=== PATIENT | female | born 1945 | race Hispanic/Latino ===

== ENCOUNTER 2017-03-14 15:19 | Inpatient (IN) | payer MEDICARE, BC ==
[2017-03-14 15:20] VITALS: BMI 22.3
[2017-03-14 16:04] LABS: BASO # 0.03 K/mm3 (0.0-2.0); BASO % 0.2 % (0.0-3.0); GRAN # 15.15 (1.4-6.5); GRAN % 95.4 % (50.0-68.0); HEMATOCRIT 33.8 % (36.0-48.0); LYMPH # 0.6 (1.2-3.4); LYMPH % 3.7 % (22.0-35.0); MEAN CORPUSCULAR HEMOGLOBIN 28.2 pg (25.0-35.0); MEAN CORPUSCULAR HGB CONC 34.3 g/dl (31.0-37.0); MEAN PLATELET VOLUME 9.2 fl (7.0-11.0); MONO # 0.1 (0.1-0.6); MONO % 0.7 % (1.0-6.0); PLATELET COUNT 125 10^3/uL (120.0-450.0); RED CELL DISTRIBUTION WIDTH 15.4 % (11.5-14.5); WHITE BLOOD COUNT 15.9 10^3/ul (4.5-11.0)
[2017-03-14 16:06] LABS: VENOUS BLOOD GAS BASE EXCESS 1.7 mmol/L (0.0-2.0); VENOUS BLOOD PH 7.39 (7.32-7.43)
[2017-03-14] MEDS ORDERED: Piperacillin/Tazobact 3.375 gm 100 ML IVPB STA (16:21)
[2017-03-14 16:23] LABS: INR 1.45 (0.93-1.08); PARTIAL THROMBOPLASTIN TIME 43.5 Seconds (25.1-36.5)
[2017-03-14 16:26] LABS: ALB/GLOB RATIO 0.8 (1.1-1.8); BILIRUBIN,TOTAL 0.9 mg/dL (0.2-1.3); CALCIUM 7.1 mg/dL (8.4-10.5); MAGNESIUM 1.7 mg/dL (1.7-2.2); PHOSPHOROUS 4.3 mg/dL (2.5-4.5); POTASSIUM 3.3 mmol/L (3.6-5.0); TOTAL PROTEIN 5.8 g/dL (5.8-8.3)
--- NOTE | 2017-03-14 16:35 | ED PDOC ---
Arrival/HPI <AmarilisSergeiNeal - Last Filed: 03/14/17 17:10> - General Historian: Patient <Chen Lara PA-C - Last Filed: 03/15/17 01:22> - General Chief Complaint: Weakness/Neurological Deficit Time Seen by Provider: 03/14/17 15:31 - History of Present Illness Narrative History of Present Illness (Text): 03/14/17 16:47 71 yo F w/ PMH of HTN, hypothyroid, lung cancer, recently finished chemo and radiation, was just d/c from rehab on 03/08/17, brought in by family for evaluation of weakness, decrease in appetite, cough that started today with 2 week h/o diarrhea. Otherwise: (-) chest pain, (-) fever, (-) dyspnea, (-) SOB, ( -) dizziness, (-) syncope, (-) nausea, (-) vomiting, (-) abdominal pain, (-) calf swelling/pain, (-) neuro deficits. PMD Marissa Fang (Chen Lara PA-C) Past Medical History - Provider Review Nursing Documentation Reviewed: Yes - Infectious Disease Hx of Infectious Diseases: None - Reproductive Currently : No - Cardiac Hx Congestive Heart Failure: Yes - Pulmonary Hx Chronic Obstructive Pulmonary Disease (COPD): Yes - Neurological Hx Neurological Disorder: Yes - HEENT Hx HEENT Disorder: No - Renal Hx Renal Disorder: No - Endocrine/Metabolic Hx Endocrine Disorders: No - Hematological/Oncological Hx Blood Disorders: No - Integumentary Hx Dermatological Disorder: No - Musculoskeletal/Rheumatological Hx Musculoskeletal Disorders: No Hx Falls: No - Gastrointestinal Hx Gastrointestinal Disorders: No - Genitourinary/Gynecological Hx Genitourinary Disorders: No - Psychiatric Hx Psychophysiologic Disorder: No Hx Substance Use: No - Surgical History Hx Coronary Stent: Yes - Anesthesia Hx Anesthesia: Yes Hx Anesthesia Reactions: No Hx Malignant Hyperthermia: No <Chen Lara PA-C - Last Filed: 03/15/17 01:22> Family/Social History - Physician Review Nursing Documentation Reviewed: Yes Family/Social History: Unknown Family HX Smoking Status: Former Smoker Hx Alcohol Use: No Hx Substance Use: No <Chen Lara PA-C - Last Filed: 03/15/17 01:22> Allergies/Home Meds <Neal Olmos - Last Filed: 03/14/17 17:10> <Chen Lara PA-C - Last Filed: 03/15/17 01:22> Allergies/Adverse Reactions: Allergies No Known Allergies Allergy (Verified 03/14/17 15:29) Home Medications: Home Meds Medication Instructions Recorded Confirmed Alectinib HCl [Alecensa] 450 mg PO BID 02/02/17 03/14/17 Amlodipine Besylate/Benazepril 1 cap PO DAILY 02/08/17 03/14/17 [Lotrel 10-20 mg Capsule] ALPRAZolam [Xanax] 0.25 mg PO DAILY 03/14/17 03/14/17 Fluconazole [Diflucan] 200 mg PO DAILY 03/14/17 03/14/17 Furosemide [Lasix] 40 mg PO DAILY 03/14/17 03/14/17 Nystatin [Mycostatin Cream] 100,000 unit TOP DAILY 03/14/17 03/14/17 Potassium Chloride in 0.9%NaCl 20 meq PO DAILY 03/14/17 03/14/17 [Potassium Cl 20 Meq/250 ml-Ns] Prednisone 10 mg PO DAILY 03/14/17 03/14/17 Review of Systems - Review of Systems Constitutional: Fatigue. absent: Weight Change, Fevers ENT: absent: Sore Throat, Rhinorrhea, Sinus Congestion Respiratory: Cough. absent: SOB, Sputum Cardiovascular: absent: Chest Pain, Palpitations, Edema Gastrointestinal: Diarrhea, Appetite Changes. absent: Abdominal Pain, Vomiting Genitourinary Female: absent: Dysuria, Frequency, Hematuria Skin: absent: Rash, Pruritis, Skin Lesions <Chen Lara PA-C - Last Filed: 03/15/17 01:22> Physical Exam <Neal Olmos - Last Filed: 03/14/17 17:10> <Chen Lara PA-C - Last Filed: 03/15/17 01:22> - Physical Exam Narrative Physical Exam (Text): 03/14/17 16:53 GENERAL APPEARANCE: Patient is awake, alert, oriented x 3, cachectic, pale in appearance, in mild distress. SKIN: Warm, dry; (-) cyanosis. EYES: (-) conjunctival pallor. ENMT: Mucous membranes dry. NECK: (-) tenderness, (-) stiffness, (-) lymphadenopathy, (-) JVD. CHEST AND RESPIRATORY: (-) rash, (-) chest wall tenderness. Lungs: (+) rales , (+) scattered rhonchi, (-) wheezes, (-) rub; breath sounds equal bilaterally. HEART AND CARDIOVASCULAR: (-) irregularity; (-) murmur, (-) gallop, (-) rub. ABDOMEN AND GI: Soft; (-) distention, (-) tenderness, (-) palpable pulsatile mass. EXTREMITIES: (-) deformity; (-) edema, (-) calf tenderness. (+) distal pulses. NEURO AND PSYCH: Mental status as above. Cranial nerves grossly intact; strength symmetric. (Chen Lara PA-C) Vital Signs Temp Pulse Resp BP Pulse Ox 03/14/17 18:00 97.7 F 97 H 16 123/55 L 94 L 03/14/17 17:34 97.7 F 102 H 22 126/57 L 92 L 03/14/17 16:56 148/83 03/14/17 16:53 97.7 F 103 H 22 148/83 95 03/14/17 15:42 100 F H 116 H 22 105/63 100 03/14/17 15:26 120 H 28 H 78/55 L Medical Decision Making <Neal Olmos - Last Filed: 03/14/17 17:10> <Chen Lara PA-C - Last Filed: 03/15/17 01:22> ED Course and Treatment: 03/14/17 16:35 71 yo F w/ PMH of HTN, hypothyroid, lung cancer, recently finished chemo and radiation, was just d/c from rehab on 03/08/17, brought in by family for evaluation of weakness, decrease in appetite, cough that started today with 2 week h/o diarrhea. Plan: -- Labs -- IV fluids bolus -- Urinalysis -- EKG -- CXR -- Reassess and disposition EKG : Sinus tach at 119 bpm, LAD, w/ PACs (-) acute ST changes. CXR : +pneumonia noted in the R side. Labs reviewed : wbc 15, bun 45 / creat 1.3, NA 119, BNP 2700, lactic acid 4.9 - code sepsis called. CXR reviewed, zosyn IV ordered. Case d/w Dr. Ann, agrees with plan for admission and with consult to the application development specialist. Request consults with Dr. Worrell and Dr. Barnes. VS : T 100 P 116 BP 105/63 R 22 O2sat 100%on NC Case d/w the application development specialist Dr. Montelongo, agrees for admission to ICU. (Marco ROJAS,Chen Enriquez) - Lab Interpretations Lab Results: 03/14/17 15:45 03/14/17 15:45 Lab Results 03/14/17 15:45: Sodium 119 L*, Chloride 79 L, Potassium 3.3 L, Carbon Dioxide 26 , Anion Gap 17, BUN 45 H, Creatinine 1.3 H, Est GFR ( Amer) 49, Est GFR ( Non-Af Amer) 41, Random Glucose 138 H, Calcium 7.1 L, Phosphorus 4.3, Magnesium 1.7, Total Bilirubin 0.9, AST 33, ALT 30, Alkaline Phosphatase 214 H D, NT-Pro- B Natriuret Pep 2710 H, Total Protein 5.8, Albumin 2.6 L, Globulin 3.2, Albumin/ Globulin Ratio 0.8 L 03/14/17 15:45: pO2 31, VBG pH 7.39, VBG pCO2 45.0, VBG HCO3 27.2, VBG Total CO2 28.6 H, VBG O2 Sat (Calc) 66.2 H, VBG Base Excess 1.7, VBG Potassium 3.4 L, Sodium 121.0 L, Chloride 81.0 L, Glucose 142 H, Lactate 4.9 H*, FiO2 21.0, Venous Blood Potassium 3.4 L 03/14/17 15:45: PT 15.9 H, INR 1.45 H, APTT 43.5 H 03/14/17 15:45: WBC 15.9 H, RBC 4.12, Hgb 11.6 L, Hct 33.8 L, MCV 82.0, MCH 28.2 , MCHC 34.3, RDW 15.4 H, Plt Count 125, MPV 9.2, Gran % 95.4 H, Lymph % (Auto) 3.7 L, Butler % (Auto) 0.7 L, Eos % (Auto) 0.0 L, Baso % (Auto) 0.2, Gran # 15.15 H, Lymph # 0.6 L, Butler # 0.1, Eos # 0.0, Baso # 0.03, Neutrophils % (Manual) 93 H, Band Neutrophils % 3 H, Lymphocytes % (Manual) 4 L, Monocytes % (Manual) TEST NOT PERFORMED, Toxic Granulation 2+, Platelet Evaluation Normal, Hypochromasia 2+, Anisocytosis (manual) 2+, Target Cells 1+, Rouleaux 2+ - RAD Interpretation Radiology Orders: 03/14/17 15:44 CHEST PORTABLE [RAD] Stat - Medication Orders Current Medication Orders: Al Hydrox/Mg Hydrox/Simethicone 30 ml/Diphenhydramine HCl 75 mg/Lidocaine 30 ml 0 ml PO Q2H PRN PRN Reason: Mouth/Throat Pain Heparin Sodium (Porcine) (Heparin) 5,000 units SC Q8H [facility] PRN Reason: Protocol Last Admin: 03/14/17 20:38 Dose: 5,000 units Subcutaneous Administrations Document 03/14/17 20:38 KGD (Rec: 03/14/17 20:38 KGD [id number]) Injection Site MAR Injection Site Right Abdomen Charges for Administration # of Subcutaneous Administrations 1 Hydrocortisone Sodium Succinate (Solu-Cortef) 50 mg IVP Q8H [facility] Last Admin: 03/14/17 20:39 Dose: 50 mg IVP Administration Document 03/14/17 20:39 KGD (Rec: 03/14/17 20:39 KGD [id number]) Charges for Administration # of IVP Administrations 1 Sodium Chloride (Sodium Chloride 0.9%) 1,000 mls @ 100 mls/hr IV .Q10H [facility] Last Admin: 03/14/17 20:39 Dose: 100 mls/hr eMAR Start Stop Document 03/14/17 20:39 KGD (Rec: 03/14/17 20:39 KGD [id number]) Intravenous Solution Start Date 03/14/17 Start Time 20:39 Meropenem (Merrem Iv 1 Gm Premix) 50 mls @ 100 mls/hr IVPB Q12 [facility] PRN Reason: Protocol Stop: 03/21/17 22:31 Last Admin: 03/14/17 23:35 Dose: 100 mls/hr eMAR Start Stop Document 03/14/17 23:35 KGD (Rec: 03/14/17 23:35 KGD [id number]) Intravenous Solution Start Date 03/14/17 Start Time 23:35 Linezolid (Zyvox 600mg/300ml D5w) 600 mg in 300 mls @ 200 mls/hr IVPB Q12 [facility] PRN Reason: Protocol Stop: 03/21/17 22:31 Last Admin: 03/14/17 23:33 Dose: 200 mls/hr eMAR Start Stop Document 03/14/17 23:33 KGD (Rec: 03/14/17 23:33 KGD [id number]) Intravenous Solution Start Date 03/14/17 Start Time 23:33 Nystatin (Nystatin Oral Susp) 5 ml PO QID [facility] Last Admin: 03/14/17 23:33 Dose: 5 ml Ondansetron HCl (Zofran Inj) 4 mg IVP Q6H PRN PRN Reason: Nausea/Vomiting Pantoprazole Sodium (Protonix Inj) 40 mg IVP DAILY [facility] Last Admin: 03/14/17 20:38 Dose: 40 mg IVP Administration Document 03/14/17 20:38 KGD (Rec: 03/14/17 20:38 KGD [id number]) Charges for Administration # of IVP Administrations 1 Discontinued Medications Furosemide (Lasix) 20 mg IVP STAT STA Stop: 03/14/17 16:31 Last Admin: 03/14/17 16:56 Dose: 20 mg MAR Blood Pressure Document 03/14/17 16:56 OCS (Rec: 03/14/17 16:56 OCS [id number]) Blood Pressure Blood Pressure (100/60-150/90) 148/83 IVP Administration Document 03/14/17 16:56 OCS (Rec: 03/14/17 16:56 OCS [id number]) Charges for Administration # of IVP Administrations 1 Furosemide (Lasix) 20 mg IVP ONCE ONE Stop: 03/14/17 21:48 Last Admin: 03/14/17 21:55 Dose: 20 mg MAR Blood Pressure Document 03/14/17 21:55 JBO (Rec: 03/14/17 21:56 JBO [id number]) Blood Pressure Blood Pressure (100/60-150/90) 120/62 IVP Administration Document 03/14/17 21:55 JBO (Rec: 03/14/17 21:56 JBO [email or web address]) Charges for Administration # of IVP Administrations 1 Lactated Ringer's 1,300 ml/ IV (SUPPLIES) 1,300 mls @ 2,721.54 mls/hr IV ONCE ONE PRN Reason: 60 ML/KG/HR Stop: 03/14/17 15:49 Last Admin: 03/14/17 15:58 Dose: 2,721.54 mls/hr eMAR Start Stop Document 03/14/17 15:58 OCS (Rec: 03/14/17 15:59 OCS [id number]) Intravenous Solution Start Date 03/14/17 Start Time 15:58 End Date 03/14/17 End time 16:28 Total Infusion Time 30 Sodium Chloride 1,000 ml/ IV (SUPPLIES) 1,000 mls @ 2,721.54 mls/hr IV ONCE ONE PRN Reason: 60 ML/KG/HR Stop: 03/14/17 16:12 Last Admin: 03/14/17 16:27 Dose: 2,721.54 mls/hr eMAR Start Stop Document 03/14/17 16:27 OCS (Rec: 03/14/17 16:28 OCS [id number]) Intravenous Solution Start Date 03/14/17 Start Time 16:27 End Date 03/14/17 End time 16:57 Total Infusion Time 30 Piperacillin Sod/Tazobactam Sod (Zosyn 3.375 In Ns 100ml) 100 mls @ 200 mls/hr IVPB STAT STA PRN Reason: Protocol Stop: 03/14/17 16:50 Last Admin: 03/14/17 16:35 Dose: 200 mls/hr eMAR Start Stop Document 03/14/17 16:35 OCS (Rec: 03/14/17 16:35 OCS [id number]) Intravenous Solution Start Date 03/14/17 Start Time 16:35 End Date 03/14/17 End time 17:05 Total Infusion Time 30 Potassium Chloride (Potassium Chloride 20 Meq/100 Ml) 20 meq in 100 mls @ 50 mls/hr IVPB Q2H [facility] Stop: 03/14/17 21:29 Last Admin: 03/14/17 17:43 Dose: 50 mls/hr eMAR Start Stop Document 03/14/17 17:43 OCS (Rec: 03/14/17 17:43 OCS [id number]) Intravenous Solution Start Date 03/14/17 Start Time 17:43 End Date 03/14/17 End time 19:43 Total Infusion Time 120 Lactated Ringer's (Lactated Ringer's) 1,000 mls @ 2,000 mls/hr IV .Q30M [facility] Last Admin: 03/14/17 17:30 Dose: 2,000 mls/hr eMAR Start Stop Document 03/14/17 17:30 OCS (Rec: 03/14/17 17:30 OCS [id number]) Intravenous Solution Start Date 03/14/17 Start Time 17:30 End Date 03/14/17 End time 18:00 Total Infusion Time 30 Piperacillin Sod/Tazobactam Sod (Zosyn 2.25 Gm In 0.9% 100 Ml) 2.25 gm in 100 mls @ 100 mls/hr IVPB Q6 [facility] PRN Reason: Protocol Stop: 03/15/17 00:59 Last Admin: 03/14/17 20:43 Dose: 100 mls/hr eMAR Start Stop Document 03/14/17 20:43 KGD (Rec: 03/14/17 20:43 KGD [id number]) Intravenous Solution Start Date 03/14/17 Start Time 20:43 Vancomycin HCl (Vancomycin 1gm) 1 gm in 250 mls @ 167 mls/hr IVPB STAT STA PRN Reason: Protocol Stop: 03/14/17 18:51 Last Admin: 03/14/17 18:00 Dose: 167 mls/hr eMAR Start Stop Document 03/14/17 18:00 OCS (Rec: 03/14/17 18:00 OCS [id number]) Intravenous Solution Start Date 03/14/17 Start Time 18:00 End Date 03/14/17 End time 19:30 Total Infusion Time 90 Sodium Chloride (Sodium Chloride 0.9%) 1,000 mls @ 200 mls/hr IV .Q5H [facility] Last Admin: 03/14/17 17:29 Dose: 200 mls/hr eMAR Start Stop Document 03/14/17 17:29 OCS (Rec: 03/14/17 17:29 OCS [id number]) Intravenous Solution Start Date 03/14/17 Start Time 17:29 End Date 03/14/17 End time 21:29 Total Infusion Time 240 Potassium Chloride (Potassium Chloride 10 Meq/100 Ml) 10 meq in 100 mls @ 50 mls/hr IVPB ONCE ONE Stop: 03/14/17 22:07 Last Admin: 03/14/17 20:37 Dose: 50 mls/hr eMAR Start Stop Document 03/14/17 20:37 KGD (Rec: 03/14/17 20:38 KGD [id number]) Intravenous Solution Start Date 03/14/17 Start Time 20:38 Potassium Chloride (Potassium Chloride 10 Meq/100 Ml) 10 meq in 100 mls @ 50 mls/hr IVPB ONCE ONE Stop: 03/14/17 23:58 Last Admin: 03/14/17 23:33 Dose: 50 mls/hr eMAR Start Stop Document 03/14/17 23:33 KGD (Rec: 03/14/17 23:33 KGD [id number]) Intravenous Solution Start Date 03/14/17 Start Time 23:33 Potassium Chloride (K-Dur 20 Meq Er Tab) 20 meq PO ONCE ONE Stop: 03/14/17 20:09 Last Admin: 03/14/17 20:38 Dose: Not Given Non-Admin Reason: Patient Refused - PA / COOKING APPLIANCE REPAIR TECHNICIAN / Resident Statement BRE has examined the patient and agrees with the treatment plan. <Neal Olmos - Last Filed: 03/14/17 17:10> - PA / COOKING APPLIANCE REPAIR TECHNICIAN / Resident Statement BRE has reviewed & agrees with the documentation as recorded. <Chen Lara PA-C - Last Filed: 03/15/17 01:22> Disposition/Present on Arrival <Neal Olmos - Last Filed: 03/14/17 17:10> - Present on Arrival Any Indicators Present on Arrival: No History of DVT/PE: No History of Uncontrolled Diabetes: No Urinary Catheter: No History of Decub. Ulcer: No History Surgical Site Infection Following: None - Disposition Have Diagnosis and Disposition been Completed?: Yes Disposition Time: 16:34 Patient Plan: ICU <Chen Lara PA-C - Last Filed: 03/15/17 01:22> - Disposition Diagnosis: Dehydration, Sepsis, Pneumonia, Hyponatremia Disposition: HOSPITALIZED Patient Problems: Current Active Problems Problem Status Onset Dehydration Acute Hyponatremia Acute Pneumonia Acute Sepsis Acute Condition: SERIOUS
[2017-03-14 17:15] LABS: ANISOCYTOSIS 2+; BAND 3 % (0-2); HYPOCHROMIA 2+; NEUTROPHIL 93 % (50.0-70.0); PLATELET ESTIMATE NORMAL (NORMAL); TARGET CELLS 1+; TOXIC GRANULATION 2+
[2017-03-14] MEDS ORDERED: Lactated Ringer's 1,000 ML IV SCH (17:30)
[2017-03-14] MEDS ORDERED: Sodium Chloride 0.9% 1,000 ML IV SCH ×2 (17:30→19:26)
[2017-03-14] MEDS: Vancomycin 1gm in NS 250ml 1 GM/250 ML BAG IVPB STA ×2 (17:49→18:00)
--- NOTE | 2017-03-14 19:13 | CT ---
PROCEDURE: CT Chest, Abdomen and Pelvis without intravenous contrast HISTORY: colitis COMPARISON: None. TECHNIQUE: Radiation dose: Total exam DLP = 371.28 mGy-cm. This CT exam was performed using one or more of the following dose reduction techniques: Automated exposure control, adjustment of the mA and/or kV according to patient size, and/or use of iterative reconstruction technique. FINDINGS: CT CHEST WITHOUT CONTRAST: LUNGS: Current study reveals near complete opacification of the entire right nayeli thorax with areas of what are felt to represent cylindrical, varicose and cystic bronchiectasis. There appears to be an endobronchial stent in the distal right main and lower lobe bronchus. Scattered calcifications are also present of. . There is some sparing of the anterior aspect of the upper lobe. The possibility of superimposed infection not excluded. There is volume loss of the right nayeli thorax with shift of the mediastinum from left to right and compensatory hyperinflation of the left lung. . Centrilobular emphysematous changes left upper lobe predominance. Multiple of varying sized nodular opacities are seen scattered throughout the left upper and lower lobes. Rule out septic emboli with developing infiltrates. Clinical correlation recommended. MEDIASTINUM: As mentioned above, the mediastinal is shifted to the right side. The heart is mildly enlarged. No significant pericardial effusion. Evaluation for mediastinal and hilar adenopathy is limited particularly on the right side due to the significant atelectasis of as well as additionally due to lack of intravenous contrast material. LYMPH NODES: As above. PLEURA: No evidence of pneumothorax. No definitive pleural effusion. BONES: Multilevel degenerative spondylosis of the thoracic and lumbar spine. There is also a mild dextroscoliosis levoscoliosis centered at T11-T12 level. OTHER FINDINGS: None. CT ABDOMEN AND PELVIS: LIVER: Liver is enlarged measuring nearly 20 cm in CC dimension. Significant diffuse fatty hepatic infiltration. No obvious hepatic mass or collection seen on this noncontrast study. GALLBLADDER AND BILE DUCTS: Gallbladder is physiologically distended. No evidence of intraluminal gallbladder calculi. PANCREAS: Visualized portions of the pancreas appears somewhat atrophic and fatty replaced. No definitive pancreatic mass or collection though evaluation somewhat limited due to the lack of oral and intravenous contrast material as well as a paucity of intraperitoneal/retroperitoneal fat an streak and beam hardening artifact. SPLEEN: Spleen exhibits normal size and attenuation pattern without mass collection or calcification. Splenic artery calcifications. 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 ADRENALS: Enlarged bilateral adrenal glands. KIDNEYS AND URETERS: The kidneys demonstrate relatively symmetric size. No evidence of nephrolithiasis or hydronephrosis. VASCULATURE: Partially calcified atherosclerotic plaque seen along abdominal aorta and iliac arteries. No evidence of aneurysm. BOWEL: Evaluation of the bowel is limited due to the lack of oral contrast material. Stomach is partially distended fluid and air. The visualized loops of small bowel exhibit normal contour and caliber. No evidence of acute mechanical small bowel obstruction. . . There appears to be some mild wall thickening of the inferior aspect of the cecum with questionable anastomotic suture material. In addition, there also appears to be some wall thickening of the sigmoid and possibly the distal descending colon. Findings could represent a colitis. Clinical correlation recommended. Must be at considered. Most of the remaining colon is relatively collapsed and therefore difficult to evaluate. APPENDIX: Appendix is not seen with certainty. PERITONEUM: No gross free and probably air. No obvious free or loculated fluid collections. . Small umbilical/ventral wall hernia which contains a knuckle of unobstructed bowel. LYMPH NODES: Unremarkable. No enlarged lymph nodes. BLADDER: Urinary bladder the is likely distended. No evidence of intraluminal urinary bladder calculi. REPRODUCTIVE: Uterus and adnexal structures unremarkable. BONES: No acute fracture. OTHER FINDINGS: None. IMPRESSION: There is subtotal opacification of the right nayeli thorax consistent with chronic atelectasis and volume loss with underlying apparent cylindrical varicose and cystic type bronchiectasis. In situ extent of within the distal right mainstem bronchus and proximal right lower lobe bronchus. There is volume loss with shift of the mediastinum from left to right and compensatory hyperinflation of the left lung. Multiple nodular opacities scattered throughout the left upper and lower lobe which could represent septic emboli. . Findings also consistent with colitis. Hepatomegaly with significant fatty hepatic infiltration. Note these findings were discussed with ICU Nurse Reyna Kaplan at approximately 7 p.m. with written down and read back verification.
[2017-03-14 19:48] LABS: HEMATOCRIT 33.1 % (36.0-48.0); MEAN CELL VOLUME 83.2 fl (80.0-105.0); MEAN CORPUSCULAR HEMOGLOBIN 28.6 pg (25.0-35.0); MEAN CORPUSCULAR HGB CONC 34.4 g/dl (31.0-37.0); RED CELL DISTRIBUTION WIDTH 15.5 % (11.5-14.5); WHITE BLOOD COUNT 14.7 10^3/ul (4.5-11.0)
[2017-03-14 19:56] LABS: VENOUS BLOOD PH 7.35 (7.32-7.43)
[2017-03-14] MEDS ORDERED: Piperacillin/Tazobact 2.25gm 2.25 GM/100 ML BAG IVPB SCH (20:00)
[2017-03-14] MEDS ORDERED: Potassium Chloride 20 mEq ER Tab PO ONE (20:08)
[2017-03-14 20:09] LABS: ALB/GLOB RATIO 0.8 (1.1-1.8); ALKALINE PHOSPHATASE 189 U/L (38-126); ALT/SGPT 27 U/L (7-56); AST/SGOT 30 U/L (14-36); BILIRUBIN,TOTAL 0.8 mg/dL (0.2-1.3); BLOOD UREA NITROGEN 36 mg/dL (7-21); CALCIUM 6.6 mg/dL (8.4-10.5); CARBON DIOXIDE 19 mmol/L (21-33); CHLORIDE 87 mmol/L (98-107); GFR AFRICAN-AMERICAN > 60; GLUCOSE,RANDOM 107 mg/dL (70-110); POTASSIUM 3.2 mmol/L (3.6-5.0); SODIUM 120 mmol/L (132-148)
[2017-03-14 20:44] LABS: URINE BILIRUBIN NEGATIVE (NEGATIVE); URINE BLOOD TRACE-LYSED (NEGATIVE); URINE GLUCOSE (UA) NEGATIVE (NEGATIVE); URINE KETONE NEGATIVE (NEGATIVE); URINE LEUKOCYTE ESTERASE NEGATIVE Leu/uL (NEGATIVE); URINE PROTEIN NEGATIVE mg/dL (<30 mg/dL); URINE UROBILINOGEN 0.2 E.U./dL (<1 E.U./dL)
[2017-03-14 20:45] LABS: URINE APPEARANCE CLEAR (CLEAR); URINE COLOR YELLOW (YELLOW)
[2017-03-14 20:47] LABS: URINE RBC 0 - 2 /hpf (0-2)
--- NOTE | 2017-03-14 22:11 | PCM.SEPTIC ---
Sepsis Progress Note - Reassessment Type Date of Evaluation: 03/14/17 Time of Evaluation: 22:10 Reassessment Type: Non-invasive reassessment - Non Invasive Reassessment Were the most recent vital sign reviewed: Yes Vital Sign (Latest): Temp Pulse Resp BP Pulse Ox 97.7 F 97 H 16 120/62 94 L 03/14/17 18:00 03/14/17 18:00 03/14/17 18:00 03/14/17 21:55 03/14/17 18:00 Cardiovascular: Yes: Regular Rate, Rhythm. No: Edema, Tachycardia Respiratory: Yes: Decreased Breath Sounds (at R lung base), Crackles ( bilaterally ). No: Rhonchi, Wheezing, Respiratory Distress Capillary Refill: Normal (Less than 2 sec) Skin: Normal Color, Warm, Dry
[2017-03-14] MEDS: Nystatin 100,000 Units/ml Oral Susp 5 ml UD PO SCH (23:33)
[2017-03-14] MEDS: Linezolid 600 mg in D5W 300 ml 600 MG/300 ML BAG IVPB SCH (23:33)
[2017-03-14] MEDS: Meropenem IV 1 gm in NS 50 ML IVPB SCH (23:35)
--- NOTE | 2017-03-15 04:54 | CON ---
DATE: 03/14/2017 ADDENDUM SOCIAL HISTORY: The patient is an ex-smoker. FAMILY HISTORY: Noncontributory. ALLERGIES: NKDA. MEDICATIONS: Alectinib, Xanax, Nystatin, Lasix, amlodipine, benazepril, prednisone 10 mg daily, Diflucan, and potassium supplementation. REVIEW OF SYSTEM: Review of 12-organ systems other than mentioned in the history of present illness is negative. PHYSICAL EXAMINATION VITAL SIGNS: Blood pressure initially is 78/55, heart rate 120, temperature T max 100, , oxygen saturation 100% on room air. HEENT: Head and neck atraumatic. Mucosal membranes are dry. LUNGS: Decreased breath sounds on the right side. Few crackles on the right side as well. ABDOMEN: Soft, mildly tender diffusely but no peritoneal signs. SKIN: Dry. PSYCH: The patient is alert and awake, look anxious. LABORATORY DATA: WBC 15.9, hemoglobin 11.6, platelet count 125. Sodium 119, potassium 3.3, chloride 79, BUN 45, creatinine 1.3, AST 33, ALT 30, alkaline phosphatase 214. ProBNP 2710, albumin 2.6. INR 1.45. PTT 43.5. Blood gas showed lactic acid 4.9, pH 7.39, 2 liters of Lactated Ringer was given in Emergency Room. ASSESSMENT AND PLAN: This 71-year-old lady with history of lung cancer, radiation therapy about 2 weeks ago and ensuing mucositis and diarrhea shortly after that. The patient continued to deteriorate since then and currently in hypovolemic shock. The patient has hypovolemic hyponatremia and very dehydrated. At present time, we will continue with fluid resuscitation. We will continue with serial CBC and BMP. We will continue with aggressive supplementation of electrolytes. The patient has acute kidney injury most likely secondary to kidney hypoperfusion. We will start the patient on broad-spectrum antibiotic, septic workup was initiated. Procalcitonin, blood culture, and urine culture were ordered. ID consult is pending. We will continue with deep venous thrombosis, gastrointestinal prophylaxis. We will continue to maintain euvolemia, euglycemia, normothermia, and oxygen saturation more than 90%. We will start Zofran p.r.n. to combat nausea and vomiting. The patient will be admitted to ICU for further management and monitoring. ccm time 40 min Evin Montelongo MD [facility] # [id number] ROULA
[2017-03-15 06:16] LABS: HEMATOCRIT 31.1 % (36.0-48.0); MEAN CELL VOLUME 82.5 fl (80.0-105.0); MEAN CORPUSCULAR HEMOGLOBIN 28.1 pg (25.0-35.0); MEAN CORPUSCULAR HGB CONC 34.1 g/dl (31.0-37.0); MEAN PLATELET VOLUME 9.3 fl (7.0-11.0); RED CELL DISTRIBUTION WIDTH 15.8 % (11.5-14.5); WHITE BLOOD COUNT 14.5 10^3/ul (4.5-11.0)
[2017-03-15 07:26] LABS: ALB/GLOB RATIO 0.8 (1.1-1.8); ALKALINE PHOSPHATASE 179 U/L (38-126); ALT/SGPT 25 U/L (7-56); AST/SGOT 26 U/L (14-36); BILIRUBIN,TOTAL 0.9 mg/dL (0.2-1.3); BLOOD UREA NITROGEN 34 mg/dL (7-21); CALCIUM 6.6 mg/dL (8.4-10.5); CARBON DIOXIDE 24 mmol/L (21-33); CHLORIDE 89 mmol/L (98-107); GFR AFRICAN-AMERICAN > 60; GLUCOSE,RANDOM 133 mg/dL (70-110); POTASSIUM 3.6 mmol/L (3.6-5.0); SODIUM 123 mmol/L (132-148)
--- NOTE | 2017-03-15 08:01 | HP ---
HISTORY OF PRESENT ILLNESS: I know Laverne very well. She just at [facility] where I have been seen her there. She was there for shortness of breath. She had lung cancer. She had a history of having a stent placed 3 years ago, about a couple with cancer, she went through radiation and then improved greatly. She was sent home. I understand she did not pick-up any of her medications. Stopped eating and drinking and now she is back in the hospital. I sent her to [facility] at this time. PAST MEDICAL HISTORY: This is a 71-year-old female with lung cancer recently got worse after stent placement in the lung. She had just finished chemo and radiation and discharged from rehab, hypertension, hypothyroidism. She has no appetite. Stopped eating and drinking, very weak, history of CHF, COPD, history of coronary stents also. FAMILY HISTORY: There is hypertension in the family. SOCIAL HISTORY: Former smoker. No alcohol. No drugs. ALLERGIES: NO KNOWN DRUG ALLERGIES. MEDICATIONS: She was taking alectinib, Lotrel, Xanax, Diflucan, Lasix, Mycostatin cream, potassium, prednisone. She also has thrush and diarrhea. We have to check her stool for C. diff. REVIEW OF SYSTEMS: She is very weak, lethargic, fatigued, sore throat. She tells me that thrush is back she has had it before, she knows. She is coughing. She is short of breath. No chest pain or palpitations. Having diarrhea. No appetite at all. No nausea or vomiting. Extremities are weak. No swelling. A little anxious, not depressed. No sweating. No problems with urinating. No apparent skin lesions or ulcers. PHYSICAL EXAMINATION GENERAL: She is alert, very weak, thin, frail, and from the last time I saw her 2 weeks ago, she must lost 10 pounds. She is very cachectic, very dehydrated. VITAL SIGNS: She has a 100 temperature, 120 pulse, 28 respiratory rate, 78/55 blood pressure, 95% O2 sat. SKIN: Warm, poor turgor. HEENT: Extraocular muscles are intact. Throat is completely dry. NECK: Supple. LUNGS: Decreased breath sounds, rales, scattered rhonchi, poor inspiration right worse than left. HEART: Regular rate. ABDOMEN: Soft, scaphoid. No palpable masses. No guarding. No rebound. No CVA tenderness. EXTREMITIES: No edema. NEUROLOGIC: She is alert. She is nervous. Cranial nerves II to XII grossly intact. GCS is 15. LABORATORY DATA: She had multiple other issues going on. She had a test done showed a 1.45 INR, lactate is 4.9 very high. Chemistries; she has a 119 sodium very low, potassium low 3.3, replaced, BUN 45, creatinine 1.3 very dehydrated, GFR is 41, sugars 138, calcium is 7.1, magnesium 1.7, total bili is 0.9, AST is 33, ALT is 30, alk phos 214. BNP is 2710, it is quite high, she looks dehydrated, total protein 5.8. She has a 15.9 white count, I think she is also septic, 11.6 hemoglobin, 30.8 hematocrit with 125 platelets. She has a CAT scan of the chest, abdomen and pelvis which is pending. Chest x-ray which is pending. She is here for dehydration, low potassium, low sodium, lung cancer history, just finished radiation, congestive heart failure, thrush, diarrhea, and sepsis. We will consult Infectious Disease, Renal, Cardiology, she is to be going to be intensive care unit, on Zosyn, Zofran, vancomycin, Solu-Cortef, nystatin swish and swallow. Check her stools for C. diff and labs tomorrow. Bennie Ann DO MTDD
--- NOTE | 2017-03-15 08:05 | CON ---
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 The patient did not have any appetite. The patient also has some mild abdominal pain. She had a diarrhea for about 2 weeks. XRT was done shortly before diarrhea started. No fever, no chills. No chest pain, no shortness of breath. PAST MEDICAL HISTORY: Lung cancer, hypertension, hypothyroidism to be cont Evin Montelongo MD MTDSage
[2017-03-15] MEDS ORDERED: Albuterol-Ipratrop 3 mg / 0.5 (3 ml) UD IH PRN (08:28)
--- NOTE | 2017-03-15 08:48 | RAD ---
HISTORY: Sepsis Patient COMPARISON: CT chest from 03/14/2017. FINDINGS: LUNGS: There is low lung volume on the right with near complete patchy opacification and crowding of right-sided ribs. The left lung is well inflated and clear. An endobronchial stent remains in place. PLEURA: No significant pleural effusion identified, no pneumothorax apparent. CARDIOVASCULAR: Normal. OSSEOUS STRUCTURES: No significant abnormalities. VISUALIZED UPPER ABDOMEN: Normal. OTHER FINDINGS: None. IMPRESSION: Low lung volume on the right with chronic fibrotic changes. Clear left lung.
[2017-03-15] MEDS: Meropenem IV 1 gm in NS 50 ML IVPB SCH ×2 (09:05→22:36)
[2017-03-15] MEDS: Linezolid 600 mg in D5W 300 ml 600 MG/300 ML BAG IVPB SCH ×2 (09:07→22:37)
[2017-03-15] MEDS: Nystatin 100,000 Units/ml Oral Susp 5 ml UD PO SCH ×4 (09:07→22:37)
[2017-03-15] MEDS ORDERED: Potassium Chloride 20 mEq ER Tab PO ONE (09:23)
--- NOTE | 2017-03-15 10:03 | CP.CCUPN ---
<MickieKulwinder - Last Filed: 03/15/17 12:58> CCU Subjective - Physician Review Subjective (Free Text): Critical Care Progress Note for Dr. Tarango Patient seen and examined at bedside. Patient was experiencing shortness of breath so iv fluids were stopped and lasix was given. Patient breathing improved slightly. This morning, she is comfortable but still complaining of mild shortness of breath. She also states that he ulcers in her mouth are preventing her from eating/drinking much. She admits to still having diarrhea. Patient also feeling weak. CCU Objective - Vital Signs / Intake & Output Intake and Output (Last 8hrs): Intake & Output 03/14/17 03/15/17 03/15/17 22:59 06:59 14:59 Intake Total 550 Output Total 355 Balance 195 Weight 109 lb Intake: IV 550 Right Antecubital 550 Output: Urine 355 Urethral ([place]or[place]) 355 Other: Voiding Method Incontinent - Physical Exam Head: Positive for: Atraumatic, Normocephalic Pupils: Positive for: PERRL Extroacular Muscles: Positive for: EOMI Mouth: Positive for: Moist Mucous Membranes Respiratory/Chest: Positive for: Decreased Breath Sounds (right), Rales (right side) Cardiovascular: Positive for: Regular Rate and Rhythm, Normal S1, S2 Abdomen: Positive for: Normal Bowel Sounds. Negative for: Tenderness, Distention, Peritoneal Signs, Rebound, Guarding Upper Extremity: Positive for: Normal ROM, Neurovascularly Intact, Capillary Refill < 2s Lower Extremity: Positive for: Neurovascularly Intact, Capillary Refill < 2 s Neurological: Positive for: GCS=15, CN II-XII Intact, Speech Normal, Motor Func Grossly Intact, Normal Sensory Function Skin: Positive for: Warm, Dry Psychiatric: Positive for: Alert, Oriented x 3, Normal Insight, Normal Concentration - Medications Active Medications: Active Medications Generic Name Dose Route Start Last Admin Trade Name Freq PRN Reason Stop Dose Admin Acetylcysteine 4 ml 03/15/17 14:00 Acetylcysteine 20% IH [id number] HANNAH Albuterol/Ipratropium 3 ml 03/15/17 14:00 Duoneb 3 Mg/0.5 Mg (3 Ml) Ud IH [id number] HANNAH Albuterol/Ipratropium 3 ml 03/15/17 08:28 Duoneb 3 Mg/0.5 Mg (3 Ml) Ud IH Q2H PRN Shortness of Breath Budesonide 0.5 mg 03/15/17 20:00 Pulmicort Respules IH [id number] HANNAH Al Hydrox/Mg Hydrox/ 0 ml 03/14/17 17:47 Simethicone 30 ml/ PO Diphenhydramine HCl 75 mg/ Q2H PRN Lidocaine 30 ml Mouth/Throat Pain Heparin Sodium (Porcine) 5,000 units 03/15/17 02:55 03/15/17 05:57 Heparin SC 5,000 units Q8 HANNAH Administration Protocol Hydrocortisone Sodium Succinate 50 mg 03/14/17 17:45 03/15/17 09:07 Solu-Cortef IVP 50 mg Q8H HANNAH Administration Sodium Chloride 1,000 mls @ 100 mls/hr 03/14/17 19:26 03/14/17 20:39 Sodium Chloride 0.9% IV 100 mls/hr .Q10H HANNAH Administration Meropenem 50 mls @ 100 mls/hr 03/14/17 22:30 03/15/17 09:05 Merrem Iv 1 Gm Premix IVPB 03/21/17 22:31 100 mls/hr Q12 HANNAH Administration Protocol Linezolid 600 mg in 300 mls @ 200 mls/hr 03/14/17 22:30 03/15/17 09:07 Zyvox 600mg/300ml D5w IVPB 03/21/17 22:31 200 mls/hr Q12 HANNAH Administration Protocol Calcium Gluconate 1,000 mg/ 110 mls @ 110 mls/hr 03/15/17 09:57 Dextrose IVPB 03/15/17 10:56 ONCE ONE Nystatin 5 ml 03/14/17 22:00 03/15/17 09:07 Nystatin Oral Susp PO 5 ml QID HANNAH Administration Ondansetron HCl 4 mg 03/14/17 17:34 Zofran Inj IVP Q6H PRN Nausea/Vomiting Pantoprazole Sodium 40 mg 03/14/17 17:45 03/15/17 09:07 Protonix Inj IVP 40 mg DAILY HANNAH Administration - Patient Studies Lab Studies: Lab Studies 03/15/17 03/15/17 03/14/17 Range/Units 05:45 05:45 20:30 WBC 14.5 H (4.5-11.0) 10^3/ul RBC 3.77 (3.5-6.1) 10^6/uL Hgb 10.6 L (12.0-16.0) g/dL Hct 31.1 L (36.0-48.0) % MCV 82.5 (80.0-105.0) fl MCH 28.1 (25.0-35.0) pg MCHC 34.1 (31.0-37.0) g/dl RDW 15.8 H (11.5-14.5) % Plt Count 104 L (120.0-450.0) 10^3/uL MPV 9.3 (7.0-11.0) fl pO2 (30-55) mm/Hg VBG pH (7.32-7.43) VBG pCO2 (40-60) VBG HCO3 (21-28) mmol/l VBG Total CO2 (22-28) mmol.L VBG O2 Sat (Calc) (40-65) % VBG Base Excess (0.0-2.0) mmol/L VBG Potassium (3.6-5.2) mmol/L Sodium 123 L (132-148) mmol/L Chloride 89 L (98-107) mmol/L Glucose (65-105) mg/dl Lactate (0.7-2.1) mmol/L FiO2 % Potassium 3.6 (3.6-5.0) mmol/L Carbon Dioxide 24 (21-33) mmol/L Anion Gap 14 (10-20) BUN 34 H (7-21) mg/dL Creatinine 0.9 (0.7-1.2) mg/dl Est GFR ( Amer) > 60 Est GFR (Non-Af Amer) > 60 Random Glucose 133 H (70-110) mg/dL Calcium 6.6 L* (8.4-10.5) mg/dL Total Bilirubin 0.9 (0.2-1.3) mg/dL AST 26 (14-36) U/L ALT 25 (7-56) U/L Alkaline Phosphatase 179 H (38-126) U/L Total Protein 5.0 L (5.8-8.3) g/dL Albumin 2.2 L (3.0-4.8) g/dL Globulin 2.8 gm/dL Albumin/Globulin Ratio 0.8 L (1.1-1.8) Venous Blood Potassium (3.6-5.2) mmol/L Urine Color Yellow (YELLOW) Urine Appearance Clear (CLEAR) Urine pH 5.0 (4.7-8.0) Ur Specific [place] 1.015 (1.005-1.035) Urine Protein Negative (<30 mg/dL) mg/dL Urine Glucose (UA) Negative (NEGATIVE) mg/dL Urine Ketones Negative (NEGATIVE) mg/dL Urine Blood Trace-lysed H (NEGATIVE) Urine Nitrate Negative (NEGATIVE) Urine Bilirubin Negative (NEGATIVE) Urine Urobilinogen 0.2 (<1 E.U./dL) E.U./dL Ur Leukocyte Esterase Negative (NEGATIVE) Trini/uL Urine RBC 0 - 2 (0-2) /hpf Urine WBC 1 - 3 (0-6) /hpf Ur Epithelial Cells 3 - 4 (0-5) /hpf 03/14/17 03/14/17 03/14/17 Range/Units 19:30 19:30 19:30 WBC 14.7 H (4.5-11.0) 10^3/ul RBC 3.98 (3.5-6.1) 10^6/uL Hgb 11.4 L (12.0-16.0) g/dL Hct 33.1 L (36.0-48.0) % MCV 83.2 (80.0-105.0) fl MCH 28.6 (25.0-35.0) pg MCHC 34.4 (31.0-37.0) g/dl RDW 15.5 H (11.5-14.5) % Plt Count 101 L (120.0-450.0) 10^3/uL MPV 9.0 (7.0-11.0) fl pO2 49 (30-55) mm/Hg VBG pH 7.35 (7.32-7.43) VBG pCO2 43.0 (40-60) VBG HCO3 23.7 (21-28) mmol/l VBG Total CO2 25.0 (22-28) mmol.L VBG O2 Sat (Calc) 84.2 H (40-65) % VBG Base Excess -2.0 L (0.0-2.0) mmol/L VBG Potassium 3.2 L (3.6-5.2) mmol/L Sodium 124.0 L 120 L (132-148) mmol/L Chloride 87.0 L 87 L (98-107) mmol/L Glucose 108 H (65-105) mg/dl Lactate 5.2 H* (0.7-2.1) mmol/L FiO2 21.0 % Potassium 3.2 L (3.6-5.0) mmol/L Carbon Dioxide 19 L (21-33) mmol/L Anion Gap 18 (10-20) BUN 36 H (7-21) mg/dL Creatinine 1.0 (0.7-1.2) mg/dl Est GFR ( Amer) > 60 Est GFR (Non-Af Amer) 55 Random Glucose 107 (70-110) mg/dL Calcium 6.6 L* (8.4-10.5) mg/dL Total Bilirubin 0.8 (0.2-1.3) mg/dL AST 30 (14-36) U/L ALT 27 (7-56) U/L Alkaline Phosphatase 189 H (38-126) U/L Total Protein 5.0 L (5.8-8.3) g/dL Albumin 2.2 L (3.0-4.8) g/dL Globulin 2.8 gm/dL Albumin/Globulin Ratio 0.8 L (1.1-1.8) Venous Blood Potassium 3.2 L (3.6-5.2) mmol/L Urine Color (YELLOW) Urine Appearance (CLEAR) Urine pH (4.7-8.0) Ur Specific [place] (1.005-1.035) Urine Protein (<30 mg/dL) mg/dL Urine Glucose (UA) (NEGATIVE) mg/dL Urine Ketones (NEGATIVE) mg/dL Urine Blood (NEGATIVE) Urine Nitrate (NEGATIVE) Urine Bilirubin (NEGATIVE) Urine Urobilinogen (<1 E.U./dL) E.U./dL Ur Leukocyte Esterase (NEGATIVE) Trini/uL Urine RBC (0-2) /hpf Urine WBC (0-6) /hpf Ur Epithelial Cells (0-5) /hpf Laboratory Results - last 24 hr 03/14/17 03/14/17 03/14/17 19:30 19:30 19:30 WBC 14.7 H RBC 3.98 Hgb 11.4 L Hct 33.1 L MCV 83.2 MCH 28.6 MCHC 34.4 RDW 15.5 H Plt Count 101 L MPV 9.0 pO2 49 VBG pH 7.35 VBG pCO2 43.0 VBG HCO3 23.7 VBG Total CO2 25.0 VBG O2 Sat (Calc) 84.2 H VBG Base Excess -2.0 L VBG Potassium 3.2 L Sodium 120 L 124.0 L Chloride 87 L 87.0 L Glucose 108 H Lactate 5.2 H* FiO2 21.0 Potassium 3.2 L Carbon Dioxide 19 L Anion Gap 18 BUN 36 H Creatinine 1.0 Est GFR ( Amer) > 60 Est GFR (Non-Af Amer) 55 Random Glucose 107 Calcium 6.6 L* Total Bilirubin 0.8 AST 30 ALT 27 Alkaline Phosphatase 189 H Total Protein 5.0 L Albumin 2.2 L Globulin 2.8 Albumin/Globulin Ratio 0.8 L Venous Blood Potassium 3.2 L Urine Color Urine Appearance Urine pH Ur Specific [place] Urine Protein Urine Glucose (UA) Urine Ketones Urine Blood Urine Nitrate Urine Bilirubin Urine Urobilinogen Ur Leukocyte Esterase Urine RBC Urine WBC Ur Epithelial Cells 03/14/17 03/15/17 03/15/17 20:30 05:45 05:45 WBC 14.5 H RBC 3.77 Hgb 10.6 L Hct 31.1 L MCV 82.5 MCH 28.1 MCHC 34.1 RDW 15.8 H Plt Count 104 L MPV 9.3 pO2 VBG pH VBG pCO2 VBG HCO3 VBG Total CO2 VBG O2 Sat (Calc) VBG Base Excess VBG Potassium Sodium 123 L Chloride 89 L Glucose Lactate FiO2 Potassium 3.6 Carbon Dioxide 24 Anion Gap 14 BUN 34 H Creatinine 0.9 Est GFR ( Amer) > 60 Est GFR (Non-Af Amer) > 60 Random Glucose 133 H Calcium 6.6 L* Total Bilirubin 0.9 AST 26 ALT 25 Alkaline Phosphatase 179 H Total Protein 5.0 L Albumin 2.2 L Globulin 2.8 Albumin/Globulin Ratio 0.8 L Venous Blood Potassium Urine Color Yellow Urine Appearance Clear Urine pH 5.0 Ur Specific [place] 1.015 Urine Protein Negative Urine Glucose (UA) Negative Urine Ketones Negative Urine Blood Trace-lysed H Urine Nitrate Negative Urine Bilirubin Negative Urine Urobilinogen 0.2 Ur Leukocyte Esterase Negative Urine RBC 0 - 2 Urine WBC 1 - 3 Ur Epithelial Cells 3 - 4 Review of Systems - Constitutional Constitutional: Fever, Chills - EENT Eyes: absent: Change in Vision Ears: absent: Ear Pain Nose/Mouth/Throat: Mouth Lesions, Mouth Pain - Breasts Breasts: absent: Change in Shape, Mass, Pain - Cardiovascular Cardiovascular: Dyspnea, Dyspnea on Exertion. absent: Chest Pain, Chest Pain at Rest, Chest Pain with Activity, Diaphoresis - Respiratory Respiratory: Cough, Dyspnea, Dyspnea on Exertion. absent: Hemoptysis, Wheezing , Stridor, Pain on Inspiration - Gastrointestinal Gastrointestinal: Diarrhea, Nausea - Genitourinary Genitourinary: absent: Change in Urinary Stream, Difficulty Urinating, Dysuria - Neurological Neurological: Weakness. absent: Vertigo - Psychiatric Psychiatric: absent: Homicidal Ideation, Suicidal Ideation - Endocrine Endocrine: absent: Palpitations, Polydipsia, Polyphagia, Polyuria - Hematologic/Lymphatic Hematologic: absent: Easy Bleeding, Easy Bruising, Lymphadenopathy Critical Care Progress Note - Nutrition Nutrition: Nutrition Category Date Time Status Liquid Diet [DIET] Diets 03/14/17 Dinner Ordered Assessment/Plan - Assessment and Plan (Free Text) Plan: 71 F with a PMH of HTN, hypothyroid, stage IV lung cancer s/p chemo and radiation presents with resolving hypovolemic shock/distributive shock likely secondary to dehydration and decreased oral intake Neuro: AAOx3, maintain normothermia, answering questions appropriately Pulm: Maintain SaO2 > 90%, keep head of bed elevated at 30 degrees, Pulmicort, Mucomyst, Duoneb Cardio: regular rhythm, normotensive, Maintain MAP > 65 GI: Protonix for ppx, Renal: Monitor electrolytes, replete as needed, NS @ 75cc/hr, KCL, Calcium gluconate, Calcium carbonate Endo: Maintain euglycemia 140-180, solu-cortef 50 mg IVP Q8H Heme: DVT ppx, ID: Continue IV antibiotics as per ID, blood culture shows gram + cocci in chains x 2, f/u urine culture, f/u cdiff, Nystatin mouthwash, f/u legionella, <Gino Tarango - Last Filed: 03/15/17 13:11> CCU Objective - Vital Signs / Intake & Output Vital Signs (Last 4 hours): Vital Signs Pulse Resp BP Pulse Ox 03/15/17 11:00 96 H 22 117/66 99 03/15/17 10:01 87 25 H 104/63 98 03/15/17 10:00 93 H 23 98 Intake and Output (Last 8hrs): Intake & Output 03/14/17 03/15/17 03/15/17 22:59 06:59 14:59 Intake Total 550 Output Total 355 Balance 195 Weight 109 lb Intake: IV 550 Right Antecubital 550 Output: Urine 355 Urethral ([place]) 355 Other: Voiding Method Incontinent - Medications Active Medications: Active Medications Generic Name Dose Route Start Last Admin Trade Name Freq PRN Reason Stop Dose Admin Acetylcysteine 4 ml 03/15/17 14:00 Acetylcysteine 20% IH [id number] HANNAH Albuterol/Ipratropium 3 ml 03/15/17 14:00 Duoneb 3 Mg/0.5 Mg (3 Ml) Ud IH [id number] HANNAH Albuterol/Ipratropium 3 ml 03/15/17 08:28 Duoneb 3 Mg/0.5 Mg (3 Ml) Ud IH Q2H PRN Shortness of Breath Budesonide 0.5 mg 03/15/17 20:00 Pulmicort Respules IH [id number] HANNAH Calcium Carbonate 600 mg 03/15/17 18:00 Caltrate PO BID HANNAH Al Hydrox/Mg Hydrox/ 0 ml 03/14/17 17:47 03/15/17 11:33 Simethicone 30 ml/ PO 15 ml Diphenhydramine HCl 75 mg/ Q2H PRN Administration Lidocaine 30 ml Mouth/Throat Pain Heparin Sodium (Porcine) 5,000 units 03/15/17 02:55 03/15/17 05:57 Heparin SC 5,000 units Q8 HANNAH Administration Protocol Hydrocortisone Sodium Succinate 50 mg 03/14/17 17:45 03/15/17 09:07 Solu-Cortef IVP 50 mg Q8H HANNAH Administration Meropenem 50 mls @ 100 mls/hr 03/14/17 22:30 03/15/17 09:05 Merrem Iv 1 Gm Premix IVPB 03/21/17 22:31 100 mls/hr Q12 HANNAH Administration Protocol Linezolid 600 mg in 300 mls @ 200 mls/hr 03/14/17 22:30 03/15/17 09:07 Zyvox 600mg/300ml D5w IVPB 03/21/17 22:31 200 mls/hr Q12 HANNAH Administration Protocol Sodium Chloride 1,000 mls @ 75 mls/hr 03/15/17 10:04 03/15/17 10:49 Sodium Chloride 0.9% IV 75 mls/hr .[id number] HANNAH Administration Potassium Chloride 10 meq in 100 mls @ 50 mls/hr 03/15/17 10:30 03/15/17 12: 01 Potassium Chloride 10 Meq/100 Ml IVPB 03/15/17 13:29 50 mls/hr Q1H HANNAH Administration Nystatin 5 ml 03/14/17 22:00 03/15/17 09:07 Nystatin Oral Susp PO 5 ml QID HANNAH Administration Ondansetron HCl 4 mg 03/14/17 17:34 Zofran Inj IVP Q6H PRN Nausea/Vomiting Pantoprazole Sodium 40 mg 03/14/17 17:45 03/15/17 09:07 Protonix Inj IVP 40 mg DAILY HANNAH Administration - Patient Studies Lab Studies: Lab Studies 03/15/17 03/15/17 03/15/17 Range/Units 10:42 06:29 06:00 WBC (4.5-11.0) 10^3/ul RBC (3.5-6.1) 10^6/uL Hgb (12.0-16.0) g/dL Hct (36.0-48.0) % MCV (80.0-105.0) fl MCH (25.0-35.0) pg MCHC (31.0-37.0) g/dl RDW (11.5-14.5) % Plt Count (120.0-450.0) 10^3/uL MPV (7.0-11.0) fl pO2 (30-55) mm/Hg VBG pH (7.32-7.43) VBG pCO2 (40-60) VBG HCO3 (21-28) mmol/l VBG Total CO2 (22-28) mmol.L VBG O2 Sat (Calc) (40-65) % VBG Base Excess (0.0-2.0) mmol/L VBG Potassium (3.6-5.2) mmol/L Sodium (132-148) mmol/L Chloride (98-107) mmol/L Glucose (65-105) mg/dl Lactate (0.7-2.1) mmol/L FiO2 % Potassium (3.6-5.0) mmol/L Carbon Dioxide (21-33) mmol/L Anion Gap (10-20) BUN (7-21) mg/dL Creatinine (0.7-1.2) mg/dl Est GFR ( Amer) Est GFR (Non-Af Amer) Random Glucose (70-110) mg/dL Uric Acid 9.7 H (2.5-6.2) mg/dL Calcium (8.4-10.5) mg/dL Total Bilirubin (0.2-1.3) mg/dL AST (14-36) U/L ALT (7-56) U/L Alkaline Phosphatase (38-126) U/L Total Protein (5.8-8.3) g/dL Albumin (3.0-4.8) g/dL Globulin gm/dL Albumin/Globulin Ratio (1.1-1.8) Procalcitonin 7.94 H (0.19-0.49) NG/ML Venous Blood Potassium (3.6-5.2) mmol/L Urine Color (YELLOW) Urine Appearance (CLEAR) Urine pH (4.7-8.0) Ur Specific [place] (1.005-1.035) Urine Protein (<30 mg/dL) mg/dL Urine Glucose (UA) (NEGATIVE) mg/dL Urine Ketones (NEGATIVE) mg/dL Urine Blood (NEGATIVE) Urine Nitrate (NEGATIVE) Urine Bilirubin (NEGATIVE) Urine Urobilinogen (<1 E.U./dL) E.U./dL Ur Leukocyte Esterase (NEGATIVE) Trini/uL Urine RBC (0-2) /hpf Urine WBC (0-6) /hpf Ur Epithelial Cells (0-5) /hpf Ur L.pneumophila Ag Negative (NEGATIVE) 03/15/17 03/15/17 03/14/17 Range/Units 05:45 05:45 20:30 WBC 14.5 H (4.5-11.0) 10^3/ul RBC 3.77 (3.5-6.1) 10^6/uL Hgb 10.6 L (12.0-16.0) g/dL Hct 31.1 L (36.0-48.0) % MCV 82.5 (80.0-105.0) fl MCH 28.1 (25.0-35.0) pg MCHC 34.1 (31.0-37.0) g/dl RDW 15.8 H (11.5-14.5) % Plt Count 104 L (120.0-450.0) 10^3/uL MPV 9.3 (7.0-11.0) fl pO2 (30-55) mm/Hg VBG pH (7.32-7.43) VBG pCO2 (40-60) VBG HCO3 (21-28) mmol/l VBG Total CO2 (22-28) mmol.L VBG O2 Sat (Calc) (40-65) % VBG Base Excess (0.0-2.0) mmol/L VBG Potassium (3.6-5.2) mmol/L Sodium 123 L (132-148) mmol/L Chloride 89 L (98-107) mmol/L Glucose (65-105) mg/dl Lactate (0.7-2.1) mmol/L FiO2 % Potassium 3.6 (3.6-5.0) mmol/L Carbon Dioxide 24 (21-33) mmol/L Anion Gap 14 (10-20) BUN 34 H (7-21) mg/dL Creatinine 0.9 (0.7-1.2) mg/dl Est GFR ( Amer) > 60 Est GFR (Non-Af Amer) > 60 Random Glucose 133 H (70-110) mg/dL Uric Acid (2.5-6.2) mg/dL Calcium 6.6 L* (8.4-10.5) mg/dL Total Bilirubin 0.9 (0.2-1.3) mg/dL AST 26 (14-36) U/L ALT 25 (7-56) U/L Alkaline Phosphatase 179 H (38-126) U/L Total Protein 5.0 L (5.8-8.3) g/dL Albumin 2.2 L (3.0-4.8) g/dL Globulin 2.8 gm/dL Albumin/Globulin Ratio 0.8 L (1.1-1.8) Procalcitonin (0.19-0.49) NG/ML Venous Blood Potassium (3.6-5.2) mmol/L Urine Color Yellow (YELLOW) Urine Appearance Clear (CLEAR) Urine pH 5.0 (4.7-8.0) Ur Specific [place] 1.015 (1.005-1.035) Urine Protein Negative (<30 mg/dL) mg/dL Urine Glucose (UA) Negative (NEGATIVE) mg/dL Urine Ketones Negative (NEGATIVE) mg/dL Urine Blood Trace-lysed H (NEGATIVE) Urine Nitrate Negative (NEGATIVE) Urine Bilirubin Negative (NEGATIVE) Urine Urobilinogen 0.2 (<1 E.U./dL) E.U./dL Ur Leukocyte Esterase Negative (NEGATIVE) Trini/uL Urine RBC 0 - 2 (0-2) /hpf Urine WBC 1 - 3 (0-6) /hpf Ur Epithelial Cells 3 - 4 (0-5) /hpf Ur L.pneumophila Ag (NEGATIVE) 03/14/17 03/14/17 03/14/17 Range/Units 19:30 19:30 19:30 WBC 14.7 H (4.5-11.0) 10^3/ul RBC 3.98 (3.5-6.1) 10^6/uL Hgb 11.4 L (12.0-16.0) g/dL Hct 33.1 L (36.0-48.0) % MCV 83.2 (80.0-105.0) fl MCH 28.6 (25.0-35.0) pg MCHC 34.4 (31.0-37.0) g/dl RDW 15.5 H (11.5-14.5) % Plt Count 101 L (120.0-450.0) 10^3/uL MPV 9.0 (7.0-11.0) fl pO2 49 (30-55) mm/Hg VBG pH 7.35 (7.32-7.43) VBG pCO2 43.0 (40-60) VBG HCO3 23.7 (21-28) mmol/l VBG Total CO2 25.0 (22-28) mmol.L VBG O2 Sat (Calc) 84.2 H (40-65) % VBG Base Excess -2.0 L (0.0-2.0) mmol/L VBG Potassium 3.2 L (3.6-5.2) mmol/L Sodium 124.0 L 120 L (132-148) mmol/L Chloride 87.0 L 87 L (98-107) mmol/L Glucose 108 H (65-105) mg/dl Lactate 5.2 H* (0.7-2.1) mmol/L FiO2 21.0 % Potassium 3.2 L (3.6-5.0) mmol/L Carbon Dioxide 19 L (21-33) mmol/L Anion Gap 18 (10-20) BUN 36 H (7-21) mg/dL Creatinine 1.0 (0.7-1.2) mg/dl Est GFR ( Amer) > 60 Est GFR (Non-Af Amer) 55 Random Glucose 107 (70-110) mg/dL Uric Acid (2.5-6.2) mg/dL Calcium 6.6 L* (8.4-10.5) mg/dL Total Bilirubin 0.8 (0.2-1.3) mg/dL AST 30 (14-36) U/L ALT 27 (7-56) U/L Alkaline Phosphatase 189 H (38-126) U/L Total Protein 5.0 L (5.8-8.3) g/dL Albumin 2.2 L (3.0-4.8) g/dL Globulin 2.8 gm/dL Albumin/Globulin Ratio 0.8 L (1.1-1.8) Procalcitonin (0.19-0.49) NG/ML Venous Blood Potassium 3.2 L (3.6-5.2) mmol/L Urine Color (YELLOW) Urine Appearance (CLEAR) Urine pH (4.7-8.0) Ur Specific [place] (1.005-1.035) Urine Protein (<30 mg/dL) mg/dL Urine Glucose (UA) (NEGATIVE) mg/dL Urine Ketones (NEGATIVE) mg/dL Urine Blood (NEGATIVE) Urine Nitrate (NEGATIVE) Urine Bilirubin (NEGATIVE) Urine Urobilinogen (<1 E.U./dL) E.U./dL Ur Leukocyte Esterase (NEGATIVE) Trini/uL Urine RBC (0-2) /hpf Urine WBC (0-6) /hpf Ur Epithelial Cells (0-5) /hpf Ur L.pneumophila Ag (NEGATIVE) Laboratory Results - last 24 hr 03/14/17 03/14/17 03/14/17 19:30 19:30 19:30 WBC 14.7 H RBC 3.98 Hgb 11.4 L Hct 33.1 L MCV 83.2 MCH 28.6 MCHC 34.4 RDW 15.5 H Plt Count 101 L MPV 9.0 pO2 49 VBG pH 7.35 VBG pCO2 43.0 VBG HCO3 23.7 VBG Total CO2 25.0 VBG O2 Sat (Calc) 84.2 H VBG Base Excess -2.0 L VBG Potassium 3.2 L Sodium 120 L 124.0 L Chloride 87 L 87.0 L Glucose 108 H Lactate 5.2 H* FiO2 21.0 Potassium 3.2 L Carbon Dioxide 19 L Anion Gap 18 BUN 36 H Creatinine 1.0 Est GFR ( Amer) > 60 Est GFR (Non-Af Amer) 55 Random Glucose 107 Uric Acid Calcium 6.6 L* Total Bilirubin 0.8 AST 30 ALT 27 Alkaline Phosphatase 189 H Total Protein 5.0 L Albumin 2.2 L Globulin 2.8 Albumin/Globulin Ratio 0.8 L Procalcitonin Venous Blood Potassium 3.2 L Urine Color Urine Appearance Urine pH Ur Specific [place] Urine Protein Urine Glucose (UA) Urine Ketones Urine Blood Urine Nitrate Urine Bilirubin Urine Urobilinogen Ur Leukocyte Esterase Urine RBC Urine WBC Ur Epithelial Cells Ur L.pneumophila Ag 03/14/17 03/15/17 03/15/17 20:30 05:45 05:45 WBC 14.5 H RBC 3.77 Hgb 10.6 L Hct 31.1 L MCV 82.5 MCH 28.1 MCHC 34.1 RDW 15.8 H Plt Count 104 L MPV 9.3 pO2 VBG pH VBG pCO2 VBG HCO3 VBG Total CO2 VBG O2 Sat (Calc) VBG Base Excess VBG Potassium Sodium 123 L Chloride 89 L Glucose Lactate FiO2 Potassium 3.6 Carbon Dioxide 24 Anion Gap 14 BUN 34 H Creatinine 0.9 Est GFR ( Amer) > 60 Est GFR (Non-Af Amer) > 60 Random Glucose 133 H Uric Acid Calcium 6.6 L* Total Bilirubin 0.9 AST 26 ALT 25 Alkaline Phosphatase 179 H Total Protein 5.0 L Albumin 2.2 L Globulin 2.8 Albumin/Globulin Ratio 0.8 L Procalcitonin Venous Blood Potassium Urine Color Yellow Urine Appearance Clear Urine pH 5.0 Ur Specific [place] 1.015 Urine Protein Negative Urine Glucose (UA) Negative Urine Ketones Negative Urine Blood Trace-lysed H Urine Nitrate Negative Urine Bilirubin Negative Urine Urobilinogen 0.2 Ur Leukocyte Esterase Negative Urine RBC 0 - 2 Urine WBC 1 - 3 Ur Epithelial Cells 3 - 4 Ur L.pneumophila Ag 03/15/17 03/15/17 03/15/17 06:00 06:29 10:42 WBC RBC Hgb Hct MCV MCH MCHC RDW Plt Count MPV pO2 VBG pH VBG pCO2 VBG HCO3 VBG Total CO2 VBG O2 Sat (Calc) VBG Base Excess VBG Potassium Sodium Chloride Glucose Lactate FiO2 Potassium Carbon Dioxide Anion Gap BUN Creatinine Est GFR ( Amer) Est GFR (Non-Af Amer) Random Glucose Uric Acid 9.7 H Calcium Total Bilirubin AST ALT Alkaline Phosphatase Total Protein Albumin Globulin Albumin/Globulin Ratio Procalcitonin 7.94 H Venous Blood Potassium Urine Color Urine Appearance Urine pH Ur Specific [place] Urine Protein Urine Glucose (UA) Urine Ketones Urine Blood Urine Nitrate Urine Bilirubin Urine Urobilinogen Ur Leukocyte Esterase Urine RBC Urine WBC Ur Epithelial Cells Ur L.pneumophila Ag Negative Critical Care Progress Note - Nutrition Nutrition: Nutrition Category Date Time Status Liquid Diet [DIET] Diets 03/14/17 Dinner Ordered Assessment/Plan - Assessment and Plan (Free Text) Plan: Patient seen and examined, on round with resident, agree with note with following additions/exceptions: Patient is 71yo female with PMHx hypothyroid, Lung cancer stage IV, s/p chemo radiation, presents with hypovolumic shock, 2/2 dehydration, and diarrhea. Currently afebrile, HD stable, comfortable on 2LNC, sat 99%. CT C/A/P noted. Diarrhea Dehydraiton ARF Hypovolumic Shock, resolved Hx of Lung Ca with mets, stage IV Recommend: - supp o2 as needed - follow up ID, antibiotics as per ID - check C diff - resume IVF hydration - monitor electrolytes, Na - Stress dose steroids, IV SoluCortef - FS control - Check TSH - GI ppx - DVT ppx - Monitor in MICU critical care time 35 minutes
[2017-03-15] MEDS: Sodium Chloride 0.9% 1,000 ML IV SCH (10:49)
[2017-03-15] MEDS: Aluminum Hydroxide/Magnesium 30 ML, DiphenhydrAMINE 75 MG, Lidocaine 2% Viscous 30 ML PO PRN ×2 (11:33→23:34)
--- NOTE | 2017-03-15 13:08 | CP.PCM.CON ---
History of Present Illness - History of Present Illness History of Present Illness: Initial Nephrology Consultation: Assessment: critical Acute Kidney Injury (N17.9) likely hemodynamic due to low BP< GI fluid loss: improved Acute on chronic Hyponatremia, likely due to intravasc depletion superimposed on ? underlying SIADH due to chronic respi illess/lung ca Lactic acidosis, Hypoalbuminemia, Hypocalcemia Combined respiratory and high anion gap metabolic acidosis with superimposed metabolic alkalosis Hypokalemia, Anemia, Lung CA (SCC), Rt lung collapse, hx of HTN hepatomegaly and b/l adrenal gland enlargement Plan No acute need for renal replacement therapy at this time. Hypertension control with meds as ordered. Patient not on ACEI/ARB due to SHAR. hold BP meds. maintain hemodynamics stable. Monitor Input/Output, daily weights and renal function with basic metabolic panel Check urine sodium, osmol and serum osmol, uric acid continue with IVF as normal saline. avoid correction in serum Na >6-8 meq/24 hrs. hypertonic saline not indicated at this time replace electrolytes as needed. check Vit D as well. started on Ca carbonate bid. Dose meds/antibiotics for improved GFR. Avoid fleets enema/magnesium based laxatives. Avoid nephrotoxins/NSAIDs/ iodinated contrast (unless needed emergently) Glycemic control Further work up/management as per primary team Thanks for allowing me to participate in care of your patient. Will follow patient with you. Please call if any Qs. d/w ICU team. Dr Humza Barnes Office: [phone] Chief Complaint; I am dehydrated HPI: Pt is a 71 F with hx of hypertension, lung cancer (SCC) s/p endobronchial stents, Rt lung collapse s/p radiation, ex smoker, b/l adrenal thickening, chronic hyponatremia (Na 130) presented with complaints of loose BM 3-4 episodes per day for last 1 week with decreased oral intake. also had intermittent SOB with cough. feels better now. renal consult for SHAR and hyponatremia, lactic acidosis. being managed for sepsis Denies chest pain, palpitation, improved shortness of breath, c/o leg swelling Denies blood or bubbles in urine Denies OTC/herbal meds or NSAIDs No recent iodinated contrast exposure. obvious episodes of low BP when in ER. appetite decreased. ROS: Constitutional Symptoms: Denies fever. No chills. c/o Weight Changes as loss Eyes: denies change in vision, denies watery eyes, denies double vision Ears/Nose/Mouth/Throat: Denies Abnormal Taste. No Bad breath no Bad Taste. c/o pain in mouth/thrush Cardiovascular: No chest pain. No palpitations. Pulmonary: c/o shortness of breath c/o cough. Gastrointestinal: denies abdominal pain No nausea. No vomiting. c/o change in bowel habits. Denies Bleeding Genitourinary: No Change in force of strain when urinating. No increase in urinary frequency. No pain while urinating. Denies blood in urine. Neurological: Denies headaches. No dizziness. Denies loss of balance. c/o weakness, denies tingling/numbness Dermatological: No Rash or Bruising or ulcers. Psychiatric: Denies Anxiety. No depression. Denies hallucinations. Rheumatological: No joint pain. Denies Joint swelling Endocrine: c/o tiredness/Fatigue denies Heat/Cold Intolerance. All other negative Physical Examination: General Appearance: Comfortable, in no acute respiratory distress, co-operative . ill appearing Vitals reviewed and noted as below Head; Atraumatic, normocephalic ENT: no ulcers no thrush. Tongue is midline. Oropharynx: no rash or ulcers. dry oral mucosa EYES: Pupils are equal, round and reactive to light accommodation. Eye muscles and extraocular movement intact. Sclera is anicteric. Neck; supple no lymphadenopathy, no thyromegaly or bruit Lungs: Increased respiratory rate/effort. Breath sounds reduced at Rt with bibasal wheeze Heart: Increased rate. s1s2 normal. No rub or gallop. Extremities: 1+ edema. No varicose veins. Neurological: Patient is alert, awake and oriented to person, place and time. No focal deficit. Strength bilateral appropriate and equal Skin: Warm and dry. Normal turgor. No rash. Palpitation: Normal elasticity for age. has skin excoriations in legs Abdomen: Abdomen is soft. Bowel sounds +. There is no abdominal tenderness, no guarding/rigidity no organomegaly Psych: limited insight and normal affect/mood MSK: no joint tenderness or swelling. Digits and nails normal, no deformity : kidney or bladder not palpable Labs/imaging reviewed. Past medical history, past surgical history, family history, social history, allergy reviewed and noted as below Family hx: no hx of CKD. Rest non-contributory work up TSH 1.1 Past Patient History - Infectious Disease Hx of Infectious Diseases: None - Past Medical History & Family History Past Medical History?: Yes - Past Social History Smoking Status: Former Smoker - CARDIAC Hx Congestive Heart Failure: Yes - PULMONARY Hx Chronic Obstructive Pulmonary Disease (COPD): Yes - NEUROLOGICAL Hx Neurological Disorder: Yes - HEENT Hx HEENT Problems: No - RENAL Hx Chronic Kidney Disease: No - ENDOCRINE/METABOLIC Hx Endocrine Disorders: No - HEMATOLOGICAL/ONCOLOGICAL Hx Blood Disorders: No - INTEGUMENTARY Hx Dermatological Problems: No - MUSCULOSKELETAL/RHEUMATOLOGICAL Hx Musculoskeletal Disorders: No Hx Falls: No - GASTROINTESTINAL Hx Gastrointestinal Disorders: No - GENITOURINARY/GYNECOLOGICAL Hx Genitourinary Disorders: No - PSYCHIATRIC Hx Psychophysiologic Disorder: No - SURGICAL HISTORY Hx Surgeries: Yes Hx Coronary Stent: Yes - ANESTHESIA Hx Anesthesia: Yes Hx Anesthesia Reactions: No Hx Malignant Hyperthermia: No Meds Allergies/Adverse Reactions: Allergies Allergy/AdvReac Type Severity Reaction Status Date / Time No Known Allergies Allergy Verified 03/14/17 15:29 - Medications Medications: Current Medications Acetylcysteine (Acetylcysteine 20%) 4 ml IH [id number] HANNAH Albuterol/Ipratropium (Duoneb 3 Mg/0.5 Mg (3 Ml) Ud) 3 ml IH [id number] HANNAH Albuterol/Ipratropium (Duoneb 3 Mg/0.5 Mg (3 Ml) Ud) 3 ml IH Q2H PRN PRN Reason: Shortness of Breath Budesonide (Pulmicort Respules) 0.5 mg IH [id number] [facility] Calcium Carbonate (Caltrate) 600 mg PO BID HANNAH Al Hydrox/Mg Hydrox/Simethicone 30 ml/Diphenhydramine HCl 75 mg/Lidocaine 30 ml 0 ml PO Q2H PRN PRN Reason: Mouth/Throat Pain Last Admin: 03/15/17 11:33 Dose: 15 ml Heparin Sodium (Porcine) (Heparin) 5,000 units SC Q8 HANNAH PRN Reason: Protocol Last Admin: 03/15/17 05:57 Dose: 5,000 units Hydrocortisone Sodium Succinate (Solu-Cortef) 50 mg IVP Q8H HANNAH Last Admin: 03/15/17 09:07 Dose: 50 mg Meropenem (Merrem Iv 1 Gm Premix) 50 mls @ 100 mls/hr IVPB Q12 HANNAH PRN Reason: Protocol Stop: 03/21/17 22:31 Last Admin: 03/15/17 09:05 Dose: 100 mls/hr Linezolid (Zyvox 600mg/300ml D5w) 600 mg in 300 mls @ 200 mls/hr IVPB Q12 HANNAH PRN Reason: Protocol Stop: 03/21/17 22:31 Last Admin: 03/15/17 09:07 Dose: 200 mls/hr Sodium Chloride (Sodium Chloride 0.9%) 1,000 mls @ 75 mls/hr IV [id number] [facility] Last Admin: 03/15/17 10:49 Dose: 75 mls/hr Potassium Chloride (Potassium Chloride 10 Meq/100 Ml) 10 meq in 100 mls @ 50 mls/hr IVPB Q1H [facility] Stop: 03/15/17 13:29 Last Admin: 03/15/17 12:01 Dose: 50 mls/hr Nystatin (Nystatin Oral Susp) 5 ml PO QID [facility] Last Admin: 03/15/17 09:07 Dose: 5 ml Ondansetron HCl (Zofran Inj) 4 mg IVP Q6H PRN PRN Reason: Nausea/Vomiting Pantoprazole Sodium (Protonix Inj) 40 mg IVP DAILY [facility] Last Admin: 03/15/17 09:07 Dose: 40 mg Results - Vital Signs Recent Vital Signs: Last Vital Signs Temp 97.9 F 03/15/17 08:00 Pulse 96 H 03/15/17 11:00 Resp 22 03/15/17 11:00 BP 117/66 03/15/17 11:00 Pulse Ox 99 03/15/17 11:00 - Labs Result Diagrams: 03/15/17 05:45 03/15/17 05:45 Labs: Laboratory Results - last 24 hr 03/14/17 03/14/17 03/14/17 19:30 19:30 19:30 WBC 14.7 H RBC 3.98 Hgb 11.4 L Hct 33.1 L MCV 83.2 MCH 28.6 MCHC 34.4 RDW 15.5 H Plt Count 101 L MPV 9.0 pO2 49 VBG pH 7.35 VBG pCO2 43.0 VBG HCO3 23.7 VBG Total CO2 25.0 VBG O2 Sat (Calc) 84.2 H VBG Base Excess -2.0 L VBG Potassium 3.2 L Sodium 120 L 124.0 L Chloride 87 L 87.0 L Glucose 108 H Lactate 5.2 H* FiO2 21.0 Potassium 3.2 L Carbon Dioxide 19 L Anion Gap 18 BUN 36 H Creatinine 1.0 Est GFR ( Amer) > 60 Est GFR (Non-Af Amer) 55 Random Glucose 107 Uric Acid Calcium 6.6 L* Total Bilirubin 0.8 AST 30 ALT 27 Alkaline Phosphatase 189 H Total Protein 5.0 L Albumin 2.2 L Globulin 2.8 Albumin/Globulin Ratio 0.8 L Procalcitonin Venous Blood Potassium 3.2 L Urine Color Urine Appearance Urine pH Ur Specific [place] Urine Protein Urine Glucose (UA) Urine Ketones Urine Blood Urine Nitrate Urine Bilirubin Urine Urobilinogen Ur Leukocyte Esterase Urine RBC Urine WBC Ur Epithelial Cells Ur L.pneumophila Ag 03/14/17 03/15/17 03/15/17 20:30 05:45 05:45 WBC 14.5 H RBC 3.77 Hgb 10.6 L Hct 31.1 L MCV 82.5 MCH 28.1 MCHC 34.1 RDW 15.8 H Plt Count 104 L MPV 9.3 pO2 VBG pH VBG pCO2 VBG HCO3 VBG Total CO2 VBG O2 Sat (Calc) VBG Base Excess VBG Potassium Sodium 123 L Chloride 89 L Glucose Lactate FiO2 Potassium 3.6 Carbon Dioxide 24 Anion Gap 14 BUN 34 H Creatinine 0.9 Est GFR ( Amer) > 60 Est GFR (Non-Af Amer) > 60 Random Glucose 133 H Uric Acid Calcium 6.6 L* Total Bilirubin 0.9 AST 26 ALT 25 Alkaline Phosphatase 179 H Total Protein 5.0 L Albumin 2.2 L Globulin 2.8 Albumin/Globulin Ratio 0.8 L Procalcitonin Venous Blood Potassium Urine Color Yellow Urine Appearance Clear Urine pH 5.0 Ur Specific [place] 1.015 Urine Protein Negative Urine Glucose (UA) Negative Urine Ketones Negative Urine Blood Trace-lysed H Urine Nitrate Negative Urine Bilirubin Negative Urine Urobilinogen 0.2 Ur Leukocyte Esterase Negative Urine RBC 0 - 2 Urine WBC 1 - 3 Ur Epithelial Cells 3 - 4 Ur L.pneumophila Ag 03/15/17 03/15/17 03/15/17 06:00 06:29 10:42 WBC RBC Hgb Hct MCV MCH MCHC RDW Plt Count MPV pO2 VBG pH VBG pCO2 VBG HCO3 VBG Total CO2 VBG O2 Sat (Calc) VBG Base Excess VBG Potassium Sodium Chloride Glucose Lactate FiO2 Potassium Carbon Dioxide Anion Gap BUN Creatinine Est GFR ( Amer) Est GFR (Non-Af Amer) Random Glucose Uric Acid 9.7 H Calcium Total Bilirubin AST ALT Alkaline Phosphatase Total Protein Albumin Globulin Albumin/Globulin Ratio Procalcitonin 7.94 H Venous Blood Potassium Urine Color Urine Appearance Urine pH Ur Specific [place] Urine Protein Urine Glucose (UA) Urine Ketones Urine Blood Urine Nitrate Urine Bilirubin Urine Urobilinogen Ur Leukocyte Esterase Urine RBC Urine WBC Ur Epithelial Cells Ur L.pneumophila Ag Negative
[2017-03-15] MEDS: Acetylcysteine 20% Inhal Soln (4ml) IH SCH ×2 (13:54→20:04)
[2017-03-15] MEDS: Albuterol-Ipratrop 3 mg / 0.5 (3 ml) UD IH SCH ×2 (13:54→20:04)
--- NOTE | 2017-03-15 14:29 | PN ---
SUBJECTIVE: I saw Laverne in the intensive care unit. She is doing better. She is on simethicone, , DuoNebs, Heparin, Merrem IV, Nystatin, Protonix, Primacor, IV fluids, Solu-Cortef, Zofran, and Zyvox. She is alert, having a good conversation. She is concerned about the bag machine tender saying that she still has cancer. by radiation oncology, to explain to that her. PHYSICAL EXAMINATION VITAL SIGNS: She has a 97.8 temp, 96 pulse, 127/70 blood pressure, 22 respiratory rate, 100% O2 sat nasal cannula. HEENT: Head is atraumatic, normocephalic. Throat is moist. NECK: Supple. She is doing better than yesterday. HEART: Regular rate. LUNGS: Decreased breath sounds, especially on the right, but she has air movement, less congestion. ABDOMEN: Soft. EXTREMITIES: No edema. LABORATORY DATA: She had blood test done. She has 14.5 white count, 10.6 hemoglobin, 31.1 hematocrit with 104 platelets. She has 123 sodium, little bit better, potassium is 3.6, BUN 34, creatinine 0.9, GFR is greater than 62, sugar is 133, calcium is low at 6.6, we will replace the calcium, total bilirubin is 0.9, AST is 26, ALT is 25, alk phos is , total protein is 5. She is being seen by multiple physicians, the chemical process project engineer, pulmonary, cardiology and renal. Continue with aggressive treatment and care. We will replace calcium. ASSESSMENT AND PLAN: Dehydration, sepsis, low potassium, low sodium, congestive heart failure, thrush, diarrhea, and lung cancer history. Bennie Ann DO MTDD
--- NOTE | 2017-03-15 16:29 | RAD ---
HISTORY: s/p PICC COMPARISON: No prior. FINDINGS: LUNGS: The right-sided PICC line can be seen in the right atrium approximately 2 cm from the caval atrial junction. IMPRESSION: As above
[2017-03-15 17:06] LABS: HEMATOCRIT 32.6 % (36.0-48.0); MEAN CELL VOLUME 82.5 fl (80.0-105.0); MEAN CORPUSCULAR HEMOGLOBIN 27.8 pg (25.0-35.0); MEAN CORPUSCULAR HGB CONC 33.7 g/dl (31.0-37.0); MEAN PLATELET VOLUME 9.5 fl (7.0-11.0); RED CELL DISTRIBUTION WIDTH 15.8 % (11.5-14.5); WHITE BLOOD COUNT 19.2 10^3/ul (4.5-11.0)
[2017-03-15 17:30] LABS: ALB/GLOB RATIO 0.8 (1.1-1.8); ALKALINE PHOSPHATASE 204 U/L (38-126); ALT/SGPT 30 U/L (7-56); AST/SGOT 19 U/L (14-36); BILIRUBIN,TOTAL 0.9 mg/dL (0.2-1.3); BLOOD UREA NITROGEN 33 mg/dL (7-21); CARBON DIOXIDE 22 mmol/L (21-33); CHLORIDE 88 mmol/L (98-107); GFR AFRICAN-AMERICAN > 60; GLUCOSE,RANDOM 169 mg/dL (70-110); POTASSIUM 4.3 mmol/L (3.6-5.0); SODIUM 120 mmol/L (132-148); TOTAL PROTEIN 5.1 g/dL (5.8-8.3)
--- NOTE | 2017-03-15 17:52 | CARD ---
APPROVED REPORT EKG Measurement Heart [id number] <Conclusion> Sinus tachycardia Left axis deviation Abnormal ECG
--- NOTE | 2017-03-15 18:53 | RAD ---
HISTORY: PICC line adjustment COMPARISON: Chest x-ray performed 03/15/17 at 1603 hours TECHNIQUE: Chest, one view. FINDINGS: Right-sided MediPort extends expected location of the cavoatrial junction. Evidence of endobronchial stent re-identified. LUNGS: Patchy opacifications throughout the right nayeli thorax. Probable pleural effusion and/or consolidation at the right lung base. No definite pneumothorax. CARDIOVASCULAR: Partially obscured. Atherosclerotic calcifications of the aorta. OSSEOUS STRUCTURES: Degenerative changes. VISUALIZED UPPER ABDOMEN: Unremarkable. OTHER FINDINGS: None. IMPRESSION: Right-sided MediPort extends expected location of the cavoatrial junction. Endobronchial stent. Patchy opacifications throughout the right nayeli thorax. Probable pleural effusion and/or consolidation at the right lung base.
--- NOTE | 2017-03-15 19:42 | CON ---
PULMONARY CONSULTATION DATE: 03/15/2017 REASON FOR CONSULTATION: Lung cancer. REFERRING PHYSICIAN: Dr. Bennie Ann. 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 with nausea, vomiting, decreased oral intake, and progressive weakness - over the past 2 weeks. In the emergency room, the patient was noted to be dehydrated and with multiple electrolyte abnormalities. She was thus admitted for additional evaluation. The patient is not short of breath at rest. She does state to chronic occasional dyspnea on exertion. The patient also complains of a cough with minimal sputum production. There is no history of chest pain, coughing up of blood, or chest pain - made worse with deep respirations. There is no history of temperatures, chills or infectious exposure. There is no history of night sweats. There is a history of weight loss with decreased oral intake as of recent. No history of leg or calf pains. No history of syncope or diaphoresis. No history of recent travel or trauma. REVIEW OF SYSTEMS: No acute urinary symptoms. No new neurologic or musculoskeletal complaints. Rest of the review of systems is negative. ALLERGIES: NO KNOWN ALLERGIES. SOCIAL HISTORY: Positive for extensive tobacco usage. No alcohol. FAMILY HISTORY: No inheritable diseases. HOME MEDICATIONS: Include Alecensa, Xanax, Lasix, amlodipine, prednisone, Diflucan, potassium. PHYSICAL EXAM: GENERAL: The patient is not short of breath at the time of my examination. She is not using accessory muscles for breathing. VITALS: Temperature 97.8, pulse 74, respirations 18, blood pressure 103/51, oxygen saturation on nasal cannula is 99%. HEENT: Normocephalic, atraumatic. No JVD. CARDIOVASCULAR: Positive S1, S2. No S3 gallop. LUNGS: Decreased breath sounds at both lower lobes. Scattered bilateral rhonchi. No wheezing. EXTREMITIES: Mild edema. No cyanosis. No clubbing. Calves are nontender to palpation. GI: Abdomen is soft, nontender and nondistended. Bowel sounds are positive. SKIN: No acute rash. NEUROLOGIC: Exam limited at the present time. PERTINENT LABORATORY DATA: Chest x-ray was done yesterday and reviewed. There is chronic opacification noted in the right lung. When comparing the most present x-ray to the x-ray done on 02/10/2017(at [facility]), the most present film is actually much improved-- with a decrease in the opacification. In addition, there is less tracheal shift on the most current film. CAT scan of the chest, abdomen and pelvis was also done. On the CAT scan of the chest, abdomen and pelvis, there are scattered areas of chronic atelectasis and volume loss noted. There are also multiple nodular opacities scattered throughout the left lung. CBC: White count 14.5, hemoglobin 10.6, hematocrit 31.1, platelets of 104,000. Complete metabolic profile: Sodium 123, chloride 89, BUN 34, glucose 133, calcium 6.6, alkaline phosphatase 179. Total protein 5.0, albumin 2.2. Rest of the metabolic profiles within normal limits. IMPRESSION: 1. Sepsis syndrome. 2. Dehydration. 3. Chronic obstructive pulmonary disease. 4. Mild bronchospasm. 5. 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 6. Multiple electrolyte abnormalities. PLAN: I did discuss the case with the nurse at length. I have also reviewed the chart at length, and discussed the case with the patient at length. The patient presents to [facility] with main complaints of nausea and vomiting, decreased oral intake, and progressive weakness over the past 2 weeks. In the emergency room, the patient was noted to be dehydrated. There were also multiple electrolyte abnormalities noted. The patient was thus admitted for additional evaluation. I did review the CAT scan of the chest, abdomen and pelvis. I have also reviewed the chest x-ray done yesterday. On the CAT scan of the chest, there are multiple scattered opacifications in the right lung-- consistent with chronic atelectasis and volume loss. There is also a right mainstem bronchial stent in place. There are also multiple nodular opacities noted throughout the left lung. Again, I did review the chest x-ray done yesterday -and compared it to the chest x-ray done on 02/10/2017 (at [facility]). The most current film shows a significant increase in the aeration noted to the right lung. Again, as above, bronchoscopy was done approximately 1 month ago. Bronchoscopy was positive for malignant cells. On physical exam, there is mild bronchospasm noted. However, there is no significant alveolar-arterial gradient. Oxygen saturation on nasal cannula is 99%. I will start the patient on DuoNeb treatments and inhaled steroids. I will also add inhaled Mucomyst this morning. The patient is already on intravenous hydrocortisone. Antibiotics have been started by Infectious Disease. Input by Dr. Jefferson is noted. Procalcitonin level is pending. I did review the notes from [facility]. The overall status/prognosis for this patient remains poor. Input by Dr. Cook (Oncology) - is also noted (from the [facility] admission). I will discuss the above with the entire ICU team the next few moments. I did discuss the above with Dr. Ann at length. Thank you very much for this pulmonary consultation. Lester Bassett MD MTDD
--- NOTE | 2017-03-15 19:59 | CON ---
DATE: 03/15/2017 The patient is seen early this morning in 128 bed 7. She was seen in the emergency room with complaint of weakness times several days. HISTORY OF PRESENT ILLNESS: This is a 71-year-old female with a history of hypertension, hypothyroidism, lung cancer, recently finished chemotherapy and radiation and was recently discharged from a rehab admitted through emergency room with the diagnosis of sepsis and hyponatremia infectious disease consultation requested. Review of systems reveals the patient complained of weakness and mild shortness of breath, mild cough and no abdominal pain, diarrhea, or constipation. Low grade fevers. No chills. No dysuria or frequency. PAST MEDICAL HISTORY: Significant for hypertension, hypothyroidism, chronic obstructive lung disease, lung cancer, recent hospitalization for that at [facility]. The patient also has history of congestive heart failure, coronary artery disease. PAST SURGICAL HISTORY: Significant for cardiac stents. ALLERGIES: THE PATIENT HAS NO KNOWN ALLERGIES. MEDICATIONS: At home include the patient to be on; Diflucan, the patient was also on 10 mg of prednisone, Lasix, Mycostatin, Xanax. PHYSICAL EXAMINATION: GENERAL: The patient is in bed with a temperature of 100, blood pressure was 78/55 in the emergency room, respiratory rate of 25, heart rate of 102. HEENT: Unremarkable. NECK: Supple. LUNGS: Have decreased breath sounds. HEART: Normal S1, S2. ABDOMEN: Soft, nontender. No organomegaly. No rebound. No guarding. No masses. LABORATORY EXAMINATION: Reveals a white count of 15,900, hemoglobin of 11, platelets of 125, 93% granulocytosis and 3% bands. This morning's white count is down to 14,500, platelets are 104. Coagulation is noted. BUN of 45. Creatinine is 1.3, previous creatinine in February last month 02/11/2017 was 0.6 and alk phos is elevated at 214 and BNP is 2710 and the urinalysis reveals 1 to 3 WBCs. The patient had a CAT scan of the chest and CAT scan of the abdomen and pelvis. Complete opacification of the entire right hemithorax was seen, appears to be an endobronchial stent in the distal right main and right lower lobe bronchus and CAT scan of the abdomen, hepatomegaly, and fatty hepatic infiltrates. The patient also had a chest x-ray which is near complete patchy opacification is also noted. Review of orders reveals procalcitonin been ordered, Legionella has been ordered. Cultures have been ordered and the patient was started on meropenem, dose of vancomycin, dose of Zosyn and also started on linezolid and Solu-Cortef by Dr. Montelongo. ASSESSMENT AND PLAN: A 71-year-old female with hypertension, hypothyroidism, lung cancer status post chemotherapy and radiation, history of congestive heart failure, chronic obstructive lung disease, coronary artery disease, admitted with hypotension, tachycardia, dyspnea, and; 1. Severe sepsis secondary to healthcare-associated pneumonia, probable Gram-positive cocci, possible Gram-negative janis with acute kidney injury, last creatinine in February was 0.6. The patient was admitted with 1.3. Currently, we treat the patient with Zyvox and meropenem. Pending blood, urine, sputum and cultures with procalcitonin, urine for Legionella antigen and initial workup results. We will make further recommendations upon availability of initial results. We will follow with you. Blane Mcleod MD
--- NOTE | 2017-03-15 20:17 | CON ---
DATE: 03/15/2017 CARDIOLOGY CONSULTATION HISTORY OF PRESENT ILLNESS: The patient is a 71-year-old woman who presents with decreased appetite with dyspnea. The patient's past medical history is notable for active treatment for lung CA. The patient is being treated for lung CA and has undergone chemo and radiation. She presents with decreased appetite as well as dyspnea. The patient's cardiac status includes recent stress test done a [facility] on 02/2016 that shows good LV function without ischemia. SOCIAL HISTORY: The patient is a long-time smoker. REVIEW OF SYSTEMS: A 14-point review of systems reviewed. No cardiac symptomatology is noted other than dyspnea at rest. PHYSICAL EXAMINATION: VITAL SIGNS: Blood pressure is 103/51, heart rate in the 90s. NECK: Negative JVD. LUNGS: Bilateral rhonchi. HEART: Reveal S1, S2. EXTREMITIES: Without edema. EKG shows normal sinus rhythm with left anterior hemiblock. LABORATORY DATA: BUN and creatinine unremarkable. Hemoglobin is 10.6. IMPRESSION: 1. Lung cancer. 2. Dyspnea. 3. Decreased appetite. 4. Anemia. 5. No active cardiac issues. Given these findings, the patient is being treated with antibiotics and pulmonary toilet. We will replace the potassium today. Lamin Worrell MD
[2017-03-16] MEDS: Albuterol-Ipratrop 3 mg / 0.5 (3 ml) UD IH SCH ×4 (02:14→19:34)
[2017-03-16] MEDS: Acetylcysteine 20% Inhal Soln (4ml) IH SCH ×4 (02:14→19:34)
[2017-03-16] MEDS: Sodium Chloride 0.9% 1,000 ML IV SCH ×2 (06:50→22:29)
[2017-03-16 07:02] LABS: HEMATOCRIT 29.4 % (36.0-48.0); MEAN CELL VOLUME 83.3 fl (80.0-105.0); MEAN CORPUSCULAR HGB CONC 33.7 g/dl (31.0-37.0); MEAN PLATELET VOLUME 9.5 fl (7.0-11.0); RED CELL DISTRIBUTION WIDTH 15.8 % (11.5-14.5); WHITE BLOOD COUNT 14.8 10^3/ul (4.5-11.0)
[2017-03-16 07:07] LABS: ALB/GLOB RATIO 0.8 (1.1-1.8); BILIRUBIN,TOTAL 0.5 mg/dL (0.2-1.3); CALCIUM 7.1 mg/dL (8.4-10.5); POTASSIUM 4.2 mmol/L (3.6-5.0); TOTAL PROTEIN 4.8 g/dL (5.8-8.3)
[2017-03-16] MEDS ORDERED: Vancomycin 2 GM in Sodium Chloride 0.9% 500 ML IVPB ONE (07:12)
--- NOTE | 2017-03-16 08:50 | PN ---
DATE: PULMONARY PROGRESS NOTE SUBJECTIVE: The patient appears comfortable this morning. She is mildly short of breath, but in no acute distress. OBJECTIVE: VITAL SIGNS: Temperature is 97.0, pulse is 85, respirations are 20/22, blood pressure is 135/67, and oxygen saturation on nasal cannula is 99%. HEENT: Normocephalic, atraumatic. NECK: No JVD. CARDIOVASCULAR: Positive S1 and S2. No S3 gallop. LUNGS: Decreased breath sounds at both lower lobes. Scattered bilateral rhonchi - somewhat less. Minimal wheezing. EXTREMITIES: Mild edema. No cyanosis, no clubbing. Calves are nontender to palpation. GASTROINTESTINAL: Abdomen is soft, nontender, and nondistended. Bowel sounds are positive. SKIN: No acute rash. NEUROLOGIC: Limited at the present time. IMPRESSION: 1. Sepsis syndrome. 2. Dehydration. 3. Chronic obstructive pulmonary disease. 4. Mild bronchospasm. 5. 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 6. Multiple electrolyte abnormalities. PLAN: The patient appears comfortable this morning. She is mildly short of breath, but in no acute distress. She does state to feeling much, much better overall. I did discuss the case with the night nurse at length. The night nurse stated that the patient had a very good night. On physical exam, the patient remains in [id number] bronchospasm. There is no significant alveolar-arterial gradient. I will continue the current nebulizer treatments for now. The patient also remains on intravenous hydrocortisone. Again, clinically, the patient is much improved - compared to the initial presentation. However, given her history of recurrent lung cancer, her future status/prognosis remains poor. I will discuss the above with the entire ICU team in the next few moments. I will also discuss the above with Dr. Ann later this morning. Lester Bassett MD MTDD
[2017-03-16] MEDS: Nystatin 100,000 Units/ml Oral Susp 5 ml UD PO SCH ×4 (09:39→22:28)
[2017-03-16] MEDS: Meropenem IV 1 gm in NS 50 ML IVPB SCH ×2 (09:46→22:10)
--- NOTE | 2017-03-16 10:01 | PN ---
CARDIOLOGY FOLLOWUP DATE: 03/16/2017 SUBJECTIVE: The patient is resting comfortably. She is not dyspneic. PHYSICAL EXAMINATION: VITAL SIGNS: Blood pressure 135/67, heart rate in the 80s, normal sinus rhythm, the patient is afebrile. NECK: Negative JVD. LUNGS: Decreased breath sounds bilaterally. HEART: Reveal S1, S2. EXTREMITIES: Without edema. Hemoglobin is 9.0. LABORATORY DATA: Chemistries; BUN and creatinine of 36 and 1.1. IMPRESSION: 1. Exacerbation of chronic obstructive pulmonary disease. 2. History of lung carcinoma. 3. Resolution of sinus tachycardia. 4. Anemia. Given these findings, the patient's respiratory status is stable. Potassium has been replaced. Lamin Worrell MD
--- NOTE | 2017-03-16 11:51 | CP.CCUPN ---
<Kulwinder Corado - Last Filed: 03/16/17 13:59> CCU Subjective - Physician Review Subjective (Free Text): Critical Care Progress Note for Dr. Montelongo Patient seen and examined at bedside. No acute event overnight. Patient is lying in bed comfortably. Patient states shortness of breath and breathing improved. She still experiencing mouth pain but is drinking liquids. Only had 1 episode of loose stool yesterday. Admits chills, temperature is 94.4 today. Denies fevers, chest pain, SOB, abdominal pain, nausea/vomiting, diarrhea, constipation. CCU Objective - Vital Signs / Intake & Output Vital Signs (Last 4 hours): Vital Signs Temp Pulse Resp BP Pulse Ox 03/16/17 09:32 95.2 F L 03/16/17 08:04 85 03/16/17 08:00 95.2 F L 84 18 126/88 100 Intake and Output (Last 8hrs): Intake & Output 03/15/17 03/16/17 03/16/17 22:59 06:59 14:59 Intake Total 1760 1400 Output Total 150 100 Balance 1610 1300 Intake: IV 1000 1300 Right Antecubital 0 Right Forearm 1000 0 Right Upper arm 1300 Oral 760 100 Output: Urine 150 100 Urethral (Worrell) 150 100 Other: # Bowel Movements 1 1 - Physical Exam Head: Positive for: Atraumatic, Normocephalic Pupils: Positive for: PERRL Extroacular Muscles: Positive for: EOMI Mouth: Positive for: Moist Mucous Membranes Respiratory/Chest: Positive for: Decreased Breath Sounds (right), Rales (right side) Cardiovascular: Positive for: Regular Rate and Rhythm, Normal S1, S2 Abdomen: Positive for: Normal Bowel Sounds. Negative for: Tenderness, Distention, Peritoneal Signs, Rebound, Guarding Upper Extremity: Positive for: Normal ROM, Neurovascularly Intact, Capillary Refill < 2s Lower Extremity: Positive for: Neurovascularly Intact, Capillary Refill < 2 s Neurological: Positive for: GCS=15, CN II-XII Intact, Speech Normal, Motor Func Grossly Intact, Normal Sensory Function Skin: Positive for: Warm, Dry Psychiatric: Positive for: Alert, Oriented x 3, Normal Insight, Normal Concentration - Medications Active Medications: Active Medications Generic Name Dose Route Start Last Admin Trade Name Freq PRN Reason Stop Dose Admin Acetylcysteine 4 ml 03/15/17 14:00 12/13/17 09:18 Acetylcysteine 20% IH 4 ml [id number] HANNAH Administration Albuterol/Ipratropium 3 ml 03/15/17 14:00 03/16/17 09:18 Duoneb 3 Mg/0.5 Mg (3 Ml) Ud IH 3 ml [id number] HANNAH Administration Albuterol/Ipratropium 3 ml 03/15/17 08:28 Duoneb 3 Mg/0.5 Mg (3 Ml) Ud IH Q2H PRN Shortness of Breath Budesonide 0.5 mg 03/15/17 20:00 Pulmicort Respules IH [id number] HANNAH Calcium Carbonate 600 mg 03/15/17 18:00 03/16/17 09:40 Caltrate PO 600 mg BID HANNAH Administration Al Hydrox/Mg Hydrox/ 0 ml 03/14/17 17:47 03/15/17 23:34 Simethicone 30 ml/ PO 15 ml Diphenhydramine HCl 75 mg/ Q2H PRN Administration Lidocaine 30 ml Mouth/Throat Pain Heparin Sodium (Porcine) 5,000 units 03/15/17 02:55 03/16/17 07:16 Heparin SC 5,000 units Q8 HANNAH Administration Protocol Hydrocortisone Sodium Succinate 50 mg 03/14/17 17:45 03/16/17 09:39 Solu-Cortef IVP 50 mg Q8H HANNAH Administration Meropenem 50 mls @ 100 mls/hr 03/14/17 22:30 03/16/17 09:46 Merrem Iv 1 Gm Premix IVPB 03/21/17 22:31 100 mls/hr Q12 HANNAH Administration Protocol Sodium Chloride 1,000 mls @ 75 mls/hr 03/15/17 10:04 03/16/17 06:50 Sodium Chloride 0.9% IV 75 mls/hr .[id number] HANNAH Administration Vancomycin HCl 1 gm in 250 mls @ 167 mls/hr 03/16/17 22:00 Vancomycin 1gm IVPB 04/13/17 22:01 Q12H HANNAH Protocol Nystatin 5 ml 03/14/17 22:00 03/16/17 09:39 Nystatin Oral Susp PO 5 ml QID HANNAH Administration Ondansetron HCl 4 mg 03/14/17 17:34 Zofran Inj IVP Q6H PRN Nausea/Vomiting Pantoprazole Sodium 40 mg 03/14/17 17:45 03/16/17 09:39 Protonix Inj IVP 40 mg DAILY HANNAH Administration - Patient Studies Lab Studies: Microbiology Studies 03/14/17 20:30 Urine Culture - Final Urine No Growth (<1,000 CFU/ML) Lab Studies 03/16/17 03/16/17 03/15/17 Range/Units 06:30 06:30 17:01 WBC 14.8 H D (4.5-11.0) 10^3/ul RBC 3.53 (3.5-6.1) 10^6/uL Hgb 9.9 L (12.0-16.0) g/dL Hct 29.4 L (36.0-48.0) % MCV 83.3 (80.0-105.0) fl MCH 28.0 (25.0-35.0) pg MCHC 33.7 (31.0-37.0) g/dl RDW 15.8 H (11.5-14.5) % Plt Count 82 L (120.0-450.0) 10^3/uL MPV 9.5 (7.0-11.0) fl Sodium 122 L 120 L (132-148) mmol/L Potassium 4.2 4.3 (3.6-5.0) mmol/L Chloride 89 L 88 L (98-107) mmol/L Carbon Dioxide 23 22 (21-33) mmol/L Anion Gap 14 15 (10-20) BUN 36 H 33 H (7-21) mg/dL Creatinine 1.1 1.0 (0.7-1.2) mg/dl Est GFR ( Amer) 60 > 60 Est GFR (Non-Af Amer) 49 55 Random Glucose 152 H 169 H (70-110) mg/dL Serum Osmolality (272-300) mosm/kg Calcium 7.1 L 7.0 L (8.4-10.5) mg/dL Total Bilirubin 0.5 0.9 (0.2-1.3) mg/dL AST 23 19 (14-36) U/L ALT 21 30 (7-56) U/L Alkaline Phosphatase 187 H 204 H (38-126) U/L Total Protein 4.8 L 5.1 L (5.8-8.3) g/dL Albumin 2.1 L 2.2 L (3.0-4.8) g/dL Globulin 2.8 2.9 gm/dL Albumin/Globulin Ratio 0.8 L 0.8 L (1.1-1.8) Procalcitonin (0.19-0.49) NG/ML Ur L.pneumophila Ag (NEGATIVE) 03/15/17 03/15/17 03/15/17 Range/Units 17:01 10:45 06:29 WBC 19.2 H D (4.5-11.0) 10^3/ul RBC 3.95 (3.5-6.1) 10^6/uL Hgb 11.0 L (12.0-16.0) g/dL Hct 32.6 L (36.0-48.0) % MCV 82.5 (80.0-105.0) fl MCH 27.8 (25.0-35.0) pg MCHC 33.7 (31.0-37.0) g/dl RDW 15.8 H (11.5-14.5) % Plt Count 93 L (120.0-450.0) 10^3/uL MPV 9.5 (7.0-11.0) fl Sodium (132-148) mmol/L Potassium (3.6-5.0) mmol/L Chloride (98-107) mmol/L Carbon Dioxide (21-33) mmol/L Anion Gap (10-20) BUN (7-21) mg/dL Creatinine (0.7-1.2) mg/dl Est GFR ( Amer) Est GFR (Non-Af Amer) Random Glucose (70-110) mg/dL Serum Osmolality 271 L (272-300) mosm/kg Calcium (8.4-10.5) mg/dL Total Bilirubin (0.2-1.3) mg/dL AST (14-36) U/L ALT (7-56) U/L Alkaline Phosphatase (38-126) U/L Total Protein (5.8-8.3) g/dL Albumin (3.0-4.8) g/dL Globulin gm/dL Albumin/Globulin Ratio (1.1-1.8) Procalcitonin (0.19-0.49) NG/ML Ur L.pneumophila Ag Negative (NEGATIVE) 03/15/17 Range/Units 06:00 WBC (4.5-11.0) 10^3/ul RBC (3.5-6.1) 10^6/uL Hgb (12.0-16.0) g/dL Hct (36.0-48.0) % MCV (80.0-105.0) fl MCH (25.0-35.0) pg MCHC (31.0-37.0) g/dl RDW (11.5-14.5) % Plt Count (120.0-450.0) 10^3/uL MPV (7.0-11.0) fl Sodium (132-148) mmol/L Potassium (3.6-5.0) mmol/L Chloride (98-107) mmol/L Carbon Dioxide (21-33) mmol/L Anion Gap (10-20) BUN (7-21) mg/dL Creatinine (0.7-1.2) mg/dl Est GFR ( Amer) Est GFR (Non-Af Amer) Random Glucose (70-110) mg/dL Serum Osmolality (272-300) mosm/kg Calcium (8.4-10.5) mg/dL Total Bilirubin (0.2-1.3) mg/dL AST (14-36) U/L ALT (7-56) U/L Alkaline Phosphatase (38-126) U/L Total Protein (5.8-8.3) g/dL Albumin (3.0-4.8) g/dL Globulin gm/dL Albumin/Globulin Ratio (1.1-1.8) Procalcitonin 7.94 H (0.19-0.49) NG/ML Ur L.pneumophila Ag (NEGATIVE) Laboratory Results - last 24 hr 03/15/17 03/15/17 03/15/17 06:00 06:29 10:45 WBC RBC Hgb Hct MCV MCH MCHC RDW Plt Count MPV Sodium Potassium Chloride Carbon Dioxide Anion Gap BUN Creatinine Est GFR ( Amer) Est GFR (Non-Af Amer) Random Glucose Serum Osmolality 271 L Calcium Total Bilirubin AST ALT Alkaline Phosphatase Total Protein Albumin Globulin Albumin/Globulin Ratio Procalcitonin 7.94 H Ur L.pneumophila Ag Negative 03/15/17 03/15/17 03/16/17 17:01 17:01 06:30 WBC 19.2 H D 14.8 H D RBC 3.95 3.53 Hgb 11.0 L 9.9 L Hct 32.6 L 29.4 L MCV 82.5 83.3 MCH 27.8 28.0 MCHC 33.7 33.7 RDW 15.8 H 15.8 H Plt Count 93 L 82 L MPV 9.5 9.5 Sodium 120 L Potassium 4.3 Chloride 88 L Carbon Dioxide 22 Anion Gap 15 BUN 33 H Creatinine 1.0 Est GFR ( Amer) > 60 Est GFR (Non-Af Amer) 55 Random Glucose 169 H Serum Osmolality Calcium 7.0 L Total Bilirubin 0.9 AST 19 ALT 30 Alkaline Phosphatase 204 H Total Protein 5.1 L Albumin 2.2 L Globulin 2.9 Albumin/Globulin Ratio 0.8 L Procalcitonin Ur L.pneumophila Ag 03/16/17 06:30 WBC RBC Hgb Hct MCV MCH MCHC RDW Plt Count MPV Sodium 122 L Potassium 4.2 Chloride 89 L Carbon Dioxide 23 Anion Gap 14 BUN 36 H Creatinine 1.1 Est GFR ( Amer) 60 Est GFR (Non-Af Amer) 49 Random Glucose 152 H Serum Osmolality Calcium 7.1 L Total Bilirubin 0.5 AST 23 ALT 21 Alkaline Phosphatase 187 H Total Protein 4.8 L Albumin 2.1 L Globulin 2.8 Albumin/Globulin Ratio 0.8 L Procalcitonin Ur L.pneumophila Ag Critical Care Progress Note - Nutrition Nutrition: Nutrition Category Date Time Status Liquid Diet [DIET] Diets 03/14/17 Dinner Ordered Assessment/Plan - Assessment and Plan (Free Text) Plan: 71 F with a PMH of HTN, hypothyroid, stage IV lung cancer s/p chemo and radiation presents with resolving hypovolemic shock/distributive shock likely secondary to dehydration and decreased oral intake Neuro: AAOx3, maintain normothermia, answering questions appropriately Pulm: Maintain SaO2 > 90%, keep head of bed elevated at 30 degrees, Pulmicort, Mucomyst, Duoneb Cardio: regular rhythm, normotensive, Maintain MAP > 65 GI: Protonix for ppx, CLD Renal: Monitor electrolytes, replete as needed, NS @ 75cc/hr, Calcium carbonate Endo: Maintain euglycemia 140-180, solu-cortef 50 mg IVP Q8H Heme: DVT ppx ID: Continue IV antibiotics as per ID, blood culture shows gram + cocci in chains x 2, f/u urine culture, f/u cdiff, Nystatin mouthwash, f/u legionella, <Evin Montelongo B - Last Filed: 03/16/17 15:01> CCU Objective - Vital Signs / Intake & Output Intake and Output (Last 8hrs): Intake & Output 03/15/17 03/16/17 03/16/17 22:59 06:59 14:59 Intake Total 1760 1400 Output Total 150 100 Balance 1610 1300 Intake: IV 1000 1300 Right Antecubital 0 Right Forearm 1000 0 Right Upper arm 1300 Oral 760 100 Output: Urine 150 100 Urethral (Worrell) 150 100 Other: # Bowel Movements 1 1 - Medications Active Medications: Active Medications Generic Name Dose Route Start Last Admin Trade Name Freq PRN Reason Stop Dose Admin Acetaminophen 650 mg 03/16/17 12:29 03/16/17 13:39 Tylenol 325mg Tab PO 650 mg Q6H PRN Administration moderate pain Acetylcysteine 4 ml 03/15/17 14:00 03/16/17 13:18 Acetylcysteine 20% IH 4 ml [id number] HANNAH Administration Albuterol/Ipratropium 3 ml 03/15/17 14:00 03/16/17 13:18 Duoneb 3 Mg/0.5 Mg (3 Ml) Ud IH 3 ml [id number] HANNAH Administration Albuterol/Ipratropium 3 ml 03/15/17 08:28 Duoneb 3 Mg/0.5 Mg (3 Ml) Ud IH Q2H PRN Shortness of Breath Budesonide 0.5 mg 03/15/17 20:00 Pulmicort Respules IH [id number] HANNAH Calcium Carbonate 600 mg 03/15/17 18:00 03/16/17 09:40 Caltrate PO 600 mg BID HANNAH Administration Al Hydrox/Mg Hydrox/ 0 ml 03/14/17 17:47 03/15/17 23:34 Simethicone 30 ml/ PO 15 ml Diphenhydramine HCl 75 mg/ Q2H PRN Administration Lidocaine 30 ml Mouth/Throat Pain Heparin Sodium (Porcine) 5,000 units 03/15/17 02:55 03/16/17 13:38 Heparin SC 5,000 units Q8 HANNAH Administration Protocol Hydrocortisone Sodium Succinate 50 mg 03/14/17 17:45 03/16/17 09:39 Solu-Cortef IVP 50 mg Q8H HANNAH Administration Meropenem 50 mls @ 100 mls/hr 03/14/17 22:30 03/16/17 09:46 Merrem Iv 1 Gm Premix IVPB 03/21/17 22:31 100 mls/hr Q12 HANNAH Administration Protocol Sodium Chloride 1,000 mls @ 75 mls/hr 03/15/17 10:04 03/16/17 06:50 Sodium Chloride 0.9% IV 75 mls/hr .[id number] HANNAH Administration Vancomycin HCl 1 gm in 250 mls @ 167 mls/hr 03/16/17 22:00 Vancomycin 1gm IVPB 04/13/17 22:01 Q12H [facility] Protocol Mupirocin 0 gm 03/16/17 18:00 Bactroban Ointment NS 03/21/17 10:01 BID HANNAH Nystatin 5 ml 03/14/17 22:00 03/16/17 13:38 Nystatin Oral Susp PO 5 ml QID HANNAH Administration Ondansetron HCl 4 mg 03/14/17 17:34 Zofran Inj IVP Q6H PRN Nausea/Vomiting Pantoprazole Sodium 40 mg 03/14/17 17:45 03/16/17 09:39 Protonix Inj IVP 40 mg DAILY HANNAH Administration - Patient Studies Lab Studies: Microbiology Studies 03/15/17 20:48 Gram Stain - Preliminary Sputum 03/14/17 23:08 MRSA Culture (Admit) - Final Naris MRSA DETECTED 03/14/17 20:30 Urine Culture - Final Urine No Growth (<1,000 CFU/ML) Lab Studies 03/16/17 03/16/17 03/16/17 Range/Units 06:30 06:30 06:30 WBC 14.8 H D (4.5-11.0) 10^3/ul RBC 3.53 (3.5-6.1) 10^6/uL Hgb 9.9 L (12.0-16.0) g/dL Hct 29.4 L (36.0-48.0) % MCV 83.3 (80.0-105.0) fl MCH 28.0 (25.0-35.0) pg MCHC 33.7 (31.0-37.0) g/dl RDW 15.8 H (11.5-14.5) % Plt Count 82 L (120.0-450.0) 10^3/uL MPV 9.5 (7.0-11.0) fl Sodium 122 L (132-148) mmol/L Potassium 4.2 (3.6-5.0) mmol/L Chloride 89 L (98-107) mmol/L Carbon Dioxide 23 (21-33) mmol/L Anion Gap 14 (10-20) BUN 36 H (7-21) mg/dL Creatinine 1.1 (0.7-1.2) mg/dl Est GFR ( Amer) 60 Est GFR (Non-Af Amer) 49 Random Glucose 152 H (70-110) mg/dL Serum Osmolality (272-300) mosm/kg Calcium 7.1 L (8.4-10.5) mg/dL Total Bilirubin 0.5 (0.2-1.3) mg/dL AST 23 (14-36) U/L ALT 21 (7-56) U/L Alkaline Phosphatase 187 H (38-126) U/L Total Protein 4.8 L (5.8-8.3) g/dL Albumin 2.1 L (3.0-4.8) g/dL Globulin 2.8 gm/dL Albumin/Globulin Ratio 0.8 L (1.1-1.8) 25-OH Vitamin D Total 18.1 L (30.0-100.0) NG/ML 03/15/17 03/15/17 03/15/17 Range/Units 17:01 17:01 10:45 WBC 19.2 H D (4.5-11.0) 10^3/ul RBC 3.95 (3.5-6.1) 10^6/uL Hgb 11.0 L (12.0-16.0) g/dL Hct 32.6 L (36.0-48.0) % MCV 82.5 (80.0-105.0) fl MCH 27.8 (25.0-35.0) pg MCHC 33.7 (31.0-37.0) g/dl RDW 15.8 H (11.5-14.5) % Plt Count 93 L (120.0-450.0) 10^3/uL MPV 9.5 (7.0-11.0) fl Sodium 120 L (132-148) mmol/L Potassium 4.3 (3.6-5.0) mmol/L Chloride 88 L (98-107) mmol/L Carbon Dioxide 22 (21-33) mmol/L Anion Gap 15 (10-20) BUN 33 H (7-21) mg/dL Creatinine 1.0 (0.7-1.2) mg/dl Est GFR ( Amer) > 60 Est GFR (Non-Af Amer) 55 Random Glucose 169 H (70-110) mg/dL Serum Osmolality 271 L (272-300) mosm/kg Calcium 7.0 L (8.4-10.5) mg/dL Total Bilirubin 0.9 (0.2-1.3) mg/dL AST 19 (14-36) U/L ALT 30 (7-56) U/L Alkaline Phosphatase 204 H (38-126) U/L Total Protein 5.1 L (5.8-8.3) g/dL Albumin 2.2 L (3.0-4.8) g/dL Globulin 2.9 gm/dL Albumin/Globulin Ratio 0.8 L (1.1-1.8) 25-OH Vitamin D Total (30.0-100.0) NG/ML Laboratory Results - last 24 hr 03/15/17 03/15/17 03/15/17 10:45 17:01 17:01 WBC 19.2 H D RBC 3.95 Hgb 11.0 L Hct 32.6 L MCV 82.5 MCH 27.8 MCHC 33.7 RDW 15.8 H Plt Count 93 L MPV 9.5 Sodium 120 L Potassium 4.3 Chloride 88 L Carbon Dioxide 22 Anion Gap 15 BUN 33 H Creatinine 1.0 Est GFR ( Amer) > 60 Est GFR (Non-Af Amer) 55 Random Glucose 169 H Serum Osmolality 271 L Calcium 7.0 L Total Bilirubin 0.9 AST 19 ALT 30 Alkaline Phosphatase 204 H Total Protein 5.1 L Albumin 2.2 L Globulin 2.9 Albumin/Globulin Ratio 0.8 L 25-OH Vitamin D Total 03/16/17 03/16/17 03/16/17 06:30 06:30 06:30 WBC 14.8 H D RBC 3.53 Hgb 9.9 L Hct 29.4 L MCV 83.3 MCH 28.0 MCHC 33.7 RDW 15.8 H Plt Count 82 L MPV 9.5 Sodium 122 L Potassium 4.2 Chloride 89 L Carbon Dioxide 23 Anion Gap 14 BUN 36 H Creatinine 1.1 Est GFR ( Amer) 60 Est GFR (Non-Af Amer) 49 Random Glucose 152 H Serum Osmolality Calcium 7.1 L Total Bilirubin 0.5 AST 23 ALT 21 Alkaline Phosphatase 187 H Total Protein 4.8 L Albumin 2.1 L Globulin 2.8 Albumin/Globulin Ratio 0.8 L 25-OH Vitamin D Total 18.1 L Critical Care Progress Note - Nutrition Nutrition: Nutrition Category Date Time Status Liquid Diet [DIET] Diets 03/14/17 Dinner Ordered Attending/Attestation - Attestation I have personally seen and examined this patient.: Yes I have fully participated in the care of the patient.: Yes I have reviewed all pertinent clinical information: Yes Notes (Text): 03/16/17 14:57 71 yo female with extensive squamous cell carcinoma of the lungs with R.lung collapse. however alert, oriented and hemodyanmically stable. respiratory stable. ok to downgrade to tele ccm time 40 min
--- NOTE | 2017-03-16 12:06 | PN ---
SUBJECTIVE: I saw Laverne in the intensive care unit. She is on contact precautions. She has severe sepsis, she also has lung cancer, status post radiation. She is more alert and stronger today, breathing better, less cough, less congestion, and better spirits, but she is tired. PHYSICAL EXAMINATION: VITAL SIGNS: She has 96.8 temp, 84 pulse, 135/67 blood pressure, 25 respiratory rate, 99% O2 sat. HEENT: Head is atraumatic and normocephalic. Throat is dry. NECK: Supple. HEART: Regular rate. LUNGS: Decreased breath sounds, especially in the right side, but less congestion, less wheeze, but it is still a little bit there, changes with cough. ABDOMEN: Soft. EXTREMITIES: No edema. MEDICATIONS: She is currently on acetylcysteine, Caltrate, DuoNeb, heparin, treatment for the throat for thrush, Merrem IV, nystatin swish and swallow, Protonix, Pulmicort, IV fluids, Solu-Cortef, vancomycin IV, and for nauseousness. LABORATORY DATA: She has a 14.8 white count, 9.9 hemoglobin, 29.4 hematocrit, with 82 platelets. She has a 123 sodium. She has a 4.2 potassium. BUN is 36. Creatinine is 1.1. GFR is 49. Sugar is 152. Calcium is 7.1, a little better. Total bilirubin is 0.5. AST is 23. ALT is 21. Alk phos is 187. Total protein is 4.8. Procalcitonin is 7.94. She is being seen by Renal, Cardiology, Infectious Disease, and Pulmonary. She is in a lot of trouble medically. I asked her to get her out of bed to chair, maybe some physical therapy. She was dehydrated with severe sepsis, low potassium, low sodium, lung cancer, CHF, thrush, diarrhea, and hopefully, she will continue to improve. We will check her labs tomorrow. Continue physical therapy, out of bed to chair. Bennie Ann DO MTDSage
--- NOTE | 2017-03-16 12:18 | PN ---
DATE: 03/16/2017 SUBJECTIVE: The patient is in bed in no acute distress. The patient was seen in 128, bed 7. She is awake and alert. She states she is feeling better. No fevers. PHYSICAL EXAMINATION: VITAL SIGNS: Temperature is 97, blood pressure is 130/60, respiratory rate is 23, and heart rate of 83. HEENT: Examination of HEENT is unremarkable. NECK: Supple. LUNGS: Have decreased breath sounds. HEART: Normal S1 and S2. GASTROINTESTINAL: Abdominal examination is soft and nontender. LABORATORY DATA: Laboratory examination reveals a white count of 14,800, hemoglobin of 9, and platelets of 82. Coagulation is noted. Chemistries reveals a BUN of 36 and creatinine of 1.1. Procalcitonin of 7.94 and calcium is low at 6.6 and alkaline phosphatase of 187. Urinalysis is noted to be unremarkable, 1 to 3 wbc's. Urine for Legionella antigen is negative. The patient does have a Gram-positive cocci in the blood and was not notified of this results in one bottle and a second bottle is also a Gram-positive cocci and Staphylococcus aureus by PNA FISH, I was not notified of this either. The patient is on linezolid light and meropenem. ASSESSMENT AND PLAN: This is a 71-year-old female with a past medical history of hypertension, hypothyroidism, lung cancer and status post chemotherapy and radiation, history of congestive heart failure, chronic obstructive lung disease with severe sepsis with Gram-positive cocci bacteremia and Staphylococcus aureus bacteremia and healthcare-associated pneumonia, the source of the Staphylococcus aureus bacteremia is unclear. The patient had a chest x-ray yesterday morning read by Dr. Erika Rayo, which is a right-sided MediPort extends expected location, possible MediPort being a source of the Staphylococcus aureus bacteremia. The patient also had another chest x-ray yesterday which is reviewed. The patient had a peripherally inserted central catheter line placement.. Staphylococcus aureus by PNA FISH is what is reported in the blood culture. We will order an echocardiogram and repeat blood cultures x2. Discontinue the Zyvox and use meropenem and we will give a two doses of vancomycin. Vancomycin 2 g now and then 1 gram q. 12 hours. We will order a sedimentation rate and C-reactive protein.. Dr. Barnes's note is reviewed and Dr. Lamin Worrell's note is reviewed and consultation. We will follow closely with you. Blane Mcleod MD
--- NOTE | 2017-03-16 15:24 | CP.PCM.PN ---
Subjective - Date & Time of Evaluation Date of Evaluation: 03/16/17 Time of Evaluation: 15:21 - Subjective Subjective: Follow up Nephrology Consultation: Assessment: Stable Acute Kidney Injury (N17.9) likely hemodynamic due to low BP< GI fluid loss: improved Acute on chronic hypoosmolar Hyponatremia, likely due to intravasc depletion superimposed on ? underlying SIADH due to chronic respi illess/lung ca Lactic acidosis, Hypoalbuminemia, Hypocalcemia Combined respiratory and high anion gap metabolic acidosis with superimposed metabolic alkalosis Hypokalemia, Anemia, Lung CA (SCC), Rt lung collapse, hx of HTN hepatomegaly and b/l adrenal gland enlargement Vit D def Plan No acute need for renal replacement therapy at this time. Hypertension control with meds as ordered. Patient not on ACEI/ARB due to SHAR. hold BP meds. maintain hemodynamics stable. Monitor Input/Output, daily weights and renal function with basic metabolic panel Check urine sodium and osmol: reordered today. continue with IVF as normal saline. avoid correction in serum Na >6-8 meq/24 hrs. hypertonic saline not indicated at this time replace electrolytes as needed. started on Ca carbonate bid and weekly vit D Dose meds/antibiotics for low GFR. Avoid fleets enema/magnesium based laxatives. Avoid nephrotoxins/NSAIDs/ iodinated contrast (unless needed emergently) Glycemic control Further work up/management as per primary team Thanks for allowing me to participate in care of your patient. Will follow patient with you. Please call if any Qs. Dr Humza Barnes Office: [phone] Chief Complaint; none today HPI: Pt is a 71 F with hx of hypertension, lung cancer (SCC) s/p endobronchial stents, Rt lung collapse s/p radiation, ex smoker, b/l adrenal thickening, chronic hyponatremia (Na 130) presented with complaints of loose BM 3-4 episodes per day for last 1 week with decreased oral intake. also had intermittent SOB with cough. feels better now. renal consult for SHAR and hyponatremia, lactic acidosis. being managed for sepsis Denies chest pain, palpitation, improved shortness of breath, c/o leg swelling No recent iodinated contrast exposure. obvious episodes of low BP when in ER. appetite decreased. Physical Examination: General Appearance: Comfortable, in no acute respiratory distress, co-operative . ill appearing Vitals reviewed and noted as below Head; Atraumatic, normocephalic ENT: no ulcers no thrush. Tongue is midline. Oropharynx: no rash or ulcers. dry oral mucosa EYES: Pupils are equal, round and reactive to light accommodation. Eye muscles and extraocular movement intact. Sclera is anicteric. Neck; supple no lymphadenopathy, no thyromegaly or bruit Lungs: Increased respiratory rate/effort. Breath sounds reduced at Rt with bibasal wheeze/rales Heart: normal rate. s1s2 normal. No rub or gallop. Extremities: 1+ edema. No varicose veins. Neurological: Patient is alert, awake and oriented to person, place and time. No focal deficit. Strength bilateral appropriate and equal Skin: Warm and dry. Normal turgor. No rash. Palpitation: Normal elasticity for age. has skin excoriations in legs Abdomen: Abdomen is soft. Bowel sounds +. There is no abdominal tenderness, no guarding/rigidity no organomegaly Psych: limited insight and normal affect/mood MSK: no joint tenderness or swelling. Digits and nails normal, no deformity : kidney or bladder not palpable Labs/imaging reviewed. Past medical history, past surgical history, family history, social history, allergy reviewed and noted as below Family hx: no hx of CKD. Rest non-contributory work up TSH 1.1 Objective - Vital Signs/Intake and Output Vital Signs (last 24 hours): Temp Pulse Resp BP Pulse Ox 95.2 F L 85 18 126/88 100 03/16/17 09:32 03/16/17 08:04 03/16/17 08:00 03/16/17 08:00 03/16/17 08:00 Intake and Output: 03/16/17 03/16/17 06:59 18:59 Intake Total 1400 Output Total 100 Balance 1300 - Medications Medications: Current Medications Acetaminophen (Tylenol 325mg Tab) 650 mg PO Q6H PRN PRN Reason: moderate pain Last Admin: 03/16/17 13:39 Dose: 650 mg Acetylcysteine (Acetylcysteine 20%) 4 ml IH [id number] [facility] Last Admin: 03/16/17 13:18 Dose: 4 ml Albuterol/Ipratropium (Duoneb 3 Mg/0.5 Mg (3 Ml) Ud) 3 ml IH [id number] [facility] Last Admin: 03/16/17 13:18 Dose: 3 ml Albuterol/Ipratropium (Duoneb 3 Mg/0.5 Mg (3 Ml) Ud) 3 ml IH Q2H PRN PRN Reason: Shortness of Breath Budesonide (Pulmicort Respules) 0.5 mg IH [id number] [facility] Calcium Carbonate (Caltrate) 600 mg PO BID [facility] Last Admin: 03/16/17 09:40 Dose: 600 mg Al Hydrox/Mg Hydrox/Simethicone 30 ml/Diphenhydramine HCl 75 mg/Lidocaine 30 ml 0 ml PO Q2H PRN PRN Reason: Mouth/Throat Pain Last Admin: 03/15/17 23:34 Dose: 15 ml Ergocalciferol (Drisdol 50,000 Intl Units Cap) 1 cap PO Q7D [facility] Heparin Sodium (Porcine) (Heparin) 5,000 units SC Q8 [facility] PRN Reason: Protocol Last Admin: 03/16/17 13:38 Dose: 5,000 units Hydrocortisone Sodium Succinate (Solu-Cortef) 50 mg IVP Q8H [facility] Last Admin: 03/16/17 09:39 Dose: 50 mg Meropenem (Merrem Iv 1 Gm Premix) 50 mls @ 100 mls/hr IVPB Q12 [facility] PRN Reason: Protocol Stop: 03/21/17 22:31 Last Admin: 03/16/17 09:46 Dose: 100 mls/hr Sodium Chloride (Sodium Chloride 0.9%) 1,000 mls @ 75 mls/hr IV .[id number] [facility] Last Admin: 03/16/17 06:50 Dose: 75 mls/hr Vancomycin HCl (Vancomycin 1gm) 1 gm in 250 mls @ 167 mls/hr IVPB Q12H [facility] PRN Reason: Protocol Stop: 04/13/17 22:01 Mupirocin (Bactroban Ointment) 0 gm NS BID [facility] Stop: 03/21/17 10:01 Nystatin (Nystatin Oral Susp) 5 ml PO QID [facility] Last Admin: 03/16/17 13:38 Dose: 5 ml Ondansetron HCl (Zofran Inj) 4 mg IVP Q6H PRN PRN Reason: Nausea/Vomiting Pantoprazole Sodium (Protonix Inj) 40 mg IVP DAILY [facility] Last Admin: 03/16/17 09:39 Dose: 40 mg - Labs Labs: 03/16/17 06:30 03/16/17 06:30 PT 15.9 SECONDS (9.4-12.5) H 03/14/17 15:45 INR 1.45 (0.93-1.08) H 03/14/17 15:45 APTT 43.5 Seconds (25.1-36.5) H 03/14/17 15:45
[2017-03-16] MEDS ORDERED: Ergocalciferol 50,000 Intl Units Cap PO SCH (15:30)
[2017-03-16] MEDS: Aluminum Hydroxide/Magnesium 30 ML, DiphenhydrAMINE 75 MG, Lidocaine 2% Viscous 30 ML PO PRN ×2 (17:30→22:40)
[2017-03-16 18:42] LABS: MEAN CELL VOLUME 83.9 fl (80.0-105.0); MEAN CORPUSCULAR HGB CONC 33.3 g/dl (31.0-37.0); MEAN PLATELET VOLUME 9.3 fl (7.0-11.0); RED CELL DISTRIBUTION WIDTH 15.6 % (11.5-14.5); WHITE BLOOD COUNT 10.6 10^3/ul (4.5-11.0)
[2017-03-16 19:00] LABS: ALB/GLOB RATIO 0.8 (1.1-1.8); ALKALINE PHOSPHATASE 203 U/L (38-126); ALT/SGPT 31 U/L (7-56); AST/SGOT 22 U/L (14-36); BILIRUBIN,TOTAL 0.6 mg/dL (0.2-1.3); BLOOD UREA NITROGEN 36 mg/dL (7-21); CARBON DIOXIDE 23 mmol/L (21-33); CHLORIDE 94 mmol/L (98-107); GFR AFRICAN-AMERICAN > 60; GLUCOSE,RANDOM 127 mg/dL (70-110); SODIUM 125 mmol/L (132-148); TOTAL PROTEIN 4.6 g/dL (5.8-8.3)
--- NOTE | 2017-03-16 20:42 | CARD ---
APPROVED REPORT EXAM: Two-dimensional and M-mode echocardiogram with Doppler and color Doppler. INDICATION Infection:Rule out subacute bacterial endocarditis 2D DIMENSIONS IVSd1.1 (0.7-1.1cm)LVDd3.2 (3.9-5.9cm) PWd1.0 (0.7-1.1cm)LVEF (%)55.0 (>50%) M-Mode DIMENSIONS Aortic Root3.10 (2.2-3.7cm)Aortic Cusp Exc.1.90 (1.5-2.0cm) Aortic Valve AoV Peak Wlpjuoix598.0cm/Flavio Peak GR.10mmHg Mitral Valve E/A ratio0.0 TDI E/Lateral E'0.0E/Medial E'0.0 Pulmonary Valve PV Peak Ljoqhumv72.5cm/sPV Peak Grad.2mmHg Tricuspid Valve TR Peak [id number] [id number] Peak Gr.31mmHg [id number] LEFT VENTRICLE The left ventricle is normal size. There is normal left ventricular wall thickness. The left ventricular ejection fraction is within the normal range. Septal hypokinesis Transmitral Doppler flow pattern is Grade I-abnormal relaxation pattern. RIGHT VENTRICLE The right ventricle is normal size. There is normal right ventricular wall thickness. The right ventricular systolic function is normal. ATRIA The left atrium size is normal. The right atrium size is normal. AORTIC VALVE No aortic regurgitation is present. There is no aortic valvular stenosis. MITRAL VALVE There is no mitral valve regurgitation noted. There is no mitral valve stenosis. TRICUSPID VALVE There is mild pulmonary hypertension. GREAT VESSELS The aortic root is normal in size. PERICARDIAL EFFUSION There is a trace loculated anterior pericardial effusion. <Conclusion> Valvular structures are not well visualized, however, no vegitation seen The left ventricle is normal size. There is normal left ventricular wall thickness. The left ventricular ejection fraction is within the normal range. Septal hypokinesis Transmitral Doppler flow pattern is Grade I-abnormal relaxation pattern. There is mild pulmonary hypertension.
[2017-03-16] MEDS: Vancomycin 1gm in NS 250ml 1 GM/250 ML BAG IVPB SCH (22:29)
[2017-03-17] MEDS: Albuterol-Ipratrop 3 mg / 0.5 (3 ml) UD IH SCH ×4 (01:21→20:19)
[2017-03-17] MEDS: Acetylcysteine 20% Inhal Soln (4ml) IH SCH ×4 (01:21→20:19)
[2017-03-17] MEDS: Aluminum Hydroxide/Magnesium 30 ML, DiphenhydrAMINE 75 MG, Lidocaine 2% Viscous 30 ML PO PRN ×2 (01:45→05:34)
[2017-03-17 05:52] LABS: ARTERIAL BLOOD GAS HCO3 20.9 mmol/L (21-28); ARTERIAL BLOOD GAS O2 CONTENT 11.9 ML/dl (15-23); ARTERIAL BLOOD GAS PH 7.41 (7.35-7.45); ARTERIAL BLOOD HGB O2 SAT 96.5 % (95.0-98.0); CARBOXYHEMOGLOBIN 1.7 % (0.5-1.5); HHB 0.5 % (0-5); METHEMOGLOBIN 1.3 % (0.0-3.0)
[2017-03-17 06:43] LABS: HEMATOCRIT 28.3 % (36.0-48.0); MEAN CELL VOLUME 83.5 fl (80.0-105.0); MEAN CORPUSCULAR HEMOGLOBIN 27.4 pg (25.0-35.0); MEAN CORPUSCULAR HGB CONC 32.9 g/dl (31.0-37.0); MEAN PLATELET VOLUME 9.5 fl (7.0-11.0); WHITE BLOOD COUNT 10.3 10^3/ul (4.5-11.0)
[2017-03-17 07:17] LABS: ALB/GLOB RATIO 0.8 (1.1-1.8); BILIRUBIN,TOTAL 0.5 mg/dL (0.2-1.3); CALCIUM 7.2 mg/dL (8.4-10.5); POTASSIUM 4.6 mmol/L (3.6-5.0)
--- NOTE | 2017-03-17 08:40 | RAD ---
HISTORY: sob COMPARISON: 03/15/2017 FINDINGS: LUNGS: There is dense consolidation and volume loss in the right lung. This is unchanged. The left lung remains clear. PLEURA: No significant pleural effusion identified, no pneumothorax apparent. CARDIOVASCULAR: Normal. OSSEOUS STRUCTURES: No significant abnormalities. VISUALIZED UPPER ABDOMEN: Normal. OTHER FINDINGS: Right-sided PICC line in satisfactory position IMPRESSION: No change in volume loss and consolidation of the right lung
[2017-03-17] MEDS: Budesonide 0.5 mg/2 ml Inhal Susp UD IH SCH ×3 (09:04→20:19)
[2017-03-17] MEDS: Nystatin 100,000 Units/ml Oral Susp 5 ml UD PO SCH ×3 (09:17→19:40)
[2017-03-17] MEDS: Meropenem IV 1 gm in NS 50 ML IVPB SCH (09:18)
--- NOTE | 2017-03-17 10:26 | PN ---
DATE: SUBJECTIVE: The patient appears mildly short of breath this morning, but in no acute distress. She remains very weak,frail looking. She is somewhat anxious this morning. OBJECTIVE: VITAL SIGNS: Temperature is 97.3, pulse is 95, respirations 20/22, blood pressure 132/78. Oxygen saturation on nasal cannula is 98%. HEENT: Normocephalic, atraumatic. No JVD. CARDIOVASCULAR: Positive S1, S2. No S3 or gallop. LUNGS: Decreased breath sounds at the bases. Less bilateral rhonchi. Less wheezing. EXTREMITIES: Mild edema. No cyanosis. No clubbing. Calves are nontender to palpation. GI: Abdomen is soft, nontender, and nondistended. Bowel sounds are positive. SKIN: No acute rash. NEUROLOGIC: Exam limited at the present time. PERTINENT LABORATORY DATA: Chest x-ray was done this morning and reviewed. There is no significant change from the previous film. Arterial blood gas was also done on nasal cannula. Results are: PH 7.41, pCO2 of 33, pO2 of 153. IMPRESSION: 1. Sepsis syndrome. 2. Dehydration. 3. Chronic obstructive pulmonary disease. 4. Mild bronchospasm. 5. 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 6. Multiple electrolyte abnormalities. PLAN: The patient appears comfortable this morning. She is mildly short of breath, but in no acute distress. She does remain frail and weak looking. She is also somewhat anxious this morning. I did discuss the case with the night nurse at length. The night nurse confirms that the patient had a pretty good night, but did get anxious during her shift. I did review the chest x-ray as above. The chest x-ray has not significantly changed from the previous film. I have also reviewed the arterial blood gas. The arterial blood gas is very acceptable at this point in time. On physical exam, the patient remains in mild bronchospasm. I will continue the current nebulizer treatments and inhaled steroids for now. The patient also remains on IV hydrocortisone. The patient also remains on antibiotic therapy - as per Infectious Disease. The patient is clinically improved - compared to the initial presentation. However, her future status/prognosis remains poor. I will discuss the above with the entire ICU team in the next few moments. I will also discuss the above with the attending physician later this morning. Lester Bassett MD [facility]
[2017-03-17] MEDS ORDERED: Sodium Chloride 0.9% 1,000 ML IV SCH (10:30)
[2017-03-17] MEDS: Vancomycin 1gm in NS 250ml 1 GM/250 ML BAG IVPB SCH (11:20)
--- NOTE | 2017-03-17 12:12 | CP.PCM.PN ---
Subjective - Date & Time of Evaluation Date of Evaluation: 03/17/17 Time of Evaluation: 12:10 - Subjective Subjective: Follow up Nephrology Consultation: Assessment: Stable Acute Kidney Injury (N17.9) likely hemodynamic due to low BP< GI fluid loss: improved Acute on chronic hypoosmolar Hyponatremia, likely due to intravasc depletion superimposed on ? underlying SIADH due to chronic respi illess/lung ca Lactic acidosis, Hypoalbuminemia, Hypocalcemia Combined respiratory and high anion gap metabolic acidosis with superimposed metabolic alkalosis Hypokalemia, Anemia, Lung CA (SCC), Rt lung collapse, hx of HTN hepatomegaly and b/l adrenal gland enlargement Vit D def Plan No acute need for renal replacement therapy at this time. Hypertension control with meds as ordered. Patient not on ACEI/ARB due to SHAR. hold BP meds. maintain hemodynamics stable. Monitor Input/Output, daily weights and renal function with basic metabolic panel continue with IVF as normal saline (low UOP, elevated cr and low urine Na). avoid correction in serum Na >6-8 meq/24 hrs. hypertonic saline not indicated at this time replace electrolytes as needed. started on Ca carbonate bid and weekly vit D repeat renal and bladder sono pt on steroids Dose meds/antibiotics for low GFR. Avoid fleets enema/magnesium based laxatives. Avoid nephrotoxins/NSAIDs/ iodinated contrast (unless needed emergently) Glycemic control Further work up/management as per primary team Thanks for allowing me to participate in care of your patient. Will follow patient with you. Please call if any Qs. d./w team and family Dr Humza Barnes Office: [phone] Chief Complaint; none today HPI: Pt is a 71 F with hx of hypertension, lung cancer (SCC) s/p endobronchial stents, Rt lung collapse s/p radiation, ex smoker, b/l adrenal thickening, chronic hyponatremia (Na 130) presented with complaints of loose BM 3-4 episodes per day for last 1 week with decreased oral intake. also had intermittent SOB with cough. feels better now. renal consult for SHAR and hyponatremia, lactic acidosis. being managed for sepsis Denies chest pain, palpitation, improved shortness of breath, c/o leg swelling No recent iodinated contrast exposure. had episodes of low BP when in ER. appetite decreased. Physical Examination: General Appearance: Comfortable, in no acute respiratory distress, co-operative . ill appearing Vitals reviewed and noted as below Head; Atraumatic, normocephalic ENT: no ulcers no thrush. Tongue is midline. Oropharynx: no rash or ulcers. dry oral mucosa EYES: Pupils are equal, round and reactive to light accommodation. Eye muscles and extraocular movement intact. Sclera is anicteric. Neck; supple no lymphadenopathy, no thyromegaly or bruit Lungs: Increased respiratory rate/effort. Breath sounds reduced at Rt with bibasal wheeze/rales Heart: normal rate. s1s2 normal. No rub or gallop. Extremities: 1+ ankle edema. No varicose veins. Neurological: Patient is alert, awake and oriented to person, place and time. No focal deficit. Strength bilateral appropriate and equal Skin: Warm and dry. Normal turgor. No rash. Palpitation: Normal elasticity for age. has skin excoriations in legs Abdomen: Abdomen is soft. Bowel sounds +. There is no abdominal tenderness, no guarding/rigidity no organomegaly Psych: limited insight and normal affect/mood MSK: no joint tenderness or swelling. Digits and nails normal, no deformity : kidney or bladder not palpable Labs/imaging reviewed. Past medical history, past surgical history, family history, social history, allergy reviewed and noted as below Family hx: no hx of CKD. Rest non-contributory work up TSH 1.1 Objective - Vital Signs/Intake and Output Vital Signs (last 24 hours): Temp Pulse Resp BP Pulse Ox 96.8 F L 93 H 18 147/87 98 03/17/17 08:00 03/17/17 08:00 03/17/17 08:00 03/17/17 08:00 03/17/17 08:00 Intake and Output: 03/17/17 03/17/17 06:59 18:59 Intake Total 3140 Output Total 290 Balance 2850 - Medications Medications: Current Medications Acetaminophen (Tylenol 325mg Tab) 650 mg PO Q6H PRN PRN Reason: moderate pain Last Admin: 03/16/17 13:39 Dose: 650 mg Acetylcysteine (Acetylcysteine 20%) 4 ml IH [id number] [facility]NA[facility] Last Admin: 03/17/17 09:03 Dose: 4 ml Albuterol/Ipratropium (Duoneb 3 Mg/0.5 Mg (3 Ml) Ud) 3 ml IH [id number] [facility] Last Admin: 03/17/17 09:03 Dose: 3 ml Albuterol/Ipratropium (Duoneb 3 Mg/0.5 Mg (3 Ml) Ud) 3 ml IH Q2H PRN PRN Reason: Shortness of Breath Budesonide (Pulmicort Respules) 0.5 mg IH [id number] [facility] Last Admin: 03/17/17 09:04 Dose: 0.5 mg Calcium Carbonate (Caltrate) 600 mg PO BID [facility] Last Admin: 03/17/17 09:18 Dose: 600 mg Al Hydrox/Mg Hydrox/Simethicone 30 ml/Diphenhydramine HCl 75 mg/Lidocaine 30 ml 0 ml PO Q2H PRN PRN Reason: Mouth/Throat Pain Last Admin: 03/17/17 05:34 Dose: 5 ml Ergocalciferol (Drisdol 50,000 Intl Units Cap) 1 cap PO Q7D [facility] Last Admin: 03/16/17 17:49 Dose: 1 cap Heparin Sodium (Porcine) (Heparin) 5,000 units SC Q8 [facility] PRN Reason: Protocol Last Admin: 03/17/17 05:33 Dose: 5,000 units Hydrocortisone Sodium Succinate (Solu-Cortef) 50 mg IVP Q8H [facility] Last Admin: 03/17/17 09:22 Dose: 50 mg Meropenem (Merrem Iv 1 Gm Premix) 50 mls @ 100 mls/hr IVPB Q12 [facility] PRN Reason: Protocol Stop: 03/21/17 22:31 Last Admin: 03/17/17 09:18 Dose: 100 mls/hr Vancomycin HCl (Vancomycin 1gm) 1 gm in 250 mls @ 167 mls/hr IVPB Q12H [facility] PRN Reason: Protocol Stop: 04/13/17 22:01 Last Admin: 03/17/17 11:20 Dose: 167 mls/hr Sodium Chloride (Sodium Chloride 0.9%) 1,000 mls @ 100 mls/hr IV .Q10H [facility] Mupirocin (Bactroban Ointment) 0 gm NS BID [facility] Stop: 03/21/17 10:01 Nystatin (Nystatin Oral Susp) 5 ml PO QID [facility] Last Admin: 03/17/17 09:17 Dose: 5 ml Ondansetron HCl (Zofran Inj) 4 mg IVP Q6H PRN PRN Reason: Nausea/Vomiting Pantoprazole Sodium (Protonix Inj) 40 mg IVP DAILY [facility] Last Admin: 03/17/17 09:17 Dose: 40 mg - Labs Labs: 03/17/17 05:40 03/17/17 05:40 PT 15.9 SECONDS (9.4-12.5) H 03/14/17 15:45 INR 1.45 (0.93-1.08) H 03/14/17 15:45 APTT 43.5 Seconds (25.1-36.5) H 03/14/17 15:45
--- NOTE | 2017-03-17 12:33 | PN ---
DATE: 03/17/2017 CARDIOLOGY FOLLOWUP SUBJECTIVE: The patient is in a chair without shortness of breath. OBJECTIVE: VITAL SIGNS: Blood pressure is 147/87, heart rate is in the 90s. The patient is afebrile. NECK: Negative JVD. LUNGS: Without rales. HEART: With S1, S2. EXTREMITIES: Without edema. LABORATORIES: Hemoglobin is 9.3. Chemistries: BUN and creatinine are 39 and 1.3. IMPRESSION: 1. Exacerbation of chronic obstructive pulmonary disease. 2. History of lung cancer. 3. Anemia. 4. Her dyspnea is much improved. PLAN: Given these findings, the patient will be transferred out of the ICU today. We will continue her present medications. Lamin Worrell MD
--- NOTE | 2017-03-17 14:10 | PN ---
DATE: SUBJECTIVE: I saw Laverne in the intensive care unit. She is in bed. She wants to go out of bed. She wants physical therapy. She tells me she is feeling a bit better. The arms are all cut up, and she used some antibiotic cream or Bactroban cream twice a day for that. She is also on concoction, acetylcysteine, Drisdol, DuoNeb, heparin, Merrem, nystatin swish and swallow, Protonix, Pulmicort, IV fluids, Solu-Cortef, Tylenol, vancomycin IV, and Zofran. PHYSICAL EXAMINATION: VITAL SIGNS: She has a temperature 96.8, pulse 93, blood pressure 147/87, respiratory rate 18, and 98% O2 sat on 5 L nasal cannula. HEENT: Head is atraumatic and normocephalic. Throat is moist. NECK: Supple. HEART: Regular rate. LUNGS: Decreased breath sounds bilaterally, right worse than left, decreased congestion, clears with cough. ABDOMEN: Soft. EXTREMITIES: Maybe trace edema, and her arms are full of scratches and cuts. LABORATORY DATA: She has a white count of 10.3, best it has been, hemoglobin 9.3, hematocrit 28.3 with 78 platelets. Sodium 126, best it has been in a while, potassium 4.6, BUN 39, creatinine 1.3. She needs Renal evaluation. GFR is 49. Sugar is 118, calcium is 7.2. Total bilirubin is 0.5, AST is 25, ALT is 31, and alkaline phosphatase 265. Total protein is 5. ASSESSMENT: She is being seen by Pulmonary, Renal, and adjunct physical education instructor. She had a chest x-ray. She has also been seen by Cardiology. Chest x-ray shows no change in volume loss or consolidation of the right lung, which is where she has total effusion and cancer. We will continue with aggressive treatment and care, physical therapy, out of bed to chair. Bennie Ann DO [facility]
--- NOTE | 2017-03-17 16:18 | US ---
PROCEDURE: Ultrasound of the Kidneys HISTORY: low urine output COMPARISON: None available. TECHNIQUE: Sonogram of the kidneys. FINDINGS: RIGHT KIDNEY: Measures: 9.6 cm. Normal in size, contour and echogenicity. No stone, solid mass lesion or hydronephrosis visualized. LEFT KIDNEY: Measures: 9.5 cm. Normal in size, contour and echogenicity. No stone, solid mass lesion or hydronephrosis visualized. OTHER FINDINGS: None. IMPRESSION: No hydronephrosis, nephrolithiasis or evidence of medical renal disease.
--- NOTE | 2017-03-17 16:19 | US ---
PROCEDURE: Ultrasound of the Bladder HISTORY: low urine output COMPARISON: None available. TECHNIQUE: Sonographic evaluation of the bladder was performed. FINDINGS: There is an indwelling Worrell catheter with subsequent decompression of the urinary bladder. IMPRESSION: Decompressed urinary bladder with an indwelling Worrell catheter.
[2017-03-17] MEDS ORDERED: DAPTOmycin 500 mg Inj (Cubicin) IV SCH (16:45)
[2017-03-17 17:45] LABS: PH,URINE 5.5 (4.7-8.0); URINE BILIRUBIN SMALL (NEGATIVE); URINE BLOOD MODERATE (NEGATIVE); URINE GLUCOSE (UA) NEGATIVE (NEGATIVE); URINE KETONE TRACE mg/dL (NEGATIVE); URINE LEUKOCYTE ESTERASE NEGATIVE Leu/uL (NEGATIVE); URINE PROTEIN TRACE mg/dL (<30 mg/dL); URINE UROBILINOGEN 0.2 E.U./dL (<1 E.U./dL)
[2017-03-17 17:47] LABS: URINE APPEARANCE CLOUDY (CLEAR); URINE COLOR YELLOW (YELLOW)
[2017-03-17 17:59] LABS: URINE WBC 0 - 2 /hpf (0-6)
[2017-03-17 18:00] LABS: URINE BACTERIA FEW (NEG); URINE URIC ACID CRYSTALS MOD /hpf
[2017-03-18] MEDS: Nystatin 100,000 Units/ml Oral Susp 5 ml UD PO SCH ×5 (00:19→21:51)
[2017-03-18] MEDS: Acetylcysteine 20% Inhal Soln (4ml) IH SCH ×4 (02:04→20:13)
[2017-03-18] MEDS: Albuterol-Ipratrop 3 mg / 0.5 (3 ml) UD IH SCH ×4 (02:04→20:13)
--- NOTE | 2017-03-18 06:42 | CP.PCM.PN ---
Subjective - Date & Time of Evaluation Date of Evaluation: 03/17/17 Time of Evaluation: 02:30 - Subjective Subjective: called by nurse pt is restless, pt is admitted with copd exacerbation hx of lung ca, also hyponatremia was receiving ns 100 cc /h. Objective - Vital Signs/Intake and Output Vital Signs (last 24 hours): Temp Pulse Resp BP Pulse Ox 97.9 F 89 22 142/75 100 03/18/17 06:00 03/18/17 06:00 03/18/17 06:00 03/18/17 06:00 03/18/17 00:00 Intake and Output: 03/17/17 03/18/17 18:59 06:59 Intake Total 800 Balance 800 - Medications Medications: Current Medications Acetaminophen (Tylenol 325mg Tab) 650 mg PO Q6H PRN PRN Reason: moderate pain Last Admin: 03/18/17 00:46 Dose: 650 mg Acetylcysteine (Acetylcysteine 20%) 4 ml IH [id number] [facility] Last Admin: 03/18/17 02:04 Dose: 4 ml Albuterol/Ipratropium (Duoneb 3 Mg/0.5 Mg (3 Ml) Ud) 3 ml IH [id number] [facility] Last Admin: 03/18/17 02:04 Dose: 3 ml Albuterol/Ipratropium (Duoneb 3 Mg/0.5 Mg (3 Ml) Ud) 3 ml IH Q2H PRN PRN Reason: Shortness of Breath Last Admin: 03/18/17 02:55 Dose: 3 ml Budesonide (Pulmicort Respules) 0.5 mg IH [id number] [facility] Last Admin: 03/17/17 20:19 Dose: 0.5 mg Calcium Carbonate (Caltrate) 600 mg PO BID [facility] Last Admin: 03/17/17 19:40 Dose: 600 mg Al Hydrox/Mg Hydrox/Simethicone 30 ml/Diphenhydramine HCl 75 mg/Lidocaine 30 ml 0 ml PO Q2H PRN PRN Reason: Mouth/Throat Pain Last Admin: 03/17/17 05:34 Dose: 5 ml Ergocalciferol (Drisdol 50,000 Intl Units Cap) 1 cap PO Q7D [facility] Last Admin: 03/16/17 17:49 Dose: 1 cap Heparin Sodium (Porcine) (Heparin) 5,000 units SC Q8 [facility] PRN Reason: Protocol Last Admin: 03/18/17 05:26 Dose: 5,000 units Hydrocortisone Sodium Succinate (Solu-Cortef) 50 mg IVP Q8H [facility] Last Admin: 03/18/17 02:03 Dose: 50 mg Sodium Chloride (Sodium Chloride 0.9%) 1,000 mls @ 100 mls/hr IV .Q10H [facility] Last Admin: 03/17/17 17:20 Dose: 100 mls/hr Daptomycin 300 mg/ Sodium (Chloride) 100 mls @ 200 mls/hr IV Q24H [facility] Stop: 04/14/17 17:01 Last Admin: 03/17/17 19:40 Dose: 200 mls/hr Mupirocin (Bactroban Ointment) 0 gm NS BID [facility] Stop: 03/21/17 10:01 Nystatin (Nystatin Oral Susp) 5 ml PO QID [facility] Last Admin: 03/18/17 00:19 Dose: Not Given Ondansetron HCl (Zofran Inj) 4 mg IVP Q6H PRN PRN Reason: Nausea/Vomiting Pantoprazole Sodium (Protonix Inj) 40 mg IVP DAILY [facility] Last Admin: 03/17/17 09:17 Dose: 40 mg - Labs Labs: 03/17/17 05:40 03/17/17 05:40 PT 15.9 SECONDS (9.4-12.5) H 03/14/17 15:45 INR 1.45 (0.93-1.08) H 03/14/17 15:45 APTT 43.5 Seconds (25.1-36.5) H 03/14/17 15:45 - Constitutional Appears: Other - Head Exam Head Exam: NORMOCEPHALIC - Eye Exam Eye Exam: Normal appearance Pupil Exam: PERRL - ENT Exam ENT Exam: Mucous Membranes Moist - Neck Exam Neck Exam: Full ROM - Respiratory Exam Respiratory Exam: Decreased Breath Sounds - Cardiovascular Exam Cardiovascular Exam: RRR, +S1, +S2 - GI/Abdominal Exam GI & Abdominal Exam: Normal Bowel Sounds - Rectal Exam Rectal Exam: Deferred - Extremities Exam Extremities Exam: Full ROM - Neurological Exam Neurological Exam: Awake - Psychiatric Exam Additional comments: restless. - Skin Skin Exam: Dry, Warm Assessment and Plan - Assessment and Plan (Free Text) Assessment: copd exacerbation/chf . hyponatremia./lung ca. Plan: hold fluid pt has received about 900 cc of fuids . duo nebs x2 .
[2017-03-18 07:12] LABS: HEMATOCRIT 28.4 % (36.0-48.0); MEAN CELL VOLUME 84.3 fl (80.0-105.0); MEAN CORPUSCULAR HEMOGLOBIN 27.9 pg (25.0-35.0); MEAN CORPUSCULAR HGB CONC 33.1 g/dl (31.0-37.0); MEAN PLATELET VOLUME 10.2 fl (7.0-11.0); RED CELL DISTRIBUTION WIDTH 16.2 % (11.5-14.5); WHITE BLOOD COUNT 8.5 10^3/ul (4.5-11.0)
[2017-03-18 07:25] LABS: ALKALINE PHOSPHATASE 294 U/L (38-126); ALT/SGPT 33 U/L (7-56); AST/SGOT 25 U/L (14-36); BILIRUBIN,TOTAL 0.6 mg/dL (0.2-1.3); BLOOD UREA NITROGEN 39 mg/dL (7-21); CALCIUM 7.5 mg/dL (8.4-10.5); CARBON DIOXIDE 25 mmol/L (21-33); CHLORIDE 99 mmol/L (98-107); GFR AFRICAN-AMERICAN > 60; GLUCOSE,RANDOM 117 mg/dL (70-110); POTASSIUM 4.6 mmol/L (3.6-5.0); SODIUM 130 mmol/L (132-148); TOTAL PROTEIN 4.9 g/dL (5.8-8.3)
[2017-03-18 07:31] LABS: ALB/GLOB RATIO 0.8 (1.1-1.8)
[2017-03-18] MEDS: Budesonide 0.5 mg/2 ml Inhal Susp UD IH SCH ×2 (08:02→20:14)
--- NOTE | 2017-03-18 08:34 | PN ---
DATE: 03/17/2017 SUBJECTIVE: The patient is in bed, in no acute distress. The patient was seen this morning. She is awake and alert. Doing well. No nausea or vomiting. PHYSICAL EXAMINATION: VITAL SIGNS: Temperature is 98, blood pressure is 140/80, respiratory rate of 18, heart rate of 93. HEENT: Examination of the HEENT is unremarkable. NECK: Supple. LUNGS: Have decreased breath sounds. HEART: Normal S1, S2. ABDOMEN: Soft, nontender. LABORATORY EXAMINATION: Reveals a white count of 10,000, hemoglobin of 9, and platelets of 78. Chemistry reveals a BUN of 39 and creatinine of 1.3. Microbiology reveals the patient has MRSA in the blood cultures with LUCIANA of 1 to vancomycin and oxacillin LUCIANA is greater than 4. Repeat blood cultures are negative from 03/16/2017. Initial blood cultures are positive, two bottles of MRSA. The patient had a renal ultrasound and bladder ultrasound. Chest x-ray; dense consolidation and volume loss in the right lung. The patient has a new PICC line and echo is read by Dr. structures are not well visualized. Dr. Lamin Worrell's note is reviewed. ASSESSMENT AND PLAN: This is a 71-year-old female with past medical history of hypertension, hypothyroidism, lung cancer, status post chemotherapy and radiation, history of congestive heart failure, chronic obstructive lung disease, admitted with severe sepsis with methicillin-resistant Staphylococcus aureus bacteremia, etiology of the methicillin-resistant Staphylococcus aureus bacteremia is unclear and it resolved quickly. The patient does not have intravascular devices and currently now with severe sepsis due to acute renal injury, creatinine is changed with a GFR that has dropped down to 41. We will discontinue the meropenem. We will discontinue vancomycin. Start the patient on daptomycin at 6 mg/kg IV to be given over 30 days. We will repeat urinalysis. We will also order a sedimentation rate and C-reactive protein. We will follow up the repeat blood cultures though thus far it is reported to be negative. The patient does have multiple skin findings, although no obvious source for the methicillin-resistant Staphylococcus aureus bacteremia, has some chronic skin changes, which may be responsible. Dr. Barnes's note is reviewed from today and Dr. Ann's note is reviewed from today. Dr. Lamin Worrell's note is reviewed from today. We will follow closely with you. We will also order a CPK and place the patient on the methicillin-resistant Staphylococcus aureus precautions. Actually, the patient had repeat blood cultures, which are negative at 24 hours. Blane Mcleod MD
--- NOTE | 2017-03-18 08:40 | PN ---
DATE: 03/18/2017 PULMONARY PROGRESS NOTE SUBJECTIVE: The patient appears comfortable this morning. She is not short of breath at rest. PHYSICAL EXAMINATION: VITAL SIGNS: Temperature is 97.9, pulse is 89, respirations are 20, and blood pressure is 142/75. Oxygen saturation on nasal cannula is 100%. HEENT: Normocephalic and atraumatic. NECK: No JVD. CARDIOVASCULAR: Positive S1 and S2. No S3 gallop. LUNGS: Decreased breath sounds at the bases. Less bilateral rhonchi. No wheezing. EXTREMITIES: Mild edema. No cyanosis and no clubbing. Calves are nontender to palpation. GASTROINTESTINAL: Abdomen is soft, nontender and nondistended. Bowel sounds are positive. SKIN: No acute rash. NEUROLOGIC: Exam is limited at the present time. IMPRESSION 1. Sepsis syndrome. 2. Dehydration. 3. Chronic obstructive pulmonary disease. 4. Mild bronchospasm. 5. 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 6. Multiple electrolyte abnormalities. PLAN: The patient appears comfortable this morning. She is not short of breath. She remains frail and weak looking. She does state to feeling much better overall. On physical exam, her bronchospasm is certainly less. In addition, the oxygen saturation on nasal cannula is now 100%. I will continue the current nebulizer treatments for now. I will also change the hydrocortisone to Solu-Medrol - for ease of weaning. The patient also remains on antibiotic therapy. There are no temperatures noted. The leukocytosis has resolved. Clinical status of the patient is certainly improved - while in the hospital. However, again, the overall status/prognosis of this patient remains poor. I did discuss the above with Dr. Ann earlier this morning. Lester Bassett MD [facility]
[2017-03-18] MEDS: MethylPREDNISolone 40 mg Vial IVP SCH ×2 (09:25→21:51)
[2017-03-18] MEDS: Sodium Chloride 0.9% 1,000 ML IV SCH ×2 (09:30→12:22)
--- NOTE | 2017-03-18 10:38 | PN ---
DATE: SUBJECTIVE: I saw her this morning at 03:75. She is out of the Intensive Care Unit. She is very lethargic. Breathing fairly okay. She needs to get physical therapy and a bed to chair. She is on IV antibiotics. She is now on daptomycin for MRSA in blood cultures. She might need a ACOSTA. She also has CHF, pneumonia, COPD. She is also very weak. She was dehydrated, she stopped eating and drinking. She has thrush and she is weak. PHYSICAL EXAMINATION: VITAL SIGNS: She has a 97.9 temp, 88 pulse, 142/75 blood pressure, 22 respiratory rate, 100% O2 sat on nasal cannula. HEENT: Head is atraumatic, normocephalic. Throat is dry. HEART: Regular rate. LUNGS: Decreased breath sounds on the right side, almost no air movement, but no rhonchi or wheezes. ABDOMEN: Soft. EXTREMITIES: No edema. LABORATORY DATA: She has an 8.5 white count, 9.4 hemoglobin, 28.4 hematocrit with a 70 platelets. She has a 130 sodium, which is getting better; 4.6 potassium; BUN is 39; creatinine 0.9; GFR is greater than 60; sugar is 117; calcium 7.5; total bili is 0.6; AST is 25; ALT is 33; alk phos 295; total protein is 4.9. Vitamin B is low at 18. Moderate crystals in the urine. MEDICATIONS: She is currently on acetylcysteine, Bactroban cream, calcium, daptomycin IV, Drisdol, DuoNebs, heparin, lidocaine, nystatin for the mouth, Protonix, Pulmicort, IV fluids, Solu-Medrol, Tylenol, Zofran. ASSESSMENT AND PLAN: She is very very sick, very ill, multiple doctors are seeing her, Pulmonary, Infectious Disease, Renal, Cardiology and we are hoping we can pull her through this and get her to a sort of stable state. She might need subacute rehab again. We will continue aggressive treatment and care on Laverne James. Check her labs tomorrow. Bennie Ann DO
--- NOTE | 2017-03-18 12:51 | CP.PCM.PN ---
Subjective - Date & Time of Evaluation Date of Evaluation: 03/18/17 Time of Evaluation: 12:47 - Subjective Subjective: Follow up Nephrology Consultation: Assessment: Stable Acute Kidney Injury (N17.9) likely hemodynamic due to low BP< GI fluid loss: improved Acute on chronic hypoosmolar Hyponatremia, likely due to intravasc depletion superimposed on ? underlying SIADH due to chronic respi illess/lung ca: improved with IVF Lactic acidosis, Hypoalbuminemia, Hypocalcemia Combined respiratory and high anion gap metabolic acidosis with superimposed metabolic alkalosis Hypokalemia, Anemia, Lung CA (SCC), Rt lung collapse, hx of HTN hepatomegaly and b/l adrenal gland enlargement Vit D def Plan No acute need for renal replacement therapy at this time. Hypertension control with meds as ordered. Patient not on ACEI/ARB due to SHAR. will resume low dose norvasc 5 mg. Monitor Input/Output, daily weights and renal function with basic metabolic panel continue with IVF as normal saline (low UOP, elevated cr and low urine Na). avoid correction in serum Na >6-8 meq/24 hrs. hypertonic saline not indicated at this time replace electrolytes as needed. started on Ca carbonate bid and weekly vit D repeat renal and bladder sono: unremarkable pt on steroids Dose meds/antibiotics for improved GFR. Avoid fleets enema/magnesium based laxatives. Avoid nephrotoxins/NSAIDs/ iodinated contrast (unless needed emergently) Glycemic control Further work up/management as per primary team Thanks for allowing me to participate in care of your patient. Will follow patient with you. Please call if any Qs. d./w team and family Dr Humza Barnes Office: [phone] Chief Complaint; none today HPI: Pt is a 71 F with hx of hypertension, lung cancer (SCC) s/p endobronchial stents, Rt lung collapse s/p radiation, ex smoker, b/l adrenal thickening, chronic hyponatremia (Na 130) presented with complaints of loose BM 3-4 episodes per day for last 1 week with decreased oral intake. also had intermittent SOB with cough. feels better now. renal consult for SHAR and hyponatremia, lactic acidosis. also managed for sepsis Denies chest pain, palpitation, improved shortness of breath, c/o leg swelling better No recent iodinated contrast exposure. had episodes of low BP when in ER. appetite decreased. Physical Examination: General Appearance: Comfortable, in no acute respiratory distress, co-operative . ill appearing Vitals reviewed and noted as below Head; Atraumatic, normocephalic ENT: no ulcers no thrush. Tongue is midline. Oropharynx: no rash or ulcers. dry oral mucosa EYES: Pupils are equal, round and reactive to light accommodation. Eye muscles and extraocular movement intact. Sclera is anicteric. Neck; supple no lymphadenopathy, no thyromegaly or bruit Lungs: Increased respiratory rate/effort. Breath sounds reduced at Rt with bibasal wheeze/rales Heart: normal rate. s1s2 normal. No rub or gallop. Extremities: trace ankle edema. No varicose veins. Neurological: Patient is alert, awake and oriented to person, place and time. No focal deficit. Strength bilateral appropriate and equal Skin: Warm and dry. Normal turgor. No rash. Palpitation: Normal elasticity for age. has skin excoriations in legs Abdomen: Abdomen is soft. Bowel sounds +. There is no abdominal tenderness, no guarding/rigidity no organomegaly Psych: limited insight and normal affect/mood MSK: no joint tenderness or swelling. Digits and nails normal, no deformity : kidney or bladder not palpable Labs/imaging reviewed. Past medical history, past surgical history, family history, social history, allergy reviewed and noted as below Family hx: no hx of CKD. Rest non-contributory work up TSH 1.1 Objective - Vital Signs/Intake and Output Vital Signs (last 24 hours): Temp Pulse Resp BP Pulse Ox 97.8 F 55 L 18 115/59 L 100 03/18/17 11:54 03/18/17 11:54 03/18/17 11:54 03/18/17 11:54 03/18/17 00:00 Intake and Output: 03/18/17 03/18/17 06:59 18:59 Intake Total 800 0 Output Total 300 300 Balance 500 -300 - Medications Medications: Current Medications Acetaminophen (Tylenol 325mg Tab) 650 mg PO Q6H PRN PRN Reason: moderate pain Last Admin: 03/18/17 00:46 Dose: 650 mg Acetylcysteine (Acetylcysteine 20%) 4 ml IH [id number] [facility] Last Admin: 03/18/17 08:02 Dose: 4 ml Albuterol/Ipratropium (Duoneb 3 Mg/0.5 Mg (3 Ml) Ud) 3 ml IH [id number] [facility] Last Admin: 03/18/17 08:02 Dose: 3 ml Albuterol/Ipratropium (Duoneb 3 Mg/0.5 Mg (3 Ml) Ud) 3 ml IH Q2H PRN PRN Reason: Shortness of Breath Last Admin: 03/18/17 02:55 Dose: 3 ml Budesonide (Pulmicort Respules) 0.5 mg IH [id number] [facility] Last Admin: 03/18/17 08:02 Dose: 0.5 mg Calcium Carbonate (Caltrate) 600 mg PO BID [facility] Last Admin: 03/18/17 09:27 Dose: 600 mg Al Hydrox/Mg Hydrox/Simethicone 30 ml/Diphenhydramine HCl 75 mg/Lidocaine 30 ml 0 ml PO Q2H PRN PRN Reason: Mouth/Throat Pain Last Admin: 03/17/17 05:34 Dose: 5 ml Ergocalciferol (Drisdol 50,000 Intl Units Cap) 1 cap PO Q7D [facility] Last Admin: 03/16/17 17:49 Dose: 1 cap Heparin Sodium (Porcine) (Heparin) 5,000 units SC Q8 [facility] PRN Reason: Protocol Last Admin: 03/18/17 05:26 Dose: 5,000 units Daptomycin 300 mg/ Sodium (Chloride) 100 mls @ 200 mls/hr IV Q24H [facility] Stop: 04/14/17 17:01 Last Admin: 03/17/17 19:40 Dose: 200 mls/hr Sodium Chloride (Sodium Chloride 0.9%) 1,000 mls @ 60 mls/hr IV .[id number] [facility] Last Admin: 03/18/17 12:22 Dose: 60 mls/hr Methylprednisolone (Solu-Medrol) 40 mg IVP Q12 [facility] Last Admin: 03/18/17 09:25 Dose: 40 mg Mupirocin (Bactroban Ointment) 0 gm NS BID [facility] Stop: 03/21/17 10:01 Last Admin: 03/18/17 09:26 Dose: 2 applic Nystatin (Nystatin Oral Susp) 5 ml PO QID [facility] Last Admin: 03/18/17 09:24 Dose: 5 ml Ondansetron HCl (Zofran Inj) 4 mg IVP Q6H PRN PRN Reason: Nausea/Vomiting Pantoprazole Sodium (Protonix Inj) 40 mg IVP DAILY [facility] Last Admin: 03/18/17 09:27 Dose: 40 mg - Labs Labs: 03/18/17 06:15 03/18/17 06:15 PT 15.9 SECONDS (9.4-12.5) H 03/14/17 15:45 INR 1.45 (0.93-1.08) H 03/14/17 15:45 APTT 43.5 Seconds (25.1-36.5) H 03/14/17 15:45
--- NOTE | 2017-03-18 13:42 | PN ---
DATE: 03/18/2017 CARDIOLOGY FOLLOWUP SUBJECTIVE: The patient's breathing is much improved. PHYSICAL EXAMINATION: VITAL SIGNS: Blood pressure is 115/60 and heart rate is in the 50s. NECK: Negative JVD. LUNGS: Bilateral rhonchi. HEART: Reveals S1 and S2. EXTREMITIES: Without edema. LABORATORY DATA: Hemoglobin is 9.4. Chemistries, BUN and creatinine is 39 and 0.9. IMPRESSION 1. Exacerbation of chronic obstructive pulmonary disease. 2. History of lung carcinoma. 3. Anemia. 4. Sepsis. PLAN: Given these findings, the patient is much improved since being in the ICU. We will continue her present treatment. Lamin Worrell MD
--- NOTE | 2017-03-18 14:58 | PN ---
DATE: 03/18/2017 SUBJECTIVE: The patient is in bed in no acute distress, was seen early this morning in 372, bed 1. No fevers and chills had an uneventful night. PHYSICAL EXAMINATION: VITAL SIGNS: On exam, temperature is 97, blood pressure is 150/80, respiratory rate 20, and heart rate of 87. HEENT: Unremarkable. NECK: Supple. LUNGS: Have decreased breath sounds. HEART: Normal S1 and S2. ABDOMEN: Soft and nontender. LABORATORY EXAMINATION: Reveals a white count of 8.5, hemoglobin of 9, and platelets of . BUN of 39 and creatinine of 0.9. Urinalysis is noted. Serology is noted. Microbiology reveals the repeat blood cultures are positive and the sputum culture is gram-positive cocci with heavy growth. ASSESSMENT AND PLAN: This is a 71-year-old female with hypertension, hypothyroidism, lung cancer, status post chemotherapy radiation, congestive heart failure, chronic obstructive lung disease admitted with severe sepsis, methicillin-resistant Staphylococcus aureus bacteremia now with repeat blood cultures still positive, endocarditis with an embolic disease in this patient with severe sepsis, acute renal injury, and currently on daptomycin to clear bacteremia, will need a transesophageal echo and we will order repeat blood cultures. Because of daptomycin and its poor penetration into the lung Zyvox, however, the patient has low platelets. The patient's creatinine has normalized to 0.9. Dr. Bassett's note is reviewed. We will review the chest x-ray with Dr. Bassett and make further adjustments. Dense consolidation is reported from yesterday's chest x-ray. Blane Mcleod MD
[2017-03-19] MEDS: Acetylcysteine 20% Inhal Soln (4ml) IH SCH ×4 (02:28→20:13)
[2017-03-19] MEDS: Albuterol-Ipratrop 3 mg / 0.5 (3 ml) UD IH SCH ×4 (02:28→20:13)
[2017-03-19] MEDS: Sodium Chloride 0.9% 1,000 ML IV SCH ×2 (04:59→12:35)
[2017-03-19 07:36] LABS: HEMATOCRIT 29.7 % (36.0-48.0); MEAN CELL VOLUME 86.8 fl (80.0-105.0); MEAN CORPUSCULAR HEMOGLOBIN 27.8 pg (25.0-35.0); RED CELL DISTRIBUTION WIDTH 16.3 % (11.5-14.5); WHITE BLOOD COUNT 7.4 10^3/ul (4.5-11.0)
[2017-03-19] MEDS: Budesonide 0.5 mg/2 ml Inhal Susp UD IH SCH ×2 (07:50→20:13)
[2017-03-19 08:05] LABS: ALKALINE PHOSPHATASE 317 U/L (38-126); ALT/SGPT 31 U/L (7-56); AST/SGOT 23 U/L (14-36); BILIRUBIN,TOTAL 0.4 mg/dL (0.2-1.3); BLOOD UREA NITROGEN 41 mg/dL (7-21); CALCIUM 7.5 mg/dL (8.4-10.5); CARBON DIOXIDE 23 mmol/L (21-33); CHLORIDE 103 mmol/L (98-107); GFR AFRICAN-AMERICAN > 60; GLUCOSE,RANDOM 136 mg/dL (70-110); SODIUM 132 mmol/L (132-148); TOTAL PROTEIN 4.8 g/dL (5.8-8.3)
[2017-03-19 08:18] LABS: ALB/GLOB RATIO 0.8 (1.1-1.8)
--- NOTE | 2017-03-19 08:52 | CP.PCM.PN ---
Subjective - Date & Time of Evaluation Date of Evaluation: 03/19/17 Time of Evaluation: 08:51 - Subjective Subjective: Assessment: Stable Acute Kidney Injury (N17.9) likely hemodynamic due to low BP< GI fluid loss: improved Acute on chronic hypoosmolar Hyponatremia, likely due to intravasc volume depletion superimposed on ? underlying SIADH due to chronic respi illess/lung ca : improved with IVF Lactic acidosis, Hypoalbuminemia, Hypocalcemia Combined respiratory and high anion gap metabolic acidosis with superimposed metabolic alkalosis Hypokalemia, Anemia, Lung CA (SCC), Rt lung collapse, hx of HTN hepatomegaly and b/l adrenal gland enlargement Vit D def Plan SHAR resolving Na continues to improve w/ gentle fluids bp reasonably controlled Monitor Input/Output, daily weights and renal function with basic metabolic panel continue ca carbonate s: no complaints today, feels ok Physical Examination: General Appearance: Comfortable, in no acute respiratory distress, co-operative . ill appearing Vitals reviewed and noted as below Head; Atraumatic, normocephalic ENT: no ulcers no thrush. Tongue is midline. Oropharynx: no rash or ulcers. dry oral mucosa EYES: Pupils are equal, round and reactive to light accommodation. Eye muscles and extraocular movement intact. Sclera is anicteric. Neck; supple no lymphadenopathy, no thyromegaly or bruit Lungs: Increased respiratory rate/effort. Breath sounds reduced at Rt base Heart: normal rate. s1s2 normal. No rub or gallop. Extremities: trace ankle edema. No varicose veins. Neurological: Patient is alert, awake and oriented to person, place and time. No focal deficit. Strength bilateral appropriate and equal Skin: Warm and dry. Normal turgor. No rash. Palpitation: Normal elasticity for age. has skin excoriations in legs Abdomen: Abdomen is soft. Bowel sounds +. There is no abdominal tenderness, no guarding/rigidity no organomegaly Psych: limited insight and normal affect/mood MSK: no joint tenderness or swelling. Digits and nails normal, no deformity : kidney or bladder not palpable Labs/imaging reviewed. Objective - Vital Signs/Intake and Output Vital Signs (last 24 hours): Temp Pulse Resp BP Pulse Ox 97.9 F 86 20 152/81 H 98 03/19/17 06:00 03/19/17 06:00 03/19/17 06:00 03/19/17 06:00 03/19/17 06:00 Intake and Output: 03/19/17 03/19/17 06:59 18:59 Intake Total 2720 Output Total 950 Balance 1770 - Medications Medications: Current Medications Acetaminophen (Tylenol 325mg Tab) 650 mg PO Q6H PRN PRN Reason: moderate pain Last Admin: 03/18/17 00:46 Dose: 650 mg Acetylcysteine (Acetylcysteine 20%) 4 ml IH [id number] [facility] Last Admin: 03/19/17 07:48 Dose: 4 ml Albuterol/Ipratropium (Duoneb 3 Mg/0.5 Mg (3 Ml) Ud) 3 ml IH [id number] [facility] Last Admin: 03/19/17 07:48 Dose: 3 ml Albuterol/Ipratropium (Duoneb 3 Mg/0.5 Mg (3 Ml) Ud) 3 ml IH Q2H PRN PRN Reason: Shortness of Breath Last Admin: 03/18/17 02:55 Dose: 3 ml Amlodipine Besylate (Norvasc) 5 mg PO DAILY [facility] Last Admin: 03/18/17 13:39 Dose: 5 mg Budesonide (Pulmicort Respules) 0.5 mg IH [id number] [facility] Last Admin: 03/19/17 07:50 Dose: 0.5 mg Calcium Carbonate (Caltrate) 600 mg PO BID [facility] Last Admin: 03/18/17 17:52 Dose: 600 mg Al Hydrox/Mg Hydrox/Simethicone 30 ml/Diphenhydramine HCl 75 mg/Lidocaine 30 ml 0 ml PO Q2H PRN PRN Reason: Mouth/Throat Pain Last Admin: 03/17/17 05:34 Dose: 5 ml Ergocalciferol (Drisdol 50,000 Intl Units Cap) 1 cap PO Q7D [facility] Last Admin: 03/16/17 17:49 Dose: 1 cap Heparin Sodium (Porcine) (Heparin) 5,000 units SC Q8 [facility] PRN Reason: Protocol Last Admin: 03/19/17 05:00 Dose: 5,000 units Daptomycin 300 mg/ Sodium (Chloride) 100 mls @ 200 mls/hr IV Q24H [facility] Stop: 04/14/17 17:01 Last Admin: 03/18/17 17:56 Dose: 200 mls/hr Sodium Chloride (Sodium Chloride 0.9%) 1,000 mls @ 60 mls/hr IV .[id number] [facility] Last Admin: 03/19/17 04:59 Dose: 60 mls/hr Methylprednisolone (Solu-Medrol) 40 mg IVP Q12 [facility] Last Admin: 03/18/17 21:51 Dose: 40 mg Mupirocin (Bactroban Ointment) 0 gm NS BID [facility] Stop: 03/21/17 10:01 Last Admin: 03/18/17 17:55 Dose: 2 applic Nystatin (Nystatin Oral Susp) 5 ml PO QID [facility] Last Admin: 03/18/17 21:51 Dose: 5 ml Ondansetron HCl (Zofran Inj) 4 mg IVP Q6H PRN PRN Reason: Nausea/Vomiting Pantoprazole Sodium (Protonix Ec Tab) 40 mg PO DAILY [facility] - Labs Labs: 03/19/17 06:00 03/19/17 06:00 PT 15.9 SECONDS (9.4-12.5) H 03/14/17 15:45 INR 1.45 (0.93-1.08) H 03/14/17 15:45 APTT 43.5 Seconds (25.1-36.5) H 03/14/17 15:45
--- NOTE | 2017-03-19 09:03 | PN ---
DATE: PULMONARY PROGRESS NOTE SUBJECTIVE: The patient appears comfortable this morning. She is not short of breath at rest. OBJECTIVE: VITAL SIGNS: Temperature is 97.9, pulse is 86, respirations are 18/20, and blood pressure is 152/81. Oxygen saturation on nasal cannula is 98-100%. HEENT: Normocephalic, atraumatic. NECK: No JVD. CARDIOVASCULAR: Positive S1 and S2. No S3 gallop. LUNGS: Decreased breath sounds at the bases. Less rhonchi. No wheezing. EXTREMITIES: Mild edema. No cyanosis, no clubbing. Calves are nontender to palpation. GASTROINTESTINAL: Abdomen is soft, nontender, and nondistended. Bowel sounds are positive. SKIN: No acute rash. NEUROLOGIC: Exam limited at the present time. IMPRESSION: 1. Sepsis syndrome. 2. Dehydration. 3. Chronic obstructive pulmonary disease. 4. Mild bronchospasm. 5. 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 6. Multiple electrolyte abnormalities. PLAN: The patient appears comfortable this morning. She is not short of breath at rest. She does remain frail and weak looking. However, she does state to feeling much, much better overall. On physical exam, her bronchospasm is certainly less. In addition, the alveolar-arterial gradient is also significantly less. I will continue the current nebulizer treatments and intravenous steroids for now. The patient remains on antibiotic therapy - as per Infectious Disease. Input by Dr. Rondon is noted. Clinical status of the patient is significantly improved - compared to the initial presentation. However, again, the future status/prognosis for this patient, unfortunately, remains poor. I will discuss the above with Dr. Ann. Lester Bassett MD [facility]
[2017-03-19] MEDS: MethylPREDNISolone 40 mg Vial IVP SCH ×2 (10:27→22:36)
[2017-03-19] MEDS: Pantoprazole 40 mg EC Tab PO SCH (10:28)
[2017-03-19] MEDS: Nystatin 100,000 Units/ml Oral Susp 5 ml UD PO SCH ×4 (10:28→22:36)
--- NOTE | 2017-03-19 15:54 | PN ---
LOCATION: I saw her in room 372. SUBJECTIVE: She is sitting out of bed to chair. She is more alert and talking better, but she is still very weak. The nurse told me she was deadweight when she tried to get her out of bed to the chair, not really doing much herself. MEDICATIONS: She is on acetylcysteine, Bactroban cream, calcium, daptomycin, Drisdol, DuoNeb, heparin, Lasix IV, magnesium, Norvasc, nystatin swish and swallow, Protonix, Pulmicort, IV fluids at 60, prednisone, Solu-Medrol q.12 hours 40 mg, Tylenol and Zofran. PHYSICAL EXAMINATION: VITAL SIGNS: She has a 97.4 temp, 96 pulse, 142/84 blood pressure, 20 respiratory rate, 98% O2 sat on room air. HEENT: Head is atraumatic, normocephalic. Throat is moist. NECK: Supple. HEART: Regular rate. LUNGS: Decreased breath sounds, but clear. ABDOMEN: Soft, obese. EXTREMITIES: +1 to 2/4 pitting edema. I ordered some SHAWNA stockings. LABORATORY DATA: I will order lab for tomorrow. Lab was done with a 7.4 white count, 9.5 hemoglobin, 29.7 hematocrit with 63 platelets. She has 132 sodium, potassium is 5, BUN 41, creatinine 0.9, GFR is greater than 60, sugar is 136, calcium 7.5, total bili is 0.4, AST is 23, ALT is 31, alk phos 317, total protein is 4.8. ASSESSMENT AND PLAN: She is definitely in trouble. She is not doing that well. I am glad she is out of bed to chair, that is something new. I am going to decrease her fluids to 40 mL an hour because of edema, she does need to have that. She has sepsis syndrome, dehydration, chronic obstructive pulmonary disease, advanced squamous cell carcinoma of the lung, status post radiation therapy; multiple electrolyte abnormalities, dehydration, thrush. We will continue with aggressive treatment and care. Bennie Ann DO [facility]
[2017-03-19] MEDS: Vancomycin 1gm in NS 250ml 1 GM/250 ML BAG IVPB SCH (20:52)
[2017-03-20] MEDS: Acetylcysteine 20% Inhal Soln (4ml) IH SCH ×4 (01:08→20:01)
[2017-03-20] MEDS: Albuterol-Ipratrop 3 mg / 0.5 (3 ml) UD IH SCH ×4 (01:09→20:03)
--- NOTE | 2017-03-20 02:18 | PN ---
DATE: 03/19/2017 SUBJECTIVE: The patient is in bed, in no acute distress, nontoxic. PHYSICAL EXAMINATION: VITAL SIGNS: Temperature 97, blood pressure is 140/80, respiratory rate 18. HEENT: Unremarkable. NECK: Supple. LUNGS: Have decreased breath sounds. HEART: Normal S1 and S2. ABDOMEN: Soft. LABORATORY DATA: Reveals a white count of 7.4, hemoglobin 9, platelets is 63. BUN 41, creatinine 0.9. Urinalysis noted. Urine for Legionella antigen is negative. Microbiology reveals repeat blood cultures of MRSA with LUCIANA of 0.5, oxacillin resistance of greater than 4. A first set of blood cultures were ordered on the , which at this time no growth at 24 hours. The patient does have a sputum culture, which has also MRSA. Case discussed with this morning, who feels the patient does have infiltrate in top of the lung with underlying lung disease and malignancy. ASSESSMENT AND PLAN: This is a 71-year-old female with hypertension, hypothyroidism, lung cancer status post chemotherapy radiation, congestive heart failure, chronic obstructive lung disease, admitted with severe sepsis, methicillin-resistant Staphylococcus aureus bacteremia, and must rule out underlying endocarditis with embolic disease to the lungs. Currently on daptomycin. The patient had an echo on the , which says that the valvular structures are not well visualized. Review of orders revealed currently on daptomycin. Concerned about methicillin-resistant Staphylococcus aureus in the lung. The patient's renal function has improved. We will resume vancomycin so we have lung coverage and bacteremia and/or endocarditis. We will discontinue the daptomycin. We will follow the renal toxicity very closely and check on the repeat blood cultures. Can discontinue the daptomycin and treat with vancomycin. Must also rule out underlying endocarditis in this patient with lung cancer, chemotherapy radiation, congestive heart failure, chronic obstructive lung disease, admitted with severe sepsis and methicillin-resistant Staphylococcus aureus bacteremia and methicillin-resistant Staphylococcus aureus in the lung, questionable embolic disease, must rule out endocarditis. We will follow closely with you. Blane Mcleod MD
[2017-03-20 07:21] LABS: HEMATOCRIT 30.7 % (36.0-48.0); MEAN CORPUSCULAR HGB CONC 32.2 g/dl (31.0-37.0); MEAN PLATELET VOLUME 10.3 fl (7.0-11.0); RED CELL DISTRIBUTION WIDTH 16.4 % (11.5-14.5); WHITE BLOOD COUNT 7.4 10^3/ul (4.5-11.0)
[2017-03-20] MEDS: Budesonide 0.5 mg/2 ml Inhal Susp UD IH SCH ×2 (08:11→20:03)
[2017-03-20 08:24] LABS: ALB/GLOB RATIO 0.8 (1.1-1.8); BILIRUBIN,TOTAL 0.4 mg/dL (0.2-1.3); CALCIUM 7.8 mg/dL (8.4-10.5); POTASSIUM 5.2 mmol/L (3.6-5.0); TOTAL PROTEIN 5.1 g/dL (5.8-8.3)
--- NOTE | 2017-03-20 08:24 | PN ---
DATE: 03/20/2017 PULMONARY NOTE SUBJECTIVE: The patient appears comfortable this morning. She is not short of breath at rest. PHYSICAL EXAMINATION: VITAL SIGNS: Temperature is 97.0, pulse 89, respirations 18, blood pressure 154/83, and oxygen saturation on nasal cannula is 99-100%. HEENT: Normocephalic, atraumatic. NECK: No JVD. CARDIOVASCULAR: Positive S1 and S2. No S3 gallop. LUNGS: Decreased breath sounds at the bases. Minimal/less rhonchi. No wheezing. EXTREMITIES: Mild edema. No cyanosis. No clubbing. Calves are nontender to palpation. GASTROINTESTINAL: Abdomen is soft, nontender, and nondistended. Bowel sounds are positive. SKIN: No acute rash. NEUROLOGIC: Limited to present time. IMPRESSION: 1. Sepsis syndrome. 2. Dehydration. 3. Chronic obstructive pulmonary disease. 4. Mild bronchospasm. 5. 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 6. Multiple electrolyte abnormalities. PLAN: The patient appears comfortable this morning. She is not short of breath at rest. She does remain frail and weak looking. She does state to feeling much better overall. On physical exam, her bronchospasm continues to resolve. In addition, the alveolar arterial gradient also continues to resolve. Oxygen saturation on nasal cannula is now 98-100%. I will continue the current nebulizer treatments and low dose intravenous steroids for now. The patient remains on antibiotic therapy - as per Infectious Disease. Input by Dr. Mcleod is noted. Clinical status of the patient is significantly improved - compared to the initial presentation. However, again, unfortunately, the patient's overall status/prognosis remains poor. All are aware. I will discuss the above with Dr. Ann. Lester Bassett MD MTDD
[2017-03-20] MEDS: Nystatin 100,000 Units/ml Oral Susp 5 ml UD PO SCH ×4 (09:11→21:49)
[2017-03-20] MEDS: MethylPREDNISolone 40 mg Vial IVP SCH ×2 (09:11→21:49)
[2017-03-20] MEDS: Pantoprazole 40 mg EC Tab PO SCH (09:11)
[2017-03-20] MEDS: Sodium Chloride 0.9% 1,000 ML IV SCH ×3 (09:23→23:25)
[2017-03-20] MEDS: Vancomycin 1gm in NS 250ml 1 GM/250 ML BAG IVPB SCH ×2 (10:18→21:02)
--- NOTE | 2017-03-20 13:07 | PN ---
DATE: 03/20/2017 SUBJECTIVE: The patient is in bed, in no acute distress, nontoxic. PHYSICAL EXAMINATION: VITAL SIGNS: Temperature is 97, blood pressure is 150/70, respirations 16. HEENT: Unremarkable. NECK: Supple. LUNGS: Have decreased breath sounds. HEART: Normal S1, S2. ABDOMEN: Soft, nontender. LABORATORY DATA: Reveals the patient's sed rate is 13, white count of 7.4, hemoglobin of 9. Chemistries reveals the creatinine is 1.1 with a GFR of 49 with alk phos is 378. The patient's procalcitonin is 7.9 and urinalysis from the reveals trace of protein and trace ketones with Dr. note is reviewed. ASSESSMENT AND PLAN: A 71-year-old female with hypertension, hypothyroidism, lung cancer status post chemotherapy radiation, congestive heart failure, chronic obstructive lung disease, admitted with severe sepsis with methicillin-resistant Staphylococcus aureus bacteremia which is persistent. Repeat cultures are also showing methicillin-resistant Staphylococcus aureus concern about lung metastases with embolic disease, currently on vancomycin, concerned about renal disease. The patient is at high risk for any procedure. The patient has had an echo on the . We will repeat the echo. The patient now has further drop in her platelets, and the patient is also on heparin, concerned about heparin-induced thrombocytopenia, heparin-induced platelet antibodies will be ordered. The patient's medications reveals the patient to be on vancomycin. Concerned about endocarditis. We will follow closely with you. Blane Mcleod MD
--- NOTE | 2017-03-20 13:53 | PN ---
DATE: SUBJECTIVE: I saw Laverne resting comfortably in bed today. She was out of bed to chair yesterday. She was deadweight, the nurses said moving out of bed. She is very weak. She cannot move her arms to feed herself. I will give her sips of water, but she does feel better. She is breathing better, less congestion. She is on simethicone, acetylcysteine, Bactroban cream, Caltrate, Drisdol, DuoNeb, heparin, Norvasc, nystatin, Protonix, Pulmicort, IV fluids, Solu-Medrol, Tylenol, vancomycin and Zofran. She is not coughing as much, she is breathing better. PHYSICAL EXAMINATION: VITAL SIGNS: She has a 97 temperature, 94 pulse, 142/85 blood pressure, 18 respiratory rate, 99% O2 sat on nasal cannula. HEENT: Head is atraumatic, normocephalic. Throat is actually clear and moist, even though she tells me she has thrush and she is on medication, so that is improving. NECK: Supple. HEART: Regular rate. LUNGS: Decreased breath sounds, but clear. Not much wheezing or rhonchi. ABDOMEN: Soft. EXTREMITIES: She is wearing the SHAWNA stockings, so there is no edema. Upper extremities are mild with puffy. LABORATORY DATA: She has a 7.4 white count, 9.9 hemoglobin, 30.7 hematocrit with 73 platelets. She has a 134 sodium, potassium is 5.2, BUN 44, creatinine 1.1. We will keep an eye on the potassium. I do not want to give her Kayexalate yet because she might have too much diarrhea and she is very weak. Glucose is 160, calcium 7.8, total bilirubin is 0.4, AST is 20, ALT is 33, alkaline phosphatase is 378. C-reactive protein is high at 15, total protein is 5.1. PLAN: She is being seen by multiple physicians, Pulmonary, Infectious Disease, Renal. She is quite ill. She has got dehydration, severe sepsis, low potassium, lung cancer, status post radiation treatment, low sodium, CHF, thrush, diarrhea. She will need to be on antibiotics for a long time. She has severe sepsis with methicillin-resistant Staphylococcus aureus, so possible might be able to get her to [facility] may be for 4 weeks of IV antibiotics. First, is an LTAC. I will discuss that with social media intern. Try and get out of bed to chair. Check her labs tomorrow. Encourage her to use incentive spirometry, the breathing toy. Prognosis is quite poor. Bennie Ann DO
[2017-03-20] MEDS: Aluminum Hydroxide/Magnesium 30 ML, DiphenhydrAMINE 75 MG, Lidocaine 2% Viscous 30 ML PO PRN ×2 (21:02→23:25)
[2017-03-21] MEDS: Acetylcysteine 20% Inhal Soln (4ml) IH SCH ×2 (01:08→07:59)
[2017-03-21] MEDS: Albuterol-Ipratrop 3 mg / 0.5 (3 ml) UD IH SCH ×2 (01:08→07:59)
[2017-03-21] MEDS: Sodium Chloride 0.9% 1,000 ML IV SCH (03:30)
[2017-03-21] MEDS: Aluminum Hydroxide/Magnesium 30 ML, DiphenhydrAMINE 75 MG, Lidocaine 2% Viscous 30 ML PO PRN (05:04)
[2017-03-21 05:20] VITALS: O2SAT 99
[2017-03-21 07:07] LABS: HEMATOCRIT 30.6 % (36.0-48.0); MEAN CELL VOLUME 86.2 fl (80.0-105.0); MEAN CORPUSCULAR HEMOGLOBIN 27.3 pg (25.0-35.0); MEAN CORPUSCULAR HGB CONC 31.7 g/dl (31.0-37.0); MEAN PLATELET VOLUME 9.1 fl (7.0-11.0); WHITE BLOOD COUNT 7.5 10^3/ul (4.5-11.0)
[2017-03-21 07:19] LABS: ALB/GLOB RATIO 0.9 (1.1-1.8); BILIRUBIN,TOTAL 0.4 mg/dL (0.2-1.3); CALCIUM 8.2 mg/dL (8.4-10.5); POTASSIUM 5.3 mmol/L (3.6-5.0); TOTAL PROTEIN 5.2 g/dL (5.8-8.3)
[2017-03-21] MEDS: Budesonide 0.5 mg/2 ml Inhal Susp UD IH SCH (07:59)
[2017-03-21] MEDS ORDERED: Sod Polystyrene Sulf 15 gm/60 ml Susp PO ONE (08:35)
--- NOTE | 2017-03-21 08:35 | PN ---
PULMONARY NOTE DATE: 03/21/2017 SUBJECTIVE: The patient appears comfortable this morning. She is not short of breath at rest. She is out of bed, sitting in the chair. PHYSICAL EXAMINATION VITAL SIGNS: Temperature is 97.5, pulse 91, respirations 18, blood pressure 151/88. Oxygen saturation on nasal cannula is 99%. HEENT: Normocephalic, atraumatic. No JVD. CARDIOVASCULAR: Positive S1, S2. No S3 gallop. LUNGS: Decreased breath sounds at the bases. Minimal/less rhonchi. No wheezing. EXTREMITIES: Mild edema. No cyanosis, no clubbing. Calves are nontender to palpation. GI: Abdomen is soft, nontender and nondistended. Bowel sounds are positive. SKIN: No acute rash. NEUROLOGIC: Limited at the present time. IMPRESSION: 1. Sepsis syndrome. 2. Dehydration. 3. Chronic obstructive pulmonary disease. 4. Mild bronchospasm. 5. 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 6. Multiple electrolyte abnormalities. PLAN: The patient appears comfortable this morning. She is not short of breath at rest. She is out of bed, sitting in the chair. She does remain very frail and weak appearing. However, she does state to feeling much, much better overall. On physical exam, her bronchospasm continues to slowly resolve. In addition, the oxygen saturation on nasal cannula is now 98%. I will continue the current nebulizer treatments and decrease the intravenous steroids this morning. The patient remains on antibiotic therapy - as per Infectious Disease. Input by Dr. Mcleod is noted. Clinical status of the patient is significantly improved - compared to the initial presentation. However, again, unfortunately, the future status/prognosis for this patient remains poor. I will discuss the above with Dr. Ann this morning. Lester Bassett MD MTDD
[2017-03-21] MEDS ORDERED: MethylPREDNISolone 40 mg Vial IVP SCH (10:00)
[2017-03-21] MEDS: Vancomycin 1gm in NS 250ml 1 GM/250 ML BAG IVPB SCH (10:35)
[2017-03-21] MEDS: Nystatin 100,000 Units/ml Oral Susp 5 ml UD PO SCH ×3 (10:36→17:10)
[2017-03-21] MEDS: Pantoprazole 40 mg EC Tab PO SCH (10:38)
--- NOTE | 2017-03-21 11:39 | PN ---
SUBJECTIVE: She is resting comfortably. Out of bed to chair, little bit stronger than the other day. She is eating a little bit. She is moving her arms much better. She can feed herself a little bit, she could not do that the other day. Her legs are still puffy. The SHAWNA stockings were not put on this morning, it needs to be put on. She is in better spirits, little bit stronger, hoping to get subacute rehab and continue treatment. PHYSICAL EXAMINATION: VITAL SIGNS: She has 97.5 temperature, 91 pulse, 151/88 blood pressure, 18 respiratory rate, and 99% O2 sat on nasal cannula. HEENT: Head is atraumatic, normocephalic. Throat is dry. NECK: Supple. HEART: Regular rate. LUNGS: Decreased breath sounds, but clear. ABDOMEN: Soft. EXTREMITIES: +1/4 pitting edema. She has stockings put on. LABORATORY DATA: She has 136 sodium; potassium is 5.3, from yesterday 5.2, I gave her Kayexalate this morning. BUN is 43, creatinine 1.2, GFR is 45, sugar is 126, and calcium is 8.2. AST is 31, ALT is 34, alkaline phosphatase is 437, total bilirubin is 0.4, and total protein is 5.2. MEDICATIONS: She is on acetylcysteine, Bactroban cream, Caltrate, Risperdal, DuoNeb, heparin, mouth/throat wash, Norvasc, nystatin, oral [place]amese and swallow, Protonix, Pulmicort, IV fluids, Solu-Medrol 30 q.12 hours, Tylenol, vancomycin IV, and Zosyn. ASSESSMENT AND PLAN: She is being seen by multiple doctors, Infectious Disease, Pulmonary, Renal, and Cardiology. She has multiple issues going on, severe sepsis, dehydration, low potassium and high potassium, lung cancer status post radiation, low sodium and as low as 119, congestive heart failure, diarrhea. Now she is very, very weak. I will watch her until we can get her to subacute rehab and I will review for further physical therapy and care. I called in case management to help me. Bennie Ann DO MTDD
[2017-03-21 12:58] VITALS: RESP 20; TEMP 97.6
--- NOTE | 2017-03-21 13:56 | PN ---
DATE: 03/21/2017 SUBJECTIVE: The patient is sitting in a chair, comfortable, without chest pain, without shortness of breath. OBJECTIVE: VITAL SIGNS: Blood pressure 169/91 and heart rate is in the 90s. NECK: Negative JVD. LUNGS: Without rales. HEART: Normal S1 and S2. EXTREMITIES: Without edema. LABORATORY DATA: BUN and creatinine are 43/1.2. Hemoglobin is 9.7. IMPRESSION: 1. Chronic obstructive pulmonary disease. 2. History of lung carcinoma. 3. Sepsis. 4. Anemia. PLAN: Given these findings, the patient is hemodynamically stable. There is no active dyspnea. Lamin Worrell MD
--- NOTE | 2017-03-21 15:34 | CP.PCM.PN ---
Subjective - Date & Time of Evaluation Date of Evaluation: 03/21/17 Time of Evaluation: 15:33 - Subjective Subjective: Follow up Nephrology Consultation: Assessment: Stable Acute Kidney Injury (N17.9) likely hemodynamic due to low BP< GI fluid loss: improved Acute on chronic hypoosmolar Hyponatremia, likely due to intravasc depletion superimposed on ? underlying SIADH due to chronic respi illess/lung ca: improved with IVF Lactic acidosis, Hypoalbuminemia, Hypocalcemia Combined respiratory and high anion gap metabolic acidosis with superimposed metabolic alkalosis Hypokalemia, Anemia, Lung CA (SCC), Rt lung collapse, hx of HTN hepatomegaly and b/l adrenal gland enlargement Vit D def Plan No acute need for renal replacement therapy at this time. Hypertension control with meds as ordered. Patient not on ACEI/ARB due to SHAR. Increase norvasc 10 mg. Monitor Input/Output, daily weights and renal function with basic metabolic panel would lower IVF rate replace electrolytes as needed. started on Ca carbonate bid and weekly vit D repeat renal and bladder sono: unremarkable pt on steroids Dose meds/antibiotics for improved GFR. Avoid fleets enema/magnesium based laxatives. Avoid nephrotoxins/NSAIDs/ iodinated contrast (unless needed emergently) Glycemic control Further work up/management as per primary team Thanks for allowing me to participate in care of your patient. Will follow patient with you. Please call if any Qs. d./w team Dr Humza Barnes Office: [phone] Chief Complaint; none today HPI: Pt is a 71 F with hx of hypertension, lung cancer (SCC) s/p endobronchial stents, Rt lung collapse s/p radiation, ex smoker, b/l adrenal thickening, chronic hyponatremia (Na 130) presented with complaints of loose BM 3-4 episodes per day for last 1 week with decreased oral intake. also had intermittent SOB with cough. feels better now. renal consult for SHAR and hyponatremia, lactic acidosis. also managed for sepsis Denies chest pain, palpitation, improved shortness of breath, c/o leg swelling No recent iodinated contrast exposure. had episodes of low BP when in ER. appetite decreased. Physical Examination: General Appearance: Comfortable, in no acute respiratory distress, co-operative . ill appearing Vitals reviewed and noted as below Head; Atraumatic, normocephalic ENT: no ulcers no thrush. Tongue is midline. Oropharynx: no rash or ulcers. dry oral mucosa EYES: Pupils are equal, round and reactive to light accommodation. Eye muscles and extraocular movement intact. Sclera is anicteric. Neck; supple no lymphadenopathy, no thyromegaly or bruit Lungs: Increased respiratory rate/effort. Breath sounds reduced at Rt with bibasal wheeze/rales Heart: normal rate. s1s2 normal. No rub or gallop. Extremities:1+ edema. No varicose veins. Neurological: Patient is alert, awake and oriented to person, place and time. No focal deficit. Strength bilateral appropriate and equal Skin: Warm and dry. Normal turgor. No rash. Palpitation: Normal elasticity for age. has skin excoriations in legs Abdomen: Abdomen is soft. Bowel sounds +. There is no abdominal tenderness, no guarding/rigidity no organomegaly Psych: limited insight and normal affect/mood MSK: no joint tenderness or swelling. Digits and nails normal, no deformity : kidney or bladder not palpable Labs/imaging reviewed. Past medical history, past surgical history, family history, social history, allergy reviewed and noted as below Family hx: no hx of CKD. Rest non-contributory work up TSH 1.1 Objective - Vital Signs/Intake and Output Vital Signs (last 24 hours): Temp Pulse Resp BP Pulse Ox 97.6 F 94 H 20 161/93 H 99 03/21/17 12:57 03/21/17 12:57 03/21/17 12:57 03/21/17 12:57 03/21/17 05:20 Intake and Output: 03/21/17 03/21/17 06:59 18:59 Intake Total 1735 240 Output Total 270 50 Balance 1465 190 - Medications Medications: Current Medications Acetaminophen (Tylenol 325mg Tab) 650 mg PO Q6H PRN PRN Reason: moderate pain Last Admin: 03/18/17 00:46 Dose: 650 mg Acetylcysteine (Acetylcysteine 20%) 4 ml IH [id number] [facility] Last Admin: 03/21/17 07:59 Dose: 4 ml Albuterol/Ipratropium (Duoneb 3 Mg/0.5 Mg (3 Ml) Ud) 3 ml IH [id number] [facility] Last Admin: 03/21/17 07:59 Dose: 3 ml Albuterol/Ipratropium (Duoneb 3 Mg/0.5 Mg (3 Ml) Ud) 3 ml IH Q2H PRN PRN Reason: Shortness of Breath Last Admin: 03/18/17 02:55 Dose: 3 ml Amlodipine Besylate (Norvasc) 5 mg PO DAILY [facility] Last Admin: 03/21/17 10:44 Dose: 5 mg Budesonide (Pulmicort Respules) 0.5 mg IH [id number] [facility] Last Admin: 03/21/17 07:59 Dose: 0.5 mg Calcium Carbonate (Caltrate) 600 mg PO BID [facility] Last Admin: 03/21/17 10:38 Dose: 600 mg Al Hydrox/Mg Hydrox/Simethicone 30 ml/Diphenhydramine HCl 75 mg/Lidocaine 30 ml 0 ml PO Q2H PRN PRN Reason: Mouth/Throat Pain Last Admin: 03/21/17 05:04 Dose: 10 ml Ergocalciferol (Drisdol 50,000 Intl Units Cap) 1 cap PO Q7D [facility] Last Admin: 03/16/17 17:49 Dose: 1 cap Heparin Sodium (Porcine) (Heparin) 5,000 units SC Q8 [facility] PRN Reason: Protocol Last Admin: 03/21/17 13:54 Dose: 5,000 units Vancomycin HCl (Vancomycin 1gm) 1 gm in 250 mls @ 167 mls/hr IVPB Q12H [facility] PRN Reason: Protocol Stop: 04/16/17 20:16 Last Admin: 03/21/17 10:35 Dose: 167 mls/hr Sodium Chloride (Sodium Chloride 0.9%) 1,000 mls @ 60 mls/hr IV .[id number] [facility] Last Admin: 03/21/17 03:30 Dose: Not Given Nystatin (Nystatin Oral Susp) 5 ml PO QID [facility] Last Admin: 03/21/17 13:55 Dose: 5 ml Ondansetron HCl (Zofran Inj) 4 mg IVP Q6H PRN PRN Reason: Nausea/Vomiting Pantoprazole Sodium (Protonix Ec Tab) 40 mg PO DAILY [facility] Last Admin: 03/21/17 10:38 Dose: 40 mg Prednisone (Prednisone Tab) 0 mg PO DAILY [facility] PRN Reason: Taper Stop: 04/03/17 09:59 Prednisone (Prednisone Tab) 10 mg PO DAILY [facility] - Labs Labs: 12/18/17 06:40 03/21/17 06:40 PT 15.9 SECONDS (9.4-12.5) H 03/14/17 15:45 INR 1.45 (0.93-1.08) H 03/14/17 15:45 APTT 43.5 Seconds (25.1-36.5) H 03/14/17 15:45
[2017-03-21] MEDS ORDERED: Sodium Chloride 0.9% 1,000 ML IV SCH (15:36)
[2017-03-21 17:19] VITALS: BP 148/60; PULSE 70
[2017-03-22 16:00] LABS: RESULT Negative (Negative)
[2017-03-22 23:03] LABS: HEPARIN-IND PLATELET AB Negative (Negative)
[2017-03-23 16:54] LABS: UFH SRA RESULT Negative (Negative)
== END 2017-03-21 19:17 | DRG 871 ==
LOC: ED 15:19 → ERH 17:09 → ICU 19:03 → 3RSO 03-17 17:45
PROVIDERS: ADMIT Family Medicine; ATTEND Family Medicine
PROC: 02HV33Z Insertion of Infusion Device into Superior Vena Cava, Percutaneous Approach (ICD-10-PCS; principal; 2017-03-15)
PROC: B54MZZA Ultrasonography of Right Upper Extremity Veins, Guidance (ICD-10-PCS; 2017-03-15)
DX: A41.02 Sepsis due to Methicillin resistant Staphylococcus aureus (principal); J18.9 Pneumonia, unspecified organism; R57.1 Hypovolemic shock; C34.91 Malignant neoplasm of unspecified part of right bronchus or lung; N17.9 Acute kidney failure, unspecified; J44.1 Chronic obstructive pulmonary disease with (acute) exacerbation; E87.4 Mixed disorder of acid-base balance; R64 Cachexia; E22.2 Syndrome of inappropriate secretion of antidiuretic hormone; J98.19 Other pulmonary collapse; I11.0 Hypertensive heart disease with heart failure; I50.9 Heart failure, unspecified; B37.9 Candidiasis, unspecified; D64.9 Anemia, unspecified; E86.0 Dehydration; E03.9 Hypothyroidism, unspecified; R62.7 Adult failure to thrive; E87.6 Hypokalemia; I25.10 Atherosclerotic heart disease of native coronary artery without angina pectoris; R65.20 Severe sepsis without septic shock; F17.200 Nicotine dependence, unspecified, uncomplicated; E55.9 Vitamin D deficiency, unspecified; E88.09 Other disorders of plasma-protein metabolism, not elsewhere classified; E83.51 Hypocalcemia; R16.0 Hepatomegaly, not elsewhere classified; J98.01 Acute bronchospasm; R19.7 Diarrhea, unspecified; Z92.3 Personal history of irradiation; Z68.22 Body mass index [BMI] 22.0-22.9, adult; Z92.21 Personal history of antineoplastic chemotherapy; Z95.5 Presence of coronary angioplasty implant and graft

== ENCOUNTER 2017-04-07 13:12 | Inpatient (IN) | payer MEDICARE, BC ==
--- NOTE | 2017-04-07 13:18 | ED PDOC ---
Arrival/HPI - General Time Seen by Provider: 04/07/17 13:16 Historian: Patient - History of Present Illness Narrative History of Present Illness (Text): 04/07/17 13:18 71 yo F w/ PMH of HTN, hypothyroid, lung cancer, recently finished chemo and radiation presents to this ED c/o worsening of SOB. Patient was recommended to come to ED for admission. Context: Home Past Medical History - Provider Review Nursing Documentation Reviewed: Yes - Infectious Disease Hx of Infectious Diseases: None - Cardiac Hx Congestive Heart Failure: Yes - Pulmonary Hx Chronic Obstructive Pulmonary Disease (COPD): Yes - Neurological Hx Neurological Disorder: Yes - HEENT Hx HEENT Disorder: No - Renal Hx Renal Disorder: No - Endocrine/Metabolic Hx Endocrine Disorders: No - Hematological/Oncological Hx Cancer: Yes (lung) - Integumentary Hx Dermatological Disorder: No - Musculoskeletal/Rheumatological Hx Musculoskeletal Disorders: No Hx Falls: No - Gastrointestinal Hx Gastrointestinal Disorders: No - Genitourinary/Gynecological Hx Genitourinary Disorders: No - Psychiatric Hx Psychophysiologic Disorder: No Hx Substance Use: No - Surgical History Hx Mastectomy: No - Anesthesia Hx Anesthesia: Yes Hx Anesthesia Reactions: No Hx Malignant Hyperthermia: No Family/Social History - Physician Review Nursing Documentation Reviewed: Yes Family/Social History: Other (noncontributory) Smoking Status: Former Smoker Hx Alcohol Use: No Hx Substance Use: No Allergies/Home Meds Allergies/Adverse Reactions: Allergies No Known Allergies Allergy (Verified 03/14/17 15:29) Home Medications: Home Meds Medication Instructions Recorded Confirmed Acetaminophen [Tylenol 325mg tab] 650 mg PO Q4 PRN 04/07/17 04/07/17 Acetylcysteine 10% [Acetylcysteine 8 ml IH Q8 04/07/17 04/07/17 4 Ml] Acetylcysteine 20% 4 ml IH Q8 04/07/17 04/07/17 Albuterol/Ipratropium [Duoneb 3 3 ml IH [id number] PRN 04/07/17 04/07/17 mg/0.5 mg (3 ml) UD] Albuterol/Ipratropium [Duoneb 3 3 ml IH QID 04/07/17 04/07/17 mg/0.5 mg (3 ml) UD] Allevyn 1 pad TOP Q30D 04/07/17 Aluminum Hydroxide/Magnesium 30 ml PO Q4 PRN 04/07/17 04/07/17 [Maalox Plus 30 ml] Amino AC/Protein Hydr/Whey Pro 30 ml PO TID 04/07/17 04/07/17 [Prosource Plus 30 ml] Bacitracin OINT 0 applic 04/07/17 Ensure Pudding 120 ml PO BID 04/07/17 04/07/17 Furosemide [Lasix] 40 mg PO BID 04/07/17 04/07/17 Lactose-Reduced Food [Ensure Plus 240 ml PO BID 04/07/17 04/07/17 240 ml] Magnesium Hydroxide [Milk Of 400 mg PO PRN PRN 04/07/17 04/07/17 Magnesia] Ondansetron HCl [Zofran] 4 mg PO QID PRN 04/07/17 04/07/17 Vancomycin 1 GM [Vancomycin 1GM in 1 gm IVPB Q12 04/07/17 04/07/17 Normal Saline Addvantage] Zinc Oxide/Cl-Xylenol/Petrolat 1 oin TP 04/07/17 [[place]] amLODIPine [Norvasc] 0 mg PO DAILY 04/07/17 04/07/17 Review of Systems - Review of Systems Constitutional: Fatigue. absent: Weight Change, Fevers, Night Sweats Eyes: Normal ENT: Normal Respiratory: SOB (chronic, buy worsening today). absent: Cough, Sputum Cardiovascular: Normal Gastrointestinal: Normal. absent: Abdominal Pain, Nausea, Vomiting Genitourinary Female: Normal Musculoskeletal: Normal Skin: Normal Neurological: Normal. absent: Headache Endocrine: Normal Hemo/Lymphatic: Normal Psychiatric: Normal Physical Exam Vital Signs Temp Pulse Resp BP Pulse Ox 04/07/17 15:56 94.8 F L 75 18 100 04/07/17 13:24 94.3 F L 72 16 108/46 L 100 Temperature: Afebrile Blood Pressure: Normal Pulse: Regular Respiratory Rate: Normal Appearance: Positive for: Non-Toxic, Comfortable, Ill-Appearing Pain Distress: None Mental Status: Positive for: Alert and Oriented X 3 - Systems Exam Head: Present: Atraumatic, Normocephalic Pupils: Present: PERRL Extroacular Muscles: Present: EOMI Conjunctiva: Present: Normal Mouth: Present: Moist Mucous Membranes Neck: Present: Normal Range of Motion Respiratory/Chest: Present: Good Air Exchange, Rales, Rhonchi. No: Respiratory Distress, Accessory Muscle Use, Wheezes, Retracting Cardiovascular: Present: Regular Rate and Rhythm, Normal S1, S2. No: Murmurs Abdomen: Present: Normal Bowel Sounds. No: Tenderness, Distention, Peritoneal Signs Back: Present: Normal Inspection Upper Extremity: Present: Normal Inspection, Normal ROM, NORMAL PULSES, Other ( oosing clear fluids from b/l UE, with mild edema on both UE). No: Cyanosis, Edema Lower Extremity: Present: Normal Inspection, Normal ROM. No: Edema Neurological: Present: GCS=15, CN II-XII Intact, Speech Normal Skin: Present: Warm, Dry, Normal Color. No: Rashes Psychiatric: Present: Alert, Oriented x 3, Normal Insight, Normal Concentration Medical Decision Making ED Course and Treatment: 04/07/17 15:11 [facility] Nurse stated patient is currently taking Vancomycin by her PICC line. PICC line is not working at this time as per nurse. 04/07/17 16:06 Dr. Hong [employer]per came to examined patient and spoke with Dr. Fatima, and recommended BIPAP, Arterial blood gas, and admission to ICU Re-evaluation Time: 16:07 Reassessment Condition: Re-examined, Improving,but remains with symptoms - Lab Interpretations Lab Results: 04/07/17 14:15 04/07/17 14:15 Lab Results 04/07/17 14:30: pO2 119 H, VBG pH 7.12 L*, VBG pCO2 61.0 H, VBG HCO3 19.8 L, VBG Total CO2 21.7 L, VBG O2 Sat (Calc) 99.7 H, VBG Base Excess -10.2 L, VBG Potassium 4.0, Glucose 84, Lactate 0.9, FiO2 21.0, Sodium 136.0, Chloride 110.0 H, Venous Blood Potassium 4.0 04/07/17 14:15: Sodium 136, Potassium 4.1, Chloride 110 H, Carbon Dioxide 17 L, Anion Gap 13, BUN 59 H, Creatinine 4.7 H, Est GFR ( Amer) 11, Est GFR ( Non-Af Amer) 9, Random Glucose 77, Calcium 7.8 L, Total Bilirubin 0.4, AST 21, ALT 24, Alkaline Phosphatase 243 H D, Lactate Dehydrogenase 756 H, Total Creatine Kinase < 20 L, Troponin I < 0.01, NT-Pro-B Natriuret Pep 3200 H, Total Protein 4.7 L, Albumin 2.0 L, Globulin 2.6, Albumin/Globulin Ratio 0.8 L 04/07/17 14:15: WBC 16.3 H D, RBC 3.34 L, Hgb 9.4 L, Hct 29.3 L, MCV 87.7, MCH 28.1, MCHC 32.1, RDW 18.2 H, Plt Count 155, MPV 9.7, Gran % 91.3 H, Lymph % ( Auto) 4.5 L, [place] % (Auto) 2.8, Eos % (Auto) 1.1 L, Baso % (Auto) 0.3, Gran # 14.91 H, Lymph # 0.7 L, [place] # 0.5, Eos # 0.2, Baso # 0.05, Neutrophils % ( Manual) 91 H, Band Neutrophils % 1, Lymphocytes % (Manual) 6 L, Monocytes % ( Manual) 2, Nucleated RBC % 1, Platelet Evaluation Normal, Hypochromasia Slight, Poikilocytosis (manual Slight, Anisocytosis (manual) Slight, Tear Drop Cells Slight, Ovalocytes Slight, [place] Cells Slight 04/07/17 13:40: PT 11.2, INR 0.98, APTT 47.8 H - RAD Interpretation Radiology Orders: 04/07/17 13:26 CHEST PORTABLE [RAD] Stat - Medication Orders Current Medication Orders: Sodium Chloride (Sodium Chloride 0.9%) 1,000 mls @ 60 mls/hr IV .[id number] [facility] Last Admin: 04/07/17 15:09 Dose: 60 mls/hr eMAR Start Stop Document 04/07/17 15:09 GMD (Rec: 04/07/17 15:09 GMD [id number]) Intravenous Solution Start Date 04/07/17 Start Time 15:09 Vancomycin HCl (Vancomycin 1gm) 1 gm in 250 mls @ 167 mls/hr IVPB STAT STA PRN Reason: Protocol Stop: 04/07/17 17:12 Piperacillin Sod/Tazobactam Sod (Zosyn 4.5 Gm In Ns 100ml) 4.5 gm in 100 mls @ 200 mls/hr IVPB STAT STA PRN Reason: Protocol Stop: 04/07/17 16:13 Disposition/Present on Arrival - Present on Arrival Any Indicators Present on Arrival: No History of DVT/PE: No History of Uncontrolled Diabetes: No Urinary Catheter: No History Surgical Site Infection Following: None - Disposition Have Diagnosis and Disposition been Completed?: Yes Diagnosis: Renal failure, Sepsis, Hypothermia Disposition: HOSPITALIZED Disposition Time: 16:09 Patient Plan: ICU Condition: CRITICAL Discharge Instructions (ExitCare): Sepsis (ED) Referrals: Bennie Ann DO [Primary Care Provider] - Follow up with primary
[2017-04-07 13:29] VITALS: BMI 24.7
[2017-04-07] MEDS ORDERED: Sodium Chloride 0.9% 1,000 ML IV SCH (13:45)
[2017-04-07 14:28] LABS: BASO # 0.05 K/mm3 (0.0-2.0); BASO % 0.3 % (0.0-3.0); EOS # 0.2 (0.0-0.7); EOS % 1.1 % (1.5-5.0); GRAN # 14.91 (1.4-6.5); GRAN % 91.3 % (50.0-68.0); HEMOGLOBIN 9.4 g/dL (12.0-16.0); LYMPH # 0.7 (1.2-3.4); LYMPH % 4.5 % (22.0-35.0); MEAN CELL VOLUME 87.7 fl (80.0-105.0); MEAN CORPUSCULAR HEMOGLOBIN 28.1 pg (25.0-35.0); MEAN CORPUSCULAR HGB CONC 32.1 g/dl (31.0-37.0); MEAN PLATELET VOLUME 9.7 fl (7.0-11.0); MONO # 0.5 (0.1-0.6); MONO % 2.8 % (1.0-6.0); PLATELET COUNT 155 10^3/uL (120.0-450.0); RBC 3.34 10^6/uL (3.5-6.1); RED CELL DISTRIBUTION WIDTH 18.2 % (11.5-14.5); WHITE BLOOD COUNT 16.3 10^3/ul (4.5-11.0)
--- NOTE | 2017-04-07 14:28 | RAD ---
HISTORY: sob COMPARISON: 03/17/2017 FINDINGS: LUNGS: There is chronic near complete opacification of the right lung. There is moderate vascular congestion visible on the left. PLEURA: No significant pleural effusion identified, no pneumothorax apparent. CARDIOVASCULAR: Moderate cardiomegaly OSSEOUS STRUCTURES: No significant abnormalities. VISUALIZED UPPER ABDOMEN: Normal. OTHER FINDINGS: None. IMPRESSION: There is chronic near complete opacification of the right lung. There is moderate vascular congestion visible on the left.
--- NOTE | 2017-04-07 14:30 | CARD ---
APPROVED REPORT EKG Measurement Heart [id number] <Conclusion> Normal sinus rhythm Low voltage QRS Poor R Progression v1-V3.
[2017-04-07 14:47] LABS: VENOUS BLOOD GAS BASE EXCESS -10.2 mmol/L (0.0-2.0); VENOUS BLOOD GAS PO2 119 mm/Hg (30-55)
[2017-04-07 14:48] LABS: INR 0.98 (0.93-1.08); PARTIAL THROMBOPLASTIN TIME 47.8 Seconds (25.1-36.5); PROTHROMBIN TIME 11.2 SECONDS (9.4-12.5)
[2017-04-07 14:51] LABS: BAND 1 % (0-2); LYMPHOCYTE 6 % (22.0-35.0); MONOCYTE 2 % (1.0-6.0); NEUTROPHIL 91 % (50.0-70.0); NUCLEATED RED BLOOD CELL 1 %
[2017-04-07 14:52] LABS: ANISOCYTOSIS SLIGHT; BURR CELLS SLIGHT; HYPOCHROMIA SLIGHT; OVALOCYTES SLIGHT; PLATELET ESTIMATE NORMAL (NORMAL); POIKILOCYTOSIS SLIGHT; TEAR DROP CELLS SLIGHT
[2017-04-07 14:54] LABS: B-TYPE NATRIURETIC PEPTIDE 3200 pg/mL (0-450); TROPONIN I < 0.01 ng/mL
[2017-04-07 14:57] LABS: VENOUS BLOOD PH 7.12 (7.32-7.43)
[2017-04-07 14:58] LABS: ALB/GLOB RATIO 0.8 (1.1-1.8); ALT/SGPT 24 U/L (7-56); AST/SGOT 21 U/L (14-36); BLOOD UREA NITROGEN 59 mg/dL (7-21); CALCIUM 7.8 mg/dL (8.4-10.5); GFR AFRICAN-AMERICAN 11; GFR NON-AFRICAN AMERICAN 9
[2017-04-07] MEDS ORDERED: Vancomycin 1gm in NS 250ml 1 GM/250 ML BAG IVPB STA (15:43)
[2017-04-07] MEDS ORDERED: Piperacill/Tazo 4.5gm in NS 4.5 GM/100 ML BAG IVPB STA (15:44)
[2017-04-07 16:25] LABS: ARTERIAL BLOOD GAS HCO3 18.9 mmol/L (21-28); ARTERIAL BLOOD GAS HEMOGLOBIN 8.4 g/dL (11.7-17.4); ARTERIAL BLOOD GAS O2 CAPACITY 11.7 mL/dl (16-24); ARTERIAL BLOOD GAS O2 CONTENT 11.6 ML/dl (15-23); ARTERIAL BLOOD GAS O2 SAT 99.5 % (95-98); ARTERIAL BLOOD GAS PCO2 53 mm/Hg (35-45); ARTERIAL BLOOD GAS TCO2 20.5 mmol.L (22-28)
[2017-04-07 16:33] LABS: ARTERIAL BLOOD GAS PH 7.16 (7.35-7.45)
[2017-04-07] MEDS ORDERED: Albuterol-Ipratrop 3 mg / 0.5 (3 ml) UD IH PRN ×2 (16:39→23:05)
[2017-04-07 16:44] LABS: URINE BILIRUBIN NEGATIVE (NEGATIVE); URINE BLOOD TRACE-INTACT (NEGATIVE); URINE GLUCOSE (UA) NEGATIVE (NEGATIVE); URINE LEUKOCYTE ESTERASE TRACE Leu/uL (NEGATIVE); URINE NITRATE NEGATIVE (NEGATIVE); URINE PROTEIN TRACE mg/dL (<30 mg/dL); URINE UROBILINOGEN 0.2 E.U./dL (<1 E.U./dL)
[2017-04-07 16:46] LABS: URINE APPEARANCE CLOUDY (CLEAR); URINE COLOR YELLOW (YELLOW)
[2017-04-07 16:55] LABS: URINE RBC 0 - 2 /hpf (0-2)
[2017-04-07 16:57] LABS: URINE BACTERIA FEW (NEG); URINE URIC ACID CRYSTALS MOD /hpf
[2017-04-07] MEDS ORDERED: DAPTOmycin 500 mg Inj (Cubicin) IV STA (17:11)
[2017-04-07] MEDS ORDERED: Sodium Bicarbonate 8.4% 150 MEQ in Dextrose 5% In Water 1,000 ML IV SCH (17:15)
[2017-04-07] MEDS: Piperacillin/Tazobact 2.25gm 2.25 GM/100 ML BAG IVPB SCH (17:47)
[2017-04-07] MEDS ORDERED: [UNRECOGNIZED DRUG - OTHER] PO SCH (18:00)
[2017-04-07] MEDS ORDERED: LACTOSE REDUCED FOOD PO SCH (18:00)
[2017-04-07] MEDS: Albuterol-Ipratrop 3 mg / 0.5 (3 ml) UD IH SCH (18:46)
[2017-04-07] MEDS: MethylPREDNISolone 40 mg Vial IVP SCH (18:48)
[2017-04-07 19:31] LABS: ARTERIAL BLOOD GAS HCO3 18.7 mmol/L (21-28); ARTERIAL BLOOD GAS O2 SAT 99.5 % (95-98); ARTERIAL BLOOD GAS PCO2 59 mm/Hg (35-45); ARTERIAL BLOOD GAS TCO2 20.5 mmol.L (22-28)
[2017-04-07 19:41] LABS: ARTERIAL BLOOD GAS PH 7.11 (7.35-7.45)
[2017-04-07] MEDS ORDERED: Etomidate 20 mg/10ml Inj IV ONE (19:52)
[2017-04-07] MEDS ORDERED: Etomidate 20 mg/10ml Inj IVP STA (20:02)
--- NOTE | 2017-04-07 20:14 | CP.PCM.CON ---
History of Present Illness - History of Present Illness History of Present Illness: ICU Consult Note for Dr. 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 Patient was recently admitted to the unit 03/14. [facility] patient was satting at 88-92% on NC and received a breathing treatment which made her improve to 95%. Upon coming to the ED patient was placed on BiPAP however as she continued to be tachypneic she was intubated and placed on mechanical vent. 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 s/p R main bronchus stent and radiation therapy], COPD, CHF, CAD PSurgHx: cardiac stents, 3x c-sections, bowel surgery for perforation, total thyroidectomy (benign path) Meds: pls see records ALL: NKDA SocHx: ex smoker with 35+ years smoking history FamHx: noncontributory ROS: unobtainable Review of Systems - Review of Systems Systems not reviewed;Unavailable: Acuity of Condition Past Patient History - Infectious Disease Hx of Infectious Diseases: None - Past Medical History & Family History Past Medical History?: Yes - Past Social History Smoking Status: Former Smoker - CARDIAC Hx Congestive Heart Failure: Yes - PULMONARY Hx Chronic Obstructive Pulmonary Disease (COPD): Yes - NEUROLOGICAL Hx Neurological Disorder: Yes - HEENT Hx HEENT Problems: No - RENAL Hx Chronic Kidney Disease: No - ENDOCRINE/METABOLIC Hx Endocrine Disorders: No - HEMATOLOGICAL/ONCOLOGICAL Hx Cancer: Yes (lung) - INTEGUMENTARY Hx Dermatological Problems: No - MUSCULOSKELETAL/RHEUMATOLOGICAL Hx Musculoskeletal Disorders: No Hx Falls: No - GASTROINTESTINAL Hx Gastrointestinal Disorders: No - GENITOURINARY/GYNECOLOGICAL Hx Genitourinary Disorders: No - PSYCHIATRIC Hx Psychophysiologic Disorder: No Hx Substance Use: No - SURGICAL HISTORY Hx Mastectomy: No - ANESTHESIA Hx Anesthesia: Yes Hx Anesthesia Reactions: No Hx Malignant Hyperthermia: No Meds Allergies/Adverse Reactions: Allergies Allergy/AdvReac Type Severity Reaction Status Date / Time No Known Allergies Allergy Verified 03/14/17 15:29 - Medications Medications: Current Medications Acetylcysteine (Acetylcysteine 20%) 4 ml IH Q8 [facility] Albuterol/Ipratropium (Duoneb 3 Mg/0.5 Mg (3 Ml) Ud) 3 ml IH [id number] PRN PRN Reason: Wheezing Albuterol/Ipratropium (Duoneb 3 Mg/0.5 Mg (3 Ml) Ud) 3 ml IH Q6H [facility] Last Admin: 04/07/17 18:46 Dose: 3 ml Ergocalciferol (Drisdol 50,000 Intl Units Cap) 1 cap PO Q7D [facility] Furosemide (Lasix) 40 mg IVP DAILY [facility] Heparin Sodium (Porcine) (Heparin) 5,000 units SC Q8 [facility] PRN Reason: Protocol Piperacillin Sod/Tazobactam Sod (Zosyn 2.25 Gm In 0.9% 100 Ml) 2.25 gm in 100 mls @ 100 mls/hr IVPB Q8H [facility] PRN Reason: Protocol Stop: 04/14/17 16:46 Last Admin: 04/07/17 17:47 Dose: Not Given Linezolid (Zyvox 600mg/300ml D5w) 600 mg in 300 mls @ 200 mls/hr IVPB Q12 [facility] PRN Reason: Protocol Stop: 04/07/17 23:29 NOREPINEPHRINE BIT/0.9 % NACL (Levophed 4 Mg/ 250 Ml Ns Premixed) 4 mg in 250 mls @ 15 mls/hr IV .[id number] PRN; Protocol; 4 MCG/MIN PRN Reason: TITRATE PER MD ORDER Methylprednisolone (Solu-Medrol) 40 mg IVP Q8H [facility] Last Admin: 04/07/17 18:48 Dose: 40 mg Non-Formulary Medication (Ensure Pudding) 120 ml PO BID [facility] Non-Formulary Medication (Lactose-Reduced Food [Ensure Plus]) 237 ml PO BID [facility] Ondansetron HCl (Zofran Tab) 4 mg PO QID PRN PRN Reason: Nausea/Vomiting Pantoprazole Sodium (Protonix Ec Tab) 40 mg PO DAILY [facility] Sodium Bicarbonate (Sodium Bicarbonate Tab) 1,300 mg PO BID [facility] Physical Exam - Constitutional Appears: Chronically Ill - Head Exam Head Exam: ATRAUMATIC, NORMOCEPHALIC - Eye Exam Eye Exam: Normal appearance. absent: Conjunctival injection, Scleral icterus - ENT Exam ENT Exam: Mucous Membranes Moist - Respiratory Exam Respiratory Exam: Rales, Rhonchi, Respiratory Distress - Cardiovascular Exam Cardiovascular Exam: REGULAR RHYTHM, +S1, +S2 - GI/Abdominal Exam GI & Abdominal Exam: Normal Bowel Sounds, Soft. absent: Firm, Guarding, Tenderness - Extremities Exam Additional comments: +weeping edema b/l UE and +pitting edema b/l LE - Neurological Exam Neurological exam: Alert - Psychiatric Exam Additional comments: unable to assess Results - Vital Signs Recent Vital Signs: Last Vital Signs Temp 94.6 F L 04/07/17 18:45 Pulse 69 04/07/17 19:53 Resp 17 04/07/17 19:53 BP 93/51 L 04/07/17 19:53 Pulse Ox 99 04/07/17 19:53 - Labs Result Diagrams: 04/07/17 14:15 04/07/17 14:15 Labs: Laboratory Results - last 24 hr 04/07/17 04/07/17 04/07/17 16:20 16:35 19:27 pCO2 53 H 59 H pO2 115.0 H 117.0 H HCO3 18.9 L 18.7 L ABG pH 7.16 L* 7.11 L* ABG Total CO2 20.5 L 20.5 L ABG O2 Saturation 99.5 H 99.5 H ABG O2 Content 11.6 L ABG Base Excess -9.4 L -11.3 L ABG Hemoglobin 8.4 L ABG Carboxyhemoglobin 2.1 H POC ABG HHb (Measured) 0.5 ABG Methemoglobin 1.3 ABG O2 Capacity 11.7 L ABG Potassium 3.8 Hgb O2 Saturation 96.1 Sodium 137.0 Chloride 112.0 H Glucose 79 Lactate 0.7 Mechanical Rate 12 FiO2 36.0 50.0 Inspiratory BiPAP 10 Arterial Blood Potassium 3.8 Urine Color Yellow Urine Appearance Cloudy Urine pH 6.0 Ur Specific [place] 1.020 Urine Protein Trace H Urine Glucose (UA) Negative Urine Ketones Negative Urine Blood Trace-intact H Urine Nitrate Negative Urine Bilirubin Negative Urine Urobilinogen 0.2 Ur Leukocyte Esterase Trace H Urine RBC 0 - 2 Urine WBC 1 - 3 Ur Epithelial Cells 1 - 3 Uric Acid Crystals Mod Urine Bacteria Few Assessment & Plan - Assessment and Plan (Free Text) Assessment: 71 year old female PMHx HTN, hypothyroidism, lung ca [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 s/p R main bronchus stent and radiation therapy], COPD, CHF, CAD BIBA from [facility] with worsening SOB and abnormal labs Plan: Neuro: maintain normothermia, sedated on fentanyl and midazolam Pulm: Intubated on vent; Maintain SaO2 > 90%, keep head of bed elevated at 30 degrees, Mucomyst, Duoneb, Solumedrol; Pulm consult Cardio: on levophed gtt, Maintain MAP > 65, GI: Protonix for ppx, NPO Renal: Monitor electrolytes, replete as needed, Sodium bicarb bid tab; Nephro consult Endo: Maintain euglycemia 140-180, solu-cortef 50 mg IVP Q8H Heme: DVT ppx Heparin 5000u sc q8 ID: IV antibiotics Zyvox and Zosyn, f/u blood cultures and urine culture; f/u legionella and procalcitonin; ID consult Discussed with Dr. Ursula Ocampo PGY2
[2017-04-07] MEDS: NOREPINEPHRINE BIT/0.9 % NACL 4 MG/250 ML BAG IV PRN ×2 (20:15→20:30)
[2017-04-07] MEDS ORDERED: Midazolam 2 MG/2 ML VIAL ONE (20:28)
[2017-04-07] MEDS ORDERED: Influenza Vaccine 60 mcg/0.5 mL SYR (4YR UP) IM ONE (21:03)
[2017-04-07] MEDS ORDERED: Pneumococcal 23-Valent Vaccine IM ONE (21:03)
--- NOTE | 2017-04-07 21:58 | PCM.PROC ---
Procedures Attestation:: I certify that I have explained the specified Operation(s) or Procedure(s), risks, benefits and reasonable alternatives to the Patient and/or other person responsible. The opportunity was given to ask questions and all questions answered - Intubation Time Out Performed: Yes Sedative: Etomidate (10cc), Versed (2cc) Laryngoscope: Glidescope ET Tube Size: 7.5 ET Tube Uncuffed: Yes ET Tube Secured [place]: Lips ET Tube Placement Confirmation: Visualized Passing Through Cords, Breath Sounds Equal Bilaterally, No Breath Sounds Over Epigastrum, Confirmation w/Capnometry Patient Tolerated Procedure: No Complications Procedure Immediate Complications: None Additional comments: Done under supervision and guidance of attending Dr. Vergara
[2017-04-07] MEDS ORDERED: Linezolid 600 mg in D5W 300 ml 600 MG/300 ML BAG IVPB SCH (22:00)
[2017-04-07] MEDS ORDERED: Acetylcysteine 20% Inhal Soln (4ml) IH SCH (22:00)
[2017-04-07] MEDS ORDERED: Midazolam 100 mg/100ml in NS 100 MG/100 ML SOL IV PRN (22:17)
[2017-04-07] MEDS: Fentanyl 1000mcg/100ml NS 1,000 MCG/100 ML BAG IV PRN (22:45)
[2017-04-08 00:42] LABS: ARTERIAL BLOOD GAS HCO3 15.6 mmol/L (21-28); ARTERIAL BLOOD GAS O2 CAPACITY 11.6 mL/dl (16-24); ARTERIAL BLOOD GAS O2 CONTENT 11.7 ML/dl (15-23); ARTERIAL BLOOD GAS O2 SAT 100.5 % (95-98); ARTERIAL BLOOD GAS PCO2 40 mm/Hg (35-45); ARTERIAL BLOOD GAS TCO2 16.8 mmol.L (22-28)
--- NOTE | 2017-04-08 01:51 | CON ---
DATE: 04/07/2017 HISTORY OF PRESENT ILLNESS: The patient is a 71-year-old lady with history of lung cancer stage 4, status post chemotherapy and radiation therapy who presented to emergency room with worsening of shortness of breath. The patient denies chest pain, nausea, vomiting, diarrhea, or constipation. Her shortness of breath was getting progressively worse over the course of several days. No alleviating or aggravating factors. He had previous episodes similar to that which were treated with antibiotics and bronchodilators. PAST MEDICAL HISTORY: Hypertension, hypothyroidism, CHF, COPD. SOCIAL HISTORY: The patient is an ex-smoker. No alcohol or illicit drug abuse. FAMILY HISTORY: Noncontributory. ALLERGIES: NO KNOWN DRUG ALLERGIES. MEDICATIONS AT HOME: Tylenol p.r.n., Mucomyst, Maalox, Lasix, Vancomycin, amlodipine, Zinc, Zofran. REVIEW OF SYSTEMS: Review of 12-organ system other than mentioned in history of present illness, negative. PHYSICAL EXAMINATION: VITAL SIGNS: Temperature 94.8, heart rate 75, blood pressure 115/62, respiratory rate 18, oxygen saturation 100% on BiPAP 10/5 with FiO2 of 50%. HEENT: Head and neck atraumatic. LUNGS: Rhonchi, crackles and few wheezes bilaterally. HEART: Regular rate and rhythm. S1, S2 distant. ABDOMEN: Soft, nontender, nondistended. MUSCULOSKELETAL: Trace bilateral pedal and ankle edema. NEUROLOGIC: The patient moves all extremities spontaneously. SKIN: Moist. PSYCH: The patient is lethargic, however, easily arousable. LABORATORY DATA: ABG 7.16/53/115. Lactic acid 0.9. WBC 16.3, hemoglobin 9.4, and platelet count 155. Sodium 136, potassium 4.1, chloride 110, carbon dioxide 17, BUN 59, creatinine 4.7, AST 21, ALT 24. EKG showed normal sinus rhythm. Chest x-ray showed there is a chronic near complete opacification of the right lung. There is a moderate possible congestion visible on the left. ASSESSMENT AND PLAN: This is a 71-year-old lady who presented with severe sepsis secondary to likely post obstructive pneumonia in the setting of stage 4 lung adenocarcinoma on the right side with almost complete opacification of the right lung on chest x-ray, complicated by multiorgan system failure including septic encephalopathy, acute kidney injury, respiratory failure. At present time, we will proceed with fluid resuscitation, antibiotics, including linezolid and Zosyn. ID consult. Linezolid has better penetration into the lungs than vancomycin. We will continue with septic workup including blood culture, urine culture, procalcitonin, urine for Legionella and streptococcal antigen. We will continue with BiPAP. At present time, we will hold diuresis and start IV fluids to support kidneys. We will repeat ABG in about 6 hours to ascertain improvement in acute respiratory acidosis. We will start the patient on bronchodilators and small dose steroids. We will continue with pulmonary toilet. Head of bed elevated more than 35 degrees. Conservative oxygen management. Once severe sepsis resolved, we will proceed with conservative fluid management as well. We will maintain mean arterial pressure above 65. We will maintain euglycemia and evolemia. We will continue with antibiotics, ID service consult. Septic workup. We will continue with DVT and GI prophylaxis. Addendum: patient respiratory and mental status deteriorated and her acute respiratory acidosis worsened despite BPAP--she got intubated. Will continue with protective lung ventilation strategy, vt 6-8 cc/pbw and Pplat<30 ccm time 40 min Evin Montelongo MD MTDD
[2017-04-08] MEDS: Albuterol-Ipratrop 3 mg / 0.5 (3 ml) UD IH SCH ×4 (01:56→20:00)
[2017-04-08] MEDS: MethylPREDNISolone 40 mg Vial IVP SCH ×3 (02:19→19:14)
[2017-04-08] MEDS: Piperacillin/Tazobact 2.25gm 2.25 GM/100 ML BAG IVPB SCH (02:23)
[2017-04-08] MEDS: NOREPINEPHRINE BIT/0.9 % NACL 4 MG/250 ML BAG IV PRN ×2 (02:53→09:49)
[2017-04-08] MEDS ORDERED: Linezolid 600 mg in D5W 300 ml 600 MG/300 ML BAG IVPB ONE (03:30)
[2017-04-08 06:00] LABS: ARTERIAL BLOOD GAS PCO2 42 mm/Hg (35-45); ARTERIAL BLOOD GAS TCO2 16.3 mmol.L (22-28)
[2017-04-08 06:02] LABS: ARTERIAL BLOOD GAS PH 7.16 (7.35-7.45)
[2017-04-08 07:01] LABS: HEMOGLOBIN 8.6 g/dL (12.0-16.0); MEAN CELL VOLUME 86.7 fl (80.0-105.0); MEAN CORPUSCULAR HEMOGLOBIN 27.8 pg (25.0-35.0); MEAN CORPUSCULAR HGB CONC 32.1 g/dl (31.0-37.0); MEAN PLATELET VOLUME 9.6 fl (7.0-11.0); RBC 3.09 10^6/uL (3.5-6.1); RED CELL DISTRIBUTION WIDTH 18.1 % (11.5-14.5); WHITE BLOOD COUNT 21.9 10^3/ul (4.5-11.0)
--- NOTE | 2017-04-08 07:32 | CON ---
DATE: 04/08/2017 PULMONARY CONSULTATION REASON FOR CONSULTATION: Respiratory failure. REFERRING PHYSICIAN: Dr. Bennie Ann. 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 The patient was initially tried on BiPAP in the emergency room. However, she continued to decompensate, and was subsequently intubated. I am thus asked to evaluate on this case for additional management. I did discuss the case with the night nurse at length and reviewed the chart. The patient did present with increasing shortness of breath, cough, and congestion. There is no history of significant sputum production. There is no history of chest pain, coughing up of blood, or chest pain - made worse with deep respirations. The patient did present to the emergency room with hypothermia. No history of chills or infectious exposure. No history of night sweats, weight loss or appetite change prior to the above events. No history of leg or calf pains. No history of syncope or diaphoresis. No history of recent travel or trauma. REVIEW OF SYSTEMS: No history of nausea, vomiting or diarrhea. No acute urinary symptoms. No new neurologic or musculoskeletal complaints. Rest of the review of systems is negative. ALLERGIES: NO KNOWN ALLERGIES. SOCIAL HISTORY: Positive for extensive tobacco usage. No alcohol. FAMILY HISTORY: No inheritable diseases. HOME MEDICATIONS: Include bacitracin ointment, Mylanta, prednisone, acetylcysteine, magnesium, budesonide, Protonix, amlodipine, DuoNeb, Lasix and calcium carbonate PHYSICAL EXAMINATION: GENERAL: The patient is currently on the ventilator and lethargic. VITAL SIGNS: Temperature is 97.2, pulse 78, respirations are 18/14, blood pressure 107/56. HEENT: Normocephalic, atraumatic. NECK: No JVD. CARDIOVASCULAR: Positive S1, S2. No S3 gallop. LUNGS: Decreased breath sounds at the bases. Scattered bilateral rhonchi and wheezing are appreciated. EXTREMITIES: Mild edema. No cyanosis, no clubbing. GI: Abdomen is soft, nondistended. Bowel sounds are positive. SKIN: No acute rash. NEUROLOGIC: Exam limited at the present time. PERTINENT LABORATORY DATA: Chest x-ray was done this morning and reviewed. There is chronic opacification and scarring noted in the right hemithorax. There is a chronic tracheal shift to the right side. There is a possible left basilar infiltrate. Arterial blood gas was done on assist control 14, tidal volume 400, FiO2 70%. Results are: pH 7.16, pCO2 42, pO2 of 283. CBC: White count 16.3, hemoglobin 9.4, hematocrit 29.3, platelets of 155,000. IMPRESSION: 1. Respiratory failure. 2. 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 3. Advanced chronic obstructive pulmonary disease. 4. Mild anemia. 5. Leukocytosis. R/O pneumonia. 6. Severe acidosis. PLAN: Again, I did discuss the case with the night nurse at length. I have also reviewed the chart at length. The patient is currently intubated. The patient presents to [facility] - transferred from [facility] - with main complaints of increasing shortness of breath at rest, cough, and congestion. The patient was also noted to have a low pulse oximetry. She was then transferred to [facility]. In the emergency room, the patient continued to deteriorate and was subsequently intubated. I did review the chest x-ray as above. There is chronic scarring and atelectasis noted in the right lung. There is a chronic tracheal shift to the right. However, on today's film, there may be a left lower lobe infiltrate. Morrow cultures have been ordered and will be analyzed when feasible. Dr. Mcleod (Infectious Disease) has been called on the case for antibiotic usage. Repeat labs have been ordered. Procalcitonin has been ordered. I have also reviewed the arterial blood gas. There is a combined severe acidosis present. The patient is currently on a bicarbonate drip. On physical exam, there is moderate bronchospasm noted. I will continue the current nebulizer treatments and intravenous steroids for now. Overall, status/prognosis for this patient remains poor. I will discuss the above with the entire ICU team the next few moments. I will discuss the above with Dr. Ann in the next few moments. Thank you very much for this pulmonary consultation. Lester Bassett MD [facility] # [id number] ROULA
[2017-04-08 07:50] LABS: ALB/GLOB RATIO 0.7 (1.1-1.8); ALBUMIN 1.8 g/dL (3.0-4.8); CALCIUM 7.1 mg/dL (8.4-10.5); MAGNESIUM 1.5 mg/dL (1.7-2.2); URIC ACID 10.8 mg/dL (2.5-6.2)
[2017-04-08] MEDS: Acetylcysteine 20% Inhal Soln (4ml) IH SCH ×2 (08:00→14:15)
--- NOTE | 2017-04-08 08:51 | RAD ---
HISTORY: s/p intubation COMPARISON: Comparison is made with the previous same-day exam FINDINGS: LUNGS: The patient is status post intubation. The ET tube is seen at appropriate position. Again seen is small size right lung with heterogeneous opacities in the right lung. Moderate pulmonary vascular congestion in the left lung is noted. PLEURA: The possibility of right pleural effusion cannot be excluded. No evidence of left pleural effusion. CARDIOVASCULAR: Normal. OSSEOUS STRUCTURES: No significant abnormalities. VISUALIZED UPPER ABDOMEN: Normal. OTHER FINDINGS: None. IMPRESSION: Status post intubation. The ET tube is seen at appropriate position.
--- NOTE | 2017-04-08 09:24 | RAD ---
HISTORY: eval og tube and ett adjustment COMPARISON: Earlier same day FINDINGS: LUNGS: No change PLEURA: No significant pleural effusion identified, no pneumothorax apparent. CARDIOVASCULAR: Moderate cardiomegaly OSSEOUS STRUCTURES: No significant abnormalities. VISUALIZED UPPER ABDOMEN: Normal. OTHER FINDINGS: None. IMPRESSION: The endotracheal and nasogastric tubes are in satisfactory position
[2017-04-08 09:46] LABS: ARTERIAL BLOOD GAS O2 SAT 99.8 % (95-98); ARTERIAL BLOOD GAS PCO2 25 mm/Hg (35-45); ARTERIAL BLOOD GAS PH 7.29 (7.35-7.45); ARTERIAL BLOOD GAS TCO2 12.8 mmol.L (22-28)
--- NOTE | 2017-04-08 09:49 | RAD ---
HISTORY: pneumonia COMPARISON: 04/07/2017 FINDINGS: LUNGS: Chronic consolidation in the right lung. Left lung remains clear PLEURA: No significant pleural effusion identified, no pneumothorax apparent. CARDIOVASCULAR: Normal. OSSEOUS STRUCTURES: No significant abnormalities. VISUALIZED UPPER ABDOMEN: Normal. OTHER FINDINGS: The endotracheal and nasogastric tubes are in satisfactory position IMPRESSION: Chronic consolidation in the right lung. Left lung is clear
[2017-04-08] MEDS ORDERED: Pantoprazole 40 mg EC Tab PO SCH (10:00)
[2017-04-08] MEDS ORDERED: Ergocalciferol 50,000 Intl Units Cap PO SCH (10:00)
--- NOTE | 2017-04-08 11:19 | CP.PCM.CON ---
History of Present Illness - History of Present Illness History of Present Illness: 71 year old female with PMH of HTN, hypothyroidism, COD, chronic CHF, CAD, S/P bowel surgery due to perforation, S/P total thyroidectomy, squamous cell lung cancer S/P right bronchial stent placement S/P chemotherapy and radation therapy was recently admitted in 2016 at [facility] for persistent MRSA bacteremia and was being treated with IV antibiotics. She was sent back to the snf and the patient is now back because of worsening shortness of breath and respiratory distress, associated with increased coughing. There was no note of fever at the snf but the patient was noted to be hypothermic and hypoxic in the ED. There was also no note of vomiting, diarrhea or loss of consciousness. In the ED, the patient was sent to the ICU where she was subsequently intubated and put on the ventilator. She is noted to have leukocytosis as well. Infectious diseases consult is requested to further evaluate and manage. Review of Systems - Review of Systems Systems not reviewed;Unavailable: Intubated Past Patient History - Infectious Disease Hx of Infectious Diseases: None - Past Medical History & Family History Past Medical History?: Yes - Past Social History Smoking Status: Former Smoker - CARDIAC Hx Congestive Heart Failure: Yes - PULMONARY Hx Chronic Obstructive Pulmonary Disease (COPD): Yes - NEUROLOGICAL Hx Neurological Disorder: Yes - HEENT Hx HEENT Problems: No - RENAL Hx Chronic Kidney Disease: No - ENDOCRINE/METABOLIC Hx Endocrine Disorders: No - HEMATOLOGICAL/ONCOLOGICAL Hx Cancer: Yes (lung) - INTEGUMENTARY Hx Dermatological Problems: No - MUSCULOSKELETAL/RHEUMATOLOGICAL Hx Musculoskeletal Disorders: No Hx Falls: No - GASTROINTESTINAL Hx Gastrointestinal Disorders: No - GENITOURINARY/GYNECOLOGICAL Hx Genitourinary Disorders: No - PSYCHIATRIC Hx Psychophysiologic Disorder: No Hx Substance Use: No - SURGICAL HISTORY Hx Mastectomy: No - ANESTHESIA Hx Anesthesia: Yes Hx Anesthesia Reactions: No Hx Malignant Hyperthermia: No Meds Allergies/Adverse Reactions: Allergies Allergy/AdvReac Type Severity Reaction Status Date / Time No Known Allergies Allergy Verified 03/14/17 15:29 - Medications Medications: Current Medications Acetylcysteine (Acetylcysteine 20%) 4 ml IH Q8 HANNAH Albuterol/Ipratropium (Duoneb 3 Mg/0.5 Mg (3 Ml) Ud) 3 ml IH [id number] PRN PRN Reason: Wheezing Daptomycin (Cubicin) 370 mg 6 mg/kg (370 mg) IV STAT STA PRN Reason: Protocol Stop: 04/07/17 17:12 Furosemide (Lasix) 40 mg IVP DAILY [facility] Heparin Sodium (Porcine) (Heparin) 5,000 units SC Q8 HANNAH PRN Reason: Protocol Piperacillin Sod/Tazobactam Sod (Zosyn 2.25 Gm In 0.9% 100 Ml) 2.25 gm in 100 mls @ 100 mls/hr IVPB Q8H HANNAH PRN Reason: Protocol Stop: 04/14/17 16:46 Linezolid (Zyvox 600mg/300ml D5w) 600 mg in 300 mls @ 200 mls/hr IVPB Q12 HANNAH PRN Reason: Protocol Stop: 04/07/17 23:29 Non-Formulary Medication (Ensure Pudding) 120 ml PO BID [facility] Non-Formulary Medication (Lactose-Reduced Food [Ensure Plus]) 237 ml PO BID [facility] Ondansetron HCl (Zofran Tab) 4 mg PO QID PRN PRN Reason: Nausea/Vomiting Pantoprazole Sodium (Protonix Ec Tab) 40 mg PO DAILY [facility] Physical Exam - Constitutional Appears: Other (intubated and sedated) - Head Exam Head Exam: NORMAL INSPECTION - ENT Exam Additional comments: ET tube in place - Neck Exam Neck exam: Negative for: Meningismus - Respiratory Exam Respiratory Exam: Decreased Breath Sounds - Cardiovascular Exam Cardiovascular Exam: +S1, +S2 - GI/Abdominal Exam GI & Abdominal Exam: Soft. absent: Tenderness - Extremities Exam Additional comments: right arm PICC line Results - Vital Signs Recent Vital Signs: Last Vital Signs Temp 94.8 F L 04/07/17 15:56 Pulse 75 04/07/17 15:56 Resp 18 04/07/17 15:56 BP 113/62 04/07/17 15:56 Pulse Ox 100 04/07/17 15:56 - Labs Result Diagrams: 04/08/17 06:40 04/08/17 06:40 Labs: Laboratory Results - last 24 hr 04/07/17 04/07/17 16:20 16:35 pCO2 53 H pO2 115.0 H HCO3 18.9 L ABG pH 7.16 L* ABG Total CO2 20.5 L ABG O2 Saturation 99.5 H ABG O2 Content 11.6 L ABG Base Excess -9.4 L ABG Hemoglobin 8.4 L ABG Carboxyhemoglobin 2.1 H POC ABG HHb (Measured) 0.5 ABG Methemoglobin 1.3 ABG O2 Capacity 11.7 L Hgb O2 Saturation 96.1 FiO2 36.0 Urine Color Yellow Urine Appearance Cloudy Urine pH 6.0 Ur Specific [place] 1.020 Urine Protein Trace H Urine Glucose (UA) Negative Urine Ketones Negative Urine Blood Trace-intact H Urine Nitrate Negative Urine Bilirubin Negative Urine Urobilinogen 0.2 Ur Leukocyte Esterase Trace H Urine RBC 0 - 2 Urine WBC 1 - 3 Ur Epithelial Cells 1 - 3 Uric Acid Crystals Mod Urine Bacteria Few Assessment & Plan - Assessment and Plan (Free Text) Plan: Assessment Systemic inflammatory response syndrome, consider severe sepsis with ventilator- dependent hypoxic respiratory failure due to lower lobe HCAP on top of right lung CA with chronic consolidation on the right base recent history of persistent MRSA bacteremia 2016 (unable to rule out endocarditis at that time) HTN hypothyroidism COPD chronic CHF CAD S/P bowel surgery due to perforation S/P total thyroidectomy squamous cell lung cancer S/P right bronchial stent placement S/P chemotherapy and radation therapy Plan Gave a dose of IV Daptomycin pending blood cx; also started Zyvox and Merrem pending sputum cx, PCT; patient came in with PICC line from the snf and there is concern of bacteremia overall prognosis is poor
--- NOTE | 2017-04-08 11:28 | US ---
PROCEDURE: Ultrasound of the Kidneys HISTORY: SHAR COMPARISON: Comparison is made to the previous study dated 03/17/2017. TECHNIQUE: Sonogram of the kidneys. FINDINGS: RIGHT KIDNEY: Measures: 11 x 5.1 x 5.3 cm. The kidney is echogenic suggestive of medical renal disease. No stone, solid mass lesion or hydronephrosis visualized. LEFT KIDNEY: Measures: 9.4 x 4.1 x 4.3 cm. The left kidney is also echogenic suggestive of medical renal disease. No stone, solid mass lesion or hydronephrosis visualized. OTHER FINDINGS: None. IMPRESSION: Suboptimal study due to the patient's medical condition. Echogenic kidneys suggestive of medical renal disease. No evidence of hydronephrosis.
[2017-04-08] MEDS: Meropenem 500 MG in Sodium Chloride 0.9% 100 ML IVPB SCH (12:10)
[2017-04-08] MEDS: Linezolid 600 mg in D5W 300 ml 600 MG/300 ML BAG IVPB SCH (12:36)
--- NOTE | 2017-04-08 14:10 | PN ---
DATE: 04/08/2017 SUBJECTIVE: The patient was seen and examined at bedside. She is comfortable. She is on 10 mcg per minute Levophed, bicarbonate drip 75 mL per hour, Versed 2 mg per hour, and Fentanyl 40 mcg per hours. She is on PRBC 40/25/10/6%. In that setting her heart rate is 84, oxygen saturation 100%, end tidal CO2 on the monitor 20, and blood pressure 123/75 Cont'd Evin Montelongo MD MTDSage
--- NOTE | 2017-04-08 14:34 | US ---
HISTORY: Leg pain and swelling. Evaluate for DVT PHYSICIAN(S): Lamin Mckeon MD. TECHNIQUE: Duplex sonography and color-flow Doppler with graded compression were used to evaluate the deep venous systems of both lower extremities. FINDINGS: The visualized deep venous systems of both lower extremities are sonographically normal and compressible. Normal wave forms and augmentation are seen. There is no sonographic evidence for deep venous thrombosis in the visualized segments of both lower extremities. There is a complex 1.5 x 6.5 cm fluid collection in the left popliteal fossa, consistent with a Cedeño's cyst. IMPRESSION: No sonographic evidence for deep venous thrombosis in the visualized segments of both lower extremities.
--- NOTE | 2017-04-08 15:22 | CP.PCM.CON ---
History of Present Illness - History of Present Illness History of Present Illness: Initial Nephrology Consultation: Assessment: critical Acute Kidney Injury (N17.9) differential include ATN due to sepsis, AIN due to recent antibiotics Combined respiratory and metabolic acidosis Anemia, Lung CA (SCC), Rt lung collapse hx of HTN hepatomegaly and b/l adrenal gland enlargement sepsis with shock requring pressors, pneumonia, respi failure Hyperuricemia and Hyperphosphatemia Plan No acute need for renal replacement therapy (COMPOSITE LAMINATOR) at this time but may need soon if no spontaneous recovery. however she is critically ill and unstable at this time due to shock state requiring pressors. patients with SHAR requiring COMPOSITE LAMINATOR tend to have very high mortality. has overall poor prognosis, COMPOSITE LAMINATOR may be of only very limited benefit in her case, if any. will need d/w family about pros/ cons of dialysis. consider palliative care evaluation. No ACEI/ARB due to SHAR. maintain hemodynamics stable. Monitor Input/Output, daily weights and renal function with basic metabolic panel Check urine sodium, urine eos and creatinine. renal sono done. replace electrolytes as needed. supplement Bicarb as ordered and weekly vit D Dose meds/antibiotics for reduced GFR. Avoid fleets enema/magnesium based laxatives. Avoid nephrotoxins/NSAIDs/ iodinated contrast (unless needed emergently) Glycemic control Further work up/management as per primary team Thanks for allowing me to participate in care of your patient. Will follow patient with you. Please call if any Qs. d/w ICU team. Dr Humza Barnes Office: [phone] Chief Complaint; Unable reason for consult: SHAR source of info; EMR HPI: Pt is a 71 F with hx of hypertension, lung cancer (SCC) s/p endobronchial stents, Rt lung collapse s/p radiation, ex smoker, b/l adrenal thickening, chronic hyponatremia (Na 130) presented with complaints of SOB and intubated for respi failure. renal consult for SHAR. She is also on pressors and being managed for sepsis with lung as presumed source ROS: Unable Physical Examination: General Appearance: orally intubated ill appearing Vitals reviewed and noted as below Head; Atraumatic, normocephalic ENT: intubated EYES: Pupils are equal, round and reactive to light accommodation. Eye muscles and extraocular movement intact. Sclera is anicteric. Neck; supple no lymphadenopathy, no thyromegaly or bruit Lungs: normal respiratory rate/effort. Breath sounds reduced at bases Heart: Increased rate. s1s2 normal. No rub or gallop. Extremities: 1-2+ edema. No varicose veins. Neurological: Patient is sedated Skin: Warm and dry. Normal turgor. No rash. Palpitation: Normal elasticity for age. has skin excoriations in legs Abdomen: Abdomen is soft. Bowel sounds +. There is no abdominal tenderness, no guarding/rigidity no organomegaly Psych: unable MSK: no joint tenderness or swelling. Digits and nails normal, no deformity : kidney or bladder not palpable. has cisneros Labs/imaging reviewed. Past medical history, past surgical history, family history, social history, allergy reviewed and noted as below Family hx: no hx of CKD. Rest non-contributory renal sono: medical renal disease Past Patient History - Infectious Disease Hx of Infectious Diseases: None - Past Medical History & Family History Past Medical History?: Yes - Past Social History Smoking Status: Former Smoker - CARDIAC Hx Congestive Heart Failure: Yes - PULMONARY Hx Chronic Obstructive Pulmonary Disease (COPD): Yes - NEUROLOGICAL Hx Neurological Disorder: Yes - HEENT Hx HEENT Problems: No - RENAL Hx Chronic Kidney Disease: No - ENDOCRINE/METABOLIC Hx Endocrine Disorders: No - HEMATOLOGICAL/ONCOLOGICAL Hx Cancer: Yes (lung) - INTEGUMENTARY Hx Dermatological Problems: No - MUSCULOSKELETAL/RHEUMATOLOGICAL Hx Musculoskeletal Disorders: No Hx Falls: No - GASTROINTESTINAL Hx Gastrointestinal Disorders: No - GENITOURINARY/GYNECOLOGICAL Hx Genitourinary Disorders: No - PSYCHIATRIC Hx Psychophysiologic Disorder: No Hx Substance Use: No - SURGICAL HISTORY Hx Mastectomy: No - ANESTHESIA Hx Anesthesia: Yes Hx Anesthesia Reactions: No Hx Malignant Hyperthermia: No Meds Allergies/Adverse Reactions: Allergies Allergy/AdvReac Type Severity Reaction Status Date / Time No Known Allergies Allergy Verified 03/14/17 15:29 - Medications Medications: Current Medications Acetylcysteine (Acetylcysteine 20%) 4 ml IH Q8H HANNAH Albuterol/Ipratropium (Duoneb 3 Mg/0.5 Mg (3 Ml) Ud) 3 ml IH Q2H PRN PRN Reason: Wheezing Albuterol/Ipratropium (Duoneb 3 Mg/0.5 Mg (3 Ml) Ud) 3 ml IH [id number] [facility]ANNA[facility] Ergocalciferol (Drisdol 50,000 Intl Units Cap) 1 cap PO Q7D [facility] Last Admin: 04/08/17 12:34 Dose: 1 cap Furosemide (Lasix) 40 mg IVP DAILY [facility] Last Admin: 04/08/17 10:42 Dose: 40 mg Heparin Sodium (Porcine) (Heparin) 5,000 units SC Q8 [facility]AN[facility] PRN Reason: Protocol Last Admin: 04/08/17 06:41 Dose: 5,000 units NOREPINEPHRINE BIT/0.9 % NACL (Levophed 4 Mg/ 250 Ml Ns Premixed) 4 mg in 250 mls @ 15 mls/hr IV .[id number] PRN; Protocol; 4 MCG/MIN PRN Reason: TITRATE PER MD ORDER Last Titration: 04/08/17 12:09 Dose: 4 mcg/min, 15 mls/hr Fentanyl Citrate (Fentanyl Citrate/Sodium Chloride 1 Mg/100 Ml) 1,000 mcg in 100 mls @ 2.5 mls/hr IV .Q24H PRN; Protocol; 25 MCG/HR PRN Reason: TITRATE PER MD ORDER Last Titration: 04/08/17 12:01 Dose: 300 mcg/hr, 30 mls/hr Midazolam 100 mg/100ml in NS (Midazolam 100 Mg/100ml In Ns) 100 mg in 100 mls @ 1 mls/hr IV .Q24H PRN; Protocol; 1 MG/HR PRN Reason: Agitation Last Titration: 04/08/17 09:39 Dose: 2 mg/hr, 2 mls/hr Meropenem 500 mg/ Sodium (Chloride) 100 mls @ 100 mls/hr IVPB Q12 [facility] PRN Reason: Protocol Stop: 04/15/17 10:31 Last Admin: 04/08/17 12:10 Dose: 100 mls/hr Linezolid (Zyvox 600mg/300ml D5w) 600 mg in 300 mls @ 200 mls/hr IVPB Q12 [facility] PRN Reason: Protocol Stop: 04/15/17 10:31 Last Admin: 04/08/17 12:36 Dose: 200 mls/hr Methylprednisolone (Solu-Medrol) 40 mg IVP Q8H [facility] Last Admin: 04/08/17 13:22 Dose: 40 mg Non-Formulary Medication (Lactose-Reduced Food [Ensure Plus]) 237 ml PO BID [facility] Ondansetron HCl (Zofran Tab) 4 mg PO QID PRN PRN Reason: Nausea/Vomiting Ondansetron HCl (Zofran Inj) 4 mg IVP Q4H PRN PRN Reason: Nausea/Vomiting Pantoprazole Sodium (Protonix Inj) 40 mg IVP DAILY [facility] Last Admin: 04/08/17 10:41 Dose: 40 mg Sodium Bicarbonate (Sodium Bicarbonate Tab) 1,300 mg PO TID [facility] Last Admin: 04/08/17 10:40 Dose: 1,300 mg Results - Vital Signs Recent Vital Signs: Last Vital Signs Temp 97.2 F L 04/08/17 00:32 Pulse 78 04/08/17 06:00 Resp 28 H 04/08/17 00:51 BP 125/79 04/08/17 10:42 Pulse Ox 100 04/08/17 04:10 - Labs Result Diagrams: 04/08/17 06:40 04/08/17 06:40 Labs: Laboratory Results - last 24 hr 04/07/17 04/07/17 04/07/17 16:20 16:35 19:27 WBC RBC Hgb Hct MCV MCH MCHC RDW Plt Count MPV pCO2 53 H 59 H pO2 115.0 H 117.0 H HCO3 18.9 L 18.7 L ABG pH 7.16 L* 7.11 L* ABG Total CO2 20.5 L 20.5 L ABG O2 Saturation 99.5 H 99.5 H ABG O2 Content 11.6 L ABG Base Excess -9.4 L -11.3 L ABG Hemoglobin 8.4 L ABG Carboxyhemoglobin 2.1 H POC ABG HHb (Measured) 0.5 ABG Methemoglobin 1.3 ABG O2 Capacity 11.7 L ABG Potassium 3.8 Hgb O2 Saturation 96.1 Sodium 137.0 Chloride 112.0 H Glucose 79 Lactate 0.7 Mechanical Rate 12 FiO2 36.0 50.0 Tidal Volume PEEP Inspiratory BiPAP 10 Potassium Carbon Dioxide Anion Gap BUN Creatinine Est GFR ( Amer) Est GFR (Non-Af Amer) Random Glucose Uric Acid Calcium Phosphorus Magnesium Total Bilirubin AST ALT Alkaline Phosphatase Total Protein Albumin Globulin Albumin/Globulin Ratio Arterial Blood Potassium 3.8 Urine Color Yellow Urine Appearance Cloudy Urine pH 6.0 Ur Specific [place] 1.020 Urine Protein Trace H Urine Glucose (UA) Negative Urine Ketones Negative Urine Blood Trace-intact H Urine Nitrate Negative Urine Bilirubin Negative Urine Urobilinogen 0.2 Ur Leukocyte Esterase Trace H Urine RBC 0 - 2 Urine WBC 1 - 3 Ur Epithelial Cells 1 - 3 Uric Acid Crystals Mod Urine Bacteria Few 04/08/17 04/08/17 04/08/17 00:30 05:35 06:40 WBC 21.9 H D RBC 3.09 L Hgb 8.6 L Hct 26.8 L MCV 86.7 MCH 27.8 MCHC 32.1 RDW 18.1 H Plt Count 201 MPV 9.6 pCO2 40 42 pO2 262.0 H 283.0 H HCO3 15.6 L 15.0 L ABG pH 7.20 L 7.16 L* ABG Total CO2 16.8 L 16.3 L ABG O2 Saturation 100.5 H 100.0 H ABG O2 Content 11.7 L ABG Base Excess -11.6 L -13.2 L ABG Hemoglobin 8.0 L ABG Carboxyhemoglobin 1.9 H POC ABG HHb (Measured) -0.5 L ABG Methemoglobin 1.0 ABG O2 Capacity 11.6 L ABG Potassium 4.0 Hgb O2 Saturation 97.6 Sodium 135.0 Chloride 111.0 H Glucose 163 H Lactate 0.7 Mechanical Rate 14 FiO2 100.0 70.0 Tidal Volume 400 PEEP 5 Inspiratory BiPAP Potassium Carbon Dioxide Anion Gap BUN Creatinine Est GFR ( Amer) Est GFR (Non-Af Amer) Random Glucose Uric Acid Calcium Phosphorus Magnesium Total Bilirubin AST ALT Alkaline Phosphatase Total Protein Albumin Globulin Albumin/Globulin Ratio Arterial Blood Potassium 4.0 Urine Color Urine Appearance Urine pH Ur Specific [place] Urine Protein Urine Glucose (UA) Urine Ketones Urine Blood Urine Nitrate Urine Bilirubin Urine Urobilinogen Ur Leukocyte Esterase Urine RBC Urine WBC Ur Epithelial Cells Uric Acid Crystals Urine Bacteria 04/08/17 04/08/17 06:40 09:40 WBC RBC Hgb Hct MCV MCH MCHC RDW Plt Count MPV pCO2 25 L pO2 220.0 H HCO3 12.0 L ABG pH 7.29 L ABG Total CO2 12.8 L ABG O2 Saturation 99.8 H ABG O2 Content ABG Base Excess -12.8 L ABG Hemoglobin ABG Carboxyhemoglobin POC ABG HHb (Measured) ABG Methemoglobin ABG O2 Capacity ABG Potassium 3.9 Hgb O2 Saturation Sodium 138 138.0 Chloride 112 H 112.0 H Glucose 150 H Lactate 1.0 Mechanical Rate 25 FiO2 50.0 Tidal Volume 400 PEEP 10 Inspiratory BiPAP Potassium 4.0 Carbon Dioxide 16 L Anion Gap 14 BUN 54 H Creatinine 4.7 H Est GFR ( Amer) 11 Est GFR (Non-Af Amer) 9 Random Glucose 140 H Uric Acid 10.8 H Calcium 7.1 L Phosphorus 6.1 H Magnesium 1.5 L Total Bilirubin 0.3 AST 12 L D ALT 29 Alkaline Phosphatase 217 H Total Protein 4.2 L Albumin 1.8 L Globulin 2.4 Albumin/Globulin Ratio 0.7 L Arterial Blood Potassium 3.9 Urine Color Urine Appearance Urine pH Ur Specific [place] Urine Protein Urine Glucose (UA) Urine Ketones Urine Blood Urine Nitrate Urine Bilirubin Urine Urobilinogen Ur Leukocyte Esterase Urine RBC Urine WBC Ur Epithelial Cells Uric Acid Crystals Urine Bacteria
[2017-04-08 21:49] LABS: ARTERIAL BLOOD GAS HCO3 11.6 mmol/L (21-28); ARTERIAL BLOOD GAS HEMOGLOBIN 7.9 g/dL (11.7-17.4); ARTERIAL BLOOD GAS O2 CAPACITY 11.6 mL/dl (16-24); ARTERIAL BLOOD GAS O2 CONTENT 11.6 ML/dl (15-23); ARTERIAL BLOOD GAS PCO2 21 mm/Hg (35-45); ARTERIAL BLOOD GAS PH 7.35 (7.35-7.45); ARTERIAL BLOOD GAS TCO2 12.2 mmol.L (22-28)
--- NOTE | 2017-04-08 22:00 | HP ---
HISTORY OF PRESENT ILLNESS: I have been seeing Laverne Covarrubias at the [facility], which is a subacute rehab. She has a big medical history with lung cancer, hypothyroid, hypertension, she has chemoradiation. She has a bronchial stent placed, which was covered with cancer, she went through radiation, did very, very well. Went home for about a week, some how she stopped taking any of her medications. Came back into the hospital again, got short of breath, was put on a medication and went to subacute rehab for physical therapy. At subacute rehab, we were noticing that her kidney function is being getting worse, she came in the 1 now it is above 4. She was going to some renal failure, we brought her into the hospital. Now, she had acute respiratory failure, renal failure, but I understand from the family and the patient, they want everything done, no DNR, no DNI, so we are going to do everything we can, although I have discussed hospice with them and they refused it. She also has congestive heart failure, COPD. She was a smoker. She has lung cancer which is severe. SOCIAL HISTORY: She was a former smoker. No alcohol. No drugs. ALLERGIES: NO KNOWN DRUG ALLERGIES. MEDICATIONS: She is on Tylenol, acetylcysteine, DuoNeb, [place], Maalox, Lasix, Ensure plus, milk of magnesium, Zofran, vancomycin, PeriShield and Norvasc. REVIEW OF SYSTEMS: [facility] We will put her on multiple supplements to help her. She is very weak, lethargic; although, she is moving her arms better. She can feed herself now. She could not do that a week ago and she is loosing weight, but she is alert, comfortable. No pain. No vision or hearing changes. She is short of breath, that is all the time. No chest pain. No palpitation. No abdominal pain. No nausea or vomiting. There is no appetite. No problems urinating. She has weak extremities with no pains. Skin for the most part is intact. She has been getting swollen. She is on Lasix not that much, I do not think it is enough to cause her renal issue. She is alert and oriented x3. PHYSICAL EXAMINATION: VITAL SIGNS: She has a 94.8 temperature, 75 pulse, 18 respiratory rate, 108/46 blood pressure, 100% O2 sat. GENERAL: She is alert. She is toxic. She is lethargic and weak. HEENT: Head is atraumatic and normocephalic. Extraocular muscles are intact. Throat is dry. NECK: Supple. HEART: Regular rate, normal S1 and S2. LUNGS: Decreased breath sounds bilaterally. The right side is almost got no air movement, the left side is good. ABDOMEN: Soft. Nontender. Positive bowel sounds. No guarding. No rebound. No CVA tenderness. EXTREMITIES: +1/4 pitting edema bilaterally. NEUROLOGIC: GCS is 15. Cranial nerves II through XII grossly intact. Speech is normal. Alert and oriented x3. SKIN: Poor turgor, but warm, dry. No apparent rashes or ulcers at this time. LYMPHATICS: Thyroid is midline. No palpable appreciable lymphadenopathy. LABORATORY DATA: Her pH was 7.12 on blood gas. She came in with 16,000 white count, it is up to 21.9, hemoglobin is 9.4, it is down to 8.6; hematocrit is 26.8 and platelets of 201. Her blood gas is up to 7.29, it was 7.16 when she came in. She has a 138 sodium, potassium is 4, BUN 54, creatinine is 4.7 which is high, sugar is 140, uric acid is 10.8, calcium is 7.1, phosphorus is 6.1, magnesium is 1.5, AST is 12, ALT is 29 and alkaline phosphatase is 217. BNP was 3200. Moderate crystals in the urine. ASSESSMENT AND PLAN: She is being seen by the [facility] [employer], Pulmonology. Last chest x-ray shows chronic consolidation of the right lung, left lung is clear. medications. She has Infectious Disease, Renal, Pulmonary and I will call a cardio evaluation. This is a poor prognosis. They want everything done. We will continue with aggressive treatment and care for Laverne James who has got acute respiratory failure, acute kidney failure, lung cancer and congestive heart failure. Bennie Ann DO [facility]
--- NOTE | 2017-04-08 22:18 | PN ---
ADDENDUM DATE: 04/08/2017 ENT: Head and neck atraumatic. LUNGS: Decreased breath sounds on the right side, clear on left side. HEART: Regular rate and rhythm. S1 and S2 normal. ABDOMEN: Soft, nontender, nondistended. MUSCULOSKELETAL: There is a disproportionately more significant pedal edema on the left side compared with right side. SKIN: Moist. PSYCHIATRIC: The patient is sedated. LABORATORY DATA: WBC 21.9 up from 16.3, hemoglobin 8.6, platelet count 201. Sodium 138, potassium 4, chloride 112, carbon dioxide 16, BUN 54, creatinine 4.7, glucose 140, AST 12, ALT 29. Blood gas prior to adjusting minute ventilation 7.16/42/283. Since then, her respiratory rate was increased from 24 to 25 and oxygen went down from 70% to 50% with PEEP increase from 5 to 10. Of note, her current oxygen saturation is 100%. INR was 0.98. MEDICATIONS: Mucomyst every 8 hours, DuoNeb every 6 hours, vitamin D, Fentanyl, Lasix 40 mg IV daily, heparin 5000 subcutaneously q.8, Solu-Medrol 40 mg IV q.8, Zofran p.r.n., Protonix, one dose of vancomycin given yesterday, Zosyn, linezolid 600 mg. Chest x-ray showed the same on the right side and some oligemia on the left upper part of the lungs compared with previous chest x-ray. ASSESSMENT AND PLAN: This is a 71-year-old lady with widely metastatic lung cancer stage IV who presented with hypercapnic respiratory failure requiring intubation after BiPAP failed. The patient initially was considered to have severe sepsis secondary to post obstructive pneumonia and was treated with broad-spectrum antibiotics. Septic workup was initiated including blood culture, urine culture, procalcitonin, urine for Legionella and streptococcal antigen. However today, concern for DVT/PE was raised as there is substantial and disproportional increase in pedal edema on the left side compared with the right one. Venous Doppler of the lower extremities was ordered. If positive, therapeutic anticoagulation will be started. We will continue with protective lung ventilation strategy. Head of bed elevated to more than 35 degrees. Oral hygiene, DVT, GI prophylaxis. There will be increased minute ventilation in attempt to correct significant respiratory acidosis. We will make sure that tidal volume is from 6 to 8 mL per predicted body weight and plateau pressure less than 30. We will take care not to over ventilate the patient as well. We will continue with antibiotics, conservative fluid management. The patient is on small dose of Levophed which we are trying to wean. The patient is on steroids as well and bronchodilators. We will put NG tube and start feeding the patient as soon as possible. GI prophylaxis and head of bed elevated more than 35 degrees for aspiration precaution. Renal oro, the patient has acute kidney injury and Nephrology Service following her as well. In this regard, we will maintain mean arterial pressure more than 65. Avoid nephrotoxic medication but not at expense of treatment of Lyme disease. We will continue to aim at euvolemia and euglycemia. Whether or not renal replacement therapy is futile in the setting of widely spread metastatic cancer, will be deferred to Nephrology service. Endocrine oro, we will maintain blood glucose within 140 to 180 range according to night sugar trial. ccm time 40 min Evin Montelongo MD [facility]
--- NOTE | 2017-04-08 22:28 | CON ---
DATE: 04/08/2017 CARDIOLOGY CONSULTATION HISTORY OF PRESENT ILLNESS: The patient is a 71-year-old woman who presents with shortness of breath resulting in intubation. PAST MEDICAL HISTORY: The patient's past medical history is extensive with severe COPD. She also suffers from lung CA, which she has undergone active treatment. She was admitted last month where cardiac evaluation revealed an ejection fraction of 55% with mild pulmonary hypertension. SOCIAL HISTORY: Patient is from a assisted. REVIEW OF SYSTEMS: Not available. PHYSICAL EXAMINATION: VITAL SIGNS: Blood pressure was 125/80, heart rate is in the 70s, normal sinus rhythm. NECK: Negative JVD. LUNGS: Bilateral rhonchi. HEART: Reveals S1 and S2. EXTREMITIES: Without edema. EKG reveals normal sinus rhythm with poor R-wave progression in the anterior leads. LABORATORY DATA: Hemoglobin is 8.6, white count is up to 21,000. Chemistries, BUN and creatinine 54 and 4.7. Troponin is negative x1. ProBNP is 3200. IMPRESSION: 1. Respiratory failure. 2. Chronic obstructive pulmonary disease. 3. Lung cancer. 4. Possible pneumonia. 5. Marked anemia. Given these findings, it does not appear to be a cardiac contribution to a respiratory decompensation. Her overall left ventricular function is normal. The patient is currently being treated IV antibiotics, DVT prophylaxis. I do not feel there is a major CHF component to her problem. Lamin Worrell MD
[2017-04-09] MEDS: Fentanyl 1000mcg/100ml NS 1,000 MCG/100 ML BAG IV PRN (00:20)
[2017-04-09] MEDS: MethylPREDNISolone 40 mg Vial IVP SCH ×3 (01:30→18:10)
[2017-04-09 05:47] LABS: ARTERIAL BLOOD GAS HCO3 12.7 mmol/L (21-28); ARTERIAL BLOOD GAS HEMOGLOBIN 7.9 g/dL (11.7-17.4); ARTERIAL BLOOD GAS O2 CAPACITY 11.5 mL/dl (16-24); ARTERIAL BLOOD GAS O2 CONTENT 11.5 ML/dl (15-23); ARTERIAL BLOOD GAS O2 SAT 100.1 % (95-98); ARTERIAL BLOOD GAS PCO2 22 mm/Hg (35-45); ARTERIAL BLOOD GAS PH 7.37 (7.35-7.45); ARTERIAL BLOOD GAS TCO2 13.4 mmol.L (22-28)
[2017-04-09 06:33] LABS: BASO # 0.02 K/mm3 (0.0-2.0); BASO % 0.1 % (0.0-3.0); EOS % 0.1 % (1.5-5.0); GRAN # 14.02 (1.4-6.5); LYMPH % 6.3 % (22.0-35.0); MEAN CELL VOLUME 82.8 fl (80.0-105.0); MEAN CORPUSCULAR HEMOGLOBIN 27.6 pg (25.0-35.0); MEAN CORPUSCULAR HGB CONC 33.3 g/dl (31.0-37.0); MEAN PLATELET VOLUME 9.9 fl (7.0-11.0); MONO # 0.6 (0.1-0.6); MONO % 3.5 % (1.0-6.0); RBC 2.9 10^6/uL (3.5-6.1); RED CELL DISTRIBUTION WIDTH 17.9 % (11.5-14.5); WHITE BLOOD COUNT 15.6 10^3/ul (4.5-11.0)
[2017-04-09 06:59] LABS: CALCIUM 7.4 mg/dL (8.4-10.5); MAGNESIUM 1.5 mg/dL (1.7-2.2)
[2017-04-09] MEDS: Albuterol-Ipratrop 3 mg / 0.5 (3 ml) UD IH SCH ×3 (07:12→21:00)
[2017-04-09] MEDS: Acetylcysteine 20% Inhal Soln (4ml) IH SCH (07:13)
[2017-04-09] MEDS: Meropenem 500 MG in Sodium Chloride 0.9% 100 ML IVPB SCH ×2 (09:22→22:24)
[2017-04-09] MEDS: Linezolid 600 mg in D5W 300 ml 600 MG/300 ML BAG IVPB SCH ×2 (09:31→22:39)
--- NOTE | 2017-04-09 10:25 | RAD ---
PROCEDURE: CHEST RADIOGRAPH, 1 VIEW HISTORY: f/u COMPARISON: 04/08/2017 FINDINGS: LUNGS: Re-demonstration of a right pleural effusion with volume loss and intraparenchymal consolidation. Interstitial changes noted in the left lung. NG tube below the diaphragm. Tubes and catheters unchanged in position. PLEURA: As above. CARDIOVASCULAR: Normal. OSSEOUS STRUCTURES: No significant abnormalities. VISUALIZED UPPER ABDOMEN: Normal. OTHER FINDINGS: None. IMPRESSION: Re-demonstration of a right pleural effusion with volume loss and intraparenchymal consolidation. Interstitial changes noted in the left lung. NG tube below the diaphragm. Tubes and catheters unchanged in position.
--- NOTE | 2017-04-09 11:10 | CP.PCM.PN ---
Subjective - Date & Time of Evaluation Date of Evaluation: 04/09/17 Time of Evaluation: 10:20 - Subjective Subjective: Patient continues to be on the ventilator, still sedated, no fevers overnight. Objective - Vital Signs/Intake and Output Vital Signs (last 24 hours): Temp Pulse Resp BP Pulse Ox 93.4 F L 66 25 H 95/59 L 100 04/08/17 20:00 04/09/17 05:00 04/09/17 07:23 04/09/17 05:00 04/09/17 07:23 - Medications Medications: Current Medications Acetylcysteine (Acetylcysteine 20%) 4 ml IH Q8H [facility] Last Admin: 04/09/17 07:13 Dose: Not Given Albuterol/Ipratropium (Duoneb 3 Mg/0.5 Mg (3 Ml) Ud) 3 ml IH Q2H PRN PRN Reason: Wheezing Albuterol/Ipratropium (Duoneb 3 Mg/0.5 Mg (3 Ml) Ud) 3 ml IH [id number] [facility] Last Admin: 04/09/17 07:12 Dose: 3 ml Ergocalciferol (Drisdol 50,000 Intl Units Cap) 1 cap PO Q7D [facility] Last Admin: 04/08/17 12:34 Dose: 1 cap Furosemide (Lasix) 40 mg IVP DAILY [facility] Last Admin: 04/08/17 10:42 Dose: 40 mg Heparin Sodium (Porcine) (Heparin) 5,000 units SC Q8 [facility] PRN Reason: Protocol Last Admin: 04/09/17 07:39 Dose: 5,000 units NOREPINEPHRINE BIT/0.9 % NACL (Levophed 4 Mg/ 250 Ml Ns Premixed) 4 mg in 250 mls @ 15 mls/hr IV .[id number] PRN; Protocol; 4 MCG/MIN PRN Reason: TITRATE PER MD ORDER Last Titration: 04/08/17 12:09 Dose: 4 mcg/min, 15 mls/hr Fentanyl Citrate (Fentanyl Citrate/Sodium Chloride 1 Mg/100 Ml) 1,000 mcg in 100 mls @ 2.5 mls/hr IV .Q24H PRN; Protocol; 25 MCG/HR PRN Reason: TITRATE PER MD ORDER Last Admin: 04/09/17 00:20 Dose: 300 mcg/hr, 30 mls/hr Midazolam 100 mg/100ml in NS (Midazolam 100 Mg/100ml In Ns) 100 mg in 100 mls @ 1 mls/hr IV .Q24H PRN; Protocol; 1 MG/HR PRN Reason: Agitation Last Titration: 04/08/17 09:39 Dose: 2 mg/hr, 2 mls/hr Meropenem 500 mg/ Sodium (Chloride) 100 mls @ 100 mls/hr IVPB Q12 [facility] PRN Reason: Protocol Stop: 04/15/17 10:31 Last Admin: 04/08/17 12:10 Dose: 100 mls/hr Linezolid (Zyvox 600mg/300ml D5w) 600 mg in 300 mls @ 200 mls/hr IVPB Q12 [facility] PRN Reason: Protocol Stop: 04/15/17 10:31 Last Admin: 04/08/17 12:36 Dose: 200 mls/hr Methylprednisolone (Solu-Medrol) 40 mg IVP Q8H [facility] Last Admin: 04/09/17 01:30 Dose: 40 mg Non-Formulary Medication (Lactose-Reduced Food [Ensure Plus]) 237 ml PO BID [facility] Ondansetron HCl (Zofran Tab) 4 mg PO QID PRN PRN Reason: Nausea/Vomiting Ondansetron HCl (Zofran Inj) 4 mg IVP Q4H PRN PRN Reason: Nausea/Vomiting Pantoprazole Sodium (Protonix Inj) 40 mg IVP DAILY [facility] Last Admin: 04/08/17 10:41 Dose: 40 mg Sodium Bicarbonate (Sodium Bicarbonate Tab) 1,300 mg PO TID [facility] Last Admin: 04/08/17 19:10 Dose: 1,300 mg - Labs Labs: 04/08/17 06:40 04/09/17 05:00 PT 11.2 SECONDS (9.4-12.5) 04/07/17 13:40 INR 0.98 (0.93-1.08) 04/07/17 13:40 APTT 47.8 Seconds (25.1-36.5) H 04/07/17 13:40 - Constitutional Appears: Other (intubated and sedated) - ENT Exam Additional comments: ET tube in place - Respiratory Exam Respiratory Exam: Decreased Breath Sounds - Cardiovascular Exam Cardiovascular Exam: +S1, +S2 - GI/Abdominal Exam GI & Abdominal Exam: Soft. absent: Tenderness Assessment and Plan - Assessment and Plan (Free Text) Plan: Assessment Systemic inflammatory response syndrome, consider severe sepsis with ventilator- dependent hypoxic respiratory failure due to lower lobe HCAP on top of right lung CA with chronic consolidation on the right base recent history of persistent MRSA bacteremia 2016 (unable to rule out endocarditis at that time) HTN hypothyroidism COPD chronic CHF CAD S/P bowel surgery due to perforation S/P total thyroidectomy squamous cell lung cancer S/P right bronchial stent placement S/P chemotherapy and radation therapy Plan Gave a dose of IV Daptomycin - blood cx are negative so far; continue Zyvox and Merrem day 2 pending sputum cx; PCT is low but patient has evidence of pneumonia ; patient came in with PICC line from the custodial and there is still concern for bacteremia overall prognosis is poor
--- NOTE | 2017-04-09 11:16 | CP.PCM.PN ---
Subjective - Date & Time of Evaluation Date of Evaluation: 04/09/17 Time of Evaluation: 11:14 - Subjective Subjective: Nephrology Consultation: Assessment: critical Anuric Acute Kidney Injury (N17.9) differential include ATN due to sepsis, AIN due to recent antibiotics Combined respiratory and metabolic acidosis Anemia, Lung CA (SCC), Rt lung collapse hx of HTN hepatomegaly and b/l adrenal gland enlargement sepsis with shock requring pressors, pneumonia, respi failure Hyperuricemia and Hyperphosphatemia Plan No acute need for renal replacement therapy (SAND FILLER) at this time but may need soon if no spontaneous recovery. however she is critically ill and unstable at this time due to shock state requiring pressors. patients with SHAR requiring SAND FILLER tend to have very high mortality. has overall poor prognosis, SAND FILLER may be of only very limited benefit in her case, if any. will need d/w family about pros/ cons of dialysis. consider palliative care evaluation. No ACEI/ARB due to SHAR. maintain hemodynamics stable. Monitor Input/Output, daily weights and renal function with basic metabolic panel Please flush cisneros and can reposition it to ensure its position correct added phoslo and allopurinol Check urine sodium, urine eos and creatinine. renal sono done. replace electrolytes as needed. supplement Bicarb as ordered and weekly vit D Dose meds/antibiotics for reduced GFR. Avoid fleets enema/magnesium based laxatives. Avoid nephrotoxins/NSAIDs/ iodinated contrast (unless needed emergently) Glycemic control Further work up/management as per primary team Thanks for allowing me to participate in care of your patient. Will follow patient with you. Please call if any Qs. d/w ICU team. Dr Humza Barnes Office: [phone] HPI: Pt is a 71 F with hx of hypertension, lung cancer (SCC) s/p endobronchial stents, Rt lung collapse s/p radiation, ex smoker, b/l adrenal thickening, chronic hyponatremia (Na 130) presented with complaints of SOB and intubated for respi failure. renal consult for SHAR. She is also on pressors and being managed for sepsis with lung as presumed source ROS: Unable Physical Examination: General Appearance: orally intubated ill appearing Vitals reviewed and noted as below Head; Atraumatic, normocephalic ENT: intubated EYES: Pupils are equal, round and reactive to light accommodation. Eye muscles and extraocular movement intact. Sclera is anicteric. Neck; supple no lymphadenopathy, no thyromegaly or bruit Lungs: normal respiratory rate/effort. Breath sounds reduced at bases Heart: Increased rate. s1s2 normal. No rub or gallop. Extremities: 1-2+ edema. No varicose veins. Neurological: Patient is sedated Skin: Warm and dry. Normal turgor. No rash. Palpitation: Normal elasticity for age. has skin excoriations in legs Abdomen: Abdomen is soft. Bowel sounds +. There is no abdominal tenderness, no guarding/rigidity no organomegaly Psych: unable MSK: no joint tenderness or swelling. Digits and nails normal, no deformity : kidney or bladder not palpable. has cisneros Labs/imaging reviewed. Past medical history, past surgical history, family history, social history, allergy reviewed and noted as below Family hx: no hx of CKD. Rest non-contributory renal sono: medical renal disease Objective - Vital Signs/Intake and Output Vital Signs (last 24 hours): Temp Pulse Resp BP Pulse Ox 93.4 F L 66 25 H 101/68 100 04/08/17 20:00 04/09/17 05:00 04/09/17 07:23 04/09/17 09:14 04/09/17 07:23 Intake and Output: 04/09/17 04/09/17 06:59 18:59 Intake Total 0 Balance 0 - Medications Medications: Current Medications Albuterol/Ipratropium (Duoneb 3 Mg/0.5 Mg (3 Ml) Ud) 3 ml IH Q2H PRN PRN Reason: Wheezing Albuterol/Ipratropium (Duoneb 3 Mg/0.5 Mg (3 Ml) Ud) 3 ml IH [id number] [facility] Last Admin: 04/09/17 07:12 Dose: 3 ml Allopurinol (Zyloprim) 100 mg PO DAILY [facility] Calcium Acetate (Phoslo) 667 mg PO TID [facility] Ergocalciferol (Drisdol 50,000 Intl Units Cap) 1 cap PO Q7D [facility] Last Admin: 04/08/17 12:34 Dose: 1 cap Furosemide (Lasix) 40 mg IVP DAILY [facility] Last Admin: 04/09/17 09:14 Dose: 40 mg Heparin Sodium (Porcine) (Heparin) 5,000 units SC Q8 [facility] PRN Reason: Protocol Last Admin: 04/09/17 07:39 Dose: 5,000 units NOREPINEPHRINE BIT/0.9 % NACL (Levophed 4 Mg/ 250 Ml Ns Premixed) 4 mg in 250 mls @ 15 mls/hr IV .[id number] PRN; Protocol; 4 MCG/MIN PRN Reason: TITRATE PER MD ORDER Last Titration: 04/09/17 09:36 Dose: 0 mcg/min, 0 mls/hr Fentanyl Citrate (Fentanyl Citrate/Sodium Chloride 1 Mg/100 Ml) 1,000 mcg in 100 mls @ 2.5 mls/hr IV .Q24H PRN; Protocol; 25 MCG/HR PRN Reason: TITRATE PER MD ORDER Last Admin: 04/09/17 00:20 Dose: 300 mcg/hr, 30 mls/hr Midazolam 100 mg/100ml in NS (Midazolam 100 Mg/100ml In Ns) 100 mg in 100 mls @ 1 mls/hr IV .Q24H PRN; Protocol; 1 MG/HR PRN Reason: Agitation Last Titration: 04/08/17 09:39 Dose: 2 mg/hr, 2 mls/hr Meropenem 500 mg/ Sodium (Chloride) 100 mls @ 100 mls/hr IVPB Q12 [facility] PRN Reason: Protocol Stop: 04/15/17 10:31 Last Admin: 04/09/17 09:22 Dose: 100 mls/hr Linezolid (Zyvox 600mg/300ml D5w) 600 mg in 300 mls @ 200 mls/hr IVPB Q12 [facility] PRN Reason: Protocol Stop: 04/15/17 10:31 Last Admin: 04/09/17 09:31 Dose: 200 mls/hr Methylprednisolone (Solu-Medrol) 40 mg IVP Q8H [facility] Last Admin: 04/09/17 09:14 Dose: 40 mg Non-Formulary Medication (Lactose-Reduced Food [Ensure Plus]) 237 ml PO BID [facility] Ondansetron HCl (Zofran Tab) 4 mg PO QID PRN PRN Reason: Nausea/Vomiting Ondansetron HCl (Zofran Inj) 4 mg IVP Q4H PRN PRN Reason: Nausea/Vomiting Pantoprazole Sodium (Protonix Inj) 40 mg IVP DAILY [facility] Last Admin: 04/09/17 09:28 Dose: 40 mg Sodium Bicarbonate (Sodium Bicarbonate Tab) 1,300 mg PO TID [facility] Last Admin: 04/09/17 09:36 Dose: 1,300 mg - Labs Labs: 04/09/17 05:00 04/09/17 05:00 PT 11.2 SECONDS (9.4-12.5) 04/07/17 13:40 INR 0.98 (0.93-1.08) 04/07/17 13:40 APTT 47.8 Seconds (25.1-36.5) H 04/07/17 13:40
--- NOTE | 2017-04-09 12:42 | PN ---
DATE: 04/09/2017 PULMONARY NOTE SUBJECTIVE: The patient remains on the ventilator. She is sedated. OBJECTIVE: VITALS: Last temperature recorded in the chart is 93.4, pulse 66, respiratory rate 25/25, blood pressure 95/59. HEENT: Normocephalic, atraumatic. No JVD. CARDIOVASCULAR: Positive S1, S2. No S3 gallop. LUNGS: Decreased breath sounds at the bases. Less rhonchi. Less wheezing. EXTREMITIES: Mild edema. No cyanosis, no clubbing. GASTROINTESTINAL: Abdomen is soft, nondistended. Bowel sounds are positive. SKIN: No acute rash. NEUROLOGIC: Exam limited at the present time. PERTINENT LABORATORY DATA: Chest x-ray was done this morning and reviewed. The x-ray shows no significant change from yesterday's film. Arterial blood gas was done on assist control of 25, tidal volume 400, FiO2 50%. Results are pH 7.37, pCO2 22, pO2 244. IMPRESSION 1. Respiratory failure. 2. Advanced squamous cell carcinoma of the right lung. 3. Advanced chronic obstructive pulmonary disease. 4. Mild anemia. 5. Leukocytosis. Rule out pneumonia. 6. Severe acidosis - improved. PLAN: The patient remains on the ventilator. She is sedated. I did discuss the case with the night nurse at length. The night nurse stated the patient had an uneventful night. I also reviewed the chest x-ray as above. The x-ray is unchanged from yesterday's film. I have also reviewed the arterial blood gas. The arterial blood gas reveals a compensated metabolic acidosis with a significant decrease in the alveolar-arterial gradient. Keep in mind, that the above arterial blood gas values are based upon a very large minute ventilation. On physical exam, there is less bronchospasm noted. I will continue with the current nebulizer treatments and intravenous steroids for now. The patient also remains on antibiotic therapy - as per infectious disease. Input by Dr. Jefferson is noted. Additional repeat morning labs are also pending. The patient remains critically ill with very poor prognosis. I will discuss the above with the entire ICU team in the next few moments. I will also discuss the above with Dr. Ann later this morning. Lester Bassett MD [facility] # [id number]< MTDD
--- NOTE | 2017-04-09 18:30 | PN ---
ADDENDUM DATE OF SERVICE: 04/09/2017 LABORATORY DATA: Sodium 138, potassium 3.9, chloride 111, carbon dioxide 15, BUN 59, creatinine 5.4, WBC 15.6, hemoglobin 8, platelet count 193. MEDICATIONS: DuoNeb every 6, allopurinol, vitamin D, Lasix 40 mg daily, heparin subcutaneous, meropenem, Solu-Medrol 40 mg IV q. 8, Zofran p.r.n., Versed, linezolid. IMAGING: Chest x-ray showed re-demonstration of right pleural effusion with volume loss and intraparenchymal consolidation, interstitial changes noted in the left lung, NG tube below the diaphragm, tubes and catheters unchanged in position. ASSESSMENT AND PLAN: This is a 71-year-old lady who presented initially with respiratory failure secondary to right lung lobar pneumonia in the setting of very extensive and aggressive lung malignancy. Neurologic: The patient is sedated with fentanyl, she is poorly responsive. Pulmonary: We will continue with conservative fluid management, protective lung ventilation strategy, head of bed elevated to >35 degrees, oral hygiene, ventilator-associated pneumonia bundle, deep venous thrombosis and gastrointestinal prophylaxis. Antibiotics for pneumonia. Unfortunately, the cancer appears to be extensively spread based on imaging studies, reports from primary care and chief supply chain officer. Cardiovascular: The patient is hemodynamically stable, off pressors. Infectious disease: The patient is on broad-spectrum antibiotics. Infectious Disease service is following her. Septic workup is in progress. Renal: The patient has acute kidney injury. She might be intravascularly depleted despite substantial third spacing. Her increased vascular permeability may pertain poor prognosis. Nephrology Service is on standby for potential renal replacement therapy if family would want to proceed with that. Meanwhile, I would hold Lasix. We will continue with maintaining a mean arterial pressure more than 65, euvolemia, and euglycemia. Endocrine: We will continue with blood glucose within 140 to 180 range according to night sugar trial. ccm time 40 min Evin Montelongo MD [facility]
--- NOTE | 2017-04-09 21:11 | PN ---
DATE: SUBJECTIVE: I saw Laverne in the Intensive Care Unit. She is on the ventilator. She looks very pale. She has multiple physicians following her Renal, Infectious Disease, Pulmonary, Cardiology, and the Forming Fixer. She is in really big trouble this time. She is on the ventilator, in respiratory failure. She has right pleural effusion with volume loss secondary to the right lung cancer. PHYSICAL EXAMINATION: VITAL SIGNS: She has a 93.4 temperature, 68 pulse, 25 respiratory rate, and 100% O2 saturation on mechanical ventilator. HEENT: Head is atraumatic and normocephalic. HEART: Regular rate. LUNGS: Decreased breath sounds right side for sure. ABDOMEN: Soft. EXTREMITIES: Trace edema. MEDICATIONS: She is currently on Drisdol, DuoNeb, fentanyl patch, heparin, lactulose, Lasix IV, Levophed, Merrem IV, Metolazone, Phos-Lo, Protonix, sodium bicarbonate, Solu-Medrol IV, Zofran, Zyloprim, and Zyvox IV. LABORATORY DATA: She has a white count of 15 21.9; 8 hemoglobin we will transfuse her; 24 hematocrit and 193 platelets. She has a 138 sodium, potassium 3.9, BUN is 69, and creatinine 5.4. She has definitely had intrarenal failure, may need dialysis. Sugar is 104, calcium is 7.4, phosphorous 6.2, and magnesium 1.5. ASSESSMENT AND PLAN: She is failing rapidly, family wants everything done and might be heading towards possible trach if family still wants everything done versus hospice. We will continue with aggressive treatment and care. She is here for right lung cancer, status post chemo and radiation. She did well for about a week, systemic inflammatory response syndrome, respiratory failure on the ventilator, severe sepsis, hypertension, chronic obstructive pulmonary disease, chronic heart failure, coronary artery disease, and she has a very big long history of other medical conditions in this 71-year-old female, Laverne James on the ventilator. Bennie Ann DO [facility]age
[2017-04-10] MEDS: Albuterol-Ipratrop 3 mg / 0.5 (3 ml) UD IH SCH ×4 (02:50→20:38)
[2017-04-10] MEDS: MethylPREDNISolone 40 mg Vial IVP SCH ×3 (07:04→18:14)
[2017-04-10 07:06] LABS: ARTERIAL BLOOD GAS HCO3 16.6 mmol/L (21-28); ARTERIAL BLOOD GAS HEMOGLOBIN 7.9 g/dL (11.7-17.4); ARTERIAL BLOOD GAS O2 CAPACITY 11.2 mL/dl (16-24); ARTERIAL BLOOD GAS O2 CONTENT 11.2 ML/dl (15-23); ARTERIAL BLOOD GAS O2 SAT 99.8 % (95-98); ARTERIAL BLOOD GAS PCO2 30 mm/Hg (35-45); ARTERIAL BLOOD GAS PH 7.35 (7.35-7.45); ARTERIAL BLOOD GAS TCO2 17.5 mmol.L (22-28)
--- NOTE | 2017-04-10 07:30 | PN ---
DATE: 04/10/2017 PULMONARY NOT SUBJECTIVE: The patient remains on the ventilator. She remains sedated. PHYSICAL EXAMINATION: VITAL SIGNS: Temperature is 96.7, pulse 66, respiratory rate 25/25, blood pressure 103/48. Oxygen saturation on the ventilator is 99%. HEENT: Normocephalic, atraumatic. NECK: No JVD. CARDIOVASCULAR: Positive S1, S2. No S3 gallop. LUNGS: Decreased breath sounds at the bases. Mild bilateral rhonchi and wheezing remain. EXTREMITIES: Mild edema. No cyanosis, no clubbing. GI: Abdomen is soft, nondistended. Bowel sounds are positive. SKIN: No acute rash. NEUROLOGIC: Exam limited at the present time. PERTINENT LABORATORY DATA: Chest x-ray was done this morning and reviewed. There is possibly slightly more aeration noted to the right lung. Arterial blood gas was ordered for the morning - not done yet. IMPRESSION: 1. Respiratory failure. 2. 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 3. Advanced chronic obstructive pulmonary disease. 4. Mild anemia. 5. Leukocytosis. Rule out pneumonia. 6. Severe acidosis - improved. PLAN: The patient remains on the ventilator. She remains sedated. I did discuss the case with the night nurse at length. The night nurse stated that the patient had a fairly uneventful night. However, the night nurse also stated that the family is considering terminal extubation. I did review the chest x-ray as above. There is possibly slightly more aeration noted in the right lung. Again, I am awaiting the morning arterial blood gas to be done. I will check that when feasible. On physical exam, the patient remains in [id number] bronchospasm. I will continue the current nebulizer treatments and intravenous steroids for now. The patient also remains on antibiotic therapy - as per Infectious Disease. There are no temperatures noted over the past 24 hours. The leukocytosis is improved/decreased. Repeat a.m. labs are pending. The patient remains critically ill with overall very poor prognosis. I will discuss the above with the entire ICU team in the next few moments. I will also discuss the above with the attending physician later this morning. Lester Bassett MD [facility] # [id number] [facility]
--- NOTE | 2017-04-10 08:16 | RAD ---
HISTORY: f/u COMPARISON: No prior. FINDINGS: LUNGS: Re-demonstration of diffuse infiltrates in the right lobe with volume loss and right pleural effusion. ETT above the anjum. Persistent interstitial changes in the left lung. PLEURA: No significant pleural effusion identified, no pneumothorax apparent. CARDIOVASCULAR: Normal. OSSEOUS STRUCTURES: No significant abnormalities. VISUALIZED UPPER ABDOMEN: Normal. OTHER FINDINGS: None. IMPRESSION: Re-demonstration of diffuse infiltrates in the right lobe with volume loss and right pleural effusion. ETT above the anjum. Persistent interstitial changes in the left lung.
[2017-04-10] MEDS: Fentanyl 1000mcg/100ml NS 1,000 MCG/100 ML BAG IV PRN (08:47)
[2017-04-10] MEDS: Meropenem 500 MG in Sodium Chloride 0.9% 100 ML IVPB SCH ×2 (09:02→22:26)
[2017-04-10] MEDS: Linezolid 600 mg in D5W 300 ml 600 MG/300 ML BAG IVPB SCH ×2 (09:14→22:30)
[2017-04-10 09:16] LABS: HEMOGLOBIN 8.2 g/dL (12.0-16.0); MEAN CELL VOLUME 82.7 fl (80.0-105.0); MEAN CORPUSCULAR HEMOGLOBIN 27.8 pg (25.0-35.0); MEAN CORPUSCULAR HGB CONC 33.6 g/dl (31.0-37.0); RBC 2.95 10^6/uL (3.5-6.1); RED CELL DISTRIBUTION WIDTH 18.3 % (11.5-14.5); WHITE BLOOD COUNT 15.9 10^3/ul (4.5-11.0)
--- NOTE | 2017-04-10 10:35 | CP.PCM.PN ---
Subjective - Date & Time of Evaluation Date of Evaluation: 04/10/17 Time of Evaluation: 10:00 - Subjective Subjective: Patient continues to be on the ventilator, family is thinking about terminal extubation, no fevers overnight. Objective - Vital Signs/Intake and Output Vital Signs (last 24 hours): Temp Pulse Resp BP Pulse Ox 93.4 F L 66 23 103/48 L 100 04/08/17 20:00 04/10/17 01:00 04/10/17 07:34 04/10/17 01:00 04/10/17 07:34 - Medications Medications: Current Medications Albuterol/Ipratropium (Duoneb 3 Mg/0.5 Mg (3 Ml) Ud) 3 ml IH Q2H PRN PRN Reason: Wheezing Albuterol/Ipratropium (Duoneb 3 Mg/0.5 Mg (3 Ml) Ud) 3 ml IH [id number] [facility] Last Admin: 04/10/17 07:28 Dose: 3 ml Allopurinol (Zyloprim) 100 mg PO DAILY [facility] Last Admin: 04/09/17 15:30 Dose: 100 mg Calcium Acetate (Phoslo) 667 mg PO TID [facility] Last Admin: 04/09/17 17:56 Dose: 667 mg Ergocalciferol (Drisdol 50,000 Intl Units Cap) 1 cap PO Q7D [facility] Last Admin: 04/08/17 12:34 Dose: 1 cap Furosemide (Lasix) 40 mg IVP DAILY [facility] Last Admin: 04/09/17 09:14 Dose: 40 mg Heparin Sodium (Porcine) (Heparin) 5,000 units SC Q8 HANNAH PRN Reason: Protocol Last Admin: 04/10/17 07:03 Dose: 5,000 units NOREPINEPHRINE BIT/0.9 % NACL (Levophed 4 Mg/ 250 Ml Ns Premixed) 4 mg in 250 mls @ 15 mls/hr IV .[id number] PRN; Protocol; 4 MCG/MIN PRN Reason: TITRATE PER MD ORDER Last Titration: 04/09/17 09:36 Dose: 0 mcg/min, 0 mls/hr Fentanyl Citrate (Fentanyl Citrate/Sodium Chloride 1 Mg/100 Ml) 1,000 mcg in 100 mls @ 2.5 mls/hr IV .Q24H PRN; Protocol; 25 MCG/HR PRN Reason: TITRATE PER MD ORDER Last Admin: 04/09/17 00:20 Dose: 300 mcg/hr, 30 mls/hr Midazolam 100 mg/100ml in NS (Midazolam 100 Mg/100ml In Ns) 100 mg in 100 mls @ 1 mls/hr IV .Q24H PRN; Protocol; 1 MG/HR PRN Reason: Agitation Last Titration: 04/08/17 09:39 Dose: 2 mg/hr, 2 mls/hr Meropenem 500 mg/ Sodium (Chloride) 100 mls @ 100 mls/hr IVPB Q12 HANNAH PRN Reason: Protocol Stop: 04/15/17 10:31 Last Admin: 04/09/17 22:24 Dose: 100 mls/hr Linezolid (Zyvox 600mg/300ml D5w) 600 mg in 300 mls @ 200 mls/hr IVPB Q12 HANNAH PRN Reason: Protocol Stop: 04/15/17 10:31 Last Admin: 04/09/17 22:39 Dose: 200 mls/hr Methylprednisolone (Solu-Medrol) 40 mg IVP Q8H [facility] Last Admin: 04/10/17 07:04 Dose: 40 mg Non-Formulary Medication (Lactose-Reduced Food [Ensure Plus]) 237 ml PO BID [facility] Ondansetron HCl (Zofran Tab) 4 mg PO QID PRN PRN Reason: Nausea/Vomiting Ondansetron HCl (Zofran Inj) 4 mg IVP Q4H PRN PRN Reason: Nausea/Vomiting Pantoprazole Sodium (Protonix Inj) 40 mg IVP DAILY [facility] Last Admin: 04/09/17 09:28 Dose: 40 mg Sodium Bicarbonate (Sodium Bicarbonate Tab) 1,300 mg PO TID [facility] Last Admin: 04/09/17 17:56 Dose: 1,300 mg - Labs Labs: 04/09/17 05:00 04/09/17 05:00 PT 11.2 SECONDS (9.4-12.5) 04/07/17 13:40 INR 0.98 (0.93-1.08) 04/07/17 13:40 APTT 47.8 Seconds (25.1-36.5) H 04/07/17 13:40 - Constitutional Appears: Chronically Ill, Other (intubated, sedated) - Head Exam Head Exam: NORMAL INSPECTION - ENT Exam Additional comments: ET tube in place - Respiratory Exam Respiratory Exam: Decreased Breath Sounds - Cardiovascular Exam Cardiovascular Exam: +S1, +S2 - GI/Abdominal Exam GI & Abdominal Exam: Soft. absent: Tenderness Assessment and Plan - Assessment and Plan (Free Text) Plan: Assessment Systemic inflammatory response syndrome, consider severe sepsis with ventilator- dependent hypoxic respiratory failure due to lower lobe HCAP on top of right lung CA with chronic consolidation on the right base recent history of persistent MRSA bacteremia 2016 (unable to rule out endocarditis at that time) HTN hypothyroidism COPD chronic CHF CAD S/P bowel surgery due to perforation S/P total thyroidectomy squamous cell lung cancer S/P right bronchial stent placement S/P chemotherapy and radation therapy Plan Gave a dose of IV Daptomycin - blood cx are negative so far; continue Zyvox and Merrem day 3 pending final sputum cx results; PCT is low but patient has evidence of pneumonia; patient came in with PICC line from the [facility] and there is still concern for bacteremia overall prognosis is poor and family is thinking of terminal extubation according to PMD
--- NOTE | 2017-04-10 11:07 | CP.PCM.PN ---
Subjective - Date & Time of Evaluation Date of Evaluation: 04/10/17 Time of Evaluation: 11:06 - Subjective Subjective: Follow up Nephrology Consultation: Assessment: critical Anuric Acute Kidney Injury (N17.9) differential include ATN due to sepsis, AIN due to recent antibiotics Combined respiratory and metabolic acidosis Anemia, Lung CA (SCC), Rt lung collapse hx of HTN hepatomegaly and b/l adrenal gland enlargement sepsis with shock requring pressors, pneumonia, respi failure Hyperuricemia and Hyperphosphatemia Plan No acute need for renal replacement therapy (APPLIANCE SALES ASSOCIATE) at this time she is critically ill. patients with SHAR requiring APPLIANCE SALES ASSOCIATE tend to have very high mortality. has overall poor prognosis, APPLIANCE SALES ASSOCIATE may be of only very limited benefit in her case, if any. will need d/w family about pros/cons of dialysis. consider palliative care evaluation. discussion for terminal extubations ongoing No ACEI/ARB due to SHAR. maintain hemodynamics stable. Monitor Input/Output, daily weights and renal function with basic metabolic panel Please flush cisneros and can reposition it to ensure its position correct added phoslo and allopurinol Check urine sodium, urine eos and creatinine. renal sono done. replace electrolytes as needed. supplement Bicarb as ordered and weekly vit D Dose meds/antibiotics for reduced GFR. Avoid fleets enema/magnesium based laxatives. Avoid nephrotoxins/NSAIDs/ iodinated contrast (unless needed emergently) Glycemic control Further work up/management as per primary team Thanks for allowing me to participate in care of your patient. Will follow patient with you. Please call if any Qs. d/w ICU team. Dr Humza Barnes Office: [phone] HPI: Pt is a 71 F with hx of hypertension, lung cancer (SCC) s/p endobronchial stents, Rt lung collapse s/p radiation, ex smoker, b/l adrenal thickening, chronic hyponatremia (Na 130) presented with complaints of SOB and intubated for respi failure. renal consult for SHAR. She is also on pressors and being managed for sepsis with lung as presumed source ROS: Unable Physical Examination: General Appearance: orally intubated ill appearing Vitals reviewed and noted as below Head; Atraumatic, normocephalic ENT: intubated Neck; supple no lymphadenopathy, no thyromegaly or bruit Lungs: normal respiratory rate/effort. Breath sounds reduced at bases Heart: Increased rate. s1s2 normal. No rub or gallop. Extremities: 1-2+ edema. No varicose veins. Neurological: Patient is sedated Skin: Warm and dry. Normal turgor. No rash. Palpitation: Normal elasticity for age. has skin excoriations in legs Abdomen: Abdomen is soft. Bowel sounds +. There is no abdominal tenderness, no guarding/rigidity no organomegaly Psych: unable MSK: no joint tenderness or swelling. Digits and nails normal, no deformity : kidney or bladder not palpable. has cisneros Labs/imaging reviewed. Past medical history, past surgical history, family history, social history, allergy reviewed and noted as below Family hx: no hx of CKD. Rest non-contributory renal sono: medical renal disease Objective - Vital Signs/Intake and Output Vital Signs (last 24 hours): Temp Pulse Resp BP Pulse Ox 97.8 F 79 23 111/56 L 97 04/10/17 09:36 04/10/17 10:00 04/10/17 07:34 04/10/17 09:11 04/10/17 09:00 - Medications Medications: Current Medications Albuterol/Ipratropium (Duoneb 3 Mg/0.5 Mg (3 Ml) Ud) 3 ml IH Q2H PRN PRN Reason: Wheezing Albuterol/Ipratropium (Duoneb 3 Mg/0.5 Mg (3 Ml) Ud) 3 ml IH [id number] [facility] Last Admin: 04/10/17 07:28 Dose: 3 ml Allopurinol (Zyloprim) 100 mg PO DAILY [facility] Last Admin: 04/10/17 09:11 Dose: 100 mg Calcium Acetate (Phoslo) 667 mg PO TID [facility] Last Admin: 04/10/17 09:10 Dose: 667 mg Ergocalciferol (Drisdol 50,000 Intl Units Cap) 1 cap PO Q7D [facility] Last Admin: 04/08/17 12:34 Dose: 1 cap Furosemide (Lasix) 40 mg IVP DAILY [facility] Last Admin: 04/10/17 09:11 Dose: 40 mg Heparin Sodium (Porcine) (Heparin) 5,000 units SC Q8 HANNAH PRN Reason: Protocol Last Admin: 04/10/17 07:03 Dose: 5,000 units NOREPINEPHRINE BIT/0.9 % NACL (Levophed 4 Mg/ 250 Ml Ns Premixed) 4 mg in 250 mls @ 15 mls/hr IV .[id number] PRN; Protocol; 4 MCG/MIN PRN Reason: TITRATE PER MD ORDER Last Titration: 04/09/17 09:36 Dose: 0 mcg/min, 0 mls/hr Fentanyl Citrate (Fentanyl Citrate/Sodium Chloride 1 Mg/100 Ml) 1,000 mcg in 100 mls @ 2.5 mls/hr IV .Q24H PRN; Protocol; 25 MCG/HR PRN Reason: TITRATE PER MD ORDER Last Admin: 04/10/17 08:47 Dose: 300 mcg/hr, 30 mls/hr Midazolam 100 mg/100ml in NS (Midazolam 100 Mg/100ml In Ns) 100 mg in 100 mls @ 1 mls/hr IV .Q24H PRN; Protocol; 1 MG/HR PRN Reason: Agitation Last Titration: 04/08/17 09:39 Dose: 2 mg/hr, 2 mls/hr Meropenem 500 mg/ Sodium (Chloride) 100 mls @ 100 mls/hr IVPB Q12 HANNAH PRN Reason: Protocol Stop: 04/15/17 10:31 Last Admin: 04/10/17 09:02 Dose: 100 mls/hr Linezolid (Zyvox 600mg/300ml D5w) 600 mg in 300 mls @ 200 mls/hr IVPB Q12 HANNAH PRN Reason: Protocol Stop: 04/15/17 10:31 Last Admin: 04/10/17 09:14 Dose: 200 mls/hr Methylprednisolone (Solu-Medrol) 40 mg IVP Q8H [facility] Last Admin: 04/10/17 09:13 Dose: Not Given Non-Formulary Medication (Lactose-Reduced Food [Ensure Plus]) 237 ml PO BID [facility] Ondansetron HCl (Zofran Tab) 4 mg PO QID PRN PRN Reason: Nausea/Vomiting Ondansetron HCl (Zofran Inj) 4 mg IVP Q4H PRN PRN Reason: Nausea/Vomiting Pantoprazole Sodium (Protonix Inj) 40 mg IVP DAILY [facility] Last Admin: 04/10/17 09:11 Dose: 40 mg Sodium Bicarbonate (Sodium Bicarbonate Tab) 1,300 mg PO QID [facility] - Labs Labs: 04/10/17 09:00 04/09/17 05:00 PT 11.2 SECONDS (9.4-12.5) 04/07/17 13:40 INR 0.98 (0.93-1.08) 04/07/17 13:40 APTT 47.8 Seconds (25.1-36.5) H 04/07/17 13:40
[2017-04-10 11:10] LABS: ALB/GLOB RATIO 0.8 (1.1-1.8); ALBUMIN 1.9 g/dL (3.0-4.8); CALCIUM 7.1 mg/dL (8.4-10.5)
--- NOTE | 2017-04-10 12:20 | PN ---
DATE: SUBJECTIVE: I saw her in the Intensive Care Unit today. She is on the ventilator, not awake, and not arousable. MEDICATIONS: She is on Drisdol, DuoNeb, Fentanyl, heparin, lactose, Levophed, Merrem IV, midazolam, PhosLo, Protonix, sodium carbonate, Solu-Medrol 40 mg IV every 8 hours, Zofran, Zyloprim, and Zyvox. PHYSICAL EXAMINATION VITAL SIGNS: 97.8 temperature, 111/66 blood pressure, 79 pulse, and 97% O2 saturation on mechanical ventilator. HEENT: Head is atraumatic and normocephalic. HEART: Regular rate. LUNGS: Decreased breath sounds especially on the right mostly clear on the left. ABDOMEN: Soft. EXTREMITIES: No edema. LABORATORY DATA: She has a 15.9 white count; 8.2 hemoglobin, if it drops in the 7s, I will transfuse her; 24.4 hematocrit; and 198 platelets. She has 138 sodium, potassium is 3.9, BUN is 59, creatinine is 5.4, getting worse, GFR is 8, sugar is 104, calcium is 7.4, and phosphorous is 6.2. ASSESSMENT AND PLAN: She is being seen by Pulmonary, E Commerce Marketing Manager, Renal, Infectious Diseases, and Cardiology. She has multiple issues. She has right lung cancer, systemic inflammatory response syndrome, acute respiratory failure, severe sepsis, hypertension, chronic obstructive pulmonary disease, and congestive heart failure. We are also thinking about may be terminally extubating her if family agrees and putting her on home hospices if she survives. I understand Dr. Montelongo, the E Commerce Marketing Manager spoke to family and they are thinking about it. Dr. Cook also spoke to them and said there is not much they can do. We will check her laboratories tomorrow. Nakia Ann DO
--- NOTE | 2017-04-10 15:05 | PN ---
DATE: 04/10/2017 SUBJECTIVE: The patient was seen and examined at bedside. She is on small dose of propofol. She is lethargic and minimally following commands. OBJECTIVE: VITAL SIGNS: Temperature 97.8, blood pressure 111/56, respiratory rate 20, FiO2 of 35% and oxygen saturation 97%. ENT: Head and neck atraumatic. LUNGS: Decreased breath sounds on the right side. HEART: Regular rate and rhythm. S1 and S2 normal. ABDOMEN: Soft, nontender, and nondistended. MUSCULOSKELETAL: 2+ bilateral pedal and ankle edema. NEUROLOGIC: The patient is sedated. SKIN: Moist. PSYCHIATRIC: The patient is sedated. LABORATORY DATA: WBC 15.9, hemoglobin 8.2, and platelet count 198. Sodium 138, potassium 3.9, chloride 111, carbon dioxide 15, BUN 59, creatinine 5.4, and glucose 104. MEDICATIONS: DuoNeb every 6 hours, allopurinol, calcium acetate, vitamin D, Lasix daily, heparin subcu, meropenem, Solu-Medrol 40 mg IV q.8 hours, Zofran p.r.n., Protonix, sodium bicarb, and Zyvox. ASSESSMENT AND PLAN: This is a 71-year-old lady with end-stage lung carcinoma now with ventilator dependent respiratory failure and acute kidney injury/oliguric. The patient produced only minimal amount of urine and creatinine is rising. She is on antibiotics, bronchodilators, and steroids. Yesterday I had a lengthy conversation with the patient's two sons and Dr. Cook via phone conference. Due to the end-stage nature of the patient's malignancy, she is not a candidate for aggressive treatment with chemotherapy. At present time, family expressed their desire to let other family member to see her again before making final decision about advanced directives. Nevertheless, they are leading toward comfort care and terminal extubation. Meanwhile, we will continue supportive care. We will continue to target euvolemia, euglycemia, normothermia, and oxygen saturation more than 90%. We will continue with DVT and GI prophylaxis. ccm time 40 min Evin Montelongo MD [facility] # [id number] ROULA
[2017-04-11] MEDS: MethylPREDNISolone 40 mg Vial IVP SCH ×3 (01:07→17:40)
[2017-04-11] MEDS: Albuterol-Ipratrop 3 mg / 0.5 (3 ml) UD IH SCH ×4 (03:33→20:13)
[2017-04-11 06:47] LABS: ARTERIAL BLOOD GAS HCO3 11.1 mmol/L (21-28); ARTERIAL BLOOD GAS HEMOGLOBIN 6.8 g/dL (11.7-17.4); ARTERIAL BLOOD GAS O2 CAPACITY 9.5 mL/dl (16-24); ARTERIAL BLOOD GAS O2 CONTENT 9.4 ML/dl (15-23); ARTERIAL BLOOD GAS O2 SAT 98.9 % (95-98); ARTERIAL BLOOD GAS PCO2 22 mm/Hg (35-45); ARTERIAL BLOOD GAS PH 7.31 (7.35-7.45); ARTERIAL BLOOD GAS TCO2 11.8 mmol.L (22-28)
[2017-04-11 07:25] LABS: MEAN CORPUSCULAR HEMOGLOBIN 27.1 pg (25.0-35.0); MEAN PLATELET VOLUME 9.6 fl (7.0-11.0); RBC 2.84 10^6/uL (3.5-6.1); RED CELL DISTRIBUTION WIDTH 18.5 % (11.5-14.5); WHITE BLOOD COUNT 19.5 10^3/ul (4.5-11.0)
--- NOTE | 2017-04-11 07:30 | PN ---
DATE: 04/11/2017 PULMONARY NOTE SUBJECTIVE: The patient remains on the ventilator. She is currently sedated. PHYSICAL EXAMINATION: VITAL SIGNS: Temperature is 96.4, pulse 86, respirations 25/25, blood pressure 96/61. Oxygen saturation on the ventilator is 100%. HEENT: Normocephalic, atraumatic. No JVD. CARDIOVASCULAR: Positive S1, S2. No S3 gallop. LUNGS: Decreased breath sounds at the bases. Less rhonchi. Less wheezing. EXTREMITIES: Mild edema. No cyanosis, no clubbing. GI: Abdomen is soft, nondistended. Bowel sounds are positive. SKIN: No acute rash. NEUROLOGIC: Limited at the present time. PERTINENT LABORATORY DATA: Chest x-ray was done this morning and reviewed. The chest x-ray is a very poor rotated film, but does not appear significantly changed. Arterial blood gas was ordered for this morning - pending. IMPRESSION: 1. Respiratory failure. 2. 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 3. Advanced chronic obstructive pulmonary disease. 4. Mild anemia. 5. Leukocytosis. Rule out pneumonia. 6. Severe acidosis - resolving. PLAN: The patient remains on the ventilator. She remains sedated. I did discuss the case with the night nurse at length. The night nurse stated that the patient had a fairly uneventful night. I have also reviewed the chest x-ray - as above. The chest x-ray is a poor rotated film, but does not appear to show a significant change from the previous film. As above, an arterial blood gas is also ordered - pending. On physical exam, her bronchospasm is less. I will continue the current nebulizer treatments and current IV steroids for now. The patient remains on antibiotic therapy - as per Infectious Disease. There are no temperatures noted. There is a mild leukocytosis. Inputs by Infectious Disease and Renal are noted. The patient also remains on a norepinephrine drip. The patient remains critically ill with very poor outlook. I will discuss the above with the entire ICU team in the next few moments. I will discuss the above with Dr. Ann later this morning. Lester Bassett MD [facility] # [id number] MTDD
[2017-04-11 07:41] LABS: HEMOGLOBIN 7.7 g/dL (12.0-16.0)
[2017-04-11 08:00] LABS: ALB/GLOB RATIO 0.8 (1.1-1.8); ALBUMIN 1.9 g/dL (3.0-4.8); CALCIUM 6.6 mg/dL (8.4-10.5)
--- NOTE | 2017-04-11 08:18 | PN ---
DATE: 04/09/2017 SUBJECTIVE: The patient is seen and examined at bedside. She is sedated with fentanyl 30 mcg per hour. PHYSICAL EXAMINATION: VITAL SIGNS: She is on PRBC 400/25/10/35 on that setting her oxygen saturation is 100%, end-tidal CO2 of 19, blood pressure 114/57, heart rate 65, respiratory rate 25. ABG today morning 7.37/22/244 on 50% FiO2 (since then her FiO2 was dropped down to 35%). HEENT: Head and neck atraumatic. LUNGS: Decreased breath sounds on the right side and some crackles on the left side. ABDOMEN: Soft, nontender and nondistended. MUSCULOSKELETAL: 2+ bilateral pedal and ankle edema. SKIN: Color moist. PSYCH: The patient is sedated. NEUROLOGIC: The patient not moving her extremities as she is sedated. LABORATORY DATA: WBC 15.6 down from 21.9, hemoglobin 8 and platelet count 193. Sodium 138, potassium 3.9, chloride 111, carbon dioxide 15, BUN 59, creatinine 5.4, bilirubin 0.3, AST 12, ALT 29 and alkaline phosphatase 217. MEDICATIONS: DuoNeb every 6 hours, allopurinol, PhosLo, vitamin D, Lasix daily, heparin 5000 units subcutaneous q.8 hours, meropenem, Solu-Medrol 40 mg IV q.8 hours . Evin Montelongo MD [facility]
[2017-04-11] MEDS: Meropenem 500 MG in Sodium Chloride 0.9% 100 ML IVPB SCH ×2 (09:13→21:07)
--- NOTE | 2017-04-11 09:53 | PN ---
DATE: SUBJECTIVE: I saw Laverne in the Intensive Care Unit, she is on the ventilator. She is on Drisdol, DuoNeb, fentanyl, heparin, Lasix, Levophed, Merrem IV, midazolam, PhosLo, Protonix, sodium bicarbonate, Solu-Medrol, Zofran, Zyloprim, and Zyvox. PHYSICAL EXAMINATION: VITAL SIGNS: She has 96.8 temperature, 76 pulse, 83/51 blood pressure, 100% O2 sat on a ventilator. HEENT: Head is atraumatic, normocephalic. HEART: Regular rate. LUNGS: Decreased breath sounds. The right side has got almost no air movement, the left side is better. ABDOMEN: Soft. EXTREMITIES: No edema. LABORATORY DATA: She has 19.5 white count, is it from the steroids or the infection, 7.7 hemoglobin. I will discuss with the manager lan about transfusing her. Hematocrit is 20.3, platelets of 177. She has 136 sodium, potassium 4.2, BUN 67, creatinine 5.5, definitely heading towards dialysis, calcium is low at 6.6, got to replace that, total bilirubin is 0.3, AST is 27, ALT is 20, alkaline phosphatase is 253. Total protein is 4.1. I think we are heading towards possibly going to a hospice situation and a standing manager lan spoke to the family yesterday, awaiting to see what the response is. She has end-stage lung disease on a respirator and acute kidney injury. There will be other family members in and they make a decision on hospice. We will continue with aggressive treatment until then, replace the calcium. Bennie Ann DO
[2017-04-11] MEDS ORDERED: Calcium Chloride 1000 mg/10 ml Syringe IV ONE (09:56)
--- NOTE | 2017-04-11 10:27 | RAD ---
HISTORY: Follow-up. COMPARISON: Multiple serial examinations preceding the most recent study: April 10, 2017. FINDINGS: LUNGS: Stable consolidative changes, volume loss left lung. PLEURA: Stable pleural thickening, loculated pleural effusion CARDIOVASCULAR: No significant interval change compared to the prior examination(s). OSSEOUS STRUCTURES: No significant abnormalities. VISUALIZED UPPER ABDOMEN: Normal. OTHER FINDINGS: Stable, satisfactory position ventilatory, vascular and nasogastric apparatus. IMPRESSION: No significant interval change compared to the prior examination(s).
--- NOTE | 2017-04-11 11:20 | PN ---
DATE: 04/11/2017 CARDIOLOGY FOLLOWUP SUBJECTIVE: The patient remains on a ventilator. PHYSICAL EXAMINATION: VITAL SIGNS: Blood pressure is 92/53, heart rate in the 70s. NECK: Negative JVD. LUNGS: Decreased breath sounds. No wheezing noted. HEART: Reveal S1, S2. EXTREMITIES: Without edema. LABORATORY DATA: Hemoglobin is 7.7, white count is 19.5, BUN and creatinine is 67 and 5.5. IMPRESSION: 1. Respiratory failure. 2. Renal insufficiency. 3. Marked anemia. 4. Sepsis. 5. History of lung cancer. PLAN: Given these findings, the patient's prognosis is poor. Hemodynamically, the patient is tolerating her acute respiratory compromise at this time. Dr. Ann will be talking to the family about making the patient hospice care given her poor prognosis. Lamin Worrell MD
[2017-04-11] MEDS: Linezolid 600 mg in D5W 300 ml 600 MG/300 ML BAG IVPB SCH ×2 (11:34→21:08)
--- NOTE | 2017-04-11 11:34 | CP.PCM.PN ---
Subjective - Date & Time of Evaluation Date of Evaluation: 04/11/17 Time of Evaluation: 11:00 - Subjective Subjective: Continues to be on the ventilator, no fevers. Objective - Vital Signs/Intake and Output Vital Signs (last 24 hours): Temp Pulse Resp BP Pulse Ox 96.8 F L 76 23 93/53 L 100 04/11/17 08:03 04/11/17 08:03 04/10/17 07:34 04/11/17 09:16 04/11/17 08:03 Intake and Output: 04/11/17 04/11/17 06:59 18:59 Intake Total 435 Output Total 30 Balance 405 - Medications Medications: Current Medications Albuterol/Ipratropium (Duoneb 3 Mg/0.5 Mg (3 Ml) Ud) 3 ml IH Q2H PRN PRN Reason: Wheezing Albuterol/Ipratropium (Duoneb 3 Mg/0.5 Mg (3 Ml) Ud) 3 ml IH [id number] [facility] Last Admin: 04/11/17 07:41 Dose: 3 ml Allopurinol (Zyloprim) 100 mg PO DAILY [facility] Last Admin: 04/11/17 09:17 Dose: 100 mg Calcium Acetate (Phoslo) 667 mg PO TID [facility] Last Admin: 04/11/17 09:16 Dose: 667 mg Ergocalciferol (Drisdol 50,000 Intl Units Cap) 1 cap PO Q7D [facility] Last Admin: 04/08/17 12:34 Dose: 1 cap Furosemide (Lasix) 40 mg IVP DAILY [facility] Last Admin: 04/11/17 09:16 Dose: 40 mg Heparin Sodium (Porcine) (Heparin) 5,000 units SC Q8 [facility]ANNAH PRN Reason: Protocol Last Admin: 04/11/17 05:13 Dose: 5,000 units NOREPINEPHRINE BIT/0.9 % NACL (Levophed 4 Mg/ 250 Ml Ns Premixed) 4 mg in 250 mls @ 15 mls/hr IV .[id number] PRN; Protocol; 4 MCG/MIN PRN Reason: TITRATE PER MD ORDER Last Titration: 04/09/17 09:36 Dose: 0 mcg/min, 0 mls/hr Fentanyl Citrate (Fentanyl Citrate/Sodium Chloride 1 Mg/100 Ml) 1,000 mcg in 100 mls @ 2.5 mls/hr IV .Q24H PRN; Protocol; 25 MCG/HR PRN Reason: TITRATE PER MD ORDER Last Admin: 04/10/17 08:47 Dose: 300 mcg/hr, 30 mls/hr Midazolam 100 mg/100ml in NS (Midazolam 100 Mg/100ml In Ns) 100 mg in 100 mls @ 1 mls/hr IV .Q24H PRN; Protocol; 1 MG/HR PRN Reason: Agitation Last Titration: 04/08/17 09:39 Dose: 2 mg/hr, 2 mls/hr Meropenem 500 mg/ Sodium (Chloride) 100 mls @ 100 mls/hr IVPB Q12 [facility]ANNAH PRN Reason: Protocol Stop: 04/15/17 10:31 Last Admin: 04/11/17 09:13 Dose: 100 mls/hr Linezolid (Zyvox 600mg/300ml D5w) 600 mg in 300 mls @ 200 mls/hr IVPB Q12 [facility]NA[facility] PRN Reason: Protocol Stop: 04/15/17 10:31 Last Admin: 04/10/17 22:30 Dose: 200 mls/hr Methylprednisolone (Solu-Medrol) 40 mg IVP Q8H [facility] Last Admin: 04/11/17 09:19 Dose: 40 mg Ondansetron HCl (Zofran Tab) 4 mg PO QID PRN PRN Reason: Nausea/Vomiting Ondansetron HCl (Zofran Inj) 4 mg IVP Q4H PRN PRN Reason: Nausea/Vomiting Pantoprazole Sodium (Protonix Inj) 40 mg IVP DAILY [facility] Last Admin: 04/11/17 09:16 Dose: 40 mg Sodium Bicarbonate (Sodium Bicarbonate Tab) 1,300 mg PO QID [facility] Last Admin: 04/11/17 09:17 Dose: 1,300 mg - Labs Labs: 04/11/17 07:00 04/11/17 07:00 PT 11.2 SECONDS (9.4-12.5) 04/07/17 13:40 INR 0.98 (0.93-1.08) 04/07/17 13:40 APTT 47.8 Seconds (25.1-36.5) H 04/07/17 13:40 - Constitutional Appears: Other (intubated and sedated) - ENT Exam Additional comments: ET tube in place - Respiratory Exam Respiratory Exam: Decreased Breath Sounds - Cardiovascular Exam Cardiovascular Exam: +S1, +S2 - GI/Abdominal Exam GI & Abdominal Exam: Soft. absent: Tenderness Assessment and Plan - Assessment and Plan (Free Text) Plan: Assessment Systemic inflammatory response syndrome, consider severe sepsis with ventilator- dependent hypoxic respiratory failure due to lower lobe HCAP on top of right lung CA with chronic consolidation on the right base recent history of persistent MRSA bacteremia 2016 (unable to rule out endocarditis at that time) HTN hypothyroidism COPD chronic CHF CAD S/P bowel surgery due to perforation S/P total thyroidectomy squamous cell lung cancer S/P right bronchial stent placement S/P chemotherapy and radation therapy Plan Gave a dose of IV Daptomycin - blood cx are negative; continue Zyvox and Merrem day 4; PCT is low but patient has evidence of pneumonia; [facility]; target up to 7 days of antibiotics overall prognosis is poor
--- NOTE | 2017-04-11 13:16 | CP.PCM.PN ---
Subjective - Date & Time of Evaluation Date of Evaluation: 04/11/17 Time of Evaluation: 07:40 - Subjective Subjective: Pt seen and examined, remains intubated. Objective - Vital Signs/Intake and Output Vital Signs (last 24 hours): Temp Pulse Resp BP Pulse Ox 96.8 F L 76 23 93/53 L 100 04/11/17 08:03 04/11/17 08:03 04/10/17 07:34 04/11/17 09:16 04/11/17 08:03 Intake and Output: 04/11/17 04/11/17 06:59 18:59 Intake Total 435 Output Total 30 Balance 405 - Medications Medications: Current Medications Albuterol/Ipratropium (Duoneb 3 Mg/0.5 Mg (3 Ml) Ud) 3 ml IH Q2H PRN PRN Reason: Wheezing Albuterol/Ipratropium (Duoneb 3 Mg/0.5 Mg (3 Ml) Ud) 3 ml IH [id number] [facility] Last Admin: 04/11/17 07:41 Dose: 3 ml Allopurinol (Zyloprim) 100 mg PO DAILY [facility] Last Admin: 04/11/17 09:17 Dose: 100 mg Calcium Acetate (Phoslo) 667 mg PO TID [facility] Last Admin: 04/11/17 09:16 Dose: 667 mg Ergocalciferol (Drisdol 50,000 Intl Units Cap) 1 cap PO Q7D [facility] Last Admin: 04/08/17 12:34 Dose: 1 cap Furosemide (Lasix) 40 mg IVP DAILY [facility] Last Admin: 04/11/17 09:16 Dose: 40 mg Heparin Sodium (Porcine) (Heparin) 5,000 units SC Q8 [facility]ANNA[facility] PRN Reason: Protocol Last Admin: 04/11/17 05:13 Dose: 5,000 units NOREPINEPHRINE BIT/0.9 % NACL (Levophed 4 Mg/ 250 Ml Ns Premixed) 4 mg in 250 mls @ 15 mls/hr IV .[id number] PRN; Protocol; 4 MCG/MIN PRN Reason: TITRATE PER MD ORDER Last Titration: 04/09/17 09:36 Dose: 0 mcg/min, 0 mls/hr Fentanyl Citrate (Fentanyl Citrate/Sodium Chloride 1 Mg/100 Ml) 1,000 mcg in 100 mls @ 2.5 mls/hr IV .Q24H PRN; Protocol; 25 MCG/HR PRN Reason: TITRATE PER MD ORDER Last Admin: 04/10/17 08:47 Dose: 300 mcg/hr, 30 mls/hr Midazolam 100 mg/100ml in NS (Midazolam 100 Mg/100ml In Ns) 100 mg in 100 mls @ 1 mls/hr IV .Q24H PRN; Protocol; 1 MG/HR PRN Reason: Agitation Last Titration: 04/08/17 09:39 Dose: 2 mg/hr, 2 mls/hr Meropenem 500 mg/ Sodium (Chloride) 100 mls @ 100 mls/hr IVPB Q12 [facility]ANNAH PRN Reason: Protocol Stop: 04/15/17 10:31 Last Admin: 04/11/17 09:13 Dose: 100 mls/hr Linezolid (Zyvox 600mg/300ml D5w) 600 mg in 300 mls @ 200 mls/hr IVPB Q12 [facility]ANNA[facility] PRN Reason: Protocol Stop: 04/15/17 10:31 Last Admin: 04/11/17 11:34 Dose: 200 mls/hr Methylprednisolone (Solu-Medrol) 40 mg IVP Q8H [facility] Last Admin: 04/11/17 09:19 Dose: 40 mg Ondansetron HCl (Zofran Tab) 4 mg PO QID PRN PRN Reason: Nausea/Vomiting Ondansetron HCl (Zofran Inj) 4 mg IVP Q4H PRN PRN Reason: Nausea/Vomiting Pantoprazole Sodium (Protonix Inj) 40 mg IVP DAILY [facility] Last Admin: 04/11/17 09:16 Dose: 40 mg Sodium Bicarbonate (Sodium Bicarbonate Tab) 1,300 mg PO QID [facility] Last Admin: 04/11/17 09:17 Dose: 1,300 mg - Labs Labs: 04/11/17 07:00 04/11/17 07:00 PT 11.2 SECONDS (9.4-12.5) 04/07/17 13:40 INR 0.98 (0.93-1.08) 04/07/17 13:40 APTT 47.8 Seconds (25.1-36.5) H 04/07/17 13:40 - Constitutional Appears: No Acute Distress, Chronically Ill - Eye Exam Eye Exam: Normal appearance - ENT Exam ENT Exam: Mucous Membranes Moist - Respiratory Exam Respiratory Exam: NORMAL BREATHING PATTERN Additional comments: decreased breaht sounds on the right - Cardiovascular Exam Cardiovascular Exam: REGULAR RHYTHM, +S1, +S2 - GI/Abdominal Exam GI & Abdominal Exam: Soft, Normal Bowel Sounds - Extremities Exam Extremities Exam: Pedal Edema Assessment and Plan - Assessment and Plan (Free Text) Assessment: 71yo female with end stage lung Ca a/w respiratory failure Respiratory Failure Lung CA Renal failure Lung whiteout/collapse Recommend: - cont with ventilatory support - antibiotics as per ID - follow up cultures - IVF hydration - BP control - follow up heme onc - awaiting family to make further decisions regarding goals of care, possible terminal extubation - GI ppx - DVT ppx - Monitor in MICU Critical care time 35 minutes
--- NOTE | 2017-04-11 14:00 | CP.PCM.PN ---
Subjective - Date & Time of Evaluation Date of Evaluation: 04/11/17 Time of Evaluation: 13:59 - Subjective Subjective: Follow up Nephrology Consultation: Assessment: critical Anuric Acute Kidney Injury (N17.9) differential include ATN due to sepsis, AIN due to recent antibiotics Combined respiratory and metabolic acidosis Anemia, Lung CA (SCC), Rt lung collapse hx of HTN hepatomegaly and b/l adrenal gland enlargement sepsis with shock requring pressors, pneumonia, respi failure Hyperuricemia and Hyperphosphatemia Plan No acute need for renal replacement therapy ([employer]) at this time she is critically ill. patients with SHAR requiring [employer]INE [employer]PER[employer] tend to have very high mortality. has overall poor prognosis, [employer] may be of only very limited benefit in her case, if any. will need d/w family about pros/cons of dialysis. consider palliative care evaluation. discussion for terminal extubations ongoing No ACEI/ARB due to SHAR. maintain hemodynamics stable. Monitor Input/Output, daily weights and renal function with basic metabolic panel Please flush cisneros and can reposition it to ensure its position correct added phoslo and allopurinol replace electrolytes as needed. supplement Bicarb as ordered and weekly vit D Dose meds/antibiotics for reduced GFR. Avoid fleets enema/magnesium based laxatives. Avoid nephrotoxins/NSAIDs/ iodinated contrast (unless needed emergently) Glycemic control Further work up/management as per primary team Thanks for allowing me to participate in care of your patient. Will follow patient with you. Please call if any Qs. d/w ICU team. Dr Humza Barnes Office: [phone] HPI: Pt is a 71 F with hx of hypertension, lung cancer (SCC) s/p endobronchial stents, Rt lung collapse s/p radiation, ex smoker, b/l adrenal thickening, chronic hyponatremia (Na 130) presented with complaints of SOB and intubated for respi failure. renal consult for SHAR. She is also on pressors and being managed for sepsis with lung as presumed source ROS: Unable Physical Examination: General Appearance: orally intubated ill appearing Vitals reviewed and noted as below Head; Atraumatic, normocephalic ENT: intubated Neck; supple no lymphadenopathy, no thyromegaly or bruit Lungs: normal respiratory rate/effort. Breath sounds reduced at bases Heart: Increased rate. s1s2 normal. No rub or gallop. Extremities: 1-2+ edema. No varicose veins. Neurological: Patient is sedated Skin: Warm and dry. Normal turgor. No rash. Palpitation: Normal elasticity for age. has skin excoriations in legs Abdomen: Abdomen is soft. Bowel sounds +. There is no abdominal tenderness, no guarding/rigidity no organomegaly Psych: unable MSK: no joint tenderness or swelling. Digits and nails normal, no deformity : kidney or bladder not palpable. has cisneros Labs/imaging reviewed. Past medical history, past surgical history, family history, social history, allergy reviewed and noted as below Family hx: no hx of CKD. Rest non-contributory renal sono: medical renal disease Objective - Vital Signs/Intake and Output Vital Signs (last 24 hours): Temp Pulse Resp BP Pulse Ox 96.8 F L 76 23 93/53 L 100 04/11/17 08:03 04/11/17 08:03 04/10/17 07:34 04/11/17 09:16 04/11/17 08:03 Intake and Output: 04/11/17 04/11/17 06:59 18:59 Intake Total 435 Output Total 30 Balance 405 - Medications Medications: Current Medications Albuterol/Ipratropium (Duoneb 3 Mg/0.5 Mg (3 Ml) Ud) 3 ml IH Q2H PRN PRN Reason: Wheezing Albuterol/Ipratropium (Duoneb 3 Mg/0.5 Mg (3 Ml) Ud) 3 ml IH [id number] [facility] Last Admin: 04/11/17 13:41 Dose: 3 ml Allopurinol (Zyloprim) 100 mg PO DAILY [facility] Last Admin: 04/11/17 09:17 Dose: 100 mg Calcium Acetate (Phoslo) 667 mg PO TID [facility] Last Admin: 04/11/17 09:16 Dose: 667 mg Ergocalciferol (Drisdol 50,000 Intl Units Cap) 1 cap PO Q7D [facility] Last Admin: 04/08/17 12:34 Dose: 1 cap Furosemide (Lasix) 40 mg IVP DAILY [facility] Last Admin: 04/11/17 09:16 Dose: 40 mg Heparin Sodium (Porcine) (Heparin) 5,000 units SC Q8 [facility]ANNAH PRN Reason: Protocol Last Admin: 04/11/17 05:13 Dose: 5,000 units NOREPINEPHRINE BIT/0.9 % NACL (Levophed 4 Mg/ 250 Ml Ns Premixed) 4 mg in 250 mls @ 15 mls/hr IV .[id number] PRN; Protocol; 4 MCG/MIN PRN Reason: TITRATE PER MD ORDER Last Titration: 04/09/17 09:36 Dose: 0 mcg/min, 0 mls/hr Fentanyl Citrate (Fentanyl Citrate/Sodium Chloride 1 Mg/100 Ml) 1,000 mcg in 100 mls @ 2.5 mls/hr IV .Q24H PRN; Protocol; 25 MCG/HR PRN Reason: TITRATE PER MD ORDER Last Admin: 04/10/17 08:47 Dose: 300 mcg/hr, 30 mls/hr Midazolam 100 mg/100ml in NS (Midazolam 100 Mg/100ml In Ns) 100 mg in 100 mls @ 1 mls/hr IV .Q24H PRN; Protocol; 1 MG/HR PRN Reason: Agitation Last Titration: 04/08/17 09:39 Dose: 2 mg/hr, 2 mls/hr Meropenem 500 mg/ Sodium (Chloride) 100 mls @ 100 mls/hr IVPB Q12 HANNAH PRN Reason: Protocol Stop: 04/15/17 10:31 Last Admin: 04/11/17 09:13 Dose: 100 mls/hr Linezolid (Zyvox 600mg/300ml D5w) 600 mg in 300 mls @ 200 mls/hr IVPB Q12 [facility]ANNAH PRN Reason: Protocol Stop: 04/15/17 10:31 Last Admin: 04/11/17 11:34 Dose: 200 mls/hr Methylprednisolone (Solu-Medrol) 40 mg IVP Q8H [facility] Last Admin: 04/11/17 09:19 Dose: 40 mg Ondansetron HCl (Zofran Tab) 4 mg PO QID PRN PRN Reason: Nausea/Vomiting Ondansetron HCl (Zofran Inj) 4 mg IVP Q4H PRN PRN Reason: Nausea/Vomiting Pantoprazole Sodium (Protonix Inj) 40 mg IVP DAILY [facility] Last Admin: 04/11/17 09:16 Dose: 40 mg Sodium Bicarbonate (Sodium Bicarbonate Tab) 1,300 mg PO QID [facility] Last Admin: 04/11/17 09:17 Dose: 1,300 mg - Labs Labs: 04/11/17 07:00 04/11/17 07:00 PT 11.2 SECONDS (9.4-12.5) 04/07/17 13:40 INR 0.98 (0.93-1.08) 04/07/17 13:40 APTT 47.8 Seconds (25.1-36.5) H 04/07/17 13:40
[2017-04-11] MEDS: Fentanyl 1000mcg/100ml NS 1,000 MCG/100 ML BAG IV PRN (16:27)
[2017-04-11 22:14] LABS: SOURCE SERUM
[2017-04-12] MEDS: MethylPREDNISolone 40 mg Vial IVP SCH ×3 (01:41→17:30)
[2017-04-12] MEDS: Albuterol-Ipratrop 3 mg / 0.5 (3 ml) UD IH SCH ×4 (02:51→19:39)
[2017-04-12 06:19] LABS: MEAN CELL VOLUME 81.7 fl (80.0-105.0); MEAN CORPUSCULAR HEMOGLOBIN 27.8 pg (25.0-35.0); MEAN PLATELET VOLUME 9.9 fl (7.0-11.0); RBC 2.63 10^6/uL (3.5-6.1); RED CELL DISTRIBUTION WIDTH 18.5 % (11.5-14.5); WHITE BLOOD COUNT 18.2 10^3/ul (4.5-11.0)
[2017-04-12 06:34] LABS: HEMOGLOBIN 7.3 g/dL (12.0-16.0)
[2017-04-12 06:53] LABS: ALB/GLOB RATIO 0.8 (1.1-1.8); ALBUMIN 1.8 g/dL (3.0-4.8); CALCIUM 6.3 mg/dL (8.4-10.5); MAGNESIUM 1.4 mg/dL (1.7-2.2)
--- NOTE | 2017-04-12 08:06 | PN ---
DATE: 04/12/2017 PULMONARY PROGRESS NOTE SUBJECTIVE: The patient remains on the ventilator. She is sedated. PHYSICAL EXAMINATION: VITAL SIGNS: Temperature is 96.8, pulse is 76, respirations are 25/25, and blood pressure is 85/53. Oxygen saturation on the ventilator is currently 98%. HEENT: Normocephalic and atraumatic. NECK: No JVD. CARDIOVASCULAR: Positive S1 and S2. No S3 gallop. LUNGS: Decreased breath sounds at the bases. Mild rhonchi and wheezing persist. EXTREMITIES: Mild edema. No cyanosis and no clubbing. GASTROINTESTINAL: Abdomen is soft and nondistended. Bowel sounds are positive. SKIN: No acute rash. NEUROLOGIC: Exam is limited at the present time. PERTINENT LABORATORY DATA: Chest x-ray was done this morning and reviewed. The chest x-ray is not significantly changed from the previous film. Arterial blood gas was ordered for the morning - not done yet. IMPRESSION 1. Respiratory failure. 2. 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 3. Advanced chronic obstructive pulmonary disease. 4. Mild anemia. 5. Leukocytosis. Rule out pneumonia. 6. Severe acidosis - resolving. PLAN: The patient remains on the ventilator. She remains sedated. I did discuss the case with the night nurse at length. The night nurse stated that the patient had a fairly uneventful night. I have also reviewed the chest x-ray from today. The chest x-ray is not significantly changed from the previous film. As above, I am awaiting an arterial blood gas to be done. On physical exam, there is less bronchospasm noted. However, given the patient's advanced lung disease, I will continue with the current nebulizer treatments and intravenous steroids for now. The patient remains on antibiotic therapy - as per Infectious Diseases. The patient remains critically ill with very poor prognosis/outlook. Again, we are awaiting additional family decisions. Possible terminal extubation. I will discuss the above with the entire ICU team the next few moments. I will discuss the above with Dr. Ann later this morning. Lester Bassett MD [facility]
[2017-04-12] MEDS: Meropenem 500 MG in Sodium Chloride 0.9% 100 ML IVPB SCH ×2 (09:03→22:48)
[2017-04-12] MEDS: Linezolid 600 mg in D5W 300 ml 600 MG/300 ML BAG IVPB SCH ×2 (09:04→21:50)
--- NOTE | 2017-04-12 10:18 | RAD ---
HISTORY: follow up COMPARISON: 04/11/2017 FINDINGS: LUNGS: Chronic changes on the right. Left lung remains clear. Endotracheal and nasogastric tubes in satisfactory position PLEURA: No significant pleural effusion identified, no pneumothorax apparent. CARDIOVASCULAR: Normal. OSSEOUS STRUCTURES: No significant abnormalities. VISUALIZED UPPER ABDOMEN: Normal. OTHER FINDINGS: None. IMPRESSION: Chronic changes on the right. Left lung remains clear. Endotracheal and nasogastric tubes in satisfactory position
[2017-04-12 10:45] LABS: ARTERIAL BLOOD GAS HCO3 17.4 mmol/L (21-28); ARTERIAL BLOOD GAS O2 CAPACITY 9.9 mL/dl (16-24); ARTERIAL BLOOD GAS O2 CONTENT 9.9 ML/dl (15-23); ARTERIAL BLOOD GAS O2 SAT 99.7 % (95-98); ARTERIAL BLOOD GAS PCO2 25 mm/Hg (35-45); ARTERIAL BLOOD GAS PH 7.45 (7.35-7.45); ARTERIAL BLOOD GAS TCO2 18.2 mmol.L (22-28)
--- NOTE | 2017-04-12 10:57 | CP.PCM.PN ---
Subjective - Date & Time of Evaluation Date of Evaluation: 04/12/17 Time of Evaluation: 08:30 - Subjective Subjective: Continues to be on the ventilator, no fevers overnight. Objective - Vital Signs/Intake and Output Vital Signs (last 24 hours): Temp Pulse Resp BP Pulse Ox 97 F L 76 25 H 85/53 L 96 04/12/17 01:00 04/12/17 06:00 04/12/17 01:00 04/12/17 01:00 04/12/17 01:00 Intake and Output: 04/11/17 04/12/17 18:59 06:59 Intake Total 646 472 Output Total 10 25 Balance 636 447 - Medications Medications: Current Medications Albuterol/Ipratropium (Duoneb 3 Mg/0.5 Mg (3 Ml) Ud) 3 ml IH Q2H PRN PRN Reason: Wheezing Albuterol/Ipratropium (Duoneb 3 Mg/0.5 Mg (3 Ml) Ud) 3 ml IH [id number] [facility] Last Admin: 04/12/17 02:51 Dose: 3 ml Allopurinol (Zyloprim) 100 mg PO DAILY [facility] Last Admin: 04/11/17 09:17 Dose: 100 mg Calcium Acetate (Phoslo) 667 mg PO TID [facility] Last Admin: 04/11/17 20:00 Dose: 667 mg Ergocalciferol (Drisdol 50,000 Intl Units Cap) 1 cap PO Q7D [facility] Last Admin: 04/08/17 12:34 Dose: 1 cap Furosemide (Lasix) 40 mg IVP DAILY [facility] Last Admin: 04/11/17 09:16 Dose: 40 mg Heparin Sodium (Porcine) (Heparin) 5,000 units SC Q8 HANNAH PRN Reason: Protocol Last Admin: 04/12/17 05:23 Dose: 5,000 units NOREPINEPHRINE BIT/0.9 % NACL (Levophed 4 Mg/ 250 Ml Ns Premixed) 4 mg in 250 mls @ 15 mls/hr IV .[id number] PRN; Protocol; 4 MCG/MIN PRN Reason: TITRATE PER MD ORDER Last Titration: 04/09/17 09:36 Dose: 0 mcg/min, 0 mls/hr Midazolam 100 mg/100ml in NS (Midazolam 100 Mg/100ml In Ns) 100 mg in 100 mls @ 1 mls/hr IV .Q24H PRN; Protocol; 1 MG/HR PRN Reason: Agitation Last Titration: 04/08/17 09:39 Dose: 2 mg/hr, 2 mls/hr Meropenem 500 mg/ Sodium (Chloride) 100 mls @ 100 mls/hr IVPB Q12 HANNAH PRN Reason: Protocol Stop: 04/15/17 10:31 Last Admin: 04/11/17 21:07 Dose: 100 mls/hr Linezolid (Zyvox 600mg/300ml D5w) 600 mg in 300 mls @ 200 mls/hr IVPB Q12 [facility]ANNAH PRN Reason: Protocol Stop: 04/15/17 10:31 Last Admin: 04/11/17 21:08 Dose: 200 mls/hr Methylprednisolone (Solu-Medrol) 40 mg IVP Q8H [facility] Last Admin: 04/12/17 01:41 Dose: 40 mg Ondansetron HCl (Zofran Tab) 4 mg PO QID PRN PRN Reason: Nausea/Vomiting Ondansetron HCl (Zofran Inj) 4 mg IVP Q4H PRN PRN Reason: Nausea/Vomiting Pantoprazole Sodium (Protonix Inj) 40 mg IVP DAILY [facility] Last Admin: 04/11/17 09:16 Dose: 40 mg Sodium Bicarbonate (Sodium Bicarbonate Tab) 1,300 mg PO QID [facility] Last Admin: 04/11/17 23:48 Dose: 1,300 mg - Labs Labs: 04/11/17 07:00 04/11/17 07:00 PT 11.2 SECONDS (9.4-12.5) 04/07/17 13:40 INR 0.98 (0.93-1.08) 04/07/17 13:40 APTT 47.8 Seconds (25.1-36.5) H 04/07/17 13:40 - Constitutional Appears: Chronically Ill, Other (intubated) - Head Exam Head Exam: NORMAL INSPECTION - ENT Exam Additional comments: ET tube in place - Respiratory Exam Respiratory Exam: Decreased Breath Sounds - Cardiovascular Exam Cardiovascular Exam: +S1, +S2 - GI/Abdominal Exam GI & Abdominal Exam: Soft. absent: Tenderness Assessment and Plan - Assessment and Plan (Free Text) Plan: Assessment Systemic inflammatory response syndrome, consider severe sepsis with ventilator- dependent hypoxic respiratory failure due to lower lobe HCAP on top of right lung CA with chronic consolidation on the right base recent history of persistent MRSA bacteremia 2016 (unable to rule out endocarditis at that time) HTN hypothyroidism COPD chronic CHF CAD S/P bowel surgery due to perforation S/P total thyroidectomy squamous cell lung cancer S/P right bronchial stent placement S/P chemotherapy and radation therapy Plan Gave a dose of IV Daptomycin - blood cx are negative; continue Zyvox and Merrem day 5; PCT is low but patient has evidence of pneumonia; patient came in with PICC line from the senior care; target up to 7 days of antibiotics overall prognosis is poor
--- NOTE | 2017-04-12 11:42 | PN ---
DATE: SUBJECTIVE: I saw Laverne on the ventilator in Intensive Care Unit. She is able to hear me and nod her head. We are trying to get her off the ventilator, hoping family agrees for terminal extubation. She has end-stage lung cancer. She is on calcium replacement. MEDICATIONS: Drisdol, DuoNeb, heparin, Lasix, Levophed, Merrem, midazolam, PhosLo, Protonix, sodium bicarbonate, Solu-Medrol, Zofran, Zyloprim and Zyvox. PHYSICAL EXAMINATION VITAL SIGNS: She has 97.5 temperature, 78 pulse, 101/63 blood pressure, and 100% O2 saturation on mechanical ventilator. HEENT: Head is atraumatic and normocephalic. HEART: Regular rate. LUNGS: Right lungs almost no air movement. The left lung is clear. ABDOMEN: Soft. EXTREMITIES: No edema. She is weak. LABORATORY DATA: She has 18.2 white count, 7.3 hemoglobin, hematocrit of 21.5 and platelets are 155. She needs to be transfused 2 units of packed red blood cells. Sodium is 135, potassium is 4.3, BUN is 69, and creatinine is 5.6, calcium is 6.3, we replaced calcium, magnesium is 1.4, and total bilirubin is 0.3. AST is 25, ALT is 28, alkaline phosphatase is 233 and total protein is 4. ASSESSMENT AND PLAN: She is failing, we are hoping for, family recommend terminal extubation, and she is quite anemic. She has lung cancer, systemic inflammatory response syndrome, acute respiratory failure, low calcium, severe sepsis, hypertension, chronic obstructive pulmonary disease, congestive heart failure and anemia. I will order transfusing 2 units. Bennie Ann DO MTDSage
[2017-04-12] MEDS ORDERED: Magnesium Sulfate 1 gm in D5W 1 GM/100 ML BAG IVPB ONE (11:43)
--- NOTE | 2017-04-12 12:11 | CP.PCM.PN ---
Subjective - Date & Time of Evaluation Date of Evaluation: 04/12/17 Time of Evaluation: 07:25 - Subjective Subjective: Pt seen and examined, remains intubated. Objective - Vital Signs/Intake and Output Vital Signs (last 24 hours): Temp Pulse Resp BP Pulse Ox 97.3 F L 79 25 H 99/62 L 98 04/12/17 11:00 04/12/17 12:00 04/12/17 08:00 04/12/17 11:00 04/12/17 11:00 Intake and Output: 04/12/17 04/12/17 06:59 18:59 Intake Total 472 660 Output Total 25 Balance 447 660 - Medications Medications: Current Medications Albuterol/Ipratropium (Duoneb 3 Mg/0.5 Mg (3 Ml) Ud) 3 ml IH Q2H PRN PRN Reason: Wheezing Albuterol/Ipratropium (Duoneb 3 Mg/0.5 Mg (3 Ml) Ud) 3 ml IH [id number] [facility] Last Admin: 04/12/17 08:05 Dose: 3 ml Allopurinol (Zyloprim) 100 mg PO DAILY [facility] Last Admin: 04/12/17 09:03 Dose: 100 mg Calcium Acetate (Phoslo) 667 mg PO TID [facility] Last Admin: 04/12/17 09:03 Dose: 667 mg Ergocalciferol (Drisdol 50,000 Intl Units Cap) 1 cap PO Q7D [facility] Last Admin: 04/08/17 12:34 Dose: 1 cap Furosemide (Lasix) 40 mg IVP DAILY [facility] Last Admin: 04/12/17 10:50 Dose: 40 mg Heparin Sodium (Porcine) (Heparin) 5,000 units SC Q8 [facility]ANNAH PRN Reason: Protocol Last Admin: 04/12/17 05:23 Dose: 5,000 units NOREPINEPHRINE BIT/0.9 % NACL (Levophed 4 Mg/ 250 Ml Ns Premixed) 4 mg in 250 mls @ 15 mls/hr IV .[id number] PRN; Protocol; 4 MCG/MIN PRN Reason: TITRATE PER MD ORDER Last Titration: 04/09/17 09:36 Dose: 0 mcg/min, 0 mls/hr Midazolam 100 mg/100ml in NS (Midazolam 100 Mg/100ml In Ns) 100 mg in 100 mls @ 1 mls/hr IV .Q24H PRN; Protocol; 1 MG/HR PRN Reason: Agitation Last Titration: 04/08/17 09:39 Dose: 2 mg/hr, 2 mls/hr Meropenem 500 mg/ Sodium (Chloride) 100 mls @ 100 mls/hr IVPB Q12 [facility]ANNAH PRN Reason: Protocol Stop: 04/15/17 10:31 Last Admin: 04/12/17 09:03 Dose: 100 mls/hr Linezolid (Zyvox 600mg/300ml D5w) 600 mg in 300 mls @ 200 mls/hr IVPB Q12 [facility]ANNAH PRN Reason: Protocol Stop: 04/15/17 10:31 Last Admin: 04/12/17 09:04 Dose: 200 mls/hr Magnesium Sulfate/Dextrose (Magnesium Sulfate 1 Gm/100 Ml D5w) 1 gm in 100 mls @ 100 mls/hr IVPB ONCE ONE Stop: 04/12/17 12:42 Last Admin: 04/12/17 11:54 Dose: 100 mls/hr Methylprednisolone (Solu-Medrol) 40 mg IVP Q8H [facility] Last Admin: 04/12/17 09:02 Dose: 40 mg Ondansetron HCl (Zofran Tab) 4 mg PO QID PRN PRN Reason: Nausea/Vomiting Ondansetron HCl (Zofran Inj) 4 mg IVP Q4H PRN PRN Reason: Nausea/Vomiting Pantoprazole Sodium (Protonix Inj) 40 mg IVP DAILY [facility] Last Admin: 04/12/17 09:03 Dose: 40 mg Sodium Bicarbonate (Sodium Bicarbonate Tab) 1,300 mg PO QID [facility] Last Admin: 04/12/17 10:51 Dose: 1,300 mg - Labs Labs: 04/12/17 05:50 04/12/17 05:50 PT 11.2 SECONDS (9.4-12.5) 04/07/17 13:40 INR 0.98 (0.93-1.08) 04/07/17 13:40 APTT 47.8 Seconds (25.1-36.5) H 04/07/17 13:40 - Constitutional Appears: No Acute Distress, Cachectic, Chronically Ill - ENT Exam ENT Exam: Mucous Membranes Moist - Respiratory Exam Respiratory Exam: NORMAL BREATHING PATTERN Additional comments: decreased breath sounds at R - Cardiovascular Exam Cardiovascular Exam: REGULAR RHYTHM, +S1, +S2 - GI/Abdominal Exam GI & Abdominal Exam: Soft, Normal Bowel Sounds - Extremities Exam Extremities Exam: Pedal Edema - Neurological Exam Neurological Exam: Awake Assessment and Plan - Assessment and Plan (Free Text) Assessment: 71yo female with end stage lung Ca a/w respiratory failure Respiratory Failure, intubated Lung CA, with mets Renal failure Lung whiteout/collapse Recommend: - cont with ventilatory support - antibiotics as per ID - follow up cultures - IVF hydration - monitor HH. 7.3 - BP control - follow up heme onc - awaiting family to make further decisions regarding goals of care, possible terminal extubation - GI ppx - DVT ppx - Monitor in MICU - palliative care consult
--- NOTE | 2017-04-12 14:47 | PN ---
DATE: 04/12/2017 CARDIOLOGY FOLLOWUP SUBJECTIVE: The patient remains on a ventilator and is obtunded. PHYSICAL EXAMINATION: VITAL SIGNS: Blood pressure is 99/58, heart rates in the 80s, normal sinus rhythm. NECK: Negative JVD. LUNGS: Without rales. HEART: Reveals S1, S2. EXTREMITIES: Without edema. LABORATORY DATA: Hemoglobin is 7.3, white count is 18.2. IMPRESSION: 1. Respiratory failure. 2. Renal insufficiency. 3. Lung cancer. 4. Marked anemia. 5. Obtundation. PLAN: Given these findings, the patient is currently DNR. Family is contemplating terminal extubation. Lamin Worrell MD
--- NOTE | 2017-04-12 14:50 | CP.PCM.PN ---
Subjective - Date & Time of Evaluation Date of Evaluation: 04/12/17 Time of Evaluation: 14:49 - Subjective Subjective: Follow up Nephrology Consultation: Assessment: critical oligoanuric Acute Kidney Injury (N17.9) differential include ATN due to sepsis, possible AIN due to recent antibiotics but less likely Combined respiratory and metabolic acidosis Anemia, Lung CA (SCC), Rt lung collapse hx of HTN hepatomegaly and b/l adrenal gland enlargement sepsis with shock requring pressors, pneumonia, respi failure Hyperuricemia and Hyperphosphatemia, hypomagnesemia, hypocalcemia Plan No acute need for renal replacement therapy ([employer]) at this time she is critically ill. patients with SHAR requiring ARRANGER ASSEMBLER tend to have very high mortality. has overall poor prognosis, ARRANGER ASSEMBLER may be of only very limited benefit in her case, if any. will need d/w family about pros/cons of dialysis. consider palliative care evaluation. discussion for terminal extubations ongoing No ACEI/ARB due to SHAR. maintain hemodynamics stable. Monitor Input/Output, daily weights and renal function with basic metabolic panel added phoslo and allopurinol replace electrolytes as needed. supplement Bicarb as ordered and weekly vit D Dose meds/antibiotics for reduced GFR. Avoid fleets enema/magnesium based laxatives. Avoid nephrotoxins/NSAIDs/ iodinated contrast (unless needed emergently) Glycemic control Further work up/management as per primary team Thanks for allowing me to participate in care of your patient. Will follow patient with you. Please call if any Qs. d/w ICU team. Dr Humza Barnes Office: [phone] HPI: Pt is a 71 F with hx of hypertension, lung cancer (SCC) s/p endobronchial stents, Rt lung collapse s/p radiation, ex smoker, b/l adrenal thickening, chronic hyponatremia (Na 130) presented with complaints of SOB and intubated for respi failure. renal consult for SHAR. She is also on pressors and being managed for sepsis with lung as presumed source ROS: Unable Physical Examination: General Appearance: orally intubated ill appearing Vitals reviewed and noted as below Head; Atraumatic, normocephalic ENT: intubated Neck; supple no lymphadenopathy, no thyromegaly or bruit Lungs: normal respiratory rate/effort. Breath sounds reduced at bases Heart: Increased rate. s1s2 normal. No rub or gallop. Extremities: 1-2+ edema. No varicose veins. Neurological: Patient is sedated Skin: Warm and dry. Normal turgor. No rash. Palpitation: Normal elasticity for age. has skin excoriations in legs Abdomen: Abdomen is soft. Bowel sounds +. There is no abdominal tenderness, no guarding/rigidity no organomegaly Psych: unable MSK: no joint tenderness or swelling. Digits and nails normal, no deformity : kidney or bladder not palpable. has cisneros Labs/imaging reviewed. Past medical history, past surgical history, family history, social history, allergy reviewed and noted as below Family hx: no hx of CKD. Rest non-contributory renal sono: medical renal disease Objective - Vital Signs/Intake and Output Vital Signs (last 24 hours): Temp Pulse Resp BP Pulse Ox 97.5 F L 82 25 H 102/61 100 04/12/17 14:00 04/12/17 14:00 04/12/17 08:05 04/12/17 14:00 04/12/17 14:00 Intake and Output: 04/12/17 04/12/17 06:59 18:59 Intake Total 472 660 Output Total 25 Balance 447 660 - Medications Medications: Current Medications Albuterol/Ipratropium (Duoneb 3 Mg/0.5 Mg (3 Ml) Ud) 3 ml IH Q2H PRN PRN Reason: Wheezing Albuterol/Ipratropium (Duoneb 3 Mg/0.5 Mg (3 Ml) Ud) 3 ml IH [id number] [facility] Last Admin: 04/12/17 13:24 Dose: 3 ml Allopurinol (Zyloprim) 100 mg PO DAILY [facility] Last Admin: 04/12/17 09:03 Dose: 100 mg Calcium Acetate (Phoslo) 667 mg PO TID [facility] Last Admin: 04/12/17 13:16 Dose: 667 mg Ergocalciferol (Drisdol 50,000 Intl Units Cap) 1 cap PO Q7D [facility] Last Admin: 04/08/17 12:34 Dose: 1 cap Furosemide (Lasix) 40 mg IVP DAILY [facility] Last Admin: 04/12/17 10:50 Dose: 40 mg Heparin Sodium (Porcine) (Heparin) 5,000 units SC Q8 [facility]ANNA[facility] PRN Reason: Protocol Last Admin: 04/12/17 05:23 Dose: 5,000 units NOREPINEPHRINE BIT/0.9 % NACL (Levophed 4 Mg/ 250 Ml Ns Premixed) 4 mg in 250 mls @ 15 mls/hr IV .[id number] PRN; Protocol; 4 MCG/MIN PRN Reason: TITRATE PER MD ORDER Last Titration: 04/09/17 09:36 Dose: 0 mcg/min, 0 mls/hr Midazolam 100 mg/100ml in NS (Midazolam 100 Mg/100ml In Ns) 100 mg in 100 mls @ 1 mls/hr IV .Q24H PRN; Protocol; 1 MG/HR PRN Reason: Agitation Last Titration: 04/08/17 09:39 Dose: 2 mg/hr, 2 mls/hr Meropenem 500 mg/ Sodium (Chloride) 100 mls @ 100 mls/hr IVPB Q12 [facility]ANNAH PRN Reason: Protocol Stop: 04/15/17 10:31 Last Admin: 04/12/17 09:03 Dose: 100 mls/hr Linezolid (Zyvox 600mg/300ml D5w) 600 mg in 300 mls @ 200 mls/hr IVPB Q12 [facility]ANNAH PRN Reason: Protocol Stop: 04/15/17 10:31 Last Admin: 04/12/17 09:04 Dose: 200 mls/hr Fentanyl Citrate (Fentanyl Citrate/Sodium Chloride 1 Mg/100 Ml) 1,000 mcg in 100 mls @ 2 mls/hr IV .Q24H PRN; Protocol; 20 MCG/HR PRN Reason: TITRATE PER MD ORDER Methylprednisolone (Solu-Medrol) 40 mg IVP Q8H [facility] Last Admin: 04/12/17 09:02 Dose: 40 mg Ondansetron HCl (Zofran Tab) 4 mg PO QID PRN PRN Reason: Nausea/Vomiting Ondansetron HCl (Zofran Inj) 4 mg IVP Q4H PRN PRN Reason: Nausea/Vomiting Pantoprazole Sodium (Protonix Inj) 40 mg IVP DAILY [facility] Last Admin: 04/12/17 09:03 Dose: 40 mg Sodium Bicarbonate (Sodium Bicarbonate Tab) 1,300 mg PO QID [facility] Last Admin: 04/12/17 13:16 Dose: 1,300 mg - Labs Labs: 04/12/17 05:50 04/12/17 05:50 PT 11.2 SECONDS (9.4-12.5) 04/07/17 13:40 INR 0.98 (0.93-1.08) 04/07/17 13:40 APTT 47.8 Seconds (25.1-36.5) H 04/07/17 13:40
[2017-04-12] MEDS: Fentanyl 1000mcg/100ml NS 1,000 MCG/100 ML BAG IV PRN (15:22)
[2017-04-13] MEDS: Albuterol-Ipratrop 3 mg / 0.5 (3 ml) UD IH SCH ×4 (01:30→20:26)
[2017-04-13] MEDS: MethylPREDNISolone 40 mg Vial IVP SCH ×3 (02:00→17:45)
[2017-04-13 05:23] LABS: ARTERIAL BLOOD GAS HCO3 18.6 mmol/L (21-28); ARTERIAL BLOOD GAS HEMOGLOBIN 7.6 g/dL (11.7-17.4); ARTERIAL BLOOD GAS O2 CAPACITY 10.7 mL/dl (16-24); ARTERIAL BLOOD GAS O2 CONTENT 10.7 ML/dl (15-23); ARTERIAL BLOOD GAS O2 SAT 100.2 % (95-98); ARTERIAL BLOOD GAS PCO2 25 mm/Hg (35-45); ARTERIAL BLOOD GAS PH 7.48 (7.35-7.45); ARTERIAL BLOOD GAS TCO2 19.4 mmol.L (22-28)
[2017-04-13 07:01] LABS: MEAN CELL VOLUME 81.7 fl (80.0-105.0); MEAN CORPUSCULAR HEMOGLOBIN 27.8 pg (25.0-35.0); MEAN CORPUSCULAR HGB CONC 34.1 g/dl (31.0-37.0); MEAN PLATELET VOLUME 9.8 fl (7.0-11.0); RBC 2.73 10^6/uL (3.5-6.1); RED CELL DISTRIBUTION WIDTH 18.4 % (11.5-14.5); WHITE BLOOD COUNT 19.4 10^3/ul (4.5-11.0)
[2017-04-13 07:08] LABS: HEMOGLOBIN 7.6 g/dL (12.0-16.0)
[2017-04-13 07:12] LABS: CALCIUM 6.4 mg/dL (8.4-10.5)
--- NOTE | 2017-04-13 07:21 | PN ---
DATE: 04/13/2017(610am-705am) PULMONARY NOTE SUBJECTIVE: The patient remains on the ventilator. She is much more awake and alert this morning. PHYSICAL EXAMINATION: VITAL SIGNS: Temperature is 97.2, pulse 79, respirations 25/25, blood pressure 111/66. Oxygen saturation on the ventilator is 100%. HEENT: Normocephalic, atraumatic. NECK: No JVD. CARDIOVASCULAR: Positive S1, S2. No S3 gallop. LUNGS: Decreased breath sounds at the bases. Mild rhonchi and wheezing bilaterally persists. EXTREMITIES: Mild edema. No cyanosis or clubbing. Calves are nontender to palpation. GI: Abdomen is soft, nontender and nondistended. Bowel sounds are positive. SKIN: No acute rash. NEUROLOGIC: Exam limited at the present time. PERTINENT LABORATORY DATA: Chest x-ray was done this morning and reviewed. It is not significantly changed from the previous film. Arterial blood gas was done on assist control 25, tidal volume 400, FiO2 of 35%. Results are: pH 7.48, pCO2 25, pO2 of 141. IMPRESSION: 1. Respiratory failure. 2. 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 3. Advanced chronic obstructive pulmonary disease. 4. Mild anemia. 5. Leukocytosis. Rule out pneumonia. 6. Severe acidosis - resolving. PLAN: The patient remains on the ventilator. She is much more awake and alert this morning. I did discuss the case with the night nurse at length. The night nurse stated that the patient had a fairly uneventful night. In addition, the night nurse also stated that the family may proceed with terminal extubation today. We are awaiting the final family decisions. I did review the chest x-ray as above. The chest x-ray is not significantly changed from the previous film. I have also reviewed the arterial blood gas. There is a respiratory alkalosis plus metabolic acidosis present. The alveolar-arterial gradient is decreased. On physical exam, the patient remains in [id number] bronchospasm. I will continue the current nebulizer treatments and intravenous steroids for now. The patient also remains on antibiotic therapy - as per Infectious Disease. There are no temperatures noted. Repeat a.m. labs are pending. The overall status/prognosis for this patient remains very poor. I will discuss the above with the entire ICU team in the next few moments. I will also discuss the above with Dr. Ann later this morning. Lester Bassett MD [facility]
[2017-04-13] MEDS ORDERED: Magnesium Sulfate 1 gm in D5W 1 GM/100 ML BAG IVPB ONE (08:30)
[2017-04-13] MEDS: Fentanyl 1000mcg/100ml NS 1,000 MCG/100 ML BAG IV PRN (08:38)
--- NOTE | 2017-04-13 08:45 | RAD ---
HISTORY: Follow-up. Portable study 05:16 COMPARISON: Multiple serial examinations preceding the most recent study: April 11, 2017. FINDINGS: LUNGS: Stable consolidative changes right lung. Stable consolidative changes left lower lobe. PLEURA: No significant interval change compared to the prior examination(s). CARDIOVASCULAR: No radiographic findings to suggest acute or significant cardiovascular disease. OSSEOUS STRUCTURES: No significant abnormalities. VISUALIZED UPPER ABDOMEN: Normal. OTHER FINDINGS: Stable, satisfactory position ventilatory, vascular and nasogastric apparatus. IMPRESSION: No interval change. Stable pulmonary pleural findings. Stable position of support apparatus.
[2017-04-13] MEDS: Meropenem 500 MG in Sodium Chloride 0.9% 100 ML IVPB SCH ×2 (09:19→21:27)
[2017-04-13] MEDS: Linezolid 600 mg in D5W 300 ml 600 MG/300 ML BAG IVPB SCH ×2 (09:21→21:28)
--- NOTE | 2017-04-13 10:50 | CP.PCM.PN ---
Subjective - Date & Time of Evaluation Date of Evaluation: 04/13/17 Time of Evaluation: 09:35 - Subjective Subjective: Continues to be on the ventilator, no fevers overnight. Objective - Vital Signs/Intake and Output Vital Signs (last 24 hours): Temp Pulse Resp BP Pulse Ox 97.2 F L 79 25 H 111/66 100 04/13/17 04:00 04/13/17 06:00 04/13/17 06:00 04/13/17 06:00 04/13/17 06:00 Intake and Output: 04/12/17 04/13/17 18:59 06:59 Intake Total 940 460 Output Total 30 10 Balance 910 450 - Medications Medications: Current Medications Albuterol/Ipratropium (Duoneb 3 Mg/0.5 Mg (3 Ml) Ud) 3 ml IH Q2H PRN PRN Reason: Wheezing Albuterol/Ipratropium (Duoneb 3 Mg/0.5 Mg (3 Ml) Ud) 3 ml IH [id number] [facility] Last Admin: 04/12/17 19:39 Dose: 3 ml Allopurinol (Zyloprim) 100 mg PO DAILY [facility] Last Admin: 04/12/17 09:03 Dose: 100 mg Calcium Acetate (Phoslo) 667 mg PO TID [facility] Last Admin: 04/12/17 17:01 Dose: 667 mg Ergocalciferol (Drisdol 50,000 Intl Units Cap) 1 cap PO Q7D [facility] Last Admin: 04/08/17 12:34 Dose: 1 cap Furosemide (Lasix) 40 mg IVP DAILY [facility] Last Admin: 04/12/17 10:50 Dose: 40 mg Heparin Sodium (Porcine) (Heparin) 5,000 units SC Q8 HANNAH PRN Reason: Protocol Last Admin: 04/13/17 05:55 Dose: 5,000 units NOREPINEPHRINE BIT/0.9 % NACL (Levophed 4 Mg/ 250 Ml Ns Premixed) 4 mg in 250 mls @ 15 mls/hr IV .[id number] PRN; Protocol; 4 MCG/MIN PRN Reason: TITRATE PER MD ORDER Last Titration: 04/09/17 09:36 Dose: 0 mcg/min, 0 mls/hr Midazolam 100 mg/100ml in NS (Midazolam 100 Mg/100ml In Ns) 100 mg in 100 mls @ 1 mls/hr IV .Q24H PRN; Protocol; 1 MG/HR PRN Reason: Agitation Last Titration: 04/08/17 09:39 Dose: 2 mg/hr, 2 mls/hr Meropenem 500 mg/ Sodium (Chloride) 100 mls @ 100 mls/hr IVPB Q12 [facility]ANNAH PRN Reason: Protocol Stop: 04/15/17 10:31 Last Admin: 04/12/17 22:48 Dose: 100 mls/hr Linezolid (Zyvox 600mg/300ml D5w) 600 mg in 300 mls @ 200 mls/hr IVPB Q12 [facility]ANNAH PRN Reason: Protocol Stop: 04/15/17 10:31 Last Admin: 04/12/17 21:50 Dose: 200 mls/hr Fentanyl Citrate (Fentanyl Citrate/Sodium Chloride 1 Mg/100 Ml) 1,000 mcg in 100 mls @ 2 mls/hr IV .Q24H PRN; Protocol; 20 MCG/HR PRN Reason: TITRATE PER MD ORDER Last Admin: 04/12/17 15:22 Dose: 50 mcg/hr, 5 mls/hr Methylprednisolone (Solu-Medrol) 40 mg IVP Q8H [facility] Last Admin: 04/13/17 02:00 Dose: 40 mg Ondansetron HCl (Zofran Tab) 4 mg PO QID PRN PRN Reason: Nausea/Vomiting Ondansetron HCl (Zofran Inj) 4 mg IVP Q4H PRN PRN Reason: Nausea/Vomiting Pantoprazole Sodium (Protonix Inj) 40 mg IVP DAILY [facility] Last Admin: 04/12/17 09:03 Dose: 40 mg Sodium Bicarbonate (Sodium Bicarbonate Tab) 1,300 mg PO QID [facility] Last Admin: 04/12/17 21:50 Dose: 1,300 mg - Labs Labs: 04/12/17 05:50 04/12/17 05:50 PT 11.2 SECONDS (9.4-12.5) 04/07/17 13:40 INR 0.98 (0.93-1.08) 04/07/17 13:40 APTT 47.8 Seconds (25.1-36.5) H 04/07/17 13:40 - Constitutional Appears: Other (intubated) - Head Exam Head Exam: NORMAL INSPECTION - ENT Exam Additional comments: ET tube in place - Respiratory Exam Respiratory Exam: Decreased Breath Sounds - Cardiovascular Exam Cardiovascular Exam: +S1, +S2 - GI/Abdominal Exam GI & Abdominal Exam: Soft. absent: Tenderness Assessment and Plan - Assessment and Plan (Free Text) Plan: Assessment Systemic inflammatory response syndrome, consider severe sepsis with ventilator- dependent hypoxic respiratory failure due to lower lobe HCAP on top of right lung CA with chronic consolidation on the right base recent history of persistent MRSA bacteremia 2016 (unable to rule out endocarditis at that time) HTN hypothyroidism COPD chronic CHF CAD S/P bowel surgery due to perforation S/P total thyroidectomy squamous cell lung cancer S/P right bronchial stent placement S/P chemotherapy and radation therapy Plan Gave a dose of IV Daptomycin - blood cx are negative; continue Zyvox and Merrem day 6; PCT is low but patient has evidence of pneumonia; patient came in with PICC line from the [facility]; target up to 7 days of antibiotics overall prognosis is poor
--- NOTE | 2017-04-13 11:57 | CP.PCM.PN ---
Subjective - Date & Time of Evaluation Date of Evaluation: 04/13/17 Time of Evaluation: 07:40 - Subjective Subjective: Pt seen and examined, remains intubated, awaiting family for terminal extubation. Objective - Vital Signs/Intake and Output Vital Signs (last 24 hours): Temp Pulse Resp BP Pulse Ox 96.6 F L 81 27 H 86/37 L 98 04/13/17 10:00 04/13/17 10:00 04/13/17 07:32 04/13/17 10:00 04/13/17 10:00 Intake and Output: 04/13/17 04/13/17 06:59 18:59 Intake Total 460 700 Output Total 10 Balance 450 700 - Medications Medications: Current Medications Albuterol/Ipratropium (Duoneb 3 Mg/0.5 Mg (3 Ml) Ud) 3 ml IH Q2H PRN PRN Reason: Wheezing Albuterol/Ipratropium (Duoneb 3 Mg/0.5 Mg (3 Ml) Ud) 3 ml IH [id number] Last Admin: 04/13/17 07:32 Dose: 3 ml Allopurinol (Zyloprim) 100 mg PO DAILY [facility] Last Admin: 04/13/17 09:20 Dose: 100 mg Calcium Acetate (Phoslo) 667 mg PO TID [facility] Last Admin: 04/13/17 09:19 Dose: 667 mg Ergocalciferol (Drisdol 50,000 Intl Units Cap) 1 cap PO Q7D [facility] Last Admin: 04/08/17 12:34 Dose: 1 cap Furosemide (Lasix) 40 mg IVP DAILY [facility] Last Admin: 04/13/17 09:18 Dose: 40 mg Heparin Sodium (Porcine) (Heparin) 5,000 units SC Q8 [facility]ANNAH PRN Reason: Protocol Last Admin: 04/13/17 05:55 Dose: 5,000 units NOREPINEPHRINE BIT/0.9 % NACL (Levophed 4 Mg/ 250 Ml Ns Premixed) 4 mg in 250 mls @ 15 mls/hr IV .[id number] PRN; Protocol; 4 MCG/MIN PRN Reason: TITRATE PER MD ORDER Last Titration: 04/09/17 09:36 Dose: 0 mcg/min, 0 mls/hr Midazolam 100 mg/100ml in NS (Midazolam 100 Mg/100ml In Ns) 100 mg in 100 mls @ 1 mls/hr IV .Q24H PRN; Protocol; 1 MG/HR PRN Reason: Agitation Last Titration: 04/08/17 09:39 Dose: 2 mg/hr, 2 mls/hr Meropenem 500 mg/ Sodium (Chloride) 100 mls @ 100 mls/hr IVPB Q12 HANNAH PRN Reason: Protocol Stop: 04/15/17 10:31 Last Admin: 04/13/17 09:19 Dose: 100 mls/hr Linezolid (Zyvox 600mg/300ml D5w) 600 mg in 300 mls @ 200 mls/hr IVPB Q12 [facility]ANNAH PRN Reason: Protocol Stop: 04/15/17 10:31 Last Admin: 04/13/17 09:21 Dose: 200 mls/hr Fentanyl Citrate (Fentanyl Citrate/Sodium Chloride 1 Mg/100 Ml) 1,000 mcg in 100 mls @ 2 mls/hr IV .Q24H PRN; Protocol; 20 MCG/HR PRN Reason: TITRATE PER MD ORDER Last Admin: 04/13/17 08:38 Dose: 50 mcg/hr, 5 mls/hr Methylprednisolone (Solu-Medrol) 40 mg IVP Q8H [facility] Last Admin: 04/13/17 09:20 Dose: 40 mg Ondansetron HCl (Zofran Tab) 4 mg PO QID PRN PRN Reason: Nausea/Vomiting Ondansetron HCl (Zofran Inj) 4 mg IVP Q4H PRN PRN Reason: Nausea/Vomiting Pantoprazole Sodium (Protonix Inj) 40 mg IVP DAILY [facility] Last Admin: 04/13/17 09:19 Dose: 40 mg Sodium Bicarbonate (Sodium Bicarbonate Tab) 1,300 mg PO QID [facility] Last Admin: 04/13/17 09:20 Dose: 1,300 mg - Labs Labs: 04/13/17 06:35 04/13/17 06:35 PT 11.2 SECONDS (9.4-12.5) 04/07/17 13:40 INR 0.98 (0.93-1.08) 04/07/17 13:40 APTT 47.8 Seconds (25.1-36.5) H 04/07/17 13:40 - Constitutional Appears: No Acute Distress - ENT Exam ENT Exam: Mucous Membranes Moist - Respiratory Exam Respiratory Exam: NORMAL BREATHING PATTERN Additional comments: decreased breath sounds on right - Cardiovascular Exam Cardiovascular Exam: REGULAR RHYTHM, +S1, +S2 - GI/Abdominal Exam GI & Abdominal Exam: Soft, Normal Bowel Sounds - Extremities Exam Extremities Exam: Normal Inspection Assessment and Plan - Assessment and Plan (Free Text) Assessment: 11yo female with end stage lung Ca a/w respiratory failure Respiratory Failure, intubated Lung CA, with mets Renal failure Lung whiteout/collapse Recommend: - cont with ventilatory support - antibiotics as per ID - follow up cultures - IVF hydration - BP control - follow up heme onc - awaiting family to make for terminal extubation today - GI ppx - DVT ppx - Monitor in MICU - palliative care consult
--- NOTE | 2017-04-13 12:49 | PN ---
DATE: SUBJECTIVE: I saw Laverne in the Intensive Care Unit. She is still on the ventilator. I had discussion with family yesterday about her lung cancer and terminally extubating her today and see how she does. She might have to go home on hospices or stay in the hospital on hospice, but they want her off the ventilator. MEDICATIONS: She is on calcium replacement, Drisdol, DuoNeb, Fentanyl, heparin, Lasix, Levophed, magnesium, Merrem IV, midazolam, PhosLo, Protonix, sodium bicarbonate, Zofran, Zyloprim, and Zyvox. PHYSICAL EXAMINATION VITAL SIGNS: She has a 96.8 temperature, 85 pulse, 91/63 blood pressure, and 100% O2 sat on the mechanical ventilator. HEENT: Atraumatic and normocephalic. HEART: Regular rate. LUNGS: On the right side, no airway movement. Lungs fairly clear. ABDOMEN: Soft. EXTREMITIES: Puffy, +1/4 pitting edema. LABORATORY DATA: She has a 90.4 white count, 7.6 hemoglobin and 22.3 hematocrit with a 161 platelets. I would have transfused, but we are going to terminally extubate her today. Sodium is 133, potassium is 4.4, BUN is 73, and creatinine is 6, she should be on dialysis. Calcium is being replaced and it was 6.4. ASSESSMENT AND PLAN: We will see how she does today. She is here for severe cancer, end-stage lung cancer, respiratory failure, severe sepsis, anemia, hypertension, chronic obstructive pulmonary disease, and congestive heart failure. We will see how she does. She might need to go to hospice. Bennie Ann DO
--- NOTE | 2017-04-13 13:06 | CP.PCM.PN ---
Subjective - Date & Time of Evaluation Date of Evaluation: 04/13/17 Time of Evaluation: 13:03 - Subjective Subjective: Family; two sons and daughter in law arrived at bedside at 1300. Discussed with family about terminal extubation. Family has agreed to terminally extubate today. Explained if patient is unable to support own breathing or airway, will not place breathing tube back in. Dr. Tarango at bedside Objective - Vital Signs/Intake and Output Vital Signs (last 24 hours): Temp Pulse Resp BP Pulse Ox 96.6 F L 81 27 H 86/37 L 98 04/13/17 10:00 04/13/17 10:00 04/13/17 07:32 04/13/17 10:00 04/13/17 10:00 Intake and Output: 04/13/17 04/13/17 06:59 18:59 Intake Total 460 700 Output Total 10 Balance 450 700 - Medications Medications: Current Medications Albuterol/Ipratropium (Duoneb 3 Mg/0.5 Mg (3 Ml) Ud) 3 ml IH Q2H PRN PRN Reason: Wheezing Albuterol/Ipratropium (Duoneb 3 Mg/0.5 Mg (3 Ml) Ud) 3 ml IH [id number] [facility] Last Admin: 04/13/17 07:32 Dose: 3 ml Allopurinol (Zyloprim) 100 mg PO DAILY [facility] Last Admin: 04/13/17 09:20 Dose: 100 mg Calcium Acetate (Phoslo) 667 mg PO TID [facility] Last Admin: 04/13/17 09:19 Dose: 667 mg Ergocalciferol (Drisdol 50,000 Intl Units Cap) 1 cap PO Q7D [facility] Last Admin: 04/08/17 12:34 Dose: 1 cap Furosemide (Lasix) 40 mg IVP DAILY [facility] Last Admin: 04/13/17 09:18 Dose: 40 mg Heparin Sodium (Porcine) (Heparin) 5,000 units SC Q8 [facility] PRN Reason: Protocol Last Admin: 04/13/17 05:55 Dose: 5,000 units NOREPINEPHRINE BIT/0.9 % NACL (Levophed 4 Mg/ 250 Ml Ns Premixed) 4 mg in 250 mls @ 15 mls/hr IV .[id number] PRN; Protocol; 4 MCG/MIN PRN Reason: TITRATE PER MD ORDER Last Titration: 04/09/17 09:36 Dose: 0 mcg/min, 0 mls/hr Midazolam 100 mg/100ml in NS (Midazolam 100 Mg/100ml In Ns) 100 mg in 100 mls @ 1 mls/hr IV .Q24H PRN; Protocol; 1 MG/HR PRN Reason: Agitation Last Titration: 04/08/17 09:39 Dose: 2 mg/hr, 2 mls/hr Meropenem 500 mg/ Sodium (Chloride) 100 mls @ 100 mls/hr IVPB Q12 [facility] PRN Reason: Protocol Stop: 04/15/17 10:31 Last Admin: 04/13/17 09:19 Dose: 100 mls/hr Linezolid (Zyvox 600mg/300ml D5w) 600 mg in 300 mls @ 200 mls/hr IVPB Q12 [facility] PRN Reason: Protocol Stop: 04/15/17 10:31 Last Admin: 04/13/17 09:21 Dose: 200 mls/hr Fentanyl Citrate (Fentanyl Citrate/Sodium Chloride 1 Mg/100 Ml) 1,000 mcg in 100 mls @ 2 mls/hr IV .Q24H PRN; Protocol; 20 MCG/HR PRN Reason: TITRATE PER MD ORDER Last Admin: 04/13/17 08:38 Dose: 50 mcg/hr, 5 mls/hr Methylprednisolone (Solu-Medrol) 40 mg IVP Q8H [facility] Last Admin: 04/13/17 09:20 Dose: 40 mg Ondansetron HCl (Zofran Tab) 4 mg PO QID PRN PRN Reason: Nausea/Vomiting Ondansetron HCl (Zofran Inj) 4 mg IVP Q4H PRN PRN Reason: Nausea/Vomiting Pantoprazole Sodium (Protonix Inj) 40 mg IVP DAILY [facility] Last Admin: 04/13/17 09:19 Dose: 40 mg Sodium Bicarbonate (Sodium Bicarbonate Tab) 1,300 mg PO BID [facility] - Labs Labs: 04/13/17 06:35 04/13/17 06:35 PT 11.2 SECONDS (9.4-12.5) 04/07/17 13:40 INR 0.98 (0.93-1.08) 04/07/17 13:40 APTT 47.8 Seconds (25.1-36.5) H 04/07/17 13:40
[2017-04-13] MEDS: Morphine 4 mg/ml ISec IVP PRN ×4 (13:25→23:09)
--- NOTE | 2017-04-13 16:11 | CP.PCM.PN ---
Subjective - Date & Time of Evaluation Date of Evaluation: 04/13/17 Time of Evaluation: 16:08 - Subjective Subjective: Follow up Nephrology Consultation: Assessment: critical, terminally ill. oligoanuric Acute Kidney Injury (N17.9) differential include ATN due to sepsis, possible AIN due to recent antibiotics but less likely Combined respiratory and metabolic acidosis Anemia, Lung CA (SCC), Rt lung collapse hx of HTN hepatomegaly and b/l adrenal gland enlargement sepsis with shock requring pressors, pneumonia, respi failure Hyperuricemia and Hyperphosphatemia, hypomagnesemia, hypocalcemia Plan pt terminally extubated today she is for comfort measures d/w family bedside. also discussed current renal function, they had decided for comfort measures only. hospice, palliative care measures Thanks for allowing me to participate in care of your patient. Will sign off. Please call if any Qs. d/w ICU team. Dr Humza Barnes Office: [phone] HPI: Pt is a 71 F with hx of hypertension, lung cancer (SCC) s/p endobronchial stents, Rt lung collapse s/p radiation, ex smoker, b/l adrenal thickening, chronic hyponatremia (Na 130) presented with complaints of SOB and intubated for respi failure. renal consult for SHAR. She is also on pressors and being managed for sepsis with lung as presumed source ROS: terminally extubated today Physical Examination: General Appearance: ill appearing Vitals reviewed and noted as below Head; Atraumatic, normocephalic ENT: intubated Neck; supple no lymphadenopathy, no thyromegaly or bruit Lungs: increased respiratory rate/effort. Breath sounds reduced at bases Heart: Increased rate. s1s2 normal. No rub or gallop. Extremities: 1-2+ edema. No varicose veins. Neurological: Patient is awake Skin: Warm and dry. Normal turgor. No rash. Palpitation: Normal elasticity for age. has skin excoriations in legs Abdomen: Abdomen is soft. Bowel sounds +. There is no abdominal tenderness, no guarding/rigidity no organomegaly Psych: unable MSK: no joint tenderness or swelling. Digits and nails normal, no deformity : kidney or bladder not palpable. has cisneros Labs/imaging reviewed. Past medical history, past surgical history, family history, social history, allergy reviewed and noted as below Family hx: no hx of CKD. Rest non-contributory renal sono: medical renal disease Objective - Vital Signs/Intake and Output Vital Signs (last 24 hours): Temp Pulse Resp BP Pulse Ox 96.3 F L 86 12 113/55 L 86 L 04/13/17 15:46 04/13/17 15:46 04/13/17 15:46 04/13/17 15:00 04/13/17 15:33 Intake and Output: 04/13/17 04/13/17 06:59 18:59 Intake Total 460 715 Output Total 10 Balance 450 715 - Medications Medications: Current Medications Albuterol/Ipratropium (Duoneb 3 Mg/0.5 Mg (3 Ml) Ud) 3 ml IH Q2H PRN PRN Reason: Wheezing Albuterol/Ipratropium (Duoneb 3 Mg/0.5 Mg (3 Ml) Ud) 3 ml IH [id number] [facility] Last Admin: 04/13/17 13:14 Dose: 3 ml Allopurinol (Zyloprim) 100 mg PO DAILY [facility] Last Admin: 04/13/17 09:20 Dose: 100 mg Calcium Acetate (Phoslo) 667 mg PO TID [facility] Last Admin: 04/13/17 13:41 Dose: Not Given Ergocalciferol (Drisdol 50,000 Intl Units Cap) 1 cap PO Q7D [facility] Last Admin: 04/08/17 12:34 Dose: 1 cap Furosemide (Lasix) 40 mg IVP DAILY [facility] Last Admin: 04/13/17 09:18 Dose: 40 mg Heparin Sodium (Porcine) (Heparin) 5,000 units SC Q8 [facility] PRN Reason: Protocol Last Admin: 04/13/17 05:55 Dose: 5,000 units NOREPINEPHRINE BIT/0.9 % NACL (Levophed 4 Mg/ 250 Ml Ns Premixed) 4 mg in 250 mls @ 15 mls/hr IV .[id number] PRN; Protocol; 4 MCG/MIN PRN Reason: TITRATE PER MD ORDER Last Titration: 04/09/17 09:36 Dose: 0 mcg/min, 0 mls/hr Midazolam 100 mg/100ml in NS (Midazolam 100 Mg/100ml In Ns) 100 mg in 100 mls @ 1 mls/hr IV .Q24H PRN; Protocol; 1 MG/HR PRN Reason: Agitation Last Titration: 04/08/17 09:39 Dose: 2 mg/hr, 2 mls/hr Meropenem 500 mg/ Sodium (Chloride) 100 mls @ 100 mls/hr IVPB Q12 [facility] PRN Reason: Protocol Stop: 04/15/17 10:31 Last Admin: 04/13/17 09:19 Dose: 100 mls/hr Linezolid (Zyvox 600mg/300ml D5w) 600 mg in 300 mls @ 200 mls/hr IVPB Q12 [facility] PRN Reason: Protocol Stop: 04/15/17 10:31 Last Admin: 04/13/17 09:21 Dose: 200 mls/hr Fentanyl Citrate (Fentanyl Citrate/Sodium Chloride 1 Mg/100 Ml) 1,000 mcg in 100 mls @ 2 mls/hr IV .Q24H PRN; Protocol; 20 MCG/HR PRN Reason: TITRATE PER MD ORDER Last Titration: 04/13/17 13:15 Dose: 0 mcg/hr, 0 mls/hr Methylprednisolone (Solu-Medrol) 40 mg IVP Q8H [facility] Last Admin: 04/13/17 09:20 Dose: 40 mg Morphine Sulfate (Morphine) 4 mg IVP Q2 PRN PRN Reason: Pain, moderate (4-7) Last Admin: 04/13/17 13:25 Dose: 4 mg Ondansetron HCl (Zofran Tab) 4 mg PO QID PRN PRN Reason: Nausea/Vomiting Ondansetron HCl (Zofran Inj) 4 mg IVP Q4H PRN PRN Reason: Nausea/Vomiting Pantoprazole Sodium (Protonix Inj) 40 mg IVP DAILY [facility] Last Admin: 04/13/17 09:19 Dose: 40 mg Sodium Bicarbonate (Sodium Bicarbonate Tab) 1,300 mg PO BID [facility] - Labs Labs: 04/13/17 06:35 04/13/17 06:35 PT 11.2 SECONDS (9.4-12.5) 04/07/17 13:40 INR 0.98 (0.93-1.08) 04/07/17 13:40 APTT 47.8 Seconds (25.1-36.5) H 04/07/17 13:40
--- NOTE | 2017-04-13 21:15 | OP ---
PROCEDURE DATE: 04/13/2017 CARDIOLOGY FOLLOWUP SUBJECTIVE: The patient remains obtunded. PHYSICAL EXAMINATION: VITAL SIGNS: Blood pressure is 107/62, the heart rate is in the 80s. NECK: Negative JVD. LUNGS: Without decreased breath sounds. HEART: S1 and S2. EXTREMITIES: Without edema. LABORATORY DATA: Hemoglobin is 7.6. BUN and creatinine is 73 and 6.0. IMPRESSION: 1. Respiratory failure. 2. Lung carcinoma. 3. Renal insufficiency. 4. Marked anemia. Given these findings, the patient is a DNR. The patient is scheduled for terminal extubation today. Lamin Worrell MD
[2017-04-14] MEDS: Morphine 4 mg/ml ISec IVP PRN ×4 (01:23→12:03)
[2017-04-14] MEDS: MethylPREDNISolone 40 mg Vial IVP SCH ×2 (01:29→09:40)
[2017-04-14] MEDS: Albuterol-Ipratrop 3 mg / 0.5 (3 ml) UD IH SCH ×4 (02:33→13:29)
--- NOTE | 2017-04-14 09:20 | RAD ---
HISTORY: f/u COMPARISON: 04/13/2017 FINDINGS: LUNGS: Chronic consolidation in the right lung. Increasing vascular congestion and infiltrate in the left lung. PLEURA: No significant pleural effusion identified, no pneumothorax apparent. CARDIOVASCULAR: Normal. OSSEOUS STRUCTURES: No significant abnormalities. VISUALIZED UPPER ABDOMEN: Normal. OTHER FINDINGS: None. IMPRESSION: Chronic consolidation in the right lung. Increasing vascular congestion and infiltrate in the left lung.
[2017-04-14] MEDS: Linezolid 600 mg in D5W 300 ml 600 MG/300 ML BAG IVPB SCH (09:48)
[2017-04-14] MEDS: Meropenem 500 MG in Sodium Chloride 0.9% 100 ML IVPB SCH (09:49)
--- NOTE | 2017-04-14 10:23 | CP.PCM.PN ---
Subjective - Date & Time of Evaluation Date of Evaluation: 04/14/17 Time of Evaluation: 10:00 - Subjective Subjective: Patient has been terminally extubated, no fevers overnight. Objective - Vital Signs/Intake and Output Vital Signs (last 24 hours): Temp Pulse Resp BP Pulse Ox 94.8 F L 80 7 L 113/60 98 04/14/17 02:57 04/14/17 02:57 04/14/17 02:57 04/13/17 18:00 04/13/17 18:00 Intake and Output: 04/13/17 04/14/17 18:59 06:59 Intake Total 745 Balance 745 - Medications Medications: Current Medications Albuterol/Ipratropium (Duoneb 3 Mg/0.5 Mg (3 Ml) Ud) 3 ml IH Q2H PRN PRN Reason: Wheezing Albuterol/Ipratropium (Duoneb 3 Mg/0.5 Mg (3 Ml) Ud) 3 ml IH [id number] [facility] Last Admin: 04/14/17 05:33 Dose: 3 ml Allopurinol (Zyloprim) 100 mg PO DAILY [facility] Last Admin: 04/13/17 09:20 Dose: 100 mg Calcium Acetate (Phoslo) 667 mg PO TID [facility] Last Admin: 04/13/17 17:24 Dose: Not Given Ergocalciferol (Drisdol 50,000 Intl Units Cap) 1 cap PO Q7D [facility] Last Admin: 04/08/17 12:34 Dose: 1 cap Furosemide (Lasix) 40 mg IVP DAILY [facility] Last Admin: 04/13/17 09:18 Dose: 40 mg Heparin Sodium (Porcine) (Heparin) 5,000 units SC Q8 [facility] PRN Reason: Protocol Last Admin: 04/14/17 05:47 Dose: 5,000 units NOREPINEPHRINE BIT/0.9 % NACL (Levophed 4 Mg/ 250 Ml Ns Premixed) 4 mg in 250 mls @ 15 mls/hr IV .[id number] PRN; Protocol; 4 MCG/MIN PRN Reason: TITRATE PER MD ORDER Last Titration: 04/09/17 09:36 Dose: 0 mcg/min, 0 mls/hr Midazolam 100 mg/100ml in NS (Midazolam 100 Mg/100ml In Ns) 100 mg in 100 mls @ 1 mls/hr IV .Q24H PRN; Protocol; 1 MG/HR PRN Reason: Agitation Last Titration: 04/08/17 09:39 Dose: 2 mg/hr, 2 mls/hr Meropenem 500 mg/ Sodium (Chloride) 100 mls @ 100 mls/hr IVPB Q12 [facility] PRN Reason: Protocol Stop: 04/15/17 10:31 Last Admin: 04/13/17 21:27 Dose: 100 mls/hr Linezolid (Zyvox 600mg/300ml D5w) 600 mg in 300 mls @ 200 mls/hr IVPB Q12 [facility] PRN Reason: Protocol Stop: 04/15/17 10:31 Last Admin: 04/13/17 21:28 Dose: 200 mls/hr Fentanyl Citrate (Fentanyl Citrate/Sodium Chloride 1 Mg/100 Ml) 1,000 mcg in 100 mls @ 2 mls/hr IV .Q24H PRN; Protocol; 20 MCG/HR PRN Reason: TITRATE PER MD ORDER Last Titration: 04/13/17 13:15 Dose: 0 mcg/hr, 0 mls/hr Methylprednisolone (Solu-Medrol) 40 mg IVP Q8H [facility] Last Admin: 04/14/17 01:29 Dose: 40 mg Morphine Sulfate (Morphine) 4 mg IVP Q2 PRN PRN Reason: Pain, moderate (4-7) Last Admin: 04/14/17 04:24 Dose: 4 mg Ondansetron HCl (Zofran Inj) 4 mg IVP Q4H PRN PRN Reason: Nausea/Vomiting Pantoprazole Sodium (Protonix Inj) 40 mg IVP DAILY [facility] Last Admin: 04/13/17 09:19 Dose: 40 mg Sodium Bicarbonate (Sodium Bicarbonate Tab) 1,300 mg PO BID [facility] Last Admin: 04/13/17 17:24 Dose: Not Given - Labs Labs: 04/13/17 06:35 04/13/17 06:35 PT 11.2 SECONDS (9.4-12.5) 04/07/17 13:40 INR 0.98 (0.93-1.08) 04/07/17 13:40 APTT 47.8 Seconds (25.1-36.5) H 04/07/17 13:40 - Constitutional Appears: Chronically Ill - Head Exam Head Exam: NORMAL INSPECTION - Neck Exam Neck Exam: absent: Meningismus - Respiratory Exam Respiratory Exam: Decreased Breath Sounds - Cardiovascular Exam Cardiovascular Exam: +S1, +S2 - GI/Abdominal Exam GI & Abdominal Exam: Soft. absent: Tenderness Assessment and Plan - Assessment and Plan (Free Text) Plan: Assessment Systemic inflammatory response syndrome, consider severe sepsis S/P ventilator- dependent hypoxic respiratory failure (after terminal extubation due to lower lobe HCAP on top of right lung CA with chronic consolidation on the right base recent history of persistent MRSA bacteremia 2016 (unable to rule out endocarditis at that time) HTN hypothyroidism COPD chronic CHF CAD S/P bowel surgery due to perforation S/P total thyroidectomy squamous cell lung cancer S/P right bronchial stent placement S/P chemotherapy and radation therapy Plan Gave a dose of IV Daptomycin - blood cx are negative; continue Zyvox and Merrem day 7; PCT is low but patient has evidence of pneumonia; patient came in with PICC line from the skilled nursing; target up to 7 days of antibiotics overall prognosis is poor
--- NOTE | 2017-04-14 11:09 | PN ---
DATE: 04/14/2017 SUBJECTIVE: The patient appears lethargic this morning. She is arousable. She appears extremely weak and frail. PHYSICAL EXAMINATION: VITAL SIGNS: Last temperature recorded is 94.8, pulse on the monitor is 88, respiratory rate 14/16, last blood pressure recorded is 113/60. Oxygen saturation on nasal cannula is 94%. HEENT: Normocephalic, atraumatic. No JVD. CARDIOVASCULAR: Positive S1, S2. No S3 gallop. LUNGS: Decreased breath sounds at the bases. Mild rhonchi and wheezing bilaterally persist. EXTREMITIES: Mild edema. No cyanosis. No clubbing. Calves are nontender to palpation. GI: Abdomen is soft, nontender, and nondistended. Bowel sounds are positive. SKIN: No acute rash. NEUROLOGIC: Limited to present time. PERTINENT LABORATORY DATA: Chest x-ray was done this morning and reviewed. There is no significant change from the previous film. IMPRESSION: 1. Respiratory failure. 2. 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 3. Advanced chronic obstructive pulmonary disease. 4. Mild anemia. 5. Leukocytosis. Rule out pneumonia. 6. Severe acidosis - resolving. PLAN: The patient is now extubated. She is lethargic, but arousable. She remains extremely weak and frail-appearing. I did discuss the case with the night nurse at length. The night nurse informed me that the patient/family requested terminal extubation yesterday. I did review the chest x-ray as above. The chest x-ray is not significantly changed from the previous film. On physical exam, the patient remains in bronchospasm. I will continue the current nebulizer treatments and intravenous steroids for now. The patient also remains on antibiotic therapy - as per Infectious Disease. Inputs by Renal, Cardiology, and Infectious Disease are also noted. Clinical status of the patient remains very poor. All are aware. I will discuss the above with the entire ICU team in the next few moments. I will also discuss the above with Dr. Ann later this morning. Lester Bassett MD [facility]
--- NOTE | 2017-04-14 14:45 | PN ---
DATE: SUBJECTIVE: I saw Laverne in the Intensive Care Unit. She was terminally extubated yesterday. She is still with us today. She is alert, talking, very short of breath on nasal cannula. She is on Drisdol, DuoNeb, heparin, Lasix, Merrem IV, morphine, PhosLo, Protonix, sodium bicarb, IV Solu-Medrol, Zofran, Zyloprim and Zyvox IV. She is a DNR/DNI. She has end-stage lung cancer with severe lung disease. PHYSICAL EXAMINATION: VITAL SIGNS: She has a 94.8 temperature, 80 pulse, 104/58 blood pressure. Her breathing is 24. HEENT: Head is atraumatic, normocephalic. She is extremely puffy all over. She is alert, talking a little bit, in and out of it mentally. HEART: Regular rate. LUNGS: Decreased breath sounds bilaterally. ABDOMEN: Soft. EXTREMITIES: +1/4 pitting edema. LABORATORY DATA: She has a 19.4 white count, 7.6 hemoglobin, 22.3 hematocrit with 161 platelets. 133 sodium, potassium 4.4, BUN 73, creatinine is 6. She is heading towards renal failure. I do not feel they want anything to be done. Her calcium is low. I will replace her calcium. Her AST is 25, ALT is 20, alk phos is 233. ASSESSMENT AND PLAN: I think we are heading towards hospice. She is not doing well at all. She has so many issues going on besides the extensive lung cancer, systemic inflammatory response syndrome, respiratory failure, history of MRSA bacteremia, hypertension, hypothyroid, COPD, CHF. Continue with aggressive IV antibiotics. Check her labs tomorrow. Discussed with family multiple times about her condition. Family changes the mind and wants to go hospice group. Bennie Ann DO
[2017-04-14] MEDS ORDERED: Morphine PCA 1 mg/ml (25ml) 25 ML IV PRN (15:14)
--- NOTE | 2017-04-14 15:52 | CP.PCM.CON ---
History of Present Illness - History of Present Illness History of Present Illness: Palliative consult requested by Dr Valentino Ann Reason: Goals of care/comfort care 71 year old female with history of metastatic lung cancer, HTN who was presented with shortness of breath and sepsis. She is admitted with sepsis, hypernatremia, pneumonia,SHAR, respiratory failure. She is s/p terminal extubation. PMHx: Metastatic lung cancer,HTN,COPD,dementia. Social History: Former smoker, no alcohol or drug use. . Family History: Non contributory. Advance Care Planning: The patient did not have an Advanced Directive. She is now DNR/DNI as per family request. Review of Systems: As per HPI, the patient is obtunded/non verbal. Past Patient History - Infectious Disease Hx of Infectious Diseases: None - Past Medical History & Family History Past Medical History?: Yes - Past Social History Smoking Status: Former Smoker - CARDIAC Hx Congestive Heart Failure: Yes - PULMONARY Hx Chronic Obstructive Pulmonary Disease (COPD): Yes - NEUROLOGICAL Hx Neurological Disorder: Yes - HEENT Hx HEENT Problems: No - RENAL Hx Chronic Kidney Disease: No - ENDOCRINE/METABOLIC Hx Endocrine Disorders: No - HEMATOLOGICAL/ONCOLOGICAL Hx Cancer: Yes (lung) - INTEGUMENTARY Hx Dermatological Problems: No - MUSCULOSKELETAL/RHEUMATOLOGICAL Hx Musculoskeletal Disorders: No Hx Falls: No - GASTROINTESTINAL Hx Gastrointestinal Disorders: No - GENITOURINARY/GYNECOLOGICAL Hx Genitourinary Disorders: No - PSYCHIATRIC Hx Psychophysiologic Disorder: No Hx Substance Use: No - SURGICAL HISTORY Hx Mastectomy: No - ANESTHESIA Hx Anesthesia: Yes Hx Anesthesia Reactions: No Hx Malignant Hyperthermia: No Meds Allergies/Adverse Reactions: Allergies Allergy/AdvReac Type Severity Reaction Status Date / Time No Known Allergies Allergy Verified 03/14/17 15:29 - Medications Medications: Current Medications Acetaminophen (Tylenol 650 Mg Supp) 650 mg RC Q4H PRN PRN Reason: Fever >100.4 F Albuterol/Ipratropium (Duoneb 3 Mg/0.5 Mg (3 Ml) Ud) 3 ml IH Q2H PRN PRN Reason: Wheezing Morphine Sulfate (Morphine [employer] 1 Mg/Ml) 25 mls @ 2 mls/hr IV PRN PRN; Protocol ; 2 MG/HR PRN Reason: DAY HABILITATION SPECIALIST PER MD ORDER Morphine Sulfate (Morphine) 4 mg IVP Q2 PRN PRN Reason: Pain, moderate (4-7) Last Admin: 04/14/17 12:03 Dose: 4 mg Ondansetron HCl (Zofran Inj) 4 mg IVP Q4H PRN PRN Reason: Nausea/Vomiting Physical Exam - Constitutional Appears: Cachectic, Chronically Ill - Eye Exam Eye Exam: Normal appearance, PERRL - ENT Exam ENT Exam: Mucous Membranes Dry - Neck Exam Neck exam: Positive for: Normal Inspection - Respiratory Exam Respiratory Exam: Decreased Breath Sounds - Cardiovascular Exam Cardiovascular Exam: Tachycardia, +S1, +S2 - GI/Abdominal Exam GI & Abdominal Exam: Diminished Bowel Sounds, Soft - Extremities Exam Extremities exam: Positive for: normal capillary refill, pedal pulses present - Skin Skin Exam: Dry, Pallor - Additional Findings Additional findings: Palliative performance scale rating 20% Results - Vital Signs Recent Vital Signs: Last Vital Signs Temp 94.8 F L 04/14/17 06:59 Pulse 78 04/14/17 12:00 Resp 8 L 04/14/17 12:00 BP 108/63 04/14/17 12:00 Pulse Ox 96 04/14/17 12:00 - Labs Result Diagrams: 04/13/17 06:35 04/13/17 06:35 Assessment & Plan - Assessment and Plan (Free Text) Assessment: 71 year old female with history of advanced lung cancer,COPD and dementia who was admitted with sepsis, metabolic acidosis, SHAR, respiratory failure. She is s /p terminal extubation. Patients son at bedside. Son aware that his mother is nearing end of life. Comfort care measures discussed. Son is agreeable to discontinuing all laboratory/radiographic testing. Son agreeable to discontinuing IVF, antibiotics and oral medications. Son does want symptom management /comfort care only. Son aware that patient will receive Morphine continuous IV infusion for management of pain and dyspnea. Psychosocial support and end of life counseling given. Spiritual support declined at this time. Time spent in goals of care discussion and end of life counseling, 30 minutes Plan: End of life counseling Palliative support for family
[2017-04-15] MEDS: Morphine PCA 1 mg/ml (25ml) 25 ML IV PRN ×2 (02:51→16:28)
--- NOTE | 2017-04-15 09:39 | PN ---
DATE: 04/15/2017 PULMONARY NOTE SUBJECTIVE: The patient is very lethargic at this point in time. She is mildly short of breath and taking very shallow tidal breaths. PHYSICAL EXAMINATION: VITAL SIGNS: Last temperature recorded is 97.0, pulse 83, respirations 22/24, last blood pressure recorded in the chart 126/64, and oxygen saturation on nasal cannula this morning - 91% (discussed with aide). HEENT: Normocephalic, atraumatic. No JVD. CARDIOVASCULAR: Positive S1, S2. No S3 gallop. LUNGS: Decreased breath sounds at the bases. Mild rhonchi and wheezing bilaterally persist. EXTREMITIES: Mild edema. No cyanosis, no clubbing. GASTROINTESTINAL: Abdomen is soft and nondistended. Bowel sounds are positive. SKIN: No acute rash. NEUROLOGIC: Limited at the present time. IMPRESSION: 1. Respiratory failure. 2. 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 3. Advanced chronic obstructive pulmonary disease. 4. Mild anemia. 5. Leukocytosis, rule out pneumonia. 6. Severe acidosis - resolving. PLAN: The patient is now on a medical surgical floor. She is very lethargic and mildly short of breath. I did discuss the case with the night nurse at length. The night nurse stated that the patient is doing very poorly overall. The patient now has been transitioned to comfort care only. Most of the medications have been discontinued. Input by Griselda Man (Palliative Care) is noted. Overall, the prognosis for this patient remains extremely poor. I will discuss the above with Dr. Ann this morning. Lester Bassett MD MT[facility]age
--- NOTE | 2017-04-15 13:14 | PN ---
DATE: SUBJECTIVE: I saw in the Intensive Care Unit. She has agonal breathing, not awake. She was comfortable, in no acute distress. She is on multiple medications that reflects she is actively dying. PHYSICAL EXAMINATION VITAL SIGNS: She has 96.5 temperature, 76 pulse, 105/58 blood pressure, and 12 respiratory rate, 94% O2 sat on nasal canula. HEENT: Head is atraumatic and normocephalic. She sign. The mouth is dry. HEART: Regular rate. LUNGS: Decreased breath sounds. Poor inspiration. Agonal breathing. ABDOMEN: Soft. EXTREMITIES: No edema at this time. LABORATORY DATA: No labs. Last time it was 19.4 white count with 7.6 hemoglobin. She is actively passing away. Griselda Man, the palliative care nurse, is on the case. She is also being seen by Infectious Disease, Pulmonary, Renal, and sewing machine operator plastic zipper. Doing palliative supportive care, end-of-life counseling. She is here for end-stage lung cancer, respiratory failure, end-stage renal disease with hemodialysis. Bennie Ann DO ROULA
[2017-04-16] MEDS: Morphine PCA 1 mg/ml (25ml) 25 ML IV PRN ×2 (05:09→19:32)
--- NOTE | 2017-04-16 07:52 | PN ---
DATE: SUBJECTIVE: She is a DNR/DNI. She is resting in bed with agonal breathing. She is not alert. PHYSICAL EXAMINATION VITAL SIGNS: She has a 96.4 temperature, 84 pulse, 100/62 blood pressure, 14 respiratory rate, and 92% O2 sat on room air. HEENT: Head: Atraumatic and normocephalic. "O" sign, dry mouth. HEART: Regular rate. LUNGS: Clear to auscultation with decreased breath sounds. ABDOMEN: Soft. EXTREMITIES: No edema. ASSESSMENT AND PLAN: She is failing. She is, I believe, actively dying. She is being seen by Pulmonary, Palliative Care, Infectious Diseases and Renal. 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 Prognosis is very poor, and I believe she is actively dying. We will continue with keeping her as comfortable and pain free as possible. Bennie Ann DO
[2017-04-16 08:01] VITALS: BP 113/49; PULSE 74; TEMP 97.4; O2SAT 100
[2017-04-16 09:17] VITALS: RESP 18
--- NOTE | 2017-04-16 18:20 | PN ---
DATE: 04/16/2017 SUBJECTIVE: The patient seen earlier today in 561, bed 1. The patient was seen early this morning in poor condition overall and mild shortness of breath. PHYSICAL EXAMINATION: VITAL SIGNS: Temperature is 97, blood pressure is 113/40, respiratory rate of 12, heart rate of 70. HEENT: Unremarkable. NECK: Supple. LUNGS: Decreased breath sounds. HEART: Normal S1 and S2. ABDOMEN: Soft. LABORATORY DATA: Reveals a white of count of 19,000 and hemoglobin of 7 and creatinine is 6 and microbiology is noted. There is Enterobacter in the sputum. Review of orders reveals the patient to be off of antibiotics. ASSESSMENT AND PLAN: This is a 71-year-old female who was seen early this morning in 561, who appears terminal and with systemic inflammatory response syndrome and status post ventilatory-dependent hypoxic respiratory failure with a right lung cancer with chronic consolidation, hypertension, hypothyroidism and coronary artery disease, squamous cell lung cancer and currently now off of antibiotics. Supportive care. Overall prognosis is poor. Blane Mcleod MD
--- NOTE | 2017-04-17 06:11 | CP.PCM.PRO ---
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 [id number]
--- NOTE | 2017-04-18 02:36 | DS ---
The patient was pronounced this morning. She has been on hospice comfort care and finally . She was terminally extubated a few days ago and she , who had end stage lung cancer. Bennie Ann DO
== END 2017-04-17 12:32 | DRG 870 ==
LOC: ED 13:12 → ERH 16:04 → CCU 04-08 01:19 → 5RNO 04-14 17:21 → UNDODISIN 04-17 12:31
PROVIDERS: ADMIT Family Medicine; ATTEND Family Medicine
PROC: 5A1955Z Respiratory Ventilation, Greater than 96 Consecutive Hours (ICD-10-PCS; principal; 2017-04-07)
PROC: 0BH17EZ Insertion of Endotracheal Airway into Trachea, Via Natural or Artificial Opening (ICD-10-PCS; 2017-04-07)
PROC: 5A09357 Assistance with Respiratory Ventilation, Less than 24 Consecutive Hours, Continuous Positive Airway Pressure (ICD-10-PCS; 2017-04-07)
PROC: 3E033XZ Introduction of Vasopressor into Peripheral Vein, Percutaneous Approach (ICD-10-PCS; 2017-04-07)
DX: A41.9 Sepsis, unspecified organism (principal); C34.01 Malignant neoplasm of right main bronchus; J18.1 Lobar pneumonia, unspecified organism; J96.02 Acute respiratory failure with hypercapnia; J96.01 Acute respiratory failure with hypoxia; R65.21 Severe sepsis with septic shock; N17.9 Acute kidney failure, unspecified; J44.0 Chronic obstructive pulmonary disease with (acute) lower respiratory infection; E87.4 Mixed disorder of acid-base balance; E87.3 Alkalosis; Z99.11 Dependence on respirator [ventilator] status; J98.19 Other pulmonary collapse; I11.0 Hypertensive heart disease with heart failure; I50.9 Heart failure, unspecified; D64.9 Anemia, unspecified; E89.0 Postprocedural hypothyroidism; E83.39 Other disorders of phosphorus metabolism; I25.10 Atherosclerotic heart disease of native coronary artery without angina pectoris; F03.90 Unspecified dementia, unspecified severity, without behavioral disturbance, psychotic disturbance, mood disturbance, and anxiety; E27.8 Other specified disorders of adrenal gland; E83.42 Hypomagnesemia; Z66 Do not resuscitate; E83.51 Hypocalcemia; Z87.891 Personal history of nicotine dependence; Z86.14 Personal history of Methicillin resistant Staphylococcus aureus infection